=== PATIENT | female | born 1960 | race Caucasian/White ===

== ENCOUNTER 2020-07-07 11:25 | Emergency (ER) | payer OTHER, SELFPAY ==
[2020-07-07 11:36] VITALS: BP 142/80; PULSE 81; RESP 16; TEMP 37.1; O2SAT 100; BMI 54.1
--- NOTE | 2020-07-07 12:50 | ED_ITS ---
HPI - General Adult General Chief complaint: Nausea/Vomiting/Diarrhea Stated complaint: fever covid testing Time Seen by Provider: 07/07/20 11:53 Source: patient Mode of arrival: ambulatory Limitations: no limitations History of Present Illness HPI narrative: 60-year-old female with below noted past medical history presents today with complaint of URI symptoms of rhinorrhea /congestion with some loss in taste and associated mild nausea vomiting /diarrhea for past 2 days. No associated pain or discomfort. No fever. GI symptoms described as relatively mild. States she went to the [place] [id number] area to go over testing however that area was closed to come to emergency room. Onset (ago): day(s) Severity: mild Associated symptoms: denies other symptoms Related Data Home Medications Medication Instructions Recorded Confirmed allopurinol 100 mg tablet 100 mg PO DAILY 06/27/20 06/27/20 calcium carbonate 600 mg (1,500 cap PO 06/27/20 06/27/20 mg)-vitamin D3 500 unit capsule nifedipine 20 mg capsule 20 mg PO TID 06/27/20 06/27/20 omeprazole 20 mg capsule,delayed 20 mg PO DAILY PRN 06/27/20 06/27/20 release omeprazole magnesium 20 mg 20 mg PO DAILY 06/27/20 06/27/20 tablet,delayed release progesterone micronized 200 mg 200 mg PO BEDTIME 06/27/20 06/27/20 capsule tramadol 50 mg tablet 50 mg PO TID PRN tab 06/27/20 06/27/20 Previous Rx's Medication Instructions Recorded estradiol 1 mg tablet 1 mg PO DAILY 90 Days #90 tab 06/27/20 lisinopril 5 mg tablet 5 mg PO DAILY 90 Days #90 tab 06/27/20 lorazepam 1 mg tablet 1 mg PO BID PRN 30 Days #60 tab 06/27/20 progesterone micronized 200 mg 200 mg PO BEDTIME 90 Days #90 cap 06/27/20 capsule Allergies Allergy/AdvReac Type Severity Reaction Status Date / Time cefaclor [From CECLOR] Allergy Intermediate RASH Unverified 06/07/20 16:37 cefuroxime [From CEFTIN] Allergy Intermediate RASH Unverified 06/07/20 16:37 cephalexin [From KEFLEX] Allergy Intermediate RASH Unverified 06/07/20 16:37 Penicillins [PENICILLINS] Allergy Intermediate SHORTNESS Unverified 06/07/20 16:37 OF BREATH sulfamethoxazole Allergy Intermediate RASH Unverified 06/07/20 16:37 [From BACTRIM] Sulfa (Sulfonamide Allergy Unknown hives,heart Unverified 03/07/20 00:00 Antibiotics) racing Review of Systems Review of Systems: Constitutional: No Weight loss, No Fever, No Chills, No Night Sweats, No Fatigue, No Malaise ENT/Mouth: No Hearing loss, No Ear Pain, No Nasal Congestion, No Sinus Pain, No Hoarseness, No sore throat, No Rhinorrhea, No Swallowing Difficulty Eyes: No Eye Pain, No Swelling, No Redness, No Foreign Body, No Discharge, No Vision Changes Cardiovascular: No Chest Pain, No SOB, No Dyspnea on Exertion, No Orthopnea, No Edema, No Palpitations Respiratory: No Cough, No Sputum, No Wheezing, No Smoke Exposure, No Dyspnea Gastrointestinal: No Nausea, No Vomiting, No Diarrhea, No Constipation, No abdominal Pain, No Hematochezia, No Melena Genitourinary: no irregular bleeding, No Dysuria, No Urinary Frequency, No Hematuria, No Urinary Incontinence, No Urgency, No Flank Pain, No Urinary Flow Changes, No Hesitancy Musculoskeletal: No joint pain, No Myalgias, No Joint Swelling Skin: No Skin Lesions, No rash Neuro: No Weakness, No Numbness, No Paresthesias, No Loss of Consciousness, No Dizziness, No Headache Psych: No Social Issues Heme/Lymph: No Bruising, No Bleeding,No Lymphadenopathy Endocrine: No Polyuria, No Polydipsia, No Temperature Intolerance Yes all other systems are reviewed and are negative PMFSH Past Medical History Attestation statement: The following information was validated with the patient. Medical History Anxiety GERD (gastroesophageal reflux disease) Gout Hypertension Insomnia Menopausal symptoms Migraine Osteoarthritis of knees, bilateral Overweight (BMI 25.0-29.9) Raynaud's disease Rheumatoid factor positive Vitamin D deficiency Surgical History deliv NOS-unsp History of appendectomy History of bunionectomy of right great toe Normal colonoscopy (~03/01/14) S/P bunionectomy (~12/25/16) S/P bunionectomy (~02/18/19) S/P foot surgery, left (~06/2016) Family History Family History Father Diabetes Myocardial infarct Hx of CABG Mother No problems noted. Social History Social History Smoking Status: Former smoker Advance Directives: No Advance Directives Information Provided: No Physical Exam Vital Signs: Vital Signs: Vital Signs Temp Pulse Resp BP Pulse Ox 07/07/20 11:36 98.7 F 81 16 142/80 H 100 Body Mass Index 54.1 Reviewed Const: General: cooperative and healthy appearing; No acute distress or intoxicated appearing Nutritional Appearance: average body habitus Orientation/consciousness: patient oriented x3 HENMT: Head: Yes normal to inspection Ears: hearing grossly normal bilaterally Eyes: General: appearance normal, both eyes and all related structures Visual Joyce: normal visual joyce by confrontation Neck: Neck: Yes normal visual inspection Thyroid: Thyroid normal Chest: Chest palpation & inspection: normal inspection of the chest Resp: Effort & Inspection: normal respiratory effort Cardio: Jugular venous distension: no JVD GI: Inspection: Yes normal to inspection Percussion: Yes normal to percussion Auscultation: normal bowel sounds : General: Yes no CVA tenderness Back/Spine/Pelvis: Back: no CVA tenderness Skin: General skin exam: no rashes or lesions noted Neuro: General: patient oriented x3 Extrem: General: Yes normal to inspection Course Course Course Narrative: COVID-19 pending. CDC guidelines provided. Precautions/ follow-up/return instructions provided. Verbalized understanding. Stable for discharge. Discharge Plan Discharge Clinical Impression: Viral syndrome, Gastroenteritis Patient Disposition: Home, Self-Care Instructions: Gastroenteritis (ED), Viral Syndrome (ED) Additional Instructions: Based on your symptoms and history we have sent a COVID-19. Although your RESULT IS PENDING at this time. RESULTS should return within 72 hours. At this time you will be contacted with either NEGATIVE OR POSITIVE results. -Please wait until we contact you for your results. At this time you will be okay for discharge. Please plan for self quarantine for up to 14 days. Do not expose yourself to others. You may not go to work. If testing does come back negative you may return to activities as long as you are no longer having any symptoms for at least 3 days. Please continue to follow cold instructions and wash your hands frequently. You may take Tylenol as directed on the bottle for pain or fever. Patient seen in the emergency department on 03/16/2020 and should be excused from work until negative test results AND until 72 hours without any symptoms AND at least 10 days have passed since symptoms first appeared or since last exposure to COVID-19 positive patient CDC Guidelines for home isolation: - Stay away from others - WEAR A MASK if you are sick AND STAY HOME - Cover your mouth and nose with a tissue when you cough or sneeze. Dispose of tissues in a lined trash can and wash your hands immediately with soap and water for at least 20 seconds. If soap and water are not available, clean hands with alcohol-based hand enrollment services dean that contains at least 60% alcohol. - Clean your hands often with soap and water for at least 20 seconds - Avoid touching your eyes, nose and mouth with unwashed hands - Do not share dishes, drinking glasses, cups, eating utensils, towels, or bedding with other people in your home. After using these items, wash them thoroughly with soap and water or put in the enterprise engineer. - Clean high-touch surfaces in your isolation area ( sick room and bathroom) every day; let a caregiver clean and disinfect high-touch surfaces in other areas of the home. Clean the area or item with soap and water or another detergent if it is dirty. Then, use a household disinfectant. - Limit contact with pets and animals: If you must care for a pet, wash your hands before and after interacting with them Prescriptions: No Action tramadol 50 mg tablet 50 mg PO TID PRNRF: 0 omeprazole magnesium [Prilosec OTC] 20 mg tablet,delayed release (DR/EC) 20 mg PO DAILY RF: 0 nifedipine 20 mg capsule 20 mg PO TID RF: 0 allopurinol 100 mg tablet 100 mg PO DAILY RF: 0 calcium carbonate-vitamin D3 [Calcium 600 with Vitamin D3] 600 mg(1,500mg) - 500 unit capsule PO RF: 0 progesterone micronized 200 mg capsule 200 mg PO BEDTIME RF: 0 omeprazole 20 mg capsule,delayed release(DR/EC) 20 mg PO DAILY PRNRF: 0 lorazepam 1 mg tablet 1 mg PO BID PRN (Reason: anxiety) 30 Days Qty: 60 RF: 1 lisinopril 5 mg tablet 5 mg PO DAILY 90 Days Qty: 90 RF: 3 estradiol 1 mg tablet 1 mg PO DAILY 90 Days Qty: 90 RF: 0 progesterone micronized 200 mg capsule 200 mg PO BEDTIME 90 Days Qty: 90 RF: 0 Referrals: Wang Urbina MD [Primary Care Provider] - 1 week (Phone visit ) Stand Alone Forms: Work/School Release Interventions: ED Discharge Assessment Last Done: 07/07/20 12:04 Discharge Date/Time: 07/07/20 12:08
== END 2020-07-07 12:08 | disposition home or self-care (01) ==
PROVIDERS: Nurse Practitioner Primary Care; Emergency Provider Emergency Medicine; PCP Internal Medicine
DX: B34.9 Viral infection, unspecified (principal); Z20.828 Contact with and (suspected) exposure to other viral communicable diseases; K52.9 Noninfective gastroenteritis and colitis, unspecified; I10 Essential (primary) hypertension
CPT/HCPCS: 87635; 99283

== ENCOUNTER → 2020-07-18 08:16 | Outpatient (BNVA) | payer OTHER, SELFPAY | PROVIDERS: PCP Internal Medicine; Referring Provider Internal Medicine; Visit Provider Student in an Organized Health Care Education/Training Program | DX: Z76.89 Persons encountering health services in other specified circumstances (principal) ==

== ENCOUNTER 2020-10-10 14:33 | Outpatient (REF) | payer SELFPAY ==
--- NOTE | 2020-10-10 | US_ITS ---
EXAMINATION: US EXTREMITY NON-VASCULAR CLINICAL INFORMATION: Lump along the right dorsal distal foot. COMPARISON: None TECHNIQUE: Limited imaging through the right foot was performed. FINDINGS: There is a hypoechoic/heterogeneous mass in the area of palpable lump approximately 2 cm above the right great toe. By clinical palpation, the lump is painful and moves with the big toe movement. The lump measures approximately 0.9 x 0.5 x 0.3 cm by ultrasound. US/US extremity nonvascular IMPRESSION: Heterogeneous elliptical solid mass-oriented longitudinally along the right foot. It is likely a nerve sheath neuroma or a fibroma. Giant cell tumor of the tendon sheath and ganglion cyst is considered less likely. For definite diagnosis evaluation with MRI can be performed.
== END 2020-10-10 14:34 | disposition home or self-care (01) ==
LOC: HO.US 14:33
PROVIDERS: Visit Provider Podiatrist
DX: M67.471 Ganglion, right ankle and foot (principal)
CPT/HCPCS: 76882

== ENCOUNTER 2020-11-13 10:22 | Outpatient (REF) | payer BC, SELFPAY ==
--- NOTE | 2020-11-13 10:34 | ECG_ITS ---
Test Reason : Z01.818 - Encounter for other preprocedural examination Blood Pressure : / mmHG Vent. Rate : 073 BPM Atrial Rate : 073 BPM P-R Int : 136 ms QRS Dur : 086 ms QT Int : 380 ms P-R-T Axes : 071 049 045 degrees QTc Int : 418 ms Normal sinus rhythm Normal ECG When compared with ECG of 18-DEC-2016 08:31, Nonspecific T wave abnormality no longer evident in Anterior leads Referred By: Wang Urbina Electronically Signed By:LAZARA JONES MD
[2020-11-13 11:17] LABS: MANUAL DIFF FLAG NO
[2020-11-13 11:38] LABS: Basophils Absolute Auto 0.1 X10*3/uL (0.0-0.2); Basophils Percent Auto 1.1 % (0-2); Eosinophils Absolute Auto 0.2 X10*3/uL (0.0-0.4); Eosinophils Percent Auto 3.1 % (0-4); Hematocrit 40.1 % (37-47); Hemoglobin 13.7 g/dl (12.0-16.0); Imm Gran Abs Auto 0.02 X10*3/uL (0.00-0.03); Imm Gran Pct Auto 0.3 % (0.0-0.4); Lymphocytes Percent Auto 26.6 % (20-40); Mean Corpuscular HGB Conc 34.2 g/dl (31.0-35.0); Mean Corpuscular Hemoglobin 32.7 pg (27.0-33.0); Mean Corpuscular Volume 95.7 fL (80-98); Monocytes Absolute Auto 0.8 X10*3/uL (0.1-1.2); Monocytes Percent Auto 10.8 % (2-11); Neutrophils Absolute Auto 4.3 X10*3/uL (2.0-8.3); Neutrophils Percent Auto 58.1 % (45-73); Platelet Count 284 X10*3/uL (160-400); Red Blood Count 4.19 X10*6/uL (4.20-5.50); Red Cell Distribution Width 11.6 % (11.0-16.0); White Blood Count 7.4 X10*3/uL (4.8-10.8)
[2020-11-13 11:45] LABS: Alanine Aminotransferase 27 U/L (0-31); Albumin Level 4.2 g/dL (3.5-5.0); Alkaline Phosphatase 63 U/L (39-117); Anion Gap 13 (12-20); Aspartate Amino Transferase 22 U/L (5-31); Bilirubin Total 0.4 mg/dL (0.0-1.0); Blood Urea Nitrogen 10 mg/dL (9-16); Calcium 9.7 mg/dL (8.4-10.2); Carbon Dioxide 29 mmol/L (22-29); Chloride 104 mmol/L (96-108); Cholesterol 101 mg/dL; Estimated Glomerular Filt Rate > 60; Glucose Fasting 85 mg/dL (60-99); HDL Cholesterol 48 mg/dL; LDL Cholesterol Calculated 39 mg/dl; Potassium 4.6 mmol/L (3.3-5.1); Sodium 141 mmol/L (135-145); Total Protein 7.1 g/dL (6.5-8.0); Triglycerides 71 mg/dL
[2020-11-13 12:09] LABS: TSH reflex Free T4 0.81 uIU/mL (0.32-4.0)
[2020-11-13 13:26] LABS: Erythrocyte Sedimentation Rate 5 MM/HR (0-20)
== END 2020-11-13 10:23 | disposition home or self-care (01) ==
LOC: HO.LAB 10:22
PROVIDERS: PCP Internal Medicine; Visit Provider Internal Medicine
DX: Z01.818 Encounter for other preprocedural examination (principal); I73.00 Raynaud's syndrome without gangrene; I10 Essential (primary) hypertension; E11.9 Type 2 diabetes mellitus without complications; R76.8 Other specified abnormal immunological findings in serum; E78.5 Hyperlipidemia, unspecified; E55.9 Vitamin D deficiency, unspecified
CPT/HCPCS: 36415; 80053; 80061; 82306; 84443; 85025; 85652; 93005

== ENCOUNTER 2020-11-22 06:43 | Day surgery (SDC) | payer BC, SELFPAY ==
[2020-11-16 14:52] VITALS: BMI 25.9
--- NOTE | 2020-11-21 14:31 | HP_ITS ---
DATE OF SERVICE: 11/22/2020 PREOPERATIVE DIAGNOSES: 1. Ganglion cyst, right foot. 2. 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 PLANNED PROCEDURE: 1. Excision of ganglion cyst, right foot. 2. Extensor tenotomy, right 5th metatarsophalangeal joint. PAST MEDICAL HISTORY: Significant for high blood pressure, arthritis, Raynaud's, hip, back and knee pain, gout, chickenpox, poor circulation, bunions. CURRENT MEDICATIONS: Vitamin and calcium plus D, lorazepam, progesterone, estradiol, lisinopril, allopurinol, omeprazole. PAST SURGICAL HISTORY: Appendectomy, , colonoscopy, left foot bunionectomy with 5th metatarsal head excision, right foot bunionectomy with 5th metatarsal head excision, right foot revisional bunionectomy. FAMILY HISTORY: Poor circulation, heart attack, high blood pressure. SOCIAL HISTORY: The patient is a nonsmoker. Denies any illicit drug use or alcohol use. 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 ALLERGIES: PENICILLIN, BACTRIM, CEFACLOR, KEFLEX, CEFTIN, AMOXICILLIN, AND VICODIN. HOSPITALIZATIONS: Denies any hospitalizations. REVIEW OF SYSTEMS: Within normal limits. HISTORY OF PRESENT ILLNESS: This is a 60-year-old female, presents with a painful lump on the top of her right mid foot, that has been present for several months, that has been gradually getting worse. She has tried rest, orthotics, cortisone injections, and an ultrasound. She also complains of contracture of the right 5th toe. The patient had a 5th metatarsal head excision, has had contracture of the 5th extensor tendon. PHYSICAL EXAMINATION: GENERAL: Reveals a pleasant, alert, well-nourished, well-developed, well-hydrated individual, with proper body habitus and attention to hygiene, in no acute distress. She is oriented x3. NEUROLOGICAL EXAM: Reveals intact sensorium. Pain sensation is normal. Vibratory sensation is intact. Pinprick sensation is normal. The patient denies any anesthesia, burning, paresthesias, or tingling bilaterally. VASCULAR EXAM: DP and PT pulses are 3/4 bilaterally. Capillary refill time is immediate to all digits. Skin temperature is warm to cool proximal to distal. Hair growth, texture, elasticity are normal bilaterally. Pigmentation is normal bilaterally and there is no edema. DERMATOLOGICAL EXAM: Shows signs of a painful, non-translucent, nonpulsatile, nonmobile, subcutaneous tumor approximately 10 mm on the dorsal mid foot, on the right foot along the EHL tendon. ORTHOPEDIC EXAM: Muscle strength is 5/5 in all symmetrical groups. Digital deformity shows metatarsophalangeal joint contracture and dorsal subluxation of the 5th digit that is flexible on the right foot. PLAN: The patient is scheduled for surgery at [facility]. Surgical procedures were discussed in detail with the patient including risks of surgery and not having surgery, the potential surgical complications. The potential surgical outcomes and complications including, but not limited to delayed or nonhealing, excessive swelling, excessive scarring, failure of the procedure, floppy toe infection, nonunion, numbness, chronic pain, recurrence, shortened toe, joint stiffness, and loss of toe, foot, life, or limb. The anesthesia and the usual postoperative course were also discussed. No guarantees were given. We decided on performing an excision of ganglion cyst, and tenotomy of the right 5th toe. Per patient requests based on patient's complaints, medical history, social history, physical exam, x-ray analysis, living and driving conditions to ambulate with a cast boot, cane, crutches, walker in the required postoperative period. Hermila checked prior to giving narcotic pain medications prescription, pain medications using the lowest dosage of narcotics to a short duration of time. She was given a written prescription of oxycodone 5 mg as well as ibuprofen 800 mg and she can stagger taking 800 mg Motrin with extra-strength Tylenol as needed for discomfort. The patient will be weightbearing as tolerated in a surgical shoe or cast boot per her preference. Allison Dorantes DPM LP/ANNELISE / [id number] DEWEY
[2020-11-22 07:20] VITALS: BP 132/88; PULSE 75; RESP 16; TEMP 37.2; O2SAT 98
--- NOTE | 2020-11-22 07:20 | HO.ANESPROP2 ---
[facility] Active Problems Active Problems: All Active Problems (Updated 11/13/20 @ 10:05 by Wang Urbina MD) Ganglion cyst of right foot (Acute) Preoperative examination (Acute) Primary osteoarthritis of hands, bilateral (Acute) Hypertension (Acute) Raynaud's disease (Acute) Rheumatoid factor positive (Acute) Osteoarthritis of knees, bilateral (Acute) Migraine (Acute) Gout (Acute) GERD (gastroesophageal reflux disease) (Acute) Vitamin D deficiency (Acute) Menopausal symptoms (Acute) Insomnia (Acute) Anxiety (Acute) Overweight (BMI 25.0-29.9) (Acute) Past Medical History Medical History Anxiety Ganglion cyst of right foot GERD (gastroesophageal reflux disease) Gout Hypertension Insomnia Menopausal symptoms Migraine Osteoarthritis of knees, bilateral Overweight (BMI 25.0-29.9) Primary osteoarthritis of hands, bilateral Raynaud's disease Rheumatoid factor positive Vitamin D deficiency Family History Family History Father Diabetes Myocardial infarct Hx of CABG Mother No problems noted. Surgical History Surgical History deliv NOS-unsp History of appendectomy History of bunionectomy of right great toe Normal colonoscopy (~03/01/14) S/P bunionectomy (~12/25/16) S/P bunionectomy (~02/18/19) S/P foot surgery, left (~06/2016) Social History Social History Alcohol intake: current Alcohol intake frequency: a few times a month Smoking Status: Former smoker Smoking Quit Date: 2016 Use of substances other than those prescribed or required for medical reasons: No Advance Directives: No Advance Directives Information Provided: No Advance Directives on File: No Meds Allergies Allergy/AdvReac Type Severity Reaction Status Date / Time cefaclor [From CECLOR] Allergy Intermediate RASH Verified 11/13/20 09:34 cefuroxime [From CEFTIN] Allergy Intermediate RASH Verified 11/13/20 09:34 cephalexin [From KEFLEX] Allergy Intermediate RASH Verified 11/13/20 09:34 Penicillins [PENICILLINS] Allergy Intermediate SHORTNESS Verified 11/13/20 09:34 OF BREATH sulfamethoxazole Allergy Intermediate RASH Verified 11/13/20 09:34 [From BACTRIM] Sulfa (Sulfonamide Allergy Unknown hives,heart Verified 11/13/20 09:34 Antibiotics) racing acetaminophen [From Vicodin] Allergy Stomach Verified 11/22/20 07:42 Upset hydrocodone [From Vicodin] Allergy Stomach Verified 11/22/20 07:42 Upset Home Medications Medication Instructions Recorded Confirmed Last Taken Type calcium carbonate 600 mg (1,500 1 cap PO DAILY 06/27/20 11/16/20 Unknown History mg)-vitamin D3 500 unit capsule omeprazole 20 mg capsule,delayed 20 mg PO DAILY 06/27/20 11/16/20 Unknown History release estradiol 1 mg tablet 1 mg PO DAILY tab 11/13/20 11/16/20 Unknown History nifedipine 20 mg PO BID 11/16/20 11/16/20 Unknown History Exam Exam Date and Time: November 22, 2020 0720 Height,Weight and Vital Signs: Height 5 ft 1 in Weight 62.142 kg Airway Mallampati Class: II TM Dist: >3cm Neck ROM: Full Loose/Missing/Broken Teeth: No Heart: RRR Lungs: CTA Assessment and Plan Assessment Anesthesia Assessment: Anesthesia Plan Discussed and Chart Reviewed Final Anesthetic Review NPO: Yes ASA Class: I, II, III, IV, V, and Emergency Final Preanesthetic Review: Meds/Allgs Chart Reviewed, Consent Obtained/Reviewed and Anes Risks/Benef Reviewed Patient Risk: Low Procedure Risk: Low Anesthetic Plan Anesthetic Plan: MAC: Disposition: Standard PACU
--- NOTE | 2020-11-22 08:31 | MHC.SHP ---
Pre-Procedural Eval Section A The patient is an INPATIENT: No Changes since office visit: No Cold of Flu in the past 2 weeks, No New Medical Problems, No Changes in Medication and No Patient answered all questions The History & Physical has been completed within 30 days and I have reviewed it.: Yes Section B Chief Complaint: ganglion foot Allergies: Allergies Allergy/AdvReac Type Severity Reaction Status Date / Time cefaclor [From CECLOR] Allergy Intermediate RASH Verified 11/13/20 09:34 cefuroxime [From CEFTIN] Allergy Intermediate RASH Verified 11/13/20 09:34 cephalexin [From KEFLEX] Allergy Intermediate RASH Verified 11/13/20 09:34 Penicillins [PENICILLINS] Allergy Intermediate SHORTNESS Verified 11/13/20 09:34 OF BREATH sulfamethoxazole Allergy Intermediate RASH Verified 11/13/20 09:34 [From BACTRIM] Sulfa (Sulfonamide Allergy Unknown hives,heart Verified 11/13/20 09:34 Antibiotics) racing acetaminophen [From Vicodin] Allergy Stomach Verified 11/22/20 07:42 Upset hydrocodone [From Vicodin] Allergy Stomach Verified 11/22/20 07:42 Upset Plan I have reviewed the history and physical and performed a pertinent physical examination on my patient. No changes have occurred unless specified.
--- NOTE | 2020-11-22 09:15 | PM.OP ---
Brief Operative Note Date of Service: 11/22/20 Pre-op diagnosis: Ganglion cyst right foot, contracture 5th MPJ right Post-op diagnosis: same Procedure: Right foot ganglion excision, tenotomy 5th MPJ right Implants: none Surgeon: Allison Dorantes Anesthesia: GLMA Blanking Press Operator: Jb Gaitan Estimated blood loss (mL): 1 Tourniquet time (min): 15 Pathology: other Condition: stable Disposition: PACU
[2020-11-22 09:17] VITALS: BP 123/78; PULSE 73; RESP 16; TEMP 36.6; O2SAT 99
[2020-11-22 09:22] VITALS: BP 114/80; PULSE 77; RESP 17; O2SAT 98
[2020-11-22 09:27] VITALS: BP 128/82; PULSE 65; RESP 17; O2SAT 98
[2020-11-22 09:42] VITALS: BP 136/85; PULSE 68; RESP 17; TEMP 36.6; O2SAT 96
--- NOTE | 2020-11-26 12:52 | OP_ITS ---
SURGEON: Allison Dorantes DPM PREOPERATIVE DIAGNOSES: 1. Ganglion cyst, right foot. 2. Dislocated metatarsophalangeal joint, contracture of right 5th toe. POSTOPERATIVE DIAGNOSES: 1. Ganglion cyst, right foot. 2. Dislocated metatarsophalangeal joint, contracture of right 5th toe. PROCEDURES PERFORMED: 1. Excision of ganglion cyst, right foot. 2. Relocation open tenotomy of dislocated 5th metatarsophalangeal joint, right foot. HEMOSTASIS: Pneumatic ankle tourniquet set at 250 mmHg for 15 minutes. ESTIMATED BLOOD LOSS: Less than 5 mL. COMPLICATIONS: None. ANESTHESIA: LMA with local consisting of 0.5% Marcaine plain and 2% lidocaine plain and postoperatively of 0.5% Marcaine plain and 1 mL of dexamethasone. ASSISTANTS: Jb Gaitan DPM SPECIMENS: Ganglion right foot INDICATIONS FOR SURGERY: The patient had a painful soft tissue mass noted to the right foot overlying the EHL tendon that had been getting bigger and smaller over time, that has been very uncomfortable in shoe gear. The patient also complained of contracture of the 5th MPJ. The above-mentioned surgeries were discussed in detail with the patient including risks, benefits, and possible complications. No guarantees were given, and written and oral informed consent was obtained. DESCRIPTION OF PROCEDURE: The patient was brought into the operating room, placed on operating table in the supine position. Following IV sedation, the above-mentioned local anesthetic was injected about the right foot in a regional field block fashion. 1 g of vancomycin was administered preoperatively prior to the start of anesthesia. The right foot was scrubbed, prepped, and draped in a sterile manner. The pneumatic ankle tourniquet was deflated and attention was first directed to the 5th digit at the level of the 5th metatarsophalangeal joint. A small incision was made and the extensor tendon was transected allowing the 5th digit to drift into a more corrected position and the adhesions were also transected at the 5th MPJ. The wound was irrigated with sterile saline and was reapproximated with 4-0 nylon in an interrupted suture technique. Attention was then directed to the dorsal aspect of the mid foot overlying the EHL tendon, where preoperatively the ganglion cyst was noted. The ganglion cyst on the morning of surgery was smaller than usual and was marked in the preoperative area and a small incision was made overlying the palpable cyst. Upon incision, there was noted to be some cyst-like tissue and a soft tissue mass was removed in total and passed my operative site and sent for pathology. Directly plantar to the soft tissue mass was the EHL tendon, there was noted to be Prolene stitches in the EHL tendon from a previous EHL tendon lengthening the patient had at a previous surgery. The tendon was completely healed at this time and functional. Therefore, it was noted that the Prolene was to be possibly forming the ganglion cyst. The Prolene was removed incompletion and passed from my operative site. The tendon was remained intact and functioned normally. The wound was then irrigated with copious amounts of normal sterile saline and the skin was reapproximated with 4-0 Monocryl in a continuous running fashion. The dorsal incision was dressed with Steri-Strips. The lateral incision was dressed with Xeroform and the foot was dressed with Betadine-soaked gauze, 4 x 4s, fluffs, Kerlix, cast padding, and an Edmundo bandage. The pneumatic ankle tourniquet was deflated. Prompt capillary refill was noted to all 5 digits. Prior to the application of the bandage, a postoperative injection of 5 mL of 0.5% Marcaine plain and 1 mL of dexamethasone was administered to the right foot. The patient was transferred to recovery room with vital signs stable and vascular status at preoperative levels. Following a period of postoperative recovery, the patient will be discharged home with written and oral postoperative instructions, and the patient will follow up in my office for all postoperative followup care. She will be weightbearing as tolerated to the right foot in a surgical shoe and crutches as needed. She has been given oxycodone for breakthrough pain and recommended taking Tylenol or Motrin for any additional pain medication. Allison Dorantes DPM LP/ANNELISE / [id number] DEWEY
== END 2020-11-22 10:15 | disposition home or self-care (01) ==
PROVIDERS: PCP Internal Medicine; Visit Provider Podiatrist
PROC: (CPT 28090; principal; 2020-11-22 08:30)
DX: M67.471 Ganglion, right ankle and foot (principal); M24.574 Contracture, right foot; M20.5X1 Other deformities of toe(s) (acquired), right foot; M10.9 Gout, unspecified; M05.9 Rheumatoid arthritis with rheumatoid factor, unspecified; I10 Essential (primary) hypertension; K21.9 Gastro-esophageal reflux disease without esophagitis; I73.00 Raynaud's syndrome without gangrene; Z79.899 Other long term (current) drug therapy; Z88.0 Allergy status to penicillin; Z88.2 Allergy status to sulfonamides; Z88.8 Allergy status to other drugs, medicaments and biological substances
CPT/HCPCS: 28090; 28234; 88304; J1100; J1885; J2250; J2405; J3010; J3370

== ENCOUNTER 2021-03-21 09:44 | Day surgery (SDC) | payer BC, SELFPAY ==
[2021-03-15 11:37] VITALS: BMI 25.9
[2021-03-19 14:38] LABS: MANUAL DIFF FLAG NO
[2021-03-19 14:41] LABS: Basophils Percent Auto 0.5 % (0-2); Eosinophils Absolute Auto 0.3 X10*3/uL (0.0-0.4); Eosinophils Percent Auto 3.9 % (0-4); Hematocrit 40.8 % (37-47); Hemoglobin 13.6 g/dl (12.0-16.0); Imm Gran Abs Auto 0.02 X10*3/uL (0.00-0.03); Imm Gran Pct Auto 0.3 % (0.0-0.4); Lymphocytes Absolute Auto 2.1 X10*3/uL (1.2-4.9); Lymphocytes Percent Auto 28.5 % (20-40); Mean Corpuscular HGB Conc 33.3 g/dl (31.0-35.0); Monocytes Absolute Auto 0.7 X10*3/uL (0.1-1.2); Monocytes Percent Auto 9.9 % (2-11); Neutrophils Absolute Auto 4.3 X10*3/uL (2.0-8.3); Neutrophils Percent Auto 56.9 % (45-73); Platelet Count 259 X10*3/uL (160-400); Red Blood Count 4.25 X10*6/uL (4.20-5.50); Red Cell Distribution Width 11.6 % (11.0-16.0); White Blood Count 7.5 X10*3/uL (4.8-10.8)
[2021-03-19 15:17] LABS: Alanine Aminotransferase 31 U/L (0-31); Albumin Level 4.3 g/dL (3.5-5.0); Alkaline Phosphatase 68 U/L (39-117); Anion Gap 13 (12-20); Aspartate Amino Transferase 24 U/L (5-31); Bilirubin Total 0.2 mg/dL (0.0-1.0); Blood Urea Nitrogen 9 mg/dL (9-16); Calcium 9.8 mg/dL (8.4-10.2); Carbon Dioxide 26 mmol/L (22-29); Chloride 105 mmol/L (96-108); Creatinine Clr Calc Pharmacy 71.1; Estimated Glomerular Filt Rate > 60; Glucose Random 125 mg/dL (60-115); Potassium 4.2 mmol/L (3.3-5.1); Sodium 140 mmol/L (135-145); Total Protein 7.1 g/dL (6.5-8.0)
--- NOTE | 2021-03-20 14:09 | HP_ITS ---
DATE OF SERVICE: 03/21/2021 PREOPERATIVE DIAGNOSIS: Painful hardware, right foot. PLANNED PROCEDURE: Removal of painful hardware, right foot. PAST MEDICAL HISTORY: Significant for high blood pressure; arthritis; Raynaud; hip, back, and knee pain; gout; chickenpox; poor circulation; and tailor's bunions as well as hallux abductovalgus deformity. CURRENT MEDICATIONS: Calcium, lorazepam, progesterone, estradiol, lisinopril, allopurinol, omeprazole. SURGICAL HISTORY: Appendectomy; ; colonoscopy; left Brady excision of fifth metatarsal head, 2014; right Brady excision of fifth metatarsal head, 2016; Lapidus bunionectomy, 2018; and excision of ganglion cyst, right foot, 2020. FAMILY HISTORY: Heart attack, poor circulation, diabetes, hypertension. SOCIAL HISTORY: Patient is a nonsmoker. Denies any illicit drug use. 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 ALLERGIES: TO PENICILLIN, BACTRIM, CEFACLOR, KEFLEX, CEFTIN, AMOXICILLIN, AND VICODIN. HOSPITALIZATIONS: Denied. REVIEW OF SYSTEMS: Within normal limits. HISTORY OF PRESENT ILLNESS: The patient presents with aching, tenderness, and swelling to the top of her right mid foot over the incision site from her previous bunionectomy that has been present for several weeks and is gradually getting worse, especially with standing for her job. The patient relates she is not able to stand for a whole shift of 8 hours at her job currently. She has tried rest, change in shoes, orthotics, and padding without any significant relief. PHYSICAL EXAMINATION: GENERAL: Reveals a pleasant, alert, well-nourished, well hydrated, well developed individual, who demonstrates proper attention to body habitus. She is in no acute distress. She is oriented x3. NEUROLOGICAL: Reveals intact sensorium. Pain sensation is normal. Vibratory sensation is intact. The patient denies any anesthesias, burning paresthesias, or tingling bilaterally. VASCULAR: DP and PT pulses are 3/4 bilaterally. Capillary refill is immediate to all digits. Skin temperature, elasticity, and turgor are normal. There is no edema. DERMATOLOGICAL: Reveals normal texture, elasticity, and turgor. There is a previous incision noted to the 1st metatarsal cuneiform and 1st metatarsophalangeal joint as well as over the 5th metatarsal head of the right foot. ORTHOPEDIC: Reveals pain on palpation to the 1st metatarsal cuneiform joint at the level of the hardware, prominent hardware noted to the distal implantation, and thin skin overlying hardware. PLAN: The patient is scheduled for surgery. Surgical procedures to treat the patient's foot problems were discussed. We reviewed the risks of procedure, removal of painful hardware versus not having the procedure, including persistent pain, deformity, risk of skin ulceration, infection, and loss of toe. We discussed the potential procedure complications including, but not limited to, pain; swelling; bleeding; scarring; numbness; infection; delayed or nonhealing; floppy, unstable, or shortened toe; recurrence; failure of procedure; over-correction; and the need for further surgery; as well as possibility of loss of toe, foot, life, or limb. We discussed the use of local and IV anesthesia and the usual postoperative healing. No guarantees were given. The patient understands a verbal understanding of the above conversation and all other questions were answered to their satisfaction. The patient would like to proceed with surgery. She will obtain preoperative labs as well as medical clearance for surgery and anesthesia. She is made aware to stop any and all blood thinners including fish oil at least 1 week prior to surgery. She is made aware that driving may not be allowed during a portion of the postoperative period. The patient made aware not to utilize any smoking tobacco products. The [employer] was checked prior to prescription for narcotic pain medications. The patient will be partial weightbearing to the right foot in a surgical boot and crutches as needed. The patient will be out of work for approximately 4 weeks postoperatively to facilitate healing. The patient will follow up in my office for all postoperative followup care. Allison Dorantes DPM LP/ANNELISE / [id number]
[2021-03-21 10:49] VITALS: BP 109/74; PULSE 76; RESP 16; TEMP 36.6; O2SAT 97
[2021-03-21] MEDS: vancomycin HCL 1,000 MG in 0.9 % Sodium Chloride 250 ML 270 MG IV (11:03)
--- NOTE | 2021-03-21 11:11 | HO.ANESPROP2 ---
PENDING SALE TO [facility] Active Problems Active Problems: All Active Problems (Updated 03/19/21 @ 14:32 by Wang Urbina MD) Contracture of toe of right foot (Acute) Preoperative examination (Acute) Ganglion cyst of right foot (Acute) Primary osteoarthritis of hands, bilateral (Acute) Hypertension (Acute) Raynaud's disease (Acute) Rheumatoid factor positive (Acute) Osteoarthritis of knees, bilateral (Acute) Migraine (Acute) Gout (Acute) GERD (gastroesophageal reflux disease) (Acute) Vitamin D deficiency (Acute) Menopausal symptoms (Acute) Insomnia (Acute) Anxiety (Acute) Overweight (BMI 25.0-29.9) (Acute) Past Medical History Medical History Anxiety Contracture of toe of right foot Ganglion cyst of right foot GERD (gastroesophageal reflux disease) Gout Hypertension Insomnia Menopausal symptoms Migraine Osteoarthritis of knees, bilateral Overweight (BMI 25.0-29.9) Primary osteoarthritis of hands, bilateral Raynaud's disease Rheumatoid factor positive Vitamin D deficiency Family History Family History Father Diabetes Myocardial infarct Hx of CABG Mother No problems noted. Surgical History Surgical History deliv NOS-unsp History of appendectomy History of bunionectomy of right great toe Normal colonoscopy (~03/01/14) S/P bunionectomy (~12/25/16) S/P bunionectomy (~02/18/19) S/P foot surgery, left (~06/2016) S/P foot surgery, right Social History Social History Housing: House Are you a primary care aid to a significant other at home: No Do you presently have visiting nurse or other home services: No Alcohol intake: current Alcohol intake frequency: holidays/special occasions only Patient Tobacco Use Status: Former Tobacco user Quit Date: 2016 Tobacco use type: Cigarette Use of substances other than those prescribed or required for medical reasons: No Have you been hit, kicked, punched, or otherwise hurt by someone within the past year? 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 [employer] Meds Allergies Allergy/AdvReac Type Severity Reaction Status Date / Time cefaclor [From CECLOR] Allergy Intermediate RASH Verified 03/19/21 13:55 cefuroxime [From CEFTIN] Allergy Intermediate RASH Verified 03/19/21 13:55 cephalexin [From KEFLEX] Allergy Intermediate RASH Verified 03/19/21 13:55 Penicillins [PENICILLINS] Allergy Intermediate SHORTNESS Verified 03/19/21 13:55 OF BREATH sulfamethoxazole Allergy Intermediate RASH Verified 03/19/21 13:55 [From BACTRIM] Sulfa (Sulfonamide Allergy Unknown hives,heart Verified 03/19/21 13:55 Antibiotics) racing hydrocodone [From Vicodin] Allergy Stomach Verified 03/19/21 13:55 Upset Active Medications: Current Medications Generic Name Dose Route Start Last Admin Trade Name Freq PRN Reason Stop Dose Admin Acetaminophen 650 mg 03/21/21 11:08 Acetaminophen 325 Mg Tablet PO ONCE PRN Pain, Mild (Pain Scale 1-3) Vancomycin HCl 1,000 mg/ 270 mls @ 270 mls/hr 03/21/21 10:30 03/21/21 11:03 Sodium Chloride IV 03/21/21 11:29 270 mls/hr PREOP ONE Administration Lactated Ringer's 1,000 mls @ 50 mls/hr 03/21/21 11:15 Lr IVCONT .Q20H [facility] Ketorolac Tromethamine 15 mg 03/21/21 11:08 Ketorolac Tromethamine 15 Mg/Ml Vial IVPUSH ONCE PRN Pain, Moderate (Pain Scale 4-6 Ondansetron HCl 4 mg 03/21/21 11:08 Ondansetron Hcl 4 Mg/2 Ml Vial IVPUSH ONCE PRN Nausea and Vomiting Oxycodone HCl 5 mg 03/21/21 11:08 Oxycodone Hcl Immed Release 5 Mg Tablet PO ONCE PRN Pain, Severe (Pain Scale 7-10) Home Medications Medication Instructions Recorded Confirmed Last Taken Type calcium carbonate 600 mg (1,500 1 cap PO DAILY 06/27/20 03/19/21 Unknown History mg)-vitamin D3 500 unit capsule omeprazole 20 mg capsule,delayed 20 mg PO DAILY 06/27/20 03/19/21 03/21/21 07:00 History release nifedipine 20 mg PO BID 11/16/20 03/19/21 03/21/21 07:00 History Exam Exam Date and Time: March 21, 2021 1111 Height,Weight and Vital Signs: Height 5 ft 1 in Weight 137 lb Last Vital Signs Temp 97.8 F 03/21/21 10:49 Pulse 76 03/21/21 10:49 Resp 16 03/21/21 10:49 BP 109/74 03/21/21 10:49 Pulse Ox 97 03/21/21 10:49 Pertinent Lab Results Pertinent Lab Results: Laboratory Tests 03/19/21 03/19/21 14:03 14:03 WBC 7.5 RBC 4.25 Hgb 13.6 Hct 40.8 MCV 96.0 MCH 32.0 MCHC 33.3 RDW 11.6 Plt Count 259 MPV 10.0 Immature Gran % (Auto) 0.3 Neut % (Auto) 56.9 Lymph % (Auto) 28.5 [place] % (Auto) 9.9 Eos % (Auto) 3.9 Baso % (Auto) 0.5 Lymph # (Auto) 2.1 [place] # (Auto) 0.7 Eos # (Auto) 0.3 Baso # (Auto) 0.0 Abs Immat Gran (auto) 0.02 Absolute Neuts (auto) 4.3 Absolute Nucleated RBC 0.000 Nucleated RBC % (auto) 0.0 Sodium 140 Potassium 4.2 Chloride 105 Carbon Dioxide 26 Anion Gap 13 BUN 9 Creatinine 0.72 Estim Creat Clear Calc 71.1 Estimated GFR > 60 Random Glucose 125 H Calcium 9.8 Total Bilirubin 0.2 AST 24 ALT 31 Alkaline Phosphatase 68 Total Protein 7.1 Albumin 4.3 Airway Mallampati Class: II TM Dist: >3cm Neck ROM: Full Loose/Missing/Broken Teeth: No Heart: RRR Lungs: NL Assessment and Plan Assessment Anesthesia Assessment: Anesthesia Plan Discussed and Chart Reviewed Final Anesthetic Review NPO: Yes ASA Class: II Final Preanesthetic Review: No Changes in Pt Med Stat, Meds/Allgs Chart Reviewed, Consent Obtained/Reviewed and Anes Risks/Benef Reviewed Patient Risk: Low Procedure Risk: Low Anesthetic Plan Anesthetic Plan: MAC: Disposition: Standard PACU
--- NOTE | 2021-03-21 14:14 | PM.OP ---
Brief Operative Note Date of Service: 03/21/21 Pre-op diagnosis: Painful hardware right foot Post-op diagnosis: same Procedure: Removal of painful hardware right foot Implants: None Surgeon: Allison Dorantes Anesthesia: MAC and local Was an Barrel Brander used for this Procedure?: Yes Barrel Brander: Jb Gaitan Estimated blood loss (mL): 5 Tourniquet time (min): 24 Pathology: none sent Condition: stable Disposition: PACU
[2021-03-21 14:16] VITALS: BP 97/62; PULSE 80; RESP 14; TEMP 36.6; O2SAT 96
[2021-03-21] MEDS: oxyCODONE HCl Immed Release 5 MG TABLET PO (14:24)
[2021-03-21] MEDS: Acetaminophen 325 MG TABLET 650 MG PO (14:25)
[2021-03-21 14:34] VITALS: BP 107/71; PULSE 80; RESP 18; TEMP 36.6; O2SAT 94
--- NOTE | 2021-05-30 15:27 | OP_ITS ---
SURGEON: Allison Dorantes DPM PREOPERATIVE DIAGNOSIS: Painful hardware, right foot. POSTOPERATIVE DIAGNOSIS: Painful hardware, right foot. PROCEDURE PERFORMED: Right foot hardware removal. ESTIMATED BLOOD LOSS: 5 mL. COMPLICATIONS: None. ANESTHESIA: Monitored anesthetic care with local consisting preoperatively of 12 mL of 0.5% Marcaine plain and 2% lidocaine plain and postoperatively of 5 mL of 0.5% Marcaine plain and 1 mL of dexamethasone. ASSISTANTS: Jb Gaitan DPM. SPECIMENS: None. HEMOSTASIS: Pneumatic ankle tourniquet set at 225 mmHg for 24 minutes. INDICATIONS FOR SURGERY: The patient had a painful hardware noted to the right foot from a previous bunionectomy. On x-ray, the fusion site of the bunion was healed. The patient stated the plate was bothering her in her shoes with working. The above-mentioned surgery was discussed in detail with the patient including risks, benefits, and possible complications. No guarantees were given, and written and oral informed consent was obtained. PROCEDURE IN DETAIL: Patient was brought to the operating room, placed in operating table. Prior to the start of anesthesia, vancomycin was administered as a prophylactic preoperative antibiotic. The right foot was anesthetized with the above-mentioned local anesthetic and was scrubbed, prepped, and draped in a sterile manner. Attention was directed to the right foot at the level of the first metatarsal cuneiform joint. Incision was made overlying the painful hardware. The incision was deepened down to subcutaneous tissue. Great care was taken to retract any vital, neuro, and vascular structures; and all bleeders were cauterized as necessary. A capsulotomy was made medial and parallel to the extensor tendon to the level of the hardware. The soft tissues were freed from the plate and screws from the [employer] system. Using the screwdriver all 4 screws from the plate and the plate itself was removed in total and passed from the operative site. The holes from the screws were then backfilled with PRO-STIM from [place]. The interfrag screw was noted to be flush with the bone and when attempted to remove was spinning continuously. After numerous efforts to remove the screw, it was determined to leave the interfrag screw in for stability and also due to the inability to remove the screw as well as the patient did not relate any pain over the interfrag screw only the dorsal of the plate. The screw continued to be flush with the bone and without any protrusion. The wound was irrigated with normal sterile saline. The capsular structures were reapproximated with 3-0 Vicryl. The skin was reapproximated with 4-0 Monocryl in a continuous running fashion, and a postop injection of 5 mL of 0.5% Marcaine plain and 1 mL of dexamethasone was administered. The foot was then dressed with the zip line, Betadine-soaked gauze, 4x4s, fluffs, Kerlix, cast padding, and an Edmundo bandage. Pneumatic ankle tourniquet was deflated. Prompt capillary refill was noted to all 5 digits. The patient tolerated the procedure and anesthesia well, was transferred to the recovery room with vital signs stable and vascular status at preoperative levels. Following a period of postoperative recovery, the patient will be discharged to home with written and oral postoperative instructions. Allison Dorantes DPM LP/ANNELISE / [id number] [place]
== END 2021-03-21 15:42 | disposition home or self-care (01) ==
PROVIDERS: PCP Internal Medicine; Visit Provider Podiatrist
PROC: (CPT 20680; principal; 2021-03-21 11:40)
DX: T84.84XA Pain due to internal orthopedic prosthetic devices, implants and grafts, initial encounter (principal); M79.671 Pain in right foot; M79.89 Other specified soft tissue disorders; G89.18 Other acute postprocedural pain; Y79.3 Surgical instruments, materials and orthopedic devices (including sutures) associated with adverse incidents; M10.9 Gout, unspecified; Y92.9 Unspecified place or not applicable; Y83.8 Other surgical procedures as the cause of abnormal reaction of the patient, or of later complication, without mention of misadventure at the time of the procedure; I73.00 Raynaud's syndrome without gangrene; I10 Essential (primary) hypertension; Z79.899 Other long term (current) drug therapy; Z88.0 Allergy status to penicillin; Z88.1 Allergy status to other antibiotic agents; Z88.8 Allergy status to other drugs, medicaments and biological substances; Z87.891 Personal history of nicotine dependence
CPT/HCPCS: 20680; 36415; 80053; 85025; C1713; J1100; J2250; J3010; J3370

== ENCOUNTER 2021-05-15 10:09 | Outpatient (REF) | payer BC, SELFPAY ==
--- NOTE | ~2021-05-15 | MM_ITS ---
EXAMINATION: MM SCREENING DIGITAL BREAST TOMOSYNTHESIS, BILATERAL CLINICAL INFORMATION: Screening. Asymptomatic. The lifetime risk of breast cancer based on the Tyrer-Cuzick Model is 5%. COMPARISON: Mammography: 05/09/2020, 05/06/2019, 05/05/2018, 03/27/2017 TECHNIQUE: Digital breast tomosynthesis is performed in both the craniocaudal and mediolateral oblique views along with computer-aided detection (CAD). Synthesized 2D images are generated from the tomosynthesis. FINDINGS: There are scattered areas of fibroglandular density (ACR BI-RADS breast composition Category b). There are no significant masses, abnormal calcifications, or other abnormalities. Parenchymal pattern is similar to prior exams. No developing density. There is a stable smooth nodule posterior upper outer left breast. MM/MM tomosynthesis screening BI IMPRESSION: No mammographic evidence of malignancy. ASSESSMENT: BI-RADS 2: Benign RECOMMENDATION: Routine annual mammography screening. This patient's information was entered into a reminder system with a target due date for their next mammogram.
== END 2021-05-15 10:10 | disposition home or self-care (01) ==
LOC: HO.MAMMO 10:09
PROVIDERS: Visit Provider Obstetrics & Gynecology
DX: Z12.31 Encounter for screening mammogram for malignant neoplasm of breast (principal)
CPT/HCPCS: 77063; 77067

== ENCOUNTER 2021-10-29 10:07 | Outpatient (REF) | payer BC, SELFPAY ==
[2021-10-29 10:23] LABS: MANUAL DIFF FLAG NO
[2021-10-29 11:26] LABS: Basophils Percent Auto 0.5 % (0-2); Eosinophils Absolute Auto 0.1 X10*3/uL (0.0-0.4); Eosinophils Percent Auto 1.6 % (0-4); Hemoglobin 14.3 g/dl (12.0-16.0); Imm Gran Abs Auto 0.02 X10*3/uL (0.00-0.03); Imm Gran Pct Auto 0.3 % (0.0-0.4); Lymphocytes Absolute Auto 1.7 X10*3/uL (1.2-4.9); Lymphocytes Percent Auto 23.5 % (20-40); Mean Platelet Volume 10.1 fL (9.4-12.3); Monocytes Absolute Auto 0.8 X10*3/uL (0.1-1.2); Monocytes Percent Auto 10.5 % (2-11); Neutrophils Absolute Auto 4.7 x10*3/uL (2.0-8.3); Neutrophils Percent Auto 63.6 % (45-73); Platelet Count 266 X10*3/uL (160-400); Red Blood Count 4.33 X10*6/uL (4.20-5.50); Red Cell Distribution Width 11.9 % (11.0-16.0); White Blood Count 7.4 X10*3/uL (4.8-10.8)
[2021-10-29 11:57] LABS: Appearance Urine HAZY; Color Urine YELLOW; Glucose Urine UA NEG (NEG); Leukocyte Esterase Urine NEG (NEG); Nitrite Urine NEG (NEG); Specific Gravity - Urine 1.025 (1.005-1.025); Urine Blood NEG (NEG); Urine Ketones NEG (NEG); Urine Protein NEG (NEG-TRACE)
[2021-10-29 12:04] LABS: Erythrocyte Sedimentation Rate 5 MM/HR (0-20)
[2021-10-29 12:24] LABS: TSH reflex Free T4 1.27 uIU/mL (0.32-4.0); Vitamin D 25-OH Total 28.9 ng/mL (>30)
[2021-10-29 13:13] LABS: Alanine Aminotransferase 53 U/L (0-31); Albumin Level 4.2 g/dL (3.5-5.0); Alkaline Phosphatase 83 U/L (39-117); Anion Gap 15 (12-20); Aspartate Amino Transferase 45 U/L (5-31); Bilirubin Total 0.9 mg/dL (0.0-1.0); Blood Urea Nitrogen 7 mg/dL (9-16); C Reactive Protein 0.25 mg/dL (< or = 0.50); Calcium 10.2 mg/dL (8.4-10.2); Carbon Dioxide 28 mmol/L (22-29); Chloride 101 mmol/L (96-108); Cholesterol 112 mg/dL; Estimated Glomerular Filt Rate > 60; Glucose Fasting 100 mg/dL (60-99); HDL Cholesterol 42 mg/dL; LDL Cholesterol Calculated 53 mg/dl; Potassium 4.6 mmol/L (3.3-5.1); Rheumatoid Factor 16.6 IU/mL (<15.0); Sodium 139 mmol/L (135-145); Total Protein 7.3 g/dL (6.5-8.0); Triglycerides 87 mg/dL; Uric Acid 5.4 mg/dL (2.4-5.7)
[2021-10-31 23:11] LABS: Anti Nuclear Antibody Screen POSITIVE (NEGATIVE)
== END 2021-10-29 10:08 | disposition home or self-care (01) ==
LOC: HO.LAB 10:07
PROVIDERS: PCP Internal Medicine; Visit Provider Internal Medicine
DX: Z00.00 Encounter for general adult medical examination without abnormal findings (principal); M25.50 Pain in unspecified joint; M10.9 Gout, unspecified; E55.9 Vitamin D deficiency, unspecified; E78.00 Pure hypercholesterolemia, unspecified; I10 Essential (primary) hypertension
CPT/HCPCS: 36415; 80053; 80061; 81003; 82306; 84443; 84550; 85025; 85652; 86038; 86039; 86140; 86431

== ENCOUNTER 2021-12-05 09:52 | Outpatient (REF) | payer BC, SELFPAY ==
--- NOTE | 2021-12-05 11:41 | PFT_ITS ---
INDICATION: Dyspnea. SPIROMETRY: FEV1 to FVC of 75% with an FEV1 of 2.17 L which is 96% predicted, and FVC of 2.88 L, which is 98% predicted. No significant response to bronchodilators noted. To note, the FEF 25/75 decreased down to 76% predicted suggesting evidence of small airways disease. LUNG VOLUMES: Total lung capacity 109% predicted. DIFFUSION CAPACITY: DLCO 90% predicted. COMPARISONS: None. INTERPRETATION: No obstructive nor restrictive ventilatory defects identified. No significant response to bronchodilators noted. Normal maximum voluntary ventilation. Although, the patient may have some component of small airways disease, which may be related to respiratory bronchiolitis from smoking. Lung volumes are within normal limits. Diffusion capacity is within normal limits. If asthma is in the differential, methacholine challenge may be helpful in assessing for hyper-reactive airways, otherwise clinical correlation warranted. Jhony Farias MD MR/MODL / [id number]
== END 2021-12-05 09:53 | disposition home or self-care (01) ==
LOC: HO.RESP 09:52
PROVIDERS: PCP Internal Medicine; Visit Provider Internal Medicine
DX: R06.00 Dyspnea, unspecified (principal)
CPT/HCPCS: 94060; 94727; 94729

== ENCOUNTER 2022-03-10 15:23 | Outpatient (REF) | payer BC, SELFPAY ==
--- NOTE | ~2022-03-10 | XR_ITS ---
EXAMINATION: XR HAND, RIGHT CLINICAL INFORMATION: Pain. COMPARISON: Radiographs dated 11/17/2018. TECHNIQUE: PA, lateral, and oblique views of the right hand. FINDINGS: Bony alignment and mineralization are normal. No fracture or dislocation is seen. There is mild osteoarthritic change of the fifth proximal and distal interphalangeal joints. There is mild osteoarthritic change of the first carpometacarpal joint. The proximal and distal carpal rows are intact. No abnormal bone erosion is seen. The soft tissue planes are unremarkable, without gas or foreign body. XR/XR hand RT min 3V IMPRESSION: There is mild osteoarthritic change of the interphalangeal joints of the fifth finger and of the first carpometacarpal joint. No fracture or dislocation is seen. There is no abnormal bone erosion. EXAMINATION: XR HAND, LEFT CLINICAL INFORMATION: Pain. COMPARISON: Radiographs dated 11/17/2018. TECHNIQUE: PA, lateral, and oblique views of the left hand. FINDINGS: Bony alignment and mineralization are normal. No fracture or dislocation is seen. There is mild osteoarthritic change of the fourth distal interphalangeal joint and of the fifth proximal and distal interphalangeal joints. The proximal and distal carpal rows are intact. No abnormal bone erosion is seen. There is no soft tissue gas or foreign body. IMPRESSION: Mild osteoarthritic change is seen of the fourth and fifth fingers, as detailed. No fracture or dislocation is seen. There is no abnormal bone erosion.
--- NOTE | ~2022-03-10 | XR_ITS ---
EXAMINATION: XR FOOT, RIGHT CLINICAL INFORMATION: Pain. COMPARISON: Right ankle radiographs dated 10/10/2015. TECHNIQUE: AP, lateral, and oblique views of the right foot. FINDINGS: There is bony demineralization. There has been a prior bunionectomy. An orthopedic screw is seen applied to the proximal right first metatarsal bone. There has been a prior resection of the right fifth metatarsal head. No fracture, dislocation or right ankle joint effusion is seen. Boehler's angle is normal. There is a minimal plantar calcaneal spur. There are no abnormal bony erosive changes. No soft tissue gas or foreign body is seen. XR/XR foot LT min 3V IMPRESSION: There are postoperative changes of the right foot, as detailed. No fracture, dislocation or right ankle joint effusion is seen. There is no abnormal bone erosion. EXAMINATION: XR FOOT, LEFT CLINICAL INFORMATION: Pain. COMPARISON: Regressed dated 12/26/2014. TECHNIQUE: AP, lateral, and oblique views of the left foot. FINDINGS: There is mild bony demineralization. There is a mild hallux valgus configuration. No fracture, dislocation or left ankle joint effusion is seen. Boehler's angle is normal. There are moderate posterior and tiny plantar calcaneal spurs. There has been a prior resection of the left fifth metatarsal head. There is mild osteoarthritic change of the left first metatarsophalangeal joint. There is no abnormal bone erosion. No soft tissue gas or foreign body is seen. IMPRESSION: 1. No fracture, dislocation or left ankle joint effusion is seen. 2. There has been a prior resection of the left fifth metatarsal head. 3. There is mild osteoarthritic change of the left first metatarsophalangeal joint. 4. There are calcaneal spurs, as detailed.
--- NOTE | ~2022-03-10 | XR_ITS ---
EXAMINATION: XR HAND, RIGHT CLINICAL INFORMATION: Pain. COMPARISON: Radiographs dated 11/17/2018. TECHNIQUE: PA, lateral, and oblique views of the right hand. FINDINGS: Bony alignment and mineralization are normal. No fracture or dislocation is seen. There is mild osteoarthritic change of the fifth proximal and distal interphalangeal joints. There is mild osteoarthritic change of the first carpometacarpal joint. The proximal and distal carpal rows are intact. No abnormal bone erosion is seen. The soft tissue planes are unremarkable, without gas or foreign body. XR/XR hand LT min 3V IMPRESSION: There is mild osteoarthritic change of the interphalangeal joints of the fifth finger and of the first carpometacarpal joint. No fracture or dislocation is seen. There is no abnormal bone erosion. EXAMINATION: XR HAND, LEFT CLINICAL INFORMATION: Pain. COMPARISON: Radiographs dated 11/17/2018. TECHNIQUE: PA, lateral, and oblique views of the left hand. FINDINGS: Bony alignment and mineralization are normal. No fracture or dislocation is seen. There is mild osteoarthritic change of the fourth distal interphalangeal joint and of the fifth proximal and distal interphalangeal joints. The proximal and distal carpal rows are intact. No abnormal bone erosion is seen. There is no soft tissue gas or foreign body. IMPRESSION: Mild osteoarthritic change is seen of the fourth and fifth fingers, as detailed. No fracture or dislocation is seen. There is no abnormal bone erosion.
--- NOTE | ~2022-03-10 | XR_ITS ---
EXAMINATION: XR FOOT, RIGHT CLINICAL INFORMATION: Pain. COMPARISON: Right ankle radiographs dated 10/10/2015. TECHNIQUE: AP, lateral, and oblique views of the right foot. FINDINGS: There is bony demineralization. There has been a prior bunionectomy. An orthopedic screw is seen applied to the proximal right first metatarsal bone. There has been a prior resection of the right fifth metatarsal head. No fracture, dislocation or right ankle joint effusion is seen. Boehler's angle is normal. There is a minimal plantar calcaneal spur. There are no abnormal bony erosive changes. No soft tissue gas or foreign body is seen. XR/XR foot RT min 3V IMPRESSION: There are postoperative changes of the right foot, as detailed. No fracture, dislocation or right ankle joint effusion is seen. There is no abnormal bone erosion. EXAMINATION: XR FOOT, LEFT CLINICAL INFORMATION: Pain. COMPARISON: Regressed dated 12/26/2014. TECHNIQUE: AP, lateral, and oblique views of the left foot. FINDINGS: There is mild bony demineralization. There is a mild hallux valgus configuration. No fracture, dislocation or left ankle joint effusion is seen. Boehler's angle is normal. There are moderate posterior and tiny plantar calcaneal spurs. There has been a prior resection of the left fifth metatarsal head. There is mild osteoarthritic change of the left first metatarsophalangeal joint. There is no abnormal bone erosion. No soft tissue gas or foreign body is seen. IMPRESSION: 1. No fracture, dislocation or left ankle joint effusion is seen. 2. There has been a prior resection of the left fifth metatarsal head. 3. There is mild osteoarthritic change of the left first metatarsophalangeal joint. 4. There are calcaneal spurs, as detailed.
[2022-03-10 15:17] LABS: MANUAL DIFF FLAG NO
[2022-03-10 16:34] LABS: Basophils Absolute Auto 0.1 X10*3/uL (0.0-0.2); Basophils Percent Auto 0.9 % (0-2); Eosinophils Absolute Auto 0.2 X10*3/uL (0.0-0.4); Eosinophils Percent Auto 2.6 % (0-4); Hematocrit 47.3 % (37.0-47.0); Hemoglobin 15.8 g/dl (12.0-16.0); Imm Gran Abs Auto 0.02 X10*3/uL (0.00-0.03); Imm Gran Pct Auto 0.3 % (0.0-0.4); Lymphocytes Absolute Auto 2.3 X10*3/uL (1.2-4.9); Lymphocytes Percent Auto 30.7 % (20-40); Mean Corpuscular HGB Conc 33.4 g/dl (31.0-35.0); Mean Corpuscular Hemoglobin 32.5 pg (27.0-33.0); Mean Corpuscular Volume 97.3 fL (80.0-98.0); Monocytes Absolute Auto 0.8 X10*3/uL (0.1-1.2); Monocytes Percent Auto 9.8 % (2-11); Neutrophils Absolute Auto 4.3 x10*3/uL (2.0-8.3); Neutrophils Percent Auto 55.7 % (45-73); Platelet Count 264 X10*3/uL (160-400); Red Blood Count 4.86 X10*6/uL (4.20-5.50); White Blood Count 7.6 X10*3/uL (4.8-10.8)
[2022-03-10 17:00] LABS: Alanine Aminotransferase 90 U/L (0-31); Albumin Level 4.4 g/dL (3.5-5.0); Alkaline Phosphatase 103 U/L (39-117); Anion Gap 13 (12-20); Aspartate Amino Transferase 50 U/L (5-31); Bilirubin Total 0.5 mg/dL (0.0-1.0); Blood Urea Nitrogen 5 mg/dL (9-16); C Reactive Protein 0.72 mg/dL (< or = 0.50); Calcium 9.7 mg/dL (8.4-10.2); Carbon Dioxide 28 mmol/L (22-29); Chloride 101 mmol/L (96-108); Creatinine Clr Calc Pharmacy 72.4; Estimated Glomerular Filt Rate > 60; Glucose Random 92 mg/dL (60-115); Iron 89 mcg/dL (30-160); Percent Iron Saturation 28 % (15-50); Potassium 4.4 mmol/L (3.3-5.1); Rheumatoid Factor < 15.0 IU/mL (<15.0); Sodium 138 mmol/L (135-145); Total Iron Binding Capacity 314 mcg/dL (228-428); Total Protein 7.8 g/dL (6.5-8.0); Unsaturated Iron Binding 225 ug/dL
[2022-03-10 17:26] LABS: Erythrocyte Sedimentation Rate 6 MM/HR (0-20)
[2022-03-11 04:31] LABS: HBS Num1 1.78 mIU/mL (0-7.99); HBc Num1 0.43 S/CO (0.00-0.79); HBsAGNum1 0.24 S/CO (0.00-0.99); Hepatitis B Core Antibody Nonreactive (Nonreactive); Hepatitis B Surface Antigen Negative (Negative); ~HepC Num1 0.09 S/CO (0.00-0.79); ~Hepatitis B Surface Antibody NONREACTIVE (Nonreactive); ~Hepatitis C Antibody Nonreactive (Nonreactive)
[2022-03-12 03:57] LABS: Hepatitis A Antibody IgM 0.13 Index (0-0.79); ~Hepatitis A Antibody IgM Nonreactive (Nonreactive)
[2022-03-12 19:53] LABS: Cyclic Citrullinated Peptide <16 UNITS
== END 2022-03-10 15:24 | disposition home or self-care (01) ==
LOC: HO.XRAY 15:23
PROVIDERS: PCP Internal Medicine; Visit Provider Internal Medicine Rheumatology
DX: M79.641 Pain in right hand (principal); M79.642 Pain in left hand; R76.8 Other specified abnormal immunological findings in serum; M79.673 Pain in unspecified foot; G89.29 Other chronic pain; R79.89 Other specified abnormal findings of blood chemistry; I73.00 Raynaud's syndrome without gangrene
CPT/HCPCS: 36415; 73130; 73630; 80053; 83540; 85025; 85652; 86140; 86200; 86431; 86704; 86706; 86709; 86803; 87340

== ENCOUNTER 2022-05-16 10:19 | Outpatient (REF) | payer BC, SELFPAY ==
--- NOTE | ~2022-05-16 | MM_ITS ---
EXAMINATION: MM SCREENING DIGITAL BREAST TOMOSYNTHESIS, BILATERAL CLINICAL INFORMATION: Screening. Asymptomatic. The lifetime risk of breast cancer based on the Tyrer-Cuzick Model is 3%. COMPARISON: Mammography: 05/15/2021, 05/09/2020, 05/06/2019 TECHNIQUE: Digital breast tomosynthesis is performed in both the craniocaudal and mediolateral oblique views along with computer-aided detection (CAD). Synthesized 2D images are generated from the tomosynthesis. FINDINGS: There are scattered areas of fibroglandular density (ACR BI-RADS breast composition Category b). There are no significant masses, abnormal calcifications, or other abnormalities. Circumscribed nodule, possibly intramammary node is again noted posterior upper outer left breast similar to prior studies. No developing density. No significant changes. MM/MM tomosynthesis screening BI IMPRESSION: No mammographic evidence of malignancy. ASSESSMENT: BI-RADS 2: Benign RECOMMENDATION: Routine annual mammography screening. This patient's information was entered into a reminder system with a target due date for their next mammogram.
== END 2022-05-16 10:20 | disposition home or self-care (01) ==
LOC: HO.MAMMO 10:19
PROVIDERS: PCP Internal Medicine; Visit Provider Internal Medicine
DX: Z12.31 Encounter for screening mammogram for malignant neoplasm of breast (principal)
CPT/HCPCS: 77063; 77067

== ENCOUNTER 2022-08-28 10:46 | Outpatient (REF) | payer BC, SELFPAY ==
[2022-09-02 03:43] LABS: TS Negative Control Passed; TS Panel A 0; TS Panel B 0; TS Positive Control Passed; TSpotTB Negative (Negative)
== END 2022-08-28 10:47 | disposition home or self-care (01) ==
LOC: HO.LAB 10:46
PROVIDERS: PCP Internal Medicine; Visit Provider Internal Medicine Rheumatology
DX: Z11.1 Encounter for screening for respiratory tuberculosis (principal); Z79.60 Long term (current) use of unspecified immunomodulators and immunosuppressants
CPT/HCPCS: 36415; 86481

== ENCOUNTER → 2022-09-16 09:50 | Outpatient (BNVA) | payer BC, SELFPAY | PROVIDERS: PCP Internal Medicine; Visit Provider Internal Medicine Rheumatology | DX: Z79.4 Long term (current) use of insulin (principal) ==

== ENCOUNTER 2022-10-15 07:50 | Outpatient (REF) | payer BC, SELFPAY ==
[2022-10-15 08:41] LABS: MANUAL DIFF FLAG NO
[2022-10-15 08:52] LABS: Basophils Absolute Auto 0.1 X10*3/uL (0.0-0.2); Basophils Percent Auto 0.9 % (0-2); Eosinophils Absolute Auto 0.2 X10*3/uL (0.0-0.4); Eosinophils Percent Auto 3.9 % (0-4); Hematocrit 43.3 % (37.0-47.0); Hemoglobin 15.1 g/dl (12.0-16.0); Imm Gran Abs Auto 0.05 X10*3/uL (0.00-0.03); Imm Gran Pct Auto 0.9 % (0.0-0.4); Lymphocytes Absolute Auto 1.6 X10*3/uL (1.2-4.9); Lymphocytes Percent Auto 28.7 % (20-40); Mean Corpuscular HGB Conc 34.9 g/dl (31.0-35.0); Mean Corpuscular Hemoglobin 33.9 pg (27.0-33.0); Mean Corpuscular Volume 97.1 fL (80.0-98.0); Mean Platelet Volume 9.3 fL (9.4-12.3); Monocytes Absolute Auto 0.7 X10*3/uL (0.1-1.2); Monocytes Percent Auto 12.3 % (2-11); Neutrophils Percent Auto 53.3 % (45-73); Platelet Count 228 X10*3/uL (160-400); Red Blood Count 4.46 X10*6/uL (4.20-5.50); Red Cell Distribution Width 11.9 % (11.0-16.0); White Blood Count 5.7 X10*3/uL (4.8-10.8)
[2022-10-15 09:23] LABS: C Reactive Protein 0.16 mg/dL (< or = 0.50)
[2022-10-15 09:29] LABS: Erythrocyte Sedimentation Rate 5 MM/HR (0-20)
== END 2022-10-15 07:51 | disposition home or self-care (01) ==
LOC: HO.LAB 07:50
PROVIDERS: PCP Internal Medicine; Visit Provider Internal Medicine Rheumatology
DX: M06.00 Rheumatoid arthritis without rheumatoid factor, unspecified site (principal); I73.00 Raynaud's syndrome without gangrene; Z79.60 Long term (current) use of unspecified immunomodulators and immunosuppressants; Z79.899 Other long term (current) drug therapy
CPT/HCPCS: 36415; 85025; 85652; 86140

== ENCOUNTER 2022-11-12 11:03 | Outpatient (REF) | payer BC, SELFPAY ==
--- NOTE | ~2022-11-12 | XR_ITS ---
EXAMINATION: XR RIBS, LEFT CLINICAL INFORMATION: Pleurodynia. Left posterior rib pain after fall COMPARISON: None TECHNIQUE: 3 views of the left ribs were obtained. PA view of the chest. FINDINGS: Lungs are clear. No consolidation, pneumothorax, or pleural effusion. The cardiomediastinal silhouette and pulmonary vasculature are normal. A marker overlies the lower left ribs. Osseous structures are unremarkable. Ribs are intact. No fractures are identified. XR/XR ribs LT min 3V w CXR1V IMPRESSION: Clear lungs. No focal rib abnormality identified.
== END 2022-11-12 11:04 | disposition home or self-care (01) ==
LOC: HO.XRAY 11:03
PROVIDERS: PCP Internal Medicine; Visit Provider Internal Medicine
DX: R07.81 Pleurodynia (principal)
CPT/HCPCS: 71101

== ENCOUNTER → 2023-03-04 10:10 | Outpatient (BNVA) | payer BC, SELFPAY | PROVIDERS: PCP Internal Medicine; Visit Provider Internal Medicine Rheumatology ==

== ENCOUNTER 2023-03-04 11:03 | Outpatient (REF) | payer BC, SELFPAY ==
[2023-03-04 13:16] LABS: MANUAL DIFF FLAG NO
[2023-03-04 13:27] LABS: Basophils Absolute Auto 0.1 X10*3/uL (0.0-0.2); Basophils Percent Auto 0.7 % (0-2); Eosinophils Absolute Auto 0.3 X10*3/uL (0.0-0.4); Eosinophils Percent Auto 3.5 % (0-4); Hematocrit 42.9 % (37.0-47.0); Hemoglobin 14.6 g/dl (12.0-16.0); Imm Gran Abs Auto 0.03 X10*3/uL (0.00-0.03); Imm Gran Pct Auto 0.4 % (0.0-0.4); Lymphocytes Percent Auto 25.6 % (20-40); Mean Corpuscular Hemoglobin 33.9 pg (27.0-33.0); Mean Corpuscular Volume 99.5 fL (80.0-98.0); Mean Platelet Volume 10.4 fL (9.4-12.3); Monocytes Absolute Auto 0.8 X10*3/uL (0.1-1.2); Monocytes Percent Auto 10.5 % (2-11); Neutrophils Absolute Auto 4.5 x10*3/uL (2.0-8.3); Neutrophils Percent Auto 59.3 % (45-73); Platelet Count 230 X10*3/uL (160-400); Red Blood Count 4.31 X10*6/uL (4.20-5.50); Red Cell Distribution Width 11.9 % (11.0-16.0); White Blood Count 7.6 X10*3/uL (4.8-10.8)
[2023-03-04 13:37] LABS: C Reactive Protein 0.76 mg/dL (< or = 0.50)
[2023-03-04 14:15] LABS: Erythrocyte Sedimentation Rate 6 MM/HR (0-20)
== END 2023-03-04 11:04 | disposition home or self-care (01) ==
LOC: HO.10HDL 11:03
PROVIDERS: Visit Provider Internal Medicine Rheumatology
DX: M06.00 Rheumatoid arthritis without rheumatoid factor, unspecified site (principal); Z79.60 Long term (current) use of unspecified immunomodulators and immunosuppressants; Z79.899 Other long term (current) drug therapy
CPT/HCPCS: 36415; 85025; 85652; 86140

== ENCOUNTER 2023-03-10 08:36 | Outpatient (REF) | payer BC, SELFPAY ==
[2023-03-10 10:37] LABS: MANUAL DIFF FLAG NO
[2023-03-10 10:42] LABS: Appearance Urine Clear; Color Urine Yellow; Glucose Urine UA Negative (Negative); Leukocyte Esterase Urine Negative (Negative); Nitrite Urine Negative (Negative); PH 5.5 (5.0-9.0); Specific Gravity - Urine 1.015 (1.005-1.025); Urine Blood Negative (Negative); Urine Ketones Negative (Negative); Urine Protein Negative (Neg-Trace)
[2023-03-10 10:45] LABS: Basophils Percent Auto 0.5 % (0-2); Eosinophils Absolute Auto 0.3 X10*3/uL (0.0-0.4); Eosinophils Percent Auto 3.5 % (0-4); Hematocrit 44.8 % (37.0-47.0); Hemoglobin 15.1 g/dl (12.0-16.0); Imm Gran Abs Auto 0.04 X10*3/uL (0.00-0.03); Imm Gran Pct Auto 0.5 % (0.0-0.4); Lymphocytes Absolute Auto 1.5 X10*3/uL (1.2-4.9); Lymphocytes Percent Auto 17.8 % (20-40); Mean Corpuscular HGB Conc 33.7 g/dl (31.0-35.0); Mean Corpuscular Hemoglobin 33.5 pg (27.0-33.0); Mean Corpuscular Volume 99.3 fL (80.0-98.0); Mean Platelet Volume 10.4 fL (9.4-12.3); Monocytes Absolute Auto 0.8 X10*3/uL (0.1-1.2); Monocytes Percent Auto 9.6 % (2-11); Neutrophils Absolute Auto 5.6 x10*3/uL (2.0-8.3); Neutrophils Percent Auto 68.1 % (45-73); Platelet Count 265 X10*3/uL (160-400); Red Blood Count 4.51 X10*6/uL (4.20-5.50); Red Cell Distribution Width 11.9 % (11.0-16.0); White Blood Count 8.2 X10*3/uL (4.8-10.8)
[2023-03-10 11:16] LABS: Alanine Aminotransferase 79 U/L (0-31); Alkaline Phosphatase 73 U/L (39-117); Anion Gap 17 (12-20); Aspartate Amino Transferase 93 U/L (5-31); Bilirubin Total 0.6 mg/dL (0.0-1.0); Blood Urea Nitrogen 11 mg/dL (9-16); Carbon Dioxide 25 mmol/L (22-29); Chloride 102 mmol/L (96-108); Cholesterol 129 mg/dL; Estimated Glomerular Filt Rate > 60; Glucose Fasting 106 mg/dL (60-99); HDL Cholesterol 37 mg/dL; LDL Cholesterol Calculated 74 mg/dl; Potassium 4.2 mmol/L (3.3-5.1); Sodium 140 mmol/L (135-145); Total Protein 7.7 g/dL (6.5-8.0); Triglycerides 91 mg/dL
[2023-03-10 11:20] LABS: Vitamin D 25-OH Total 54.5 ng/mL (>30)
== END 2023-03-10 08:37 | disposition home or self-care (01) ==
LOC: HO.10HDL 08:36
PROVIDERS: Visit Provider Internal Medicine
DX: I10 Essential (primary) hypertension (principal); E78.00 Pure hypercholesterolemia, unspecified; R30.0 Dysuria; M10.9 Gout, unspecified; E55.9 Vitamin D deficiency, unspecified
CPT/HCPCS: 36415; 80053; 80061; 81003; 82306; 84443; 84550; 85025

== ENCOUNTER 2023-04-15 08:13 | Outpatient (REF) | payer BC, SELFPAY ==
--- NOTE | ~2023-04-15 | US_ITS ---
EXAMINATION: US ABDOMEN COMPLETE CLINICAL INFORMATION: Abnormal findings of blood chemistry. COMPARISON: None available. TECHNIQUE: Real-time imaging of the abdominal viscera. FINDINGS: PANCREAS: Visualized portions unremarkable. ABDOMINAL AORTA: Visualized portions unremarkable. INFERIOR VENA CAVA: Visualized portions unremarkable. LIVER: Diffuse increased echotexture without focal abnormality. GALLBLADDER: Unremarkable. COMMON BILE DUCT: Measures up to 0.7 cm without intraluminal abnormality in the visualized portions. RIGHT KIDNEY: 10.3 cm. Unremarkable. LEFT KIDNEY: 11.0 cm. Unremarkable. SPLEEN: 10.0 cm. Unremarkable. FREE FLUID: None. US/US abdomen complete IMPRESSION: Hepatic steatosis without other significant abnormality.
[2023-04-15 10:48] LABS: Estimated Average Glucose 97 mg/dL
[2023-04-15 11:28] LABS: Alanine Aminotransferase 75 U/L (0-31); Albumin Level 3.8 g/dL (3.5-5.0); Alkaline Phosphatase 80 U/L (39-117); Anion Gap 11 (12-20); Aspartate Amino Transferase 85 U/L (5-31); Bilirubin Total 0.5 mg/dL (0.0-1.0); Blood Urea Nitrogen 8 mg/dL (9-16); Calcium 9.3 mg/dL (8.4-10.2); Carbon Dioxide 30 mmol/L (22-29); Chloride 103 mmol/L (96-108); Estimated Glomerular Filt Rate > 60; Glucose Random 93 mg/dL (60-115); Potassium 4.2 mmol/L (3.3-5.1); Sodium 140 mmol/L (135-145); Total Protein 7.1 g/dL (6.5-8.0)
== END 2023-04-15 08:14 | disposition home or self-care (01) ==
LOC: HO.US 08:13
PROVIDERS: PCP Internal Medicine; Visit Provider Internal Medicine
DX: R79.89 Other specified abnormal findings of blood chemistry (principal); Z79.899 Other long term (current) drug therapy
CPT/HCPCS: 36415; 76700; 80053; 83036

== ENCOUNTER 2023-05-30 10:12 | Outpatient (REF) | payer BC, SELFPAY | END 2023-05-30 10:13 | disposition home or self-care (01) | LOC: HO.MAMMO 10:12 | PROVIDERS: Absent Provider Obstetrics & Gynecology; PCP Internal Medicine; Visit Provider Internal Medicine | DX: Z12.31 Encounter for screening mammogram for malignant neoplasm of breast (principal) | CPT/HCPCS: 77063; 77067 ==

== ENCOUNTER → 2023-05-30 10:30 | Outpatient (BNV) | payer BC, SELFPAY | PROVIDERS: Absent Provider Obstetrics & Gynecology; PCP Internal Medicine; Visit Provider Radiology Diagnostic Radiology | DX: Z12.31 Encounter for screening mammogram for malignant neoplasm of breast (principal) | CPT/HCPCS: 77063; 77067 ==

== ENCOUNTER 2023-07-14 09:16 | Outpatient (REF) | payer BC, SELFPAY ==
[2023-07-14 10:45] LABS: Appearance Urine Cloudy; Color Urine Dark Yellow; Glucose Urine UA Negative (Negative); Leukocyte Esterase Urine Trace (Negative); Nitrite Urine Negative (Negative); PH 5.5 (5.0-9.0); Specific Gravity - Urine 1.025 (1.005-1.025); UMIC TRIGGER UACC YES; Urine Blood Negative (Negative); Urine Ketones Negative (Negative); Urine Protein 30 (1+) mg/dL (Neg-Trace)
[2023-07-14 10:48] LABS: Bacteria Urine 4+ (None Seen); Squamous Epithelial Cell Urine >20 /HPF (0-2); UACC Culture Trigger YES
[2023-07-14 10:51] LABS: MANUAL DIFF FLAG NO
[2023-07-14 10:52] LABS: Basophils Absolute Auto 0.1 X10*3/uL (0.0-0.2); Basophils Percent Auto 0.7 % (0-2); Eosinophils Absolute Auto 0.3 X10*3/uL (0.0-0.4); Eosinophils Percent Auto 4.3 % (0-4); Hematocrit 44.5 % (37.0-47.0); Imm Gran Abs Auto 0.03 X10*3/uL (0.00-0.03); Imm Gran Pct Auto 0.4 % (0.0-0.4); Lymphocytes Absolute Auto 1.5 X10*3/uL (1.2-4.9); Lymphocytes Percent Auto 22.4 % (20-40); Mean Corpuscular HGB Conc 33.7 g/dl (31.0-35.0); Mean Corpuscular Hemoglobin 33.7 pg (27.0-33.0); Mean Platelet Volume 10.1 fL (9.4-12.3); Monocytes Absolute Auto 0.7 X10*3/uL (0.1-1.2); Neutrophils Absolute Auto 4.2 x10*3/uL (2.0-8.3); Neutrophils Percent Auto 62.2 % (45-73); Platelet Count 239 X10*3/uL (160-400); Red Blood Count 4.45 X10*6/uL (4.20-5.50); White Blood Count 6.7 X10*3/uL (4.8-10.8)
[2023-07-14 11:31] LABS: Erythrocyte Sedimentation Rate 5 MM/HR (0-20)
[2023-07-14 11:47] LABS: Rheumatoid Factor < 13.0 IU/mL (<15.0)
[2023-07-14 11:59] LABS: Alanine Aminotransferase 58 U/L (0-31); Albumin Level 4.1 g/dL (3.5-5.0); Alkaline Phosphatase 76 U/L (39-117); Anion Gap 12 (12-20); Aspartate Amino Transferase 56 U/L (5-31); Bilirubin Total 0.4 mg/dL (0.0-1.0); Blood Urea Nitrogen 7 mg/dL (9-16); C Reactive Protein 0.43 mg/dL (< or = 0.50); Calcium 9.9 mg/dL (8.4-10.2); Carbon Dioxide 28 mmol/L (22-29); Chloride 104 mmol/L (96-108); Cholesterol 119 mg/dL (<200); Estimated Glomerular Filt Rate > 60; Glucose Fasting 98 mg/dL (60-99); HDL Cholesterol 37 mg/dL (>40); LDL Cholesterol Calculated 68 mg/dL (<100); Potassium 4.2 mmol/L (3.3-5.1); Sodium 140 mmol/L (135-145); Total Protein 7.1 g/dL (6.5-8.0); Triglycerides 74 mg/dL (<150)
[2023-07-14 12:06] LABS: TSH reflex Free T4 1.27 uIU/mL (0.32-4.0)
== END 2023-07-14 09:17 | disposition home or self-care (01) ==
LOC: HO.10HDL 09:16
PROVIDERS: Visit Provider Internal Medicine
DX: M06.00 Rheumatoid arthritis without rheumatoid factor, unspecified site (principal); R79.89 Other specified abnormal findings of blood chemistry; M79.7 Fibromyalgia; I10 Essential (primary) hypertension; E78.00 Pure hypercholesterolemia, unspecified; R30.0 Dysuria
CPT/HCPCS: 36415; 80053; 80061; 81001; 84443; 85025; 85652; 86140; 86431; 87086

== ENCOUNTER 2023-07-15 09:45 | Outpatient (AMB) | payer BC, SELFPAY ==
[2023-07-15 09:48] VITALS: BP 120/86; PULSE 79; O2SAT 98; BMI 29.1
--- NOTE | 2023-07-15 09:48 | MHC.PC.OV ---
Vital Signs 07/15/23 09:48 Height 5 ft 1 in Weight 154 lb 2 oz BMI 29.1 BP 120/86 Blood Pressure Location Lt brachial Position Sitting Pulse 79 Pulse Source Pulse Oximeter Pulse Oximetry (%) 98 Oxygen Delivery Method Room Air Intake Visit Reasons: 4 Month F/Up Entry Level Lab Technician Required: No Accompanied by: Self / Same As Patient Allergies cefaclor [From CECLOR] Allergy (Intermediate, Verified 07/15/23 10:32) RASH cefuroxime [From CEFTIN] Allergy (Intermediate, Verified 07/15/23 10:32) RASH cephalexin [From KEFLEX] Allergy (Intermediate, Verified 07/15/23 10:32) RASH Penicillins [PENICILLINS] Allergy (Intermediate, Verified 07/15/23 10:32) SHORTNESS OF BREATH sulfamethoxazole [From BACTRIM] Allergy (Intermediate, Verified 07/15/23 10:32) RASH hydroxychloroquine Allergy (Mild, Verified 07/15/23 10:32) Rash Sulfa (Sulfonamide Antibiotics) Allergy (Unknown, Verified 07/15/23 10:32) hives,heart racing hydrocodone [From Vicodin] Allergy (Verified 07/15/23 10:32) Stomach Upset Medication List - Last Reconciled 07/15/23 by Wang Urbina MD adalimumab (Humira(CF) Pen) 40 mg (0.4 mL) subcut Q2W albuterol sulfate 90 mcg/actuation 2 puffs inhalation Q6H PRN 30 days NS allopurinol 100 mg PO DAILY calcium carbonate-vitamin D3 600 mg-12.5 mcg (500 unit) (Calcium 600 with Vitamin D3) 1 cap PO DAILY clotrimazole 1% (Lotrimin AF (clotrimazole)) 1 appl topical BID estradiol 1 mg PO DAILY 90 days lisinopril 5 mg PO DAILY 90 days lorazepam 1 mg PO BID PRN 30 days naproxen 250 - 500 mg (1 - 2 x 250 mg) PO BID PRN nifedipine 20 mg PO BID 90 days omeprazole 20 mg PO DAILY 90 days progesterone micronized 200 mg PO BEDTIME tramadol 50 mg PO TID PRN 30 days Tobacco use date assessed: 07/15/23 Dental Screening Dental Screen Date: 07/15/23 Did you have a dental visit in the last 12 months?: Yes Did you have a dental problem in the last 6 months where you did not have access to dental care?: No Was dental information given to patient?: Patient has dentist HPI 4 Month F/Up HPI Details Patient comes in today for her follow up visit States that she feels okay She denies any headaches or dizziness Denies any chest pains, no SOB No nausea/vomiting, no abdominal pain No change in bowel habits noted Would like to know if there were any concerning findings from her abdominal US done a few months ago Had her follow up labs done yesterday - to discuss her results Would also like to get her flu shot today [facility] Medical History Benign essential hypertension Contracture of toe of right foot Ganglion cyst of right foot Primary osteoarthritis of hands, bilateral Overweight (BMI 25.0-29.9) Anxiety Insomnia Rheumatoid factor positive Vitamin D deficiency Migraine Menopausal symptoms Gout Raynaud's disease Osteoarthritis of knees, bilateral GERD (gastroesophageal reflux disease) Hypertension Surgical History S/P foot surgery, right S/P bunionectomy (~02/18/19) S/P bunionectomy (~12/25/16) History of bunionectomy of right great toe S/P foot surgery, left (~06/2016) Normal colonoscopy (~03/01/14) deliv NOS-unsp History of appendectomy Family History Father Diabetes Myocardial infarct Hx of CABG Mother No problems noted. 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 1. Little interest or pleasure in doing things: not at all 2. Feeling down, depressed, or hopeless: not at all 3. Trouble falling or staying asleep, or sleeping too much: not at all 4. Feeling tired or having little energy: not at all 5. Poor appetite or overeating: not at all 6. Feeling bad about yourself - or that you are a failure or have let yourself or your family down: not at all 7. Trouble concentrating on things, such as reading the newspaper or watching television: not at all 8. Moving or speaking so slowly that other people could have noticed. Or the opposite - being so fidgety or restless that you have been moving around a lot more than usual: not at all 9. Thoughts that you would be better off or of hurting yourself in some way: not at all Total score: 0 Depression Screening Interpretation: Negative Depression Screening Done: Yes 34929 - PHQ-9 Billing: Yes Source: Developed by Drs. Milad Yin, Kate Iyer, Aubrey Dempsey and colleagues, with an educational hernandez from [employer]. Thrive Questionnaire Date Thrive assessed: 07/15/23 I am a: Patient What is your living situation today?: I have a steady place to live Within the past 12 months, did the food you bought not last and you didn't have the money to get more?: Never true Within the past 12 months, did you worry whether your food would run out before you got money to buy more?: Never true Do you have trouble paying for medicines?: No Do you have trouble getting transportation to medical appointments?: No Do you have trouble paying your heating and electricity bill?: No Do you have trouble taking care of your child, family member or friend?: No Do you have trouble with day-to-day activities such as bathing, preparing meals, shopping, managing finances, etc.?: No Are you currently unemployed and looking for a job?: No Are you interested in more education?: No Please select the resources that you would like help with: None Currently or been in a relationship where the following occur: no concerns reported AUDIT C Alcohol Use Questionnaire (AUDIT-C) 1. How often do you have a drink containing alcohol?: Monthly or less 2. How many drinks containing alcohol do you have on a typical day when you are drinking?: 1 or 2 3. How often do you have six or more drinks on one occasion?: Never Total Score: 1 Score Reviewed/Action Taken: Yes BRANDIE-7 AMB Questionnaire BRANDIE-7 Date BRANDIE - 7 assessed: 07/15/23 Feeling nervous, anxious, or on edge: 0 = Not at all Not being able to stop or control worryin = Not at all Worrying too much about different things: 0 = Not at all Trouble relaxin = Not at all Being so restless that it is hard to sit still: 0 = Not at all Becoming easily annoyed or irritable: 0 = Not at all Feeling afraid as if something awful might happen: 0 = Not at all Total BRANDIE-7 score (0-4 normal; 5-9 mild; 10-14 moderate; 15-21 severe): 0 Source: Developed by Drs. Milad Yin, Kate Iyer, Aubrey Dempsey and colleagues, with an educational hernandez from [employer]. Review of Systems Const Denies chills, Denies fatigue, Denies fever(s) and Denies headache(s) ENT Denies dysphagia, Denies dizziness, Denies otalgia, Denies headache(s), Denies odynophagia and Denies sore throat Card Denies chest pain, Denies palpitations and Reports dyspnea on exertion (mild, at times) Resp Denies chest congestion, Denies cough, Reports dyspnea on exertion (mild, at times) and Denies wheezing GI Denies abdominal pain, Denies constipation, Denies dysphagia, Denies heartburn, Denies diarrhea, Denies nausea, Denies odynophagia and Denies vomiting Denies difficulty voiding, Denies nocturia and Denies dysuria Musc Denies back pain, Reports arthralgias (both hands and both knees pain have improved significantly with Rx), Reports numbness (in both hands at times) and Reports stiffness Skin/Breast Denies rash Neuro Denies dizziness, Denies headache(s) and Reports numbness (in both hands at times) Psych Denies anxiety Endo Denies fatigue and Denies palpitations Aller/Immun Denies wheezing Physical exam (Primary Care) Vital Signs: Last Vital Signs Pulse 79 07/15/23 09:48 BP 120/86 07/15/23 09:48 Pulse Ox 98 07/15/23 09:48 Oxygen Delivery Method Room Air 07/15/23 09:48 BMI result Body Mass Index 29.1 Tobacco/Smoking Status: Tobacco use Status Tobacco use date assessed 07/15/23 07/15/23 09:53 Patient Tobacco Use Status Former Tobacco user 07/15/23 09:53 Tobacco use type Cigarette 07/15/23 09:53 e-Cigarette/Vaping Use Never Used 07/15/23 09:53 PHQ-9: PHQ-9 Score PHQ-9: Total score 0 07/15/23 10:00 Depression Screening Interpretation: Negative Thrive Assessment: Date of Thrive Assessment Date Thrive assessed 07/15/23 07/15/23 09:53 Currently or been in a relationship where the following occur: no concerns reported Const General: no acute distress and alert HENMT Ears: TM's normal bilaterally and EAC's normal Throat: Yes posterior oropharynx normal and Yes tonsils normal (no TP congestion noted) Neck Neck: Yes no lymphadenopathy and Yes supple Resp Auscultation: clear to auscultation bilaterally, no rales, no rhonchi and no wheezes Cardio Rate: regular rate Rhythm: regular rhythm Heart sounds: no murmurs GI Palpation (GI): Soft to palpation and nontender Auscultation: normal bowel sounds Back/Spine/Pelvis Thoracic/Lumbar Spine: thoracic and lumbar spine normal to inspection Skin Rashes: no rashes Extrem General: Yes no clubbing, cyanosis or edema Right upper extremity: Extremity exam: right hand Details: tenderness (mild); no swelling Left upper extremity: hand Details: tenderness (mild) and swelling (mild) Location: of the dorsal hand Office Procedures Flu Questionnaire Does the patient have a severe egg allergy?: No Does the patient have severe life threatening allergies?: No Does the patient have a fever or illness today?: No Has the patient ever had Guillain-Hansen Syndrome?: No Has the patient ever had any past reaction to a flu shot?: No Immunizations flu vacc [id number] 6mos up(PF) 60 mcg(15 mcgx4)/0.5 mL IM syringe Performing Provider: Wang Urbina MD Performing Location: [facility] Administered by: Didier Mike on 07/15/23 10:01 Dose Route Admin Location Dispensed Lot Number Expiration Date NDC Shipping And Receiving Assistant 0.5 mL IM Left Deltoid 0.5 mL [id number] 03/20/24 63355-534-36 [employer] VIS Given Date VIS Provided VIS Publication Date 07/15/23 Single Vaccine 21 Eligibility Eligibility Date Funding Source Not [facility] Eligible 07/15/23 Private Results Reviewed Results Reviewed: Laboratory Tests 04/15/23 07/14/23 07/14/23 09:06 09:25 09:25 WBC 6.7 Hgb 15.0 Hct 44.5 Plt Count 239 ESR 5 Sodium 140 Potassium 4.2 Creatinine 0.71 Estimated GFR > 60 Fasting Glucose 98 Hemoglobin A1c % 5.0 Calcium 9.9 D AST 56 H ALT 58 H Triglycerides 74 Cholesterol 119 LDL Cholesterol, Calc 68 HDL Cholesterol 37 L TSH 1.27 Ur Specific [place] 1.025 Urine Protein 30 (1+) H Urine Glucose (UA) Negative Urine Blood Negative Rheumatoid Factor < 13.0 Assessment and Plan Assessment & Plan (1) Benign essential hypertension: Code(s): I10 - Essential (primary) hypertension Plan: Reinforced low sodium diet - goal is systolic BP of at least 120 to 130 mm or less Continue Lisinopril 5 mg QD Is also on Nifedipine (20 mg BID) for her Raynaud's symptoms but this helps with her BP as well (2) Raynaud's disease: Code(s): I73.00 - Raynaud's syndrome without gangrene Qualifiers: Raynaud?s-associated gangrene presence: without gangrene Qualified Code(s): I73.00 - Raynaud's syndrome without gangrene Plan: Symptoms stable/controlled on CCB (Nifedipine 20 mg BID) Was experiencing frequent pain in both hands, mostly due to her OA?but her symptoms have improved ever since she was started on Humira by rheumatology (3) Seronegative rheumatoid arthritis: Comment: borderline pos RF, then negative; some OA in the hands as well onset synovitis 2020; Rash with hydroxychloroquine so it was only used 07/12/ - 09/11. History of sulfa allergy. Methotrexate not used due to baseline LFT elevations. Humira approved 08/2022 Code(s): M06.00 - Rheumatoid arthritis without rheumatoid factor, unspecified site Plan: Continue Humira 40 mg SQ Q [address] up [facility] [address] Billy [place] [facility] [place] as scheduled (4) Primary osteoarthritis of hands, bilateral: Code(s): M19.041 - Primary osteoarthritis, right hand; M19.042 - Primary osteoarthritis, left hand Plan: Continue Naproxen 250 mg 1 to 2 tablets BID PRN with food (5) Osteoarthritis of knees, bilateral: Code(s): M17.0 - Bilateral primary osteoarthritis of knee Qualifiers: Osteoarthritis type: primary Qualified Code(s): M17.0 - Bilateral primary osteoarthritis of knee Plan: Continue Naproxen or Tramadol PRN May need to consider referral to orthopedics if her knee pains progress (6) Elevated LFTs: Code(s): R79.89 - Other specified abnormal findings of blood chemistry Plan: LFTs are still elevated on her recent labs but have improved from previous Hepatitis profile was negative when most recently checked last year Abdominal US done a few months ago revealed only (+) hepatosteatosis with no other abnormalities noted Patient again cautioned on taking too many Tylenol-containing Rx; reinforced abstinence from alcohol as well Will recheck her LFTs in 4 months for follow up (7) Migraine: Code(s): G43.909 - Migraine, unspecified, not intractable, without status migrainosus Qualifiers: Migraine type: unspecified Status migrainosus presence: without status migrainosus Intractability: not intractable Qualified Code(s): G43.909 - Migraine, unspecified, not intractable, without status migrainosus Plan: Stable - Nifedipine seems to be helping with her headaches (8) GERD (gastroesophageal reflux disease): Code(s): K21.9 - Gastro-esophageal reflux disease without esophagitis Qualifiers: Esophagitis presence: without esophagitis Qualified Code(s): K21.9 - Gastro-esophageal reflux disease without esophagitis Plan: Dietary restrictions reinforced Continue Omeprazole 20 mg QD PRN (9) Gout: Code(s): M10.9 - Gout, unspecified Qualifiers: Gout site: unspecified site Gout etiology: idiopathic Chronicity: unspecified Qualified Code(s): M10.00 - Idiopathic gout, unspecified site Plan: Stable with no acute gout flare ups Reinforced low purine diet (10) Vitamin D deficiency: Code(s): E55.9 - Vitamin D deficiency, unspecified Plan: Continue OTC Vitamin D and Calcium supplements daily (11) Insomnia: Code(s): G47.00 - Insomnia, unspecified Qualifiers: Insomnia type: primary Qualified Code(s): F51.01 - Primary insomnia Plan: Sleep hygiene reinforced States that taking Lorazepam at bedtime helps when needed (12) Anxiety: Code(s): F41.9 - Anxiety disorder, unspecified Plan: Continue Lorazepam 1 mg BID PRN (13) Overweight (BMI 25.0-29.9): Code(s): E66.3 - Overweight Plan: Reinforced diet/exercise as tolerated/lose weight Advised that losing weight should also help get her LFTs lower Plan Per request, flu vaccine given today Follow up in 4 months Orders: Orders Complete Blood Count Auto Diff 4 Months I10 - Essential (primary) hypertension Lipid Panel 4 Months E78.00 - Pure hypercholesterolemia, unspecified Vitamin D 25-OH Total 4 Months E55.9 - Vitamin D deficiency, unspecified TSH reflex Free T4 4 Months E78.00 - Pure hypercholesterolemia, unspecified UA CC w/rflx Micro + Cult 4 Months R30.0 - Dysuria Influenza [id number] Immunization Today Z23 - Encounter for immunization Comprehensive [place]. Panel Fast 4 Months E78.00 - Pure hypercholesterolemia, unspecified Uric Acid 4 Months M10.9 - Gout, unspecified Coding Level of Care Code Est Pt Level 4 (04001) Diagnoses Benign essential hypertension I10 Raynaud's disease without gangrene I73.00 Raynaud?s-associated gangrene presence: without gangrene Seronegative rheumatoid arthritis M06.00 Primary osteoarthritis of hands, bilateral M19.041; M19.042 Primary osteoarthritis of both knees M17.0 Osteoarthritis type: primary Elevated LFTs R79.89 Migraine without status migrainosus, not intractable, unspecified migraine type G43.909 Migraine type: unspecified Status migrainosus presence: without status migrainosus Intractability: not intractable Gastroesophageal reflux disease without esophagitis K21.9 Esophagitis presence: without esophagitis Idiopathic gout, unspecified chronicity, unspecified site M10.00 Gout site: unspecified site Gout etiology: idiopathic Chronicity: unspecified Vitamin D deficiency E55.9 Primary insomnia F51.01 Insomnia type: primary Anxiety F41.9 Overweight (BMI 25.0-29.9) E66.3
== END 2023-07-15 10:37 | disposition home or self-care (01) ==
PROVIDERS: PCP Internal Medicine; Visit Provider Internal Medicine
DX: Z23 Encounter for immunization (principal)
CPT/HCPCS: 90471; 90686; 99214

== ENCOUNTER 2023-09-03 09:06 | Outpatient (AMB) | payer BC, SELFPAY ==
[2023-09-03 09:18] VITALS: BP 116/78; PULSE 74; O2SAT 94; BMI 29.0
--- NOTE | 2023-09-03 09:18 | A.OFFVIS_ITS ---
Intake Vital Signs 09/03/23 09:18 Height 5 ft 1 in Weight 153 lb 7.068 oz BMI 29.0 BP 116/78 Blood Pressure Location Lt brachial Position Sitting Pulse 74 Pulse Source Pulse Oximeter Pulse Oximetry (%) 94 Oxygen Delivery Method Room Air Intake Visit Reasons: RA Intake Note: Patient present today for RA follow up visit. [employer] Required: No Accompanied by: Self / Same As Patient Allergies cefaclor [From CECLOR] Allergy (Intermediate, Verified 09/03/23 09:24) RASH cefuroxime [From CEFTIN] Allergy (Intermediate, Verified 09/03/23 09:24) RASH cephalexin [From KEFLEX] Allergy (Intermediate, Verified 09/03/23 09:24) RASH Penicillins [PENICILLINS] Allergy (Intermediate, Verified 09/03/23 09:24) SHORTNESS OF BREATH sulfamethoxazole [From BACTRIM] Allergy (Intermediate, Verified 09/03/23 09:24) RASH hydroxychloroquine Allergy (Mild, Verified 09/03/23 09:24) Rash Sulfa (Sulfonamide Antibiotics) Allergy (Unknown, Verified 09/03/23 09:24) hives,heart racing hydrocodone [From Vicodin] Allergy (Verified 09/03/23 09:24) Stomach Upset Medication List - Last Reconciled 09/03/23 by Osmin Billy MD adalimumab (Humira(CF) Pen) 40 mg (0.4 mL) subcut Q2W albuterol sulfate 90 mcg/actuation 2 puffs inhalation Q6H PRN 30 days NS allopurinol 100 mg PO DAILY calcium carbonate-vitamin D3 600 mg-12.5 mcg (500 unit) (Calcium 600 with Vitamin D3) 1 cap PO DAILY clotrimazole 1% (Lotrimin AF (clotrimazole)) 1 appl topical BID estradiol 1 mg PO DAILY 90 days lisinopril 5 mg PO DAILY 90 days lorazepam 1 mg PO BID PRN 30 days naproxen 250 - 500 mg (1 - 2 x 250 mg) PO BID PRN nifedipine 20 mg PO BID 90 days omeprazole 20 mg PO DAILY 90 days progesterone micronized 200 mg PO BEDTIME tramadol 50 mg PO TID PRN 30 days HPI HPI Comments History of Present Illness Details The patient returns for evaluation of her rheumatoid arthritis and Raynaud's symptoms. She remains on Humira 40 mg every 2 weeks and naproxen 500 mg and tramadol 50 mg occasionally for pain. In general she feels symptoms are controlled with current treatment. She is having more Raynaud's symptoms now but it is colder. She restarted nifedipine 20 mg b.i.d. but after the 1st dose she got lightheaded so she did not continue it. She is also on lisinopril for hypertension. [facility] Medical History Benign essential hypertension Contracture of toe of right foot Ganglion cyst of right foot Primary osteoarthritis of hands, bilateral Overweight (BMI 25.0-29.9) Anxiety Insomnia Rheumatoid factor positive Vitamin D deficiency Migraine Menopausal symptoms Gout Raynaud's disease Osteoarthritis of knees, bilateral GERD (gastroesophageal reflux disease) Hypertension Surgical History S/P foot surgery, right S/P bunionectomy (~02/18/19) S/P bunionectomy (~12/25/16) History of bunionectomy of right great toe S/P foot surgery, left (~06/2016) Normal colonoscopy (~03/01/14) deliv NOS-unsp History of appendectomy Family History Father Diabetes Myocardial infarct Hx of CABG Mother No problems noted. 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 Card Details: Negative chest pain, edema and syncope Resp Details: Negative for SOB, cough and wheezing GI Details: Negative indigestion/heartburn, nausea, abdominal pain, bowel changes, diarrhea, constipation and bloody stool. Skin/Breast Details: Color changes of Raynaud's when she is cold. Negative for itching, rash, hives, sun sensitivity, and skin cancer Endo Details: Negative for polyuria and polydypsia Norberto/Lymph Details: Negative for excessive bruising or bleeding. Physical Exam Vital Signs: Last Vital Signs Pulse 74 09/03/23 09:18 BP 116/78 09/03/23 09:18 Pulse Ox 94 09/03/23 09:18 Oxygen Delivery Method Room Air 09/03/23 09:18 BMI result Body Mass Index 29.0 APPEARANCE: Patient in no acute distress EXTREMITIES: No edema, no calf tenderness, normal peripheral pulses. NEURO: Oriented and alert x3. No focal weakness. Reflexes symmetric. Gait normal. SKIN: Slight duskiness to the tips of the 2nd through 4th fingertips of the l eft hand. No digital ulcers or scarring. JOINT EXAM:?? Cervical Spine:.? Full range of motion with slight discomfort; no tenderness. Thoracic Spine:.? No scoliosis.? No tenderness on palpation. Lumbar Spine:.? Alignment normal.? Full range of motion with mild pain at the extremes of flexion extension.? No tenderness. Chest Wall:.? No tenderness, swelling, increased warmth or erythema. Hands:? Right:? There is mild swelling of the 1st 3 and 5th MCP joints.? The MCP have no tenderness..? There is some slight swelling of the thumb IP and in the 5th PIP.? The 5th PIP is slightly tender.? The DIP'is are not tender or swollen today. There is no triggering, thenar atrophy or sensory loss.? ? No breakdown of the fingertips skin.? There is some thickening in the flexor tendon region of the 5th finger.? It is not tender.? There is no triggering.? This looks like it could be an early signs of Dupuytren's.? Left:? There is swelling of all the MCPs with some mild ulnar deviation and slight flexion deformity at the MCP.? Left 4th and 5th MCP have some slight tenderness..? There is minimal thickening at the thumb IP and 5th PIP without tenderness.? The skin color is normal today. No fingertip ulcerations or breakdown.? No thenar atrophy or sensory loss. Wrists:.? No pain with flexion extension at 75 degrees with some no tenderness.? There is a soft tissue lump over the dorsum of both wrists suggestive of ganglion cysts.? No other swelling, increased warmth or erythema. Elbows:. Normal pain-free range of motion without tenderness, swelling, increased warmth or erythema. Shoulders:.?? Full range of motion without pain. No tenderness, weakness, swelling, increased warmth or erythema. Hips:.? Full range of motion without pain. Hip bursa:.? No tenderness. Knees:.?? Normal pain-free range of motion with no tenderness,effusion, soft tissue swelling, increased warmth or erythema.? Ankles:.? Normal pain-free range of motion with slight tenderness but no swelling, increased warmth or erythema. Feet:.? Right:? There is evidence of surgery at the 1st MTP.? There is no tenderness at the MTP joints.? The 2nd through 4th toes have some hammertoe deformities but are not tender.? Left:? Hallux valgus deformity, mild tenderness at the 1st MTP.? The other MTPs are not tender or swollen.? No soft tissue swelling, swelling, increased warmth or erythema. The? Results Reviewed Results Reviewed: Laboratory Tests 07/14/23 09:25 WBC 6.7 Hgb 15.0 ESR 5 Creatinine 0.71 AST 56 H ALT 58 H C-Reactive Protein 0.43 Assessment & Plan Assessment & Plan (1) Raynaud's disease: Code(s): I73.00 - Raynaud's syndrome without gangrene Qualifiers: Raynaud?s-associated gangrene presence: without gangrene Qualified Code(s): I73.00 - Raynaud's syndrome without gangrene (2) Long-term use of immunosuppressant medication: Code(s): Z79.60 - intermediate frame tender (current) use of unspecified immunomodulators and immunosuppressants (3) Primary osteoarthritis of hands, bilateral: Code(s): M19.041 - Primary osteoarthritis, right hand; M19.042 - Primary osteoarthritis, left hand (4) Seronegative rheumatoid arthritis: Comment: borderline pos RF, then negative; some OA in the hands as well onset synovitis 2020; Rash with hydroxychloroquine so it was only used 07/12/ - 09/11. History of sulfa allergy. Methotrexate not used due to baseline LFT elevations. Humira approved 08/2022 Code(s): M06.00 - Rheumatoid arthritis without rheumatoid factor, unspecified site Plan Rheumatoid arthritis with fairly good control of synovitis with current treatment. There is a bit of swelling still in the MCP joints and a slight amount of ulnar deviation on the left. She has an ulnar brace that she wears whenl working the hands. There is some mild changes of osteoarthritis in the fingers as well. There have been no side effects apparent with the Humira so we will continue as above. We will see if we can switch her to the nifedipine 10 mg b.i.d. as the lower dose may have less of a hypotensive affect when she goes to treat her Raynaud's symptoms. Medications: New nifedipine 10 mg PO BID 180 caps 1RF I73.00 - Raynaud's syndrome without gangrene Discontinued nifedipine Discontinued Reason: Doctor's Order 20 mg PO BID 90 days 180 caps 1RF Coding Level of Care Code Est Pt Level 3 (98325) Diagnoses Raynaud's disease without gangrene I73.00 Raynaud?s-associated gangrene presence: without gangrene Long-term use of immunosuppressant medication Z79.60 Primary osteoarthritis of hands, bilateral M19.041; M19.042 Seronegative rheumatoid arthritis M06.00
== END 2023-09-03 10:02 | disposition home or self-care (01) ==
PROVIDERS: PCP Internal Medicine; Visit Provider Internal Medicine Rheumatology
DX: I73.00 Raynaud's syndrome without gangrene (principal); Z79.60 Long term (current) use of unspecified immunomodulators and immunosuppressants; M19.041 Primary osteoarthritis, right hand; M19.042 Primary osteoarthritis, left hand; M06.00 Rheumatoid arthritis without rheumatoid factor, unspecified site
CPT/HCPCS: 99213

== ENCOUNTER → 2023-09-03 09:06 | Outpatient (BNVA) | payer BC, SELFPAY | PROVIDERS: PCP Internal Medicine; Visit Provider Internal Medicine Rheumatology ==

== ENCOUNTER 2023-11-17 07:53 | Outpatient (REF) | payer BC, SELFPAY ==
[2023-11-17 10:25] LABS: MANUAL DIFF FLAG NO
[2023-11-17 10:32] LABS: Basophils Absolute Auto 0.1 X10*3/uL (0.0-0.2); Basophils Percent Auto 0.8 % (0-2); Eosinophils Absolute Auto 0.4 X10*3/uL (0.0-0.4); Eosinophils Percent Auto 4.9 % (0-4); Hematocrit 44.9 % (37.0-47.0); Hemoglobin 15.2 g/dl (12.0-16.0); Imm Gran Abs Auto 0.03 X10*3/uL (0.00-0.03); Imm Gran Pct Auto 0.4 % (0.0-0.4); Lymphocytes Absolute Auto 1.9 X10*3/uL (1.2-4.9); Mean Corpuscular HGB Conc 33.9 g/dl (31.0-35.0); Mean Corpuscular Hemoglobin 33.5 pg (27.0-33.0); Mean Corpuscular Volume 98.9 fL (80.0-98.0); Mean Platelet Volume 10.1 fL (9.4-12.3); Monocytes Absolute Auto 0.8 X10*3/uL (0.1-1.2); Monocytes Percent Auto 11.4 % (2-11); Neutrophils Absolute Auto 4.3 x10*3/uL (2.0-8.3); Neutrophils Percent Auto 57.5 % (45-73); Platelet Count 248 X10*3/uL (160-400); Red Blood Count 4.54 X10*6/uL (4.20-5.50); Red Cell Distribution Width 11.9 % (11.0-16.0); White Blood Count 7.4 X10*3/uL (4.8-10.8)
[2023-11-17 11:03] LABS: Appearance Urine Turbid; Color Urine Dark Yellow; Glucose Urine UA Negative (Negative); Leukocyte Esterase Urine Negative (Negative); Nitrite Urine Negative (Negative); Urine Blood Negative (Negative); Urine Ketones Negative (Negative); Urine Protein Negative (Neg-Trace)
[2023-11-17 11:14] LABS: Alanine Aminotransferase 60 U/L (0-31); Alkaline Phosphatase 72 U/L (39-117); Anion Gap 10 (12-20); Aspartate Amino Transferase 63 U/L (5-31); Bilirubin Total 0.5 mg/dL (0.0-1.0); Blood Urea Nitrogen 8 mg/dL (9-16); Calcium 9.3 mg/dL (8.4-10.2); Carbon Dioxide 29 mmol/L (22-29); Chloride 101 mmol/L (96-108); Cholesterol 114 mg/dL (<200); Estimated Glomerular Filt Rate > 60; Glucose Fasting 90 mg/dL (60-99); HDL Cholesterol 38 mg/dL (>40); LDL Cholesterol Calculated 61 mg/dL (<100); Potassium 4.2 mmol/L (3.3-5.1); Sodium 136 mmol/L (135-145); Total Protein 7.6 g/dL (6.5-8.0); Triglycerides 79 mg/dL (<150)
[2023-11-17 11:20] LABS: TSH reflex Free T4 1.48 uIU/mL (0.32-4.0); Vitamin D 25-OH Total 58.6 ng/mL (>30)
[2023-11-17 17:08] LABS: Uric Acid 5.9 mg/dL (2.4-5.7)
== END 2023-11-17 07:54 | disposition home or self-care (01) ==
LOC: HO.10HDL 07:53
PROVIDERS: Visit Provider Internal Medicine
DX: M10.9 Gout, unspecified (principal); E78.00 Pure hypercholesterolemia, unspecified; R30.0 Dysuria; E55.9 Vitamin D deficiency, unspecified; I10 Essential (primary) hypertension
CPT/HCPCS: 36415; 80053; 80061; 81003; 82306; 84443; 84550; 85025

== ENCOUNTER 2023-11-18 10:03 | Outpatient (AMB) | payer BC, SELFPAY ==
[2023-11-18 10:04] VITALS: BP 128/90; PULSE 78; O2SAT 98; BMI 28.7
--- NOTE | 2023-11-18 10:04 | A.OFFPC_ITS ---
Vital Signs 11/18/23 10:04 Height 5 ft 1 in Weight 152 lb 0.6 oz BMI 28.7 BP 128/90 H Blood Pressure Location Lt brachial Position Sitting Pulse 78 Pulse Source Pulse Oximeter Pulse Oximetry (%) 98 Oxygen Delivery Method Room Air Intake Visit Reasons: 4 month f/u Dispatcher Maintenance Service Required: No Allergies cefaclor [From CECLOR] Allergy (Intermediate, Verified 11/18/23 10:27) RASH cefuroxime [From CEFTIN] Allergy (Intermediate, Verified 11/18/23 10:27) RASH cephalexin [From KEFLEX] Allergy (Intermediate, Verified 11/18/23 10:27) RASH Penicillins [PENICILLINS] Allergy (Intermediate, Verified 11/18/23 10:27) SHORTNESS OF BREATH sulfamethoxazole [From BACTRIM] Allergy (Intermediate, Verified 11/18/23 10:27) RASH hydroxychloroquine Allergy (Mild, Verified 11/18/23 10:27) Rash Sulfa (Sulfonamide Antibiotics) Allergy (Unknown, Verified 11/18/23 10:27) hives,heart racing hydrocodone [From Vicodin] Allergy (Verified 11/18/23 10:27) Stomach Upset Medication List - Last Reconciled 11/18/23 by Wang Urbina MD adalimumab (Humira(CF) Pen) 40 mg (0.4 mL) subcut Q2W albuterol sulfate 90 mcg/actuation 2 puffs inhalation Q6H PRN 30 days NS allopurinol 100 mg PO DAILY calcium carbonate-vitamin D3 600 mg-12.5 mcg (500 unit) (Calcium 600 with Vitamin D3) 1 cap PO DAILY clotrimazole 1% (Lotrimin AF (clotrimazole)) 1 appl topical BID estradiol 1 mg PO DAILY 90 days lisinopril 5 mg PO DAILY 90 days lorazepam 1 mg PO BID PRN 30 days naproxen 250 - 500 mg (1 - 2 x 250 mg) PO BID PRN nifedipine 10 mg PO BID omeprazole 20 mg PO DAILY 90 days progesterone micronized 200 mg PO BEDTIME tramadol 50 mg PO TID PRN 30 days Tobacco use date assessed: 11/18/23 HPI 4 month f/u HPI Details Patient comes in today for her follow up visit States that she feels okay except for some perianal irritation / burning sensation lately from a flare up of her hemorrhoids She has not seen any blood in her stool recently and she has not noticed or felt any external mass or hemorrhoids rectally so far States that she has been using some OTC Preparation H ointment for the past few days with some relief Has been tolerating her Humira for her RA without any problems so far She denies any headaches or dizziness Denies any chest pains, no increased SOB No nausea/vomiting, no abdominal pain No change in bowel habits noted States that her joint pains remain adequately controlled on her current Rx Needs a couple of her Rx refilled Had her follow up labs done yesterday - to discuss her results [facility] Medical History Benign essential hypertension Contracture of toe of right foot Ganglion cyst of right foot Primary osteoarthritis of hands, bilateral Overweight (BMI 25.0-29.9) Anxiety Insomnia Rheumatoid factor positive Vitamin D deficiency Migraine Menopausal symptoms Gout Raynaud's disease Osteoarthritis of knees, bilateral GERD (gastroesophageal reflux disease) Hypertension Surgical History S/P foot surgery, right S/P bunionectomy (~02/18/19) S/P bunionectomy (~12/25/16) History of bunionectomy of right great toe S/P foot surgery, left (~06/2016) Normal colonoscopy (~03/01/14) deliv NOS-unsp History of appendectomy Family History Father Diabetes Myocardial infarct Hx of CABG Mother No problems noted. 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 1. Little interest or pleasure in doing things: not at all 2. Feeling down, depressed, or hopeless: not at all 3. Trouble falling or staying asleep, or sleeping too much: not at all 4. Feeling tired or having little energy: not at all 5. Poor appetite or overeating: not at all 6. Feeling bad about yourself - or that you are a failure or have let yourself o r your family down: not at all 7. Trouble concentrating on things, such as reading the newspaper or watching television: not at all 8. Moving or speaking so slowly that other people could have noticed. Or the opposite - being so fidgety or restless that you have been moving around a lot more than usual: not at all 9. Thoughts that you would be better off or of hurting yourself in some way: not at all Total score: 0 Depression Screening Interpretation: Negative Depression Screening Done: Yes 73077 - PHQ-9 Billing: Yes Source: Developed by Drs. Milad Yin, Kate Iyer, Aubrey rowland nd colleagues, with an educational hernandez from [employer]. Thrive Questionnaire Date Thrive assessed: 11/18/23 I am a: Patient What is your living situation today?: I do not have a steady places to live Within the past 12 months, did the food you bought not last and you didn't have the money to get more?: Never true Within the past 12 months, did you worry whether your food would run out before you got money to buy more?: Never true Do you have trouble paying for medicines?: No Do you have trouble getting transportation to medical appointments?: No Do you have trouble paying your heating and electricity bill?: No Do you have trouble taking care of your child, family member or friend?: No Do you have trouble with day-to-day activities such as bathing, preparing meals, shopping, managing finances, etc.?: No Are you currently unemployed and looking for a job?: No Are you interested in more education?: No Please select the resources that you would like help with: None Currently or been in a relationship where the following occur: no concerns reported THRIVE Score: 1 AUDIT C Alcohol Use Questionnaire (AUDIT-C) 1. How often do you have a drink containing alcohol?: Monthly or less 2. How many drinks containing alcohol do you have on a typical day when you are drinking?: 1 or 2 3. How often do you have six or more drinks on one occasion?: Never Total Score: 1 Score Reviewed/Action Taken: Yes BRANDIE-7 AMB Questionnaire BRANDIE-7 Date BRANDIE - 7 assessed: 11/18/23 Source: Developed by Drs. Milad Yin, Kate Iyer, Aubrey Dempsey and colleagues, with an educational hernandez from [employer]. Review of Systems Const Denies chills, Denies fatigue, Denies fever(s) and Denies headache(s) ENT Denies dysphagia, Denies dizziness, Denies otalgia, Denies headache(s), Denies odynophagia and Denies sore throat Card Denies chest pain, Denies palpitations and Reports dyspnea on exertion (mild, at times) Resp Denies chest congestion, Denies cough, Reports dyspnea on exertion (mild, at times) and Denies wheezing GI Denies abdominal pain, Denies hematochezia (but reports (+) perianal irritation and some pain at times), Denies constipation, Denies dysphagia, Denies heart burn, Denies diarrhea, Denies nausea, Denies odynophagia and Denies vomiting Denies difficulty voiding, Denies nocturia, Denies dysuria and Denies urinary urgency Musc Denies back pain, Reports arthralgias (both hands and both knees pain have improved significantly with Rx), Reports numbness (in both hands at times) and Reports stiffness Skin/Breast Denies rash Neuro Denies dizziness, Denies headache(s) and Reports numbness (in both hands at times) Psych Denies anxiety Endo Denies fatigue and Denies palpitations Aller/Immun Denies wheezing Physical exam (Primary Care) Vital Signs: Last Vital Signs Pulse 78 11/18/23 10:04 BP 128/90 H 11/18/23 10:04 Pulse Ox 98 11/18/23 10:04 Oxygen Delivery Method Room Air 11/18/23 10:04 BMI result Body Mass Index 28.7 Tobacco/Smoking Status: Tobacco use Status Tobacco use date assessed 11/18/23 11/18/23 10:05 Patient Tobacco Use Status Former Tobacco user 11/18/23 10:05 Tobacco use type Cigarette 11/18/23 10:05 e-Cigarette/Vaping Use Never Used 11/18/23 10:05 Depression Screening Interpretation: Negative Thrive Assessment: Date of Thrive Assessment Date Thrive assessed 11/18/23 11/18/23 10:05 Currently or been in a relationship where the following occur: no concerns reported Const General: no acute distress and alert HENMT Ears: TM's normal bilaterally and EAC's normal Throat: Yes posterior oropharynx normal and Yes tonsils normal (no TP congestion noted) Neck Neck: Yes no lymphadenopathy and Yes supple Resp Auscultation: clear to auscultation bilaterally, no rales and no wheezes Cardio Rate: regular rate Rhythm: regular rhythm Heart sounds: no murmurs GI Palpation (GI): Soft to palpation and nontender Auscultation: normal bowel sounds General: Yes no CVA tenderness Back/Spine/Pelvis Back: no CVA tenderness Thoracic/Lumbar Spine: thoracic and lumbar spine normal to inspection Skin Rashes: no rashes Extrem General: Yes no clubbing, cyanosis or edema Right upper extremity: Extremity exam: right hand Details: tenderness (mild); no swelling Left upper extremity: hand Details: tenderness (mild) and swelling (mild) Location: of the dorsal hand Results Reviewed Results Reviewed: Laboratory Tests 11/17/23 08:00 WBC 7.4 Hgb 15.2 Hct 44.9 Plt Count 248 Sodium 136 Potassium 4.2 Creatinine 0.71 Estimated GFR > 60 Fasting Glucose 90 Uric Acid 5.9 H Calcium 9.3 D AST 63 H ALT 60 H Triglycerides 79 Cholesterol 114 LDL Cholesterol, Calc 61 HDL Cholesterol 38 L 25-OH Vitamin D Total 58.6 TSH 1.48 Ur Specific [place] 1.020 Urine Protein Negative Urine Glucose (UA) Negative Urine Blood Negative Urine Nitrite Negative Ur Leukocyte Esterase Negative Assessment and Plan Assessment & Plan (1) Benign essential hypertension: Code(s): I10 - Essential (primary) hypertension Plan: Reinforced low sodium diet - goal is systolic BP of at least 120 to 130 mm or less Continue Lisinopril 5 mg QD Is also on Nifedipine (10 mg BID) for her Raynaud's symptoms but this helps with her BP as well (2) Raynaud's disease: Code(s): I73.00 - Raynaud's syndrome without gangrene Qualifiers: Raynaud?s-associated gangrene presence: without gangrene Qualified Code(s): I73.00 - Raynaud's syndrome without gangrene Plan: Symptoms stable/controlled on CCB - Nifedipine 10 mg BID (dose was lowered by rheumatology recently to help address patient's symptoms of recurrent dizziness She was experiencing frequent pain in both hands, mostly due to her OA,?but her symptoms have improved since she was started on Humira by rheumatology (3) Seronegative rheumatoid arthritis: Comment: borderline pos RF, then negative; some OA in the hands as well onset synovitis 2020; Rash with hydroxychloroquine so it was only used 07/12/ - 09/11. History of sulfa allergy. Methotrexate not used due to baseline LFT elevations. Humira approved 08/2022 Code(s): M06.00 - Rheumatoid arthritis without rheumatoid factor, unspecified site Plan: Continue Humira 40 mg SQ Q 2 weeks Follow up with [facility] Rheumatology as scheduled (4) Primary osteoarthritis of hands, bilateral: Code(s): M19.041 - Primary osteoarthritis, right hand; M19.042 - Primary osteoarthritis, left hand Plan: Continue Naproxen 250 mg 1 to 2 tablets BID PRN with food (5) Osteoarthritis of knees, bilateral: Code(s): M17.0 - Bilateral primary osteoarthritis of knee Qualifiers: Osteoarthritis type: primary Qualified Code(s): M17.0 - Bilateral primary osteoarthritis of knee Plan: Continue Naproxen or Tramadol PRN May need to consider referral to orthopedics if her knee pains progress (6) Elevated LFTs: Code(s): R79.89 - Other specified abnormal findings of blood chemistry Plan: Patient is cautioned that her LFTs are still elevated on her recent labs and they have increased from previous Hepatitis profile was negative when checked last year Abdominal US last year revealed only (+) hepatosteatosis with no other abnormalities noted Patient is again cautioned to avoid taking any Tylenol-containing Rx (states that she does not); reinforced also abstinence from alcohol (states that she does drink every now and then ) Will recheck her LFTs in 4 months for follow up (7) Migraine: Code(s): G43.909 - Migraine, unspecified, not intractable, without status migrainosus Qualifiers: Migraine type: unspecified Status migrainosus presence: without status migrainosus Intractability: not intractable Qualified Code(s): G43.909 - Migraine, unspecified, not intractable, without status migrainosus Plan: Stable - Nifedipine seems to be helping with her headaches as well (8) GERD (gastroesophageal reflux disease): Code(s): K21.9 - Gastro-esophageal reflux disease without esophagitis Qualifiers: Esophagitis presence: without esophagitis Qualified Code(s): K21.9 - Gastro-esophageal reflux disease without esophagitis Plan: Dietary restrictions reinforced Continue Omeprazole 20 mg QD PRN (9) Gout: Code(s): M10.9 - Gout, unspecified Qualifiers: Gout site: unspecified site Gout etiology: idiopathic Chronicity: unspecified Qualified Code(s): M10.00 - Idiopathic gout, unspecified site Plan: Stable with no acute gout flare ups Reinforced low purine diet (10) Vitamin D deficiency: Code(s): E55.9 - Vitamin D deficiency, unspecified Plan: Continue OTC Vitamin D and Calcium supplements daily (11) Hemorrhoids: Code(s): K64.9 - Unspecified hemorrhoids Qualifiers: Hemorrhoid type: unspecified Qualified Code(s): K64.9 - Unspecified hemorrhoids Plan: Will start her on Anusol-HC rectal cream to apply 2 to 4 times a day for at least 2 weeks Have also reminded her to take stool softeners as needed to avoid straining during bowel movements, which tend to aggravate hemorrhoids (12) Insomnia: Code(s): G47.00 - Insomnia, unspecified Qualifiers: Insomnia type: primary Qualified Code(s): F51.01 - Primary insomnia Plan: Sleep hygiene reinforced States that taking Lorazepam at bedtime helps when needed (13) Anxiety: Code(s): F41.9 - Anxiety disorder, unspecified Plan: Continue Lorazepam 1 mg BID PRN (14) Overweight (BMI 25.0-29.9): Code(s): E66.3 - Overweight Plan: Reinforced diet/exercise as tolerated/lose weight Advised that losing weight should also help get her LFTs back down Plan Follow up in 4 months Orders: Orders Complete Blood Count Auto Diff 4 Months D64.9 - Anemia, unspecified TSH reflex Free T4 4 Months E78.00 - Pure hypercholesterolemia, unspecified UA CC w/rflx Micro + Cult 4 Months R30.0 - Dysuria Vitamin D 25-OH Total 4 Months E55.9 - Vitamin D deficiency, unspecified Uric Acid 4 Months M10.9 - Gout, unspecified Lipid Panel 4 Months E78.00 - Pure hypercholesterolemia, unspecified Comprehensive [place]. Panel Fast 4 Months E78.00 - Pure hypercholesterolemia, unspecified Medications: New hydrocortisone 2.5% (Anusol-HC) 1 appl LA BID-QID PRN 30 grams 1RF hemorrhoids 14 days Refilled lorazepam 1 mg PO BID PRN 60 tabs 1RF anxiety 30 days F41.9 - Anxiety disorder, unspecified tramadol 50 mg PO TID PRN 90 tabs 0RF pain 30 days M17.0 - Bilateral primary osteoarthritis of knee Coding Level of Care Code Est Pt Level 4 (44951) Diagnoses Benign essential hypertension I10 Raynaud's disease without gangrene I73.00 Raynaud?s-associated gangrene presence: without gangrene Seronegative rheumatoid arthritis M06.00 Primary osteoarthritis of hands, bilateral M19.041; M19.042 Primary osteoarthritis of both knees M17.0 Osteoarthritis type: primary Elevated LFTs R79.89 Migraine without status migrainosus, not intractable, unspecified migraine type G43.909 Migraine type: unspecified Status migrainosus presence: without status migrainosus Intractability: not intractable Gastroesophageal reflux disease without esophagitis K21.9 Esophagitis presence: without esophagitis Idiopathic gout, unspecified chronicity, unspecified site M10.00 Gout site: unspecified site Gout etiology: idiopathic Chronicity: unspecified Vitamin D deficiency E55.9 Hemorrhoids, unspecified hemorrhoid type K64.9 Hemorrhoid type: unspecified Primary insomnia F51.01 Insomnia type: primary Anxiety F41.9 Overweight (BMI 25.0-29.9) E66.3
== END 2023-11-18 10:47 | disposition home or self-care (01) ==
PROVIDERS: PCP Internal Medicine; Visit Provider Internal Medicine
DX: I10 Essential (primary) hypertension (principal); I73.00 Raynaud's syndrome without gangrene; M06.00 Rheumatoid arthritis without rheumatoid factor, unspecified site; M19.041 Primary osteoarthritis, right hand; M19.042 Primary osteoarthritis, left hand; M17.0 Bilateral primary osteoarthritis of knee; R79.89 Other specified abnormal findings of blood chemistry; G43.909 Migraine, unspecified, not intractable, without status migrainosus; K21.9 Gastro-esophageal reflux disease without esophagitis; M10.00 Idiopathic gout, unspecified site; E55.9 Vitamin D deficiency, unspecified; K64.9 Unspecified hemorrhoids; F51.01 Primary insomnia; F41.9 Anxiety disorder, unspecified; E66.3 Overweight
CPT/HCPCS: 99214

== ENCOUNTER 2024-03-23 09:50 | Outpatient (AMB) | payer BC, SELFPAY ==
[2024-03-23 09:51] VITALS: BP 118/80; PULSE 75; O2SAT 96; BMI 28.2
--- NOTE | 2024-03-23 09:51 | A.OFFPC_ITS ---
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: No Allergies cefaclor [From CECLOR] Allergy (Intermediate, Verified 03/23/24 10:22) RASH cefuroxime [From CEFTIN] Allergy (Intermediate, Verified 03/23/24 10:22) RASH cephalexin [From KEFLEX] Allergy (Intermediate, Verified 03/23/24 10:22) RASH Penicillins [PENICILLINS] Allergy (Intermediate, Verified 03/23/24 10:22) SHORTNESS OF BREATH sulfamethoxazole [From BACTRIM] Allergy (Intermediate, Verified 03/23/24 10:22) RASH hydroxychloroquine Allergy (Mild, Verified 03/23/24 10:22) Rash Sulfa (Sulfonamide Antibiotics) Allergy (Unknown, Verified 03/23/24 10:22) hives,heart racing hydrocodone [From Vicodin] Allergy (Verified 03/23/24 10:22) Stomach Upset Medication List - Last Reconciled 03/23/24 by Wang Urbina MD albuterol sulfate 90 mcg/actuation 2 puffs inhalation Q6H PRN 30 days NS allopurinol 100 mg PO DAILY calcium carbonate-vitamin D3 600 mg-12.5 mcg (500 unit) (Calcium 600 with Vitamin D3) 1 cap PO DAILY clotrimazole 1% (Lotrimin AF (clotrimazole)) 1 appl topical BID estradiol 1 mg PO DAILY 90 days Humira(CF) Pen (adalimumab) 40 mg (0.4 mL) subcut Q2W NS hydrocortisone 2.5% (Anusol-HC) 1 appl [place] BID-QID PRN 14 days lisinopril 5 mg PO DAILY 90 days lorazepam 1 mg PO BID PRN 30 days naproxen 250 - 500 mg (1 - 2 x 250 mg) PO BID PRN nifedipine 10 mg PO BID omeprazole 20 mg PO DAILY 90 days progesterone micronized 200 mg PO BEDTIME tramadol 50 mg PO TID PRN 30 days Tobacco use date assessed: 02/28/24 Dental Screening Dental Screen Date: 03/23/24 HPI 4mth f/u HPI Details Patient comes in today for her follow up visit States that she feels okay She denies any headaches or dizziness Denies any chest pains, no increased SOB No nausea/vomiting, no abdominal pain No change in bowel habits noted - states that her previous bout with (flare up of) her hemorrhoids cleared up a couple of weeks after her last visit and has not recurred since States that her joint pains remain adequately controlled on her current Rx - she has been tolerating her Humira so far without any problems She was not able to get her follow up labs done before her appointment today - states that she will try to get these done [facility] Medical History Benign essential hypertension Contracture of toe of right foot Ganglion cyst of right foot Primary osteoarthritis of hands, bilateral Overweight (BMI 25.0-29.9) Anxiety Insomnia Rheumatoid factor positive Vitamin D deficiency Migraine Menopausal symptoms Gout Raynaud's disease Osteoarthritis of knees, bilateral GERD (gastroesophageal reflux disease) Hypertension Surgical History S/P foot surgery, right S/P bunionectomy (~02/18/19) S/P bunionectomy (~12/25/16) History of bunionectomy of right great toe S/P foot surgery, left (~06/2016) Normal colonoscopy (~03/01/14) deliv NOS-unsp History of appendectomy Family History Father Diabetes Myocardial infarct Hx of CABG Mother No problems noted. 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 1. Little interest or pleasure in doing things: not at all 2. Feeling down, depressed, or hopeless: not at all 3. Trouble falling or staying asleep, or sleeping too much: not at all 4. Feeling tired or having little energy: not at all 5. Poor appetite or overeating: not at all 6. Feeling bad about yourself - or that you are a failure or have let yourself or your family down: not at all 7. Trouble concentrating on things, such as reading the newspaper or watching television: not at all 8. Moving or speaking so slowly that other people could have noticed. Or the opposite - being so fidgety or restless that you have been moving around a lot more than usual: not at all 9. Thoughts that you would be better off or of hurting yourself in some way: not at all Total score: 0 Depression Screening Interpretation: Negative Depression Screening Done: Yes 86586 - PHQ-9 Billing: Yes Source: Developed by Drs. Milad Yin, Kate Iyer, Aubrey Dempsey and colleagues, with an educational hernandez from [employer]. Thrive Questionnaire Date Thrive assessed: 03/23/24 I am a: Patient What is your living situation today?: I have a steady place to live Within the past 12 months, did the food you bought not last and you didn't have the money to get more?: Never true Within the past 12 months, did you worry whether your food would run out before you got money to buy more?: Never true Do you have trouble paying for medicines?: No Do you have trouble getting transportation to medical appointments?: No Do you have trouble paying your heating and electricity bill?: No Do you have trouble taking care of your child, family member or friend?: No Do you have trouble with day-to-day activities such as bathing, preparing meals, shopping, managing finances, etc.?: No Are you currently unemployed and looking for a job?: No Are you interested in more education?: No Please select the resources that you would like help with: None Currently or been in a relationship where the following occur: No concerns reported THRIVE Score: 0 AUDIT C Alcohol Use Questionnaire (AUDIT-C) 1. How often do you have a drink containing alcohol?: Monthly or less 2. How many drinks containing alcohol do you have on a typical day when you are drinking?: 1 or 2 3. How often do you have six or more drinks on one occasion?: Never Total Score: 1 Score Reviewed/Action Taken: Yes BRANDIE-7 AMB Questionnaire BRANDIE-7 Date BRANDIE - 7 assessed: 11/18/23 Source: Developed by Drs. Milad Yin, Kate Iyer, Aubrey Dempsey and colleagues, with an educational hernandez from [employer]. Review of Systems Const Denies chills, Denies fatigue, Denies fever(s) and Denies headache(s) ENT Denies dysphagia, Denies dizziness, Denies otalgia, Denies headache(s), Denies neck pain, Denies odynophagia and Denies sore throat Card Denies chest pain, Denies palpitations and Reports dyspnea on exertion (mild, at times) Resp Denies chest congestion, Denies cough, Reports dyspnea on exertion (mild, at times) and Denies wheezing GI Denies abdominal pain, Denies hematochezia, Denies constipation, Denies dysphagia, Denies heartburn, Denies diarrhea, Denies nausea, Denies odynophagia and Denies vomiting Denies difficulty voiding, Denies nocturia, Denies dysuria and Denies urinary urgency Musc Denies back pain, Reports arthralgias (both hands and both knees pain have improved significantly with Rx), Denies neck pain, Reports numbness (in both hands at times) and Reports stiffness Skin/Breast Denies rash Neuro Denies dizziness, Denies headache(s) and Reports numbness (in both hands at times) Psych Denies anxiety Endo Denies fatigue and Denies palpitations Aller/Immun Denies wheezing Physical exam (Primary Care) Vital Signs: Last Vital Signs Pulse 75 03/23/24 09:51 BP 118/80 03/23/24 09:51 Pulse Ox 96 03/23/24 09:51 Oxygen Delivery Method Room Air 03/23/24 09:51 BMI result Body Mass Index 28.2 Tobacco/Smoking Status: Tobacco use Status Tobacco use date assessed 02/28/24 07/03/24 09:53 Patient Tobacco Use Status Former Tobacco user 03/23/24 09:53 Tobacco use type Cigarette 03/23/24 09:53 e-Cigarette/Vaping Use Never Used 03/23/24 09:53 PHQ-9: PHQ-9 Score PHQ-9: Total score 0 03/23/24 09:53 Depression Screening Interpretation: Negative Thrive Assessment: Date of Thrive Assessment Date Thrive assessed 11/18/23 03/23/24 09:53 Currently or been in a relationship where the following occur: No concerns repor larissa Const General: no acute distress and alert HENMT Ears: TM's normal bilaterally and EAC's normal Throat: Yes posterior oropharynx normal and Yes tonsils normal (no TP congestion noted) Neck Neck: Yes no lymphadenopathy and Yes supple Thyroid: Thyroid normal Resp Auscultation: clear to auscultation bilaterally, no rales and no wheezes Cardio Rate: regular rate Rhythm: regular rhythm Heart sounds: no murmurs GI Palpation (GI): Soft to palpation and nontender Auscultation: normal bowel sounds General: Yes no CVA tenderness Back/Spine/Pelvis Back: no CVA tenderness Thoracic/Lumbar Spine: thoracic and lumbar spine normal to inspection Skin Rashes: no rashes Extrem Other: (+) palpable, firm, non-tender nodule (cord) over the medial half of the right palm proximal to the 4th and 5th fingers; the 5th finger is unable to be extended completely General: Yes no clubbing, cyanosis or edema Right upper extremity: Extremity exam: right hand Details: tenderness (mild); no swelling Left upper extremity: hand Details: tenderness (mild) and swelling (mild) Location: of the dorsal hand Assessment and Plan Assessment & Plan (1) Benign essential hypertension: Code(s): I10 - Essential (primary) hypertension Plan: Reinforced low sodium diet - goal is systolic BP of at least 120 to 130 mm or less Continue Lisinopril 5 mg QD She is also on Nifedipine (10 mg BID) for her Raynaud's symptoms but this helps with her BP as well (2) Raynaud's disease: Code(s): I73.00 - Raynaud's syndrome without gangrene Qualifiers: Raynaud?s-associated gangrene presence: without gangrene Qualified Code(s): I73.00 - Raynaud's syndrome without gangrene Plan: Symptoms stable/controlled on CCB - Nifedipine 10 mg BID (dose was lowered by rheumatology recently to help address patient's symptoms of recurrent dizziness She was experiencing frequent pain in both hands, mostly due to her OA,?but her symptoms have improved since she was started on Humira by rheumatology (3) Seronegative rheumatoid arthritis: Comment: borderline pos RF, then negative; some OA in the hands as well onset synovitis 2020; Rash with hydroxychloroquine so it was only used 07/12/ - 09/11. History of sulfa allergy. Methotrexate not used due to baseline LFT elevations. Humira approved 08/2022 Code(s): M06.00 - Rheumatoid arthritis without rheumatoid factor, unspecified site Plan: Continue Humira 40 mg SQ Q 2 weeks Follow up with [facility] Rheumatology as scheduled (4) Primary osteoarthritis of hands, bilateral: Code(s): M19.041 - Primary osteoarthritis, right hand; M19.042 - Primary osteoarthritis, left hand Plan: Continue Naproxen 250 mg 1 to 2 tablets BID PRN with food (5) Osteoarthritis of knees, bilateral: Code(s): M17.0 - Bilateral primary osteoarthritis of knee Qualifiers: Osteoarthritis type: primary Qualified Code(s): M17.0 - Bilateral primary osteoarthritis of knee Plan: Continue Naproxen or Tramadol PRN May need to consider referral to orthopedics if her knee pains progress (6) Elevated LFTs: Code(s): R79.89 - Other specified abnormal findings of blood chemistry Plan: Patient is cautioned that her LFTs were still elevated on her previous labs and they have increased from previous - she is advised to get her follow up labs done BASIM Hepatitis profile was negative when checked last year Abdominal US last year revealed only (+) hepatosteatosis with no other abnormalities noted Patient is again cautioned to avoid taking any Tylenol-containing Rx (states that she does not); reinforced also abstinence from alcohol (states that she does drink every now and then ) Will continue monitoring her LFTs regularly (7) Dupuytren's contracture of right hand: Code(s): M72.0 - Palmar fascial fibromatosis [Dupuytren] Plan: She is advised that she will likely require surgical correction (fasciectomy) at some point to correct her hand contracture Patient feels that she is still doing okay for now and will call for orthopedics referral if she feels her hand symptoms are getting worse (8) Migraine: Code(s): G43.909 - Migraine, unspecified, not intractable, without status migrainosus Qualifiers: Migraine type: unspecified Status migrainosus presence: without status migrainosus Intractability: not intractable Qualified Code(s): G43.909 - Migraine, unspecified, not intractable, without status migrainosus Plan: Stable - Nifedipine appears to be helping with her headaches as well (9) GERD (gastroesophageal reflux disease): Code(s): K21.9 - Gastro-esophageal reflux disease without esophagitis Qualifiers: Esophagitis presence: without esophagitis Qualified Code(s): K21.9 - Gastro-esophageal reflux disease without esophagitis Plan: Dietary restrictions reinforced Continue Omeprazole 20 mg QD PRN (10) Gout: Code(s): M10.9 - Gout, unspecified Qualifiers: Gout site: unspecified site Gout etiology: idiopathic Chronicity: unspecified Qualified Code(s): M10.00 - Idiopathic gout, unspecified site Plan: Stable with no acute gout flare ups lately Reinforced low purine diet (11) Vitamin D deficiency: Code(s): E55.9 - Vitamin D deficiency, unspecified Plan: Continue OTC Vitamin D and Calcium supplements daily (12) Insomnia: Code(s): G47.00 - Insomnia, unspecified Qualifiers: Insomnia type: primary Qualified Code(s): F51.01 - Primary insomnia Plan: Sleep hygiene reinforced States that taking Lorazepam at bedtime helps when needed (13) Anxiety: Code(s): F41.9 - Anxiety disorder, unspecified Plan: Continue Lorazepam 1 mg BID PRN (14) Overweight (BMI 25.0-29.9): Code(s): E66.3 - Overweight Plan: Reinforced diet/exercise as tolerated/lose weight Advised that losing weight should also help get her LFTs back down Plan Follow up in 4 months Orders: Orders Comprehensive [place]. Panel Fast 4 Months E78.00 - Pure hypercholesterolemia, unspecified Complete Blood Count Auto Diff 4 Months D64.9 - Anemia, unspecified Lipid Panel 4 Months E78.00 - Pure hypercholesterolemia, unspecified Coding Level of Care Code Est Pt Level 4 (76651) Diagnoses Benign essential hypertension I10 Raynaud's disease without gangrene I73.00 Raynaud?s-associated gangrene presence: without gangrene Seronegative rheumatoid arthritis M06.00 Primary osteoarthritis of hands, bilateral M19.041; M19.042 Primary osteoarthritis of both knees M17.0 Osteoarthritis type: primary Elevated LFTs R79.89 Dupuytren's contracture of right hand M72.0 Migraine without status migrainosus, not intractable, unspecified migraine type G43.909 Migraine type: unspecified Status migrainosus presence: without status migrainosus Intractability: not intractable Gastroesophageal reflux disease without esophagitis K21.9 Esophagitis presence: without esophagitis Idiopathic gout, unspecified chronicity, unspecified site M10.00 Gout site: unspecified site Gout etiology: idiopathic Chronicity: unspecified Vitamin D deficiency E55.9 Primary insomnia F51.01 Insomnia type: primary Anxiety F41.9 Overweight (BMI 25.0-29.9) E66.3
== END 2024-03-23 10:36 | disposition home or self-care (01) ==
PROVIDERS: PCP Internal Medicine; Visit Provider Internal Medicine
DX: I10 Essential (primary) hypertension (principal); I73.00 Raynaud's syndrome without gangrene; M06.00 Rheumatoid arthritis without rheumatoid factor, unspecified site; M19.041 Primary osteoarthritis, right hand; M19.042 Primary osteoarthritis, left hand; M17.0 Bilateral primary osteoarthritis of knee; R79.89 Other specified abnormal findings of blood chemistry; M72.0 Palmar fascial fibromatosis [Dupuytren]; G43.909 Migraine, unspecified, not intractable, without status migrainosus; K21.9 Gastro-esophageal reflux disease without esophagitis; M10.00 Idiopathic gout, unspecified site; E55.9 Vitamin D deficiency, unspecified; F51.01 Primary insomnia; F41.9 Anxiety disorder, unspecified; E66.3 Overweight
CPT/HCPCS: 99214

== ENCOUNTER 2024-06-10 08:49 | Outpatient (REF) | payer BC, SELFPAY ==
--- NOTE | ~2024-06-10 | MM_ITS ---
EXAMINATION: MM SCREENING DIGITAL BREAST TOMOSYNTHESIS, BILATERAL CLINICAL INFORMATION: Screening. Asymptomatic. COMPARISON: Mammography: Comparison is made with available priors TECHNIQUE: Digital breast mammography with tomosynthesis is performed in both the craniocaudal and mediolateral oblique views along with computer-aided detection (CAD). FINDINGS: There are scattered areas of fibroglandular density (ACR BI-RADS breast composition Category b). There are no significant masses, abnormal calcifications, or other abnormalities. MM/MM tomosynthesis screening BI IMPRESSION: No mammographic evidence of malignancy. ASSESSMENT: BI-RADS BI-RADS 1 - Negative RECOMMENDATION: Routine annual mammography screening. 1 year F/U This examination should not preclude the clinical evaluation of a suspicious palpable abnormality. This patient's information was entered into a reminder system with a target due date for their next mammogram. Electronically signed by: Lady Ron DO 06/22/2024 12:03 PM EDT
== END 2024-06-10 08:50 | disposition home or self-care (01) ==
LOC: HO.MAMMO 08:49
PROVIDERS: PCP Internal Medicine; Visit Provider Radiology Radiation Oncology
DX: Z12.31 Encounter for screening mammogram for malignant neoplasm of breast (principal)
CPT/HCPCS: 77063; 77067

== ENCOUNTER → 2024-06-10 09:00 | Outpatient (BNV) | payer BC, SELFPAY | PROVIDERS: PCP Internal Medicine; Visit Provider Internal Medicine | DX: Z12.31 Encounter for screening mammogram for malignant neoplasm of breast (principal) | CPT/HCPCS: 77063; 77067 ==

== ENCOUNTER 2024-06-29 08:32 | Outpatient (AMB) | payer BC, SELFPAY ==
--- NOTE | 2024-06-29 08:35 | MHC.OFFVIS ---
Vital Signs 06/29/24 08:39 Height 5 ft 1 in Weight 151 lb 3.794 oz BMI 28.6 BP 112/68 Blood Pressure Location Rt brachial Position Sitting Pulse 73 Pulse Source Pulse Oximeter Pulse Oximetry (%) 100 Oxygen Delivery Method Room Air Intake Visit Reasons: RA/CM Intake Note: Patient presents for RA. Allergies cefaclor [From CECLOR] Allergy (Intermediate, Verified 06/29/24 08:38) RASH cefuroxime [From CEFTIN] Allergy (Intermediate, Verified 06/29/24 08:38) RASH cephalexin [From KEFLEX] Allergy (Intermediate, Verified 06/29/24 08:38) RASH Penicillins [PENICILLINS] Allergy (Intermediate, Verified 06/29/24 08:38) SHORTNESS OF BREATH sulfamethoxazole [From BACTRIM] Allergy (Intermediate, Verified 06/29/24 08:38) RASH hydroxychloroquine Allergy (Mild, Verified 06/29/24 08:38) Rash Sulfa (Sulfonamide Antibiotics) Allergy (Unknown, Verified 06/29/24 08:38) hives,heart racing hydrocodone [From Vicodin] Allergy (Verified 06/29/24 08:38) Stomach Upset Medication List - Last Reconciled 06/29/24 by Rafa Narvaez MD albuterol sulfate 90 mcg/actuation 2 puffs inhalation Q6H PRN 30 days NS allopurinol 100 mg PO DAILY calcium carbonate-vitamin D3 600 mg-12.5 mcg (500 unit) (Calcium 600 with Vitamin D3) 1 cap PO DAILY clotrimazole 1% (Lotrimin AF (clotrimazole)) 1 appl topical BID estradiol 1 mg PO DAILY 90 days Humira(CF) Pen (adalimumab) 40 mg (0.4 mL) subcut Q2W NS hydrocortisone 2.5% (Anusol-HC) 1 appl LA BID-QID PRN 14 days lisinopril 5 mg PO DAILY 90 days lorazepam 1 mg PO BID PRN 30 days naproxen 500 mg (2 x 250 mg) PO BID PRN nifedipine 10 mg PO BID omeprazole 20 mg PO DAILY 90 days progesterone micronized 200 mg PO BEDTIME tramadol 50 mg PO TID PRN 30 days HPI Comments Details: This is a 64-year-old female with seronegative RA who presents for follow-up. Remains on Humira 40 mg every other week. She states that she is doing reasonably well. Not had any flare-ups. Raynaud's is reasonably well controlled. She has heated gloves, she starting to have more episodes now that it is getting colder, she puts her hands under warm water and the color reverses in a few minutes. [facility] Medical History Benign essential hypertension Contracture of toe of right foot Ganglion cyst of right foot Primary osteoarthritis of hands, bilateral Overweight (BMI 25.0-29.9) Anxiety Insomnia Rheumatoid factor positive Vitamin D deficiency Migraine Menopausal symptoms Gout Raynaud's disease Osteoarthritis of knees, bilateral GERD (gastroesophageal reflux disease) Hypertension Surgical History S/P foot surgery, right S/P bunionectomy (~02/18/19) S/P bunionectomy (~12/25/16) History of bunionectomy of right great toe S/P foot surgery, left (~06/2016) Normal colonoscopy (~03/01/14) deliv NOS-unsp History of appendectomy Family History Father Diabetes Myocardial infarct Hx of CABG Mother No problems noted. 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 Cognitive needs: No Hearing needs: No Vision needs: Yes Review of Systems Const Denies weight loss Musc Denies joint swelling and Reports limited range of motion Skin/Breast Details: Raynaud's Physical Exam Vital Signs: Last Vital Signs Pulse 73 06/29/24 08:39 BP 112/68 06/29/24 08:39 Pulse Ox 100 06/29/24 08:39 Oxygen Delivery Method Room Air 06/29/24 08:39 BMI result Body Mass Index 28.6 Const General: cooperative, healthy appearing and comfortable Nutritional Appearance: overweight Orientation/consciousness: patient oriented x3 Limitations: no limitations HEENT Head: Yes normocephalic and Yes atraumatic Mouth: moist mucous membranes Resp Effort & Inspection: normal respiratory effort and able to speak in complete sentences Auscultation: clear to auscultation bilaterally Skin Other: Very subtle telangiectasias Neuro General: patient oriented x3 Extrem Other: No active synovitis Mild ulnar deviation of the MCPs of the left hand Fingertips are cool with bluish discoloration consistent with Raynaud's normal nailfold capillaroscopy Assessment & Plan Assessment & Plan (1) Seronegative rheumatoid arthritis: Comment: borderline pos RF, then negative; some OA in the hands as well onset synovitis 2020; Rash with hydroxychloroquine so it was only used - 09/11. History of sulfa allergy. Methotrexate not used due to baseline LFT elevations. Humira approved 08/2022 effective Code(s): M06.00 - Rheumatoid arthritis without rheumatoid factor, unspecified site Category: Medical Plan: This is a 64-year-old female with rheumatoid arthritis who presents for follow-up. Doing very well on Humira 40 mg every other week. There is no active synovitis on exam Continue with Humira 40 mg every other week Patient has Raynaud's and some subtle telangiectasias on exam. No shortness of breath, no significant GERD. PFTs in 2021 were remarkable However I would like to rule out overlap with other systemic illnesses such as scleroderma. Labs will be checked in 2 months Follow-up in about 5 months (2) Long-term use of immunosuppressant medication: Code(s): Z79.60 - special forces specialist (current) use of unspecified immunomodulators and immunosuppressants Category: Medical Plan: Side effects of Humira were discussed with the patient in detail including increased risk of infection, demyelinating disease, reactivation of latent TB, possible increased risk of solid and skin tumors. Patient fully aware. Advised patient to seek medical care Brenda if patient has an infection and advised patient to stop the medication until the infection is resolved. (3) Dupuytren's contracture of right hand: Code(s): M72.0 - Palmar fascial fibromatosis [Dupuytren] Category: Medical Plan: Not particularly symptomatic at this time. Can refer patient to hand surgeon if symptoms are progressive (4) Raynaud's disease: Code(s): I73.00 - Raynaud's syndrome without gangrene Category: Medical Qualifiers: Raynaud?s-associated gangrene presence: without gangrene Qualified Code(s): I73.00 - Raynaud's syndrome without gangrene Plan: Discussed conservative measures for Raynaud's including keeping core and extremity temperature warmth, using gloves and glove warmers. Patient takes nifedipine as needed. Plan I spent 46 minutes reviewing patient's chart, evaluating patient, ordering diagnostic workup, counseling patient and documenting in the chart Orders: Orders Comprehensive Met. Panel 2 Months M06.00 - Rheumatoid arthritis without rheumatoid factor, unspecified site C Reactive Protein 2 Months M06.00 - Rheumatoid arthritis without rheumatoid factor, unspecified site T Spot TB 2 Months Z11.7 - Encounter for testing for latent tuberculosis infection Scleroderma 12 Panel 2 Months M34.9 - Systemic sclerosis, unspecified Complete Blood Count Auto Diff 2 Months M06.00 - Rheumatoid arthritis without rheumatoid factor, unspecified site Erythrocyte Sedimentation Rate 2 Months M06.00 - Rheumatoid arthritis without rheumatoid factor, unspecified site Hepatitis A,B,C Profile 2 Months Z11.59 - Encounter for screening for other viral diseases Coding Level of Care Code Est Pt Level 5 (77859) Complex EM visit Add On G2211 Diagnoses Seronegative rheumatoid arthritis M06.00 Long-term use of immunosuppressant medication Z79.60 Dupuytren's contracture of right hand M72.0 Raynaud's disease without gangrene I73.00 Raynaud?s-associated gangrene presence: without gangrene
[2024-06-29 08:39] VITALS: BP 112/68; PULSE 73; O2SAT 100; BMI 28.6
== END 2024-06-29 09:09 | disposition home or self-care (01) ==
PROVIDERS: PCP Internal Medicine; Visit Provider Student in an Organized Health Care Education/Training Program
DX: M06.09 Rheumatoid arthritis without rheumatoid factor, multiple sites (principal); Z79.60 Long term (current) use of unspecified immunomodulators and immunosuppressants; M72.0 Palmar fascial fibromatosis [Dupuytren]; I73.00 Raynaud's syndrome without gangrene
CPT/HCPCS: 99215

== ENCOUNTER → 2024-06-29 08:32 | Outpatient (BNVA) | payer BC, SELFPAY | PROVIDERS: PCP Internal Medicine; Visit Provider Student in an Organized Health Care Education/Training Program ==

== ENCOUNTER 2024-09-05 09:14 | Outpatient (REF) | payer BC, SELFPAY ==
--- OUTSIDE RECORDS SUMMARY | 2024-09-05 09:18 | XMS_ITS | Patient Health Record ---
Author Organization [facility] danielle [place] Address [address] [place] [address] Care Team Providers Care Recovery Operator Helper Name Role Phone Carlitos TARIQ, [place] Primary Care Provider Allison Dos Santos Unavailable [phone] Reason For Referral No Information Medications Medication SIG (Take, Route, Frequency, Duration) Notes Start Date End Date Status Shoes . . . Medically necessary to wear comfortable shoes at work-unable to wear non slip shoes or overshoes due to previous foot surgery for as needed 06/02/2018 Not-Taking Custom Orthotics as directed 06/30/2018 Not-Taking Work Note . . . Patient having surgery March 21 and will be out of work for 4 weeks 03/15/2021 Active Doxycycline Hyclate 100 MG 1 capsule Ora lly Twice a day for 5 days 03/16/2019 Not-Taking Feldene 20 MG 1 capsule with food Orally Once a day for 30 day(s) 05/21/2021 Active Work Note . . . Patient off of work until May 28 2021 while recovering from foot surgery right Active Percocet 5-325 MG 1 tablet as needed Orally every 4-6 hrs for as needed 01/26/2019 Not-Taking Ibuprofen 800 MG 1 tablet Orally Thre e times a day for 30 day(s) 03/08/2021 Not-Taking Physical Therapy . . . 2-3x/week for 3- 4 weeks 03/03/2017 Not-Taking Work Note . . . Patient off of work for 2 weeks starting 02/03/20 02/03/2020 Not-Taking NIFEdipine 10 MG 1 capsule Orally Thr ee times a day Not-Taking Work Note . . . Patient can retu rn to work on 02/20/20 02/16/2020 Not-Taking Indomethacin Not-Howard ing Physical Therapy . . Joint stiffness an d pain after bunionectomy right foot 2-3x/week 11/14/2020 Not-Taking Cyclobenzaprine HCl 10 MG 1 tablet Orall y Three times a day Not-Taking Work Note . . . Patient to be ou t of work 4 weeks after November 22 surgery 11/14/2020 Not-Taking Ibuprofen 800 MG 1 tablet Orally Thre e times a day for 30 day(s) 12/03/2016 Not-Taking Ibuprofen 800 MG 1 tablet with food o r milk as needed Orally Three times a day for 7 days 11/14/2020 Not-Taking Work Note . . . Scheduled for surgery on 12/25/16 with anticipated recover about 10 weeks 12/03/2016 Not-Taking oxyCODONE HCl 5 MG 1 tablet as needed Orally every 4-6 hrs for 2 days 11/14/2020 Not-Taking Vitamin D Not-Taking Colchicine 0.6 MG as directed Orally f or as needed 07/26/2015 Not-Taking Vicodin 5-300 MG 1 tablet as needed Orally every 6 hrs for as needed 07/26/2015 Not-Taking Walking Boot/Pneumatic As directed Wear Daily for Until further notice 03/09/2019 Not-Taking Percocet 5-325 MG 1-2 tablet as needed Orally every 4-6 hrs 06/19/2015 Not-Taking Ibuprofen 800 MG 1 tablet Orally Thre e times a day for 30 days 01/26/2019 Not-Taking Vicodin 5-300 MG 1-2 tablets as neede d Orally every 4-6 hrs for as needed 07/11/2015 Not-Taking Physical Therapy . . . 2-3x/week for 3- 4 weeks 04/13/2019 Not-Taking Doxycycline Hyclate 100 MG 1 capsule Ora lly Twice a day for 5 days 01/07/2017 Not-Taking Bone Stimulator as directed Delayed healing of fusion site S/P Lap[place]us Right foot on 02/24/19 06/14/2019 Not-Taking Vicodin 5-300 MG 1 tablet as needed Orally every 6 hrs 12/03/2016 Not-Taking Allopurinol 100 MG Orally A ctive Work Note . . . Out of work unti l 09/21/2019 Not-Taking Tramadol & Dietary Manage Prod Not-Taking Calcium + D Active Work Note . . . Out of work unti l released back to work by physician Not-Taking Estradiol Active Work Note . . . Return to work o n 09/18/19 rn gyn without restrictions Not-Taking LORazepam 1 MG Orally Activ e Neurontin 300 MG 1 capsule Orally Onc e a day at night for 30 day(s) 01/26/2019 Not-Taking Lisinopril 5 MG Orally Acti ve Work Note . . . Completely disabled from work until 04/21/17 03/03/2017 Not-Taking Omeprazole 20 MG Orally Act britt Work Note . . . Patient able to return to work on 04/21/17 without restrictions 04/07/2017 Not-Taking Progesterone Active Tylenol Arthritis Pain PRN Active Immunizations Vaccine Route Administration Date Status Comme nts COVID-19 Moderna Vaccine Unknown 12/14/2020 Administere d 1st 11/16/2020 Social History Tobacco Use: Social History Observation Description Date Details (start date - stop date) Never Smoker NA - NA Tobacco Use/Smoking Question Answer Notes Are you a: nonsmoker Additional Findings: Tobacco Non-User Current no n-smoker Alcohol Screen Question Answer Notes Did you have a drink containing alcohol in the p ast year? Yes Points 0 Interpretation Negative Tobacco use other than smoking: Question Answer Notes Are you an other tobacco user? No Problems Problem Type SNOMED Code ICD Code Onset Dates Problem Status W/U Status Risk Notes Problem Gout (64906114) Gout, unspecified (M10.9) Active confirmed Problem Acquired hallux valgus (41043057) Hallux valgus (acquired), right foot (M20.11) Active confirmed Problem 634847628284391 Contracture, right foot (M24.574) Active confirmed Problem 614097283 Hammer toe of right foot (M20.41) Active confirmed Problem 97894970 Vitamin D deficiency (E55.9) Active confirmed Plan Of Treatment Pending Test Test Name Order Date Ultrasound : Extremity Ultrasound Non-Va vt 10/03/2020 X ray : Foot, left 3V 07/10/2015 X ray : Foot, right 3V 11/19/2016 X ray : Foot, right 3V 12/30/2016 X ray : Foot, right 3V 03/03/2017 X ray : Foot, right 3V 01/26/2019 X ray : Foot, right 3V 03/02/2019 X ray : Foot, right 3V 03/09/2019 X ray : Foot, right 3V 03/16/2019 X ray : Foot, right 3V 03/23/2019 X ray : Foot, right 3V 03/30/2019 X ray : Foot, right 3V 04/13/2019 X ray : Foot, right 3V 05/11/2019 X ray : Foot, right 3V 06/14/2019 X ray : Foot, right 3V 03/08/2021 X ray : Foot, right 3V 03/26/2021 X ray : Foot, right 3V 05/21/2021 X ray : Foot, right 3V 07/19/2019 X ray : Foot, right 3V 06/02/2018 X ray : Foot, right 3V 06/28/2019 X ray : Foot, right 3V 08/16/2019 X ray : Foot, right 3V 09/07/2019 X ray : Foot, right 3V 10/05/2019 X ray : Foot, right 3V 02/03/2020 65656, J0702- INJECT or DRAIN, JOINT/BUR SA 07/27/2019 94840, [id number]/INJECT, JOINT/BURSA 0 05/09/2015 65055, C7592-BLORJ/INJECT, JOINT/BURSA 1 10/26/2017 45613, [id number]/INJECT, JOINT/BURSA 0 06/02/2018 63848, [id number]/INJECT, JOINT/BURSA 0 11/19/2016 76930- Unna Boot 03/09/2019 PARATHYROID HORMONE INTACT (PTHI) 2018 VITAMIN D 25-OH (D2 D3) 06/28/2019 CT FOOT RT W&WO CONTRAST 06/28/2019 Insurance Providers Payer Name Payer Address Payer Phone Subscriber Number Group Number Insured Name Patient Relationship to Insured Coverage Start Date Coverage End Date [facility] [address] [place] [phone] [id number] Laz Beckford Self - patient is the insured Medical (General) History Medical History History ICD Code High blood pressure Arthritis Raynauds syndrome Back,Hip,and Knee pain Gout Chicken pox Poor circulation Tailors Bunion Tailors Bunion Surgical History Surgery Date(Month/Year) appendectomy section x2 colonoscopy Brady/Exc 5th MT Left 07/05/2015 Brady/ Exc 5th MT Right 12/25/2016 Lapidus Bunionectomy R 02/24/2019 Excision ganglion cyst Right 11/22/2020 Right Foot Surgery 03/21/21
--- OUTSIDE RECORDS SUMMARY | 2024-09-05 09:19 | XMS_ITS | Data Portability ---
Author Organization [place] - [facility],, MISA FUNK MD Address [address] [address] Care Team Providers Care Child Support Investigator Name Role Phone ANDREY CLARK OTHER Assessment No assessment recorded. Plan of Treatment Reminders Order Date Submit Date Provider Last Modified By Organization Details Last Modified Time Details Appointments ANNUAL EXAM 2024 10:00A M Misa Funk MD Not available Not available Not available Lab pap test, thinprep , cervical 2018 019 [email or web address] [facility], Cytopathology Service, [address] [place], [address], 04/13/2019 07:20:18 fecal occult blood, stool 2018 019 [email or web address] In-Office Order, Internal Use Only DO Not Attach Compendium DO Not Attach Compendium, Do Not Delete/merge, [id number] 04/13/2019 07:20:18 pap test, thinprep , cervical 2020 021 [email or web address] [facility], Cytopathology Service, [address] [place], [address], 03/27/2021 07:27:54 fecal occult blood, stool 2020 021 [email or web address] In-Office Order, Internal Use Only DO Not Attach Compendium DO Not Attach Compendium, Do Not Delete/merge, [id number] 03/20/2021 10:56:46 pap test, thinprep , cervical 2021 022 [facility], [address] [place], [address], 08/06/2022 07:34:27 fecal occult blood, stool 2021 022 [email or web address] 1 In-Office Order, Internal Use Only DO Not Attach Compendium DO Not Attach Compendium, Do Not Delete/merge, [id number] 07/23/2022 11:36:46 pap test, thinprep , cervical 2022 023 [facility], [address] [place], [address], 08/03/2023 07:26:04 fecal occult blood, stool 2022 023 [email or web address] 1 In-Office Order, Internal Use Only DO Not Attach Compendium DO Not Attach Compendium, Do Not Delete/merge, [id number] 07/24/2023 09:26:50 cytology report, thin prep, smear or scraping , cervical or vaginal 2023 024 [facility], [address] [place], [address], 08/09/2024 18:06:03 hemoglob in, gastroin testinal , stool 2023 024 [email or web address] 1 In-Office Order, Internal Use Only DO Not Attach Compendium DO Not Attach Compendium, Do Not Delete/merge, [id number] 08/03/2024 11:19:36 Referral None recorded . Procedures None recorded . Surgeries None recorded . Imaging MAMMO, screenin g, digital, bilatera l 2018 019 [facility] (Mammo), [address] [facility] [place], [address], 05/11/2019 11:14:50 MAMMO, screenin g, digital, bilatera l 2020 021 [facility] (Mammo), [address] [place], [address], 05/16/2021 08:41:23 MAMMO, screenin g, digital, bilatera l 2021 022 [facility] (Mammography), [address] [place] [address], [address], 07/20/2023 07:36:55 MAMMO, screenin g, digital, bilatera l - Breast Aspirati on and/or Biopsy if needed 2022 023 [facility] (Mammo), [address] [place] [address] [place], [address], 07/18/2024 07:30:31 MAMMO, screenin g, digital, bilatera l - Breast Aspirati on and/or Biopsy if needed 2023 024 [facility] (Mammo), [address] [place] [address] [place], [address], 08/03/2024 11:39:20 Medication Orders estradio l 1 mg tablet 2018 019 INTERFACE [facility], [address], [place], [id number], 04/06/2019 11:25:29 progeste jadon microniz ed 200 mg capsule 2018 019 INTERFACE [facility], [address], [place], [id number], 04/06/2019 11:25:27 progeste jadon microniz ed 200 mg capsule 2020 021 [facility], [address] [place], [address], 03/20/2021 10:25:05 estradio l 1 mg tablet 2020 021 [facility], [address] [place], [address], 03/20/2021 10:25:06 estradio l 1 mg tablet 2021 022 [facility], [address] [place] [address], [address], 07/23/2022 11:36:50 progeste jadon microniz ed 200 mg capsule 2021 022 [facility], [address] [place] [address], [address], 07/23/2022 11:36:50 estradio l 1 mg tablet 2022 023 [facility], [address] [place] [address], [address], 07/24/2023 09:26:54 progeste jadon microniz ed 200 mg capsule 2022 023 [facility], [address] [place] [address], [address], 07/24/2023 09:26:54 estradio l 1 mg tablet 2023 024 [facility], [address] [place] [address], [address], 08/03/2024 11:19:40 progeste jadon microniz ed 200 mg capsule 2023 024 [facility], [address] [place] [address], [address], 08/03/2024 11:19:40 Patient TargetsNo targets recorded. Patient Instructions Encounter Date Encounter Id Patient Instructions Last Modified By Organization Details Last Modified Time 04/06/2019 [id number] She is here for annual exam, is doing well on the HRT and elects to continue. She is going to become a grandmother in April! Note from 2018: She is here for annual exam, is doing well. menopause at age 43. No vasomotor symptoms now that she is taking HRT. She had a normal bone density a few years ago. The significant health benefits of becoming and remaining fit, with an optimal BMI, were discussed. We discussed the potential reduction in chronic discomfort, the diminished risks of hypertension, diabetes, and heart disease with the proper weight management, and improved mobility as she ages. Strategies to reach and maintain her target weight were discussed in detail. We discussed the avoidance of empty calories, the benefit of increasing her protein intake in the morning and diminishing her carbohydrate intake in the evening. A formalized dietary program was discussed, such as Weight Watchers. We discussed the use of the BMI calculator in following her progress. We discussed the possibility of having her begin a standardized exercise regimen, such as that at [employer], and she is given literature for this. We discussed a referral to a physician general internal medicine and/or weight product management intern. All questions were answered. She deanna think about all this and get back to me. She appears to be doing well. She is advised to get 1500 mg of calcium daily into her diet and supplements combined. We discussed the benefits of adequate vitamin D supplementation to at least 400 units daily, daily aerobic exercise of 30 minutes, and stress reduction. Monthly self breast exam was taught, and stressed, and is advised to call if she discovers any new mass in the breast. Seat belt use for herself and passengers advised. We discussed having her continue to take hormone replacement therapy. We discussed the need to take a progestin if a uterus is present, and the rationale behind that. We discussed the stated risks of one in 10,000 of development of a blood clot/DVT/PE that could be life threatening. We discussed the Women's Health Initiative study and the findings. We discused the PEPPI study as well. She is aware that there are conflicting reports in the medical literature concerning the risks and benefits of HRT. We disussed that women are advised by ACOG to take HRT in the lowest dose necessary, and for the shortest time necessary, to control their symptoms. After a long discussion of the potential risks and benefits of HRT she elects to continue HRT. All questions were answered. Rx for HRT is called in to the pharmacy. Call if any vaginal bleeding occurs upon initiation of HRT, or at any time postmenopausally. Not available 04/06/2019 11:41:44 03/20/2021 [id number] learning about healthy weight Not available 03/20/2021 10:25:02 She is here for annual exam, doing well on HRT, now has three grandchildren! She had premature ovarian failure age 42. note from 2019: She is here for annual exam, is doing well on the HRT and elects to continue. She is going to become a grandmother in April! She appears to be doing well. We discussed having her continue to take hormone replacement therapy. We discussed the need to take a progestin if a uterus is present, and the rationale behind that. We discussed the stated risks of one in 10,000 of development of a blood clot/DVT/PE that could be life threatening. We discussed the Women's Health Initiative study and the findings. We discused the PEPPI study as well. She is aware that there are conflicting reports in the medical literature concerning the risks and benefits of HRT. We disussed that women are advised by ACOG to take HRT in the lowest dose necessary, and for the shortest time necessary, to control their symptoms. After a long discussion of the potential risks and benefits of HRT she elects to continue HRT. All questions were answered. Rx for HRT is called in to the pharmacy. Call if any vaginal bleeding occurs upon initiation of HRT, or at any time postmenopausally. Not available 03/20/2021 10:25:43 07/23/2022 [id number] learning about healthy weight Not available 07/23/2022 11:36:47 She is here for annual exam, doing well on HRT, now has three grandchildren! She had premature ovarian failure age 42. She appears to be doing well. We discussed having her continue to take hormone replacement therapy. We discussed the need to take a progestin if a uterus is present, and the rationale behind that. We discussed the stated risks of one in 10,000 of development of a blood clot/DVT/PE that could be life threatening. We discussed the Women's Health Initiative study and the findings. We discused the PEPPI study as well. She is aware that there are conflicting reports in the medical literature concerning the risks and benefits of HRT. We disussed that women are advised by ACOG to take HRT in the lowest dose necessary, and for the shortest time necessary, to control their symptoms. After a long discussion of the potential risks and benefits of HRT she elects to continue HRT. All questions were answered. Rx for HRT is called in to the pharmacy. Call if any vaginal bleeding occurs upon initiation of HRT, or at any time postmenopausally. Not available 07/23/2022 11:37:06 07/24/2023 [id number] learning about healthy weight Not available 07/24/2023 09:26:50 She is here for annual exam, doing well on HRT, now has three grandchildren! She had premature ovarian failure age 42. Using Humira for her rheumtoid arthritis. She is disabled due to her RA. She appears to be doing well. She will try to wean off HRT this year, advised on how to do that. We discussed having her continue to take hormone replacement therapy. We discussed the need to take a progestin if a uterus is present, and the rationale behind that. We discussed the stated risks of one in 10,000 of development of a blood clot/DVT/PE that could be life threatening. We discussed the Women's Health Initiative study and the findings. We discused the PEPPI study as well. She is aware that there are conflicting reports in the medical literature concerning the risks and benefits of HRT. We disussed that women are advised by ACOG to take HRT in the lowest dose necessary, and for the shortest time necessary, to control their symptoms. After a long discussion of the potential risks and benefits of HRT she elects to continue HRT. All questions were answered. Rx for HRT is called in to the pharmacy. Call if any vaginal bleeding occurs upon initiation of HRT, or at any time postmenopausally. Not available 07/24/2023 09:27:22 08/03/2024 [id number] Flucelvax Quadrivalent Influenza Vaccine Prefilled Syringe 0.5 mL (INFLUENZA VIRUS VACCINE PRESERVATIVE FREE - INTRAMUSCULAR) Not available 08/03/2024 11:19:36 influenza (flu) vaccine: care instructions Not available 08/03/2024 11:19:36 learning about healthy weight Not available 08/03/2024 11:19:36 She is here for annual, tried to wean off RT last year but had profound vasomotor symptoms and so she restarted. She requests a flu shot. She is disabled due to her RA. Note from 2022: She is here for annual exam, doing well on HRT, now has three grandchildren! She had premature ovarian failure age 42. Using Humira for her rheumtoid arthritis. She is disabled due to her RA. She appears to be doing well. She will try to wean off HRT this year, advised on how to do that. _ She appears to be doing well. We discussed having her continue to take hormone replacement therapy. We discussed the need to take a progestin if a uterus is present, and the rationale behind that. We discussed the stated risks of one in 10,000 of development of a blood clot/DVT/PE that could be life threatening. We discussed the Women's Health Initiative study and the findings. We discused the PEPPI study as well. She is aware that there are conflicting reports in the medical literature concerning the risks and benefits of HRT. We disussed that women are advised by ACOG to take HRT in the lowest dose necessary, and for the shortest time necessary, to control their symptoms. After a long discussion of the potential risks and benefits of HRT she elects to continue HRT. All questions were answered. Rx for HRT is called in to the pharmacy. Call if any vaginal bleeding occurs upon initiation of HRT, or at any time postmenopausally. Not available 08/03/2024 11:20:21 Reason for Referral None Reported. Results Created Date Observation Date Name Description Value Unit Range Abnormal Flag Note LastModifiedBy Organization Detail LastModifiedTime 04/06/2019 fecal occul t blood , stool Occult Blood negati ve Not Available In-Office Order Internal Use Only DO Not Attach Compendium DO Not Attach Compendium, Do Not Delete/merge, [id number] 04/06/2019 11:14:45 04/06/2004/06/2019 pap, LB [id number] ThinP rep Pap, Image d: NEGAT AWAIS FOR SQUAM OUS INTRA EPITH ELIAL LESIO N AND MALIG VIVI . Lana rowland , CT( CP) (Case elect jonathan galdamez benito d 04 08 2019) ADEQU ACY: Satis facto ry Endoc ervic al/tr ansfo rmati on zone compo nent prese nt. SOURC E: ThinP rep Pap HPV IF ASCUS , Cervi jackie, Image d CLINI JACKIE INFOR MATIO N: HPV If Diagn osis of ASCUS . LPS NEG [Z12. 4, Z01.4 19] Not Available [facility], Cytopathology Service [address] [place], [address], 04/08/2019 18:04:59 03/20/20 21 03/20/2021 PAP1C ASE [id number] ThinP rep Pap, Image d: NEGAT AWAIS FOR SQUAM OUS INTRA EPITH ELIAL LESIO N AND MALIG VIVI . Lana rowland , CT( CP) (Case elect jonathan agldamez benito d 03 21 2021) ADEQU ACY: Satis facto ry Endoc ervic al/tr ansfo rmati on zone compo nent absen t. SOURC E: ThinP rep Pap HPV IF Ascus : Refle x 16 and 18, Cervi jackie, Image d CLINI JACKIE INFOR MATIO N: HPV If Diagn osis of ASCUS . LPS neg, z12.4 , z01.4 19 Not Available [facility], Cytopathology Service [address] [place], [address], 03/22/2021 08:02:14 03/20/20 21 03/20/2021 fecal occul t blood , stool Occult Blood negati ve Not Available In-Office Order Internal Use Only DO Not Attach Compendium DO Not Attach Compendium, Do Not Delete/merge, [id number] 03/20/2021 09:42:27 07/23/20 22 07/23/2022 [facility] results Patianmol nt Name: MOOK COLEMAN nt : 1959 (Age: 62) Lab Acces francesco #: [id number] Colle ction Date: 2021 Acces francesco Date: 2021 Sign Out Date: 08/01 Tissu e Sourc e: 1: THINP REP CADMIUM BURNER PAP TEST, CERVI JACKIE: Final Diagn osis: NEGAT AWAIS FOR INTRA EPITH ELIAL LESIO N OR MALIG VIVI . Satis facto ry for evalu ation . Endoc ervic al/tr ansfo rmati on zone prese nt. Clini jackie Histo ry: Date of Last Menst rual Perio d: not avail able Menst rual Histo ry: Post- menop ausal Contr acept awais Histo ry: not avail able Ancil hawk Testi ng: HPV (ASCU S) Case image d by the ThinP rep Imagi ng Syste m with abilio elmore rescr whit g or lisa w. Perfo [facility]med at [facility] ate Refer ence Labor atory depar tment of Cytol ogy, [address], [place] Clini jackie Histo ry (othe r): Z01.4 19, LPS 03/20 negat awais, routi ne scree n Phone #: [phone], On-Ca ll Patho logis t: [id number] Not Available [facility] [address], [place], [address], 08/01/2022 08:34:40 07/23/20 22 07/23/2022 fecal occul t blood , stool Occult Blood negati ve Not Available In-Office Order Internal Use Only DO Not Attach Compendium DO Not Attach Compendium, Do Not Delete/merge, [id number] 07/23/2022 10:27:46 07/24/20 23 07/24/2023 [facility] CYT[facility] results Patie nt Name: MOOK COLEMAN nt : 1959 (Age: 63) Lab Acces francesco #: [id number] Colle ction Date: 2022 Acces francesco Date: 2022 Sign Out Date: 07/31 Tissu e Sourc e: 1: THINP REP CADMIUM BURNER PAP TEST, CERVI JACKIE: Final Diagn osis: NEGAT AWAIS FOR INTRA EPITH ELIAL LESIO N OR MALIG VIVI . Satis facto ry for evalu ation . Endoc ervic al/tr ansfo rmati on zone ABSEN T. Clini jackie Histo ry: Date of Last Menst rual Perio d: not avail able Menst rual Histo ry: Post- menop ausal Contr acept awais Histo ry: not avail able Ancil hawk Testi ng: HPV (ASCU S) Case image d by the ThinP rep Imagi ng Syste m with abilio fatima or lisa gallagher. Perfo rmed at [facility] ate Refer ence Labor atory depar tment of Cytol ogy, [address] [place] Clini jackie Histo ry (othe r): Z01.4 19, ROUTI NE SCREE N, LPS 07/23 NEG Phone #: [phone], On-Ca ll Patho logis t: [id number] Not Available [facility] [address], [place], [address], 07/31/2023 16:48:50 07/24/20 23 07/24/2023 fecal occul t blood , stool Occult Blood negati ve Not Available In-Office Order Internal Use Only DO Not Attach Compendium DO Not Attach Compendium, Do Not Delete/merge, [id number] 07/24/2023 09:08:53 08/03/20 24 08/09/2024 IGP, RFX APTIM A HPV ASCU diagnosis: Commen t NEGAT AWAIS FOR INTRA EPITH ELIAL LESIO N OR MALIG VIVI . Not Available [facility] ([facility]) [address] [facility], [place], [address], 08/09/2024 18:06:03 08/03/20 24 08/09/2024 IGP, RFX APTIM A HPV ASCU specimen adequacy: Bryan watson Satis facto ry for evalu ation . Not Available [facility] ([facility]) [address] [place], [address], 08/09/2024 18:06:03 08/03/20 24 08/09/2024 IGP, RFX APTIM A HPV ASCU clinician provided ICD10: Bryan watson Z01.4 19 Not Available [facility] ([facility]) [address] [place], [address], 08/09/2024 18:06:03 08/03/20 24 08/09/2024 IGP, RFX APTIM A HPV ASCU performed by: Soo Quintana (ASCP ) Not Available [facility] ([facility]) [address] [place], [address], 08/09/2024 18:06:03 08/03/20 24 08/09/2024 IGP, RFX APTIM A HPV ASCU . . Not Available [facility] ([facility]) [address] [place], [address], 08/09/2024 18:06:03 08/03/20 24 08/09/2024 IGP, RFX APTIM A HPV ASCU note: Bryan watson The Pap smear is a scree gurpreet test desig marycruz to aid in the detec tion of carmella ligna nt and malig nant condi tions of the uteri ne cervi x. It is not a diagn ostic proce dure and shoul d not be used as the sole means of detec ting cervi jackie cance r. Both false -posi tive and false -nega tive repor ts do occur . Not Available [facility] ([facility]) [address] [place], [address], 08/09/2024 18:06:03 08/03/20 24 08/09/2024 IGP, RFX APTIM A HPV ASCU test methodology: Commen t This liqui d based ThinP rep(R ) pap test was tonie joel with the use of an image guide oneal mayorga Not Available [facility] ([facility]) [address] [place], [address], 08/09/2024 18:06:03 08/03/20 24 08/09/2024 IGP, RFX APTIM A HPV ASCU . Commen t The HPV DNA refle x crite jodi were not met with this speci men resul t there fore, no HPV testi ng was perfo rmed. Not Available [facility] ([facility]) [address] [facility], [place], [address], 08/09/2024 18:06:03 08/03/20 24 08/03/2024 hemog lobin , gastr ointe gio l, stool Occult Blood negati ve Not Available In-Office Order Internal Use Only DO Not Attach Compendium DO Not Attach Compendium, Do Not Delete/merge, [id number] 08/03/2024 10:46:21 05/11/20 19 05/06/2019 MAMMO tonie vázquez, digit al, bilat eral No observ ation record ed. BARCODE [facility] ([facility]) [address] [place] [address] [place], [address], 05/11/2019 11:14:50 05/18/20 20 05/09/2020 MAMMO tonie, digit al, bilat eral No observ ation record ed. BARCODE Not Available 2019 08:31:17 05/16/2005/15/2021 MAMMO tonie vázquez, digit al, bilat eral No observ ation record ed. [facility] ([facility]) [address] [place] [address] [place], [address], 05/16/2021 08:43:29 Result Notes None recorded. Problems Name Problem SNOMED Code Status Onset Date Resolution Date Notes Provider Name and Address Organization Details Recorded Time Premature menopause 360950457 Active age 42 Misa Funk MD [address] [facility],[address], [place], [address] , [place] - [facility], 5 10:18:40 Raynaud's disease 846359372 Active Not Available [facility] 3 03:01:05 Tobacco dependence syndrome 24893661 Active Not Available [facility] 3 03:01:05 Gout 97478406 Active 2016 Lin amnjarrez [place] - [facility], 7 10:32:56 Rheumatoid arthritis 16013852 Active 2021 Lin manjarrez [place] - [facility], 2 10:31:17 Problem Notes None recorded. Procedures Surgical History Date Name Laterality Status Provider Name and Address Organization Details Recorded Time 05/15/20 24 Most Recent Mammogram completed Lin De La Torre [place] - [facility], 08/03/2024 09:57:51 03/27/20 21 procedure on foot completed Lin De La Torre [place] - [facility], 07/23/2022 10:33:58 12/26/19 17 Other completed Lin De La Torre [place] - [facility], 04/06/2019 11:13:59 09/21/18 83 Caesarean Section completed Lin De La Torre [place] - [facility], 10/13/2012 10:48:33 09/21/18 74 Appendectomy completed Lin De La Torre [place] - [facility], 10/13/2012 10:48:33 Imaging Results Imaging Date Name Status LastModified by Organiz ation Details LastModified Time 05/06/2019 MAMMO, screening, digital, bilateral completed [facility] (Mammo) [address] [facility] [place], [address], 05/11/2019 11:14:50 05/09/2020 MAMMO, screening, digital, bilateral completed BAR[facility] Information not available 05/18/2020 08:31:17 05/15/2021 MAMMO, screening, digital, bilateral completed [facility] (Mammo) [address] [place] [address] [place], [address], 05/16/2021 08:43:29 Procedure Notes None recorded. Medical Equipment None Reported. Allergies Allergen ID Allergen Name Allergen Category Reaction Reaction Severity Criticality Documentation Date Start Date Code Code System Note Provider Name and Address Organization Details Recorded Time 56440 hydroxych loroquine medicatio n hives Not available Not available 07/24/2023 5521 RxNorm Lin MeczywANA M clifton in [facility], 3 09:14:17 6281 Bactrim medicatio n rash Not available Not available 10/13/2012 05503 9 RxNorm Lin MeczyANA M valenzuela in [facility], 3 10:48:33 6282 Ceclor medicatio n rash Not available Not available 10/13/2012 42936 5 RxNorm Lin Meczywor [place] manjarrez in [facility], 3 10:48:33 6283 Substance with sulfonami de structure and antibacte rial mechanism of action (substanc e) medicatio n rash Not available Not available 10/13/2012 09001 8003 SNOMED Lin Meczywor [place]NA M manjarrez in [facility], 3 10:48:33 6284 Medicinal product containin g penicilli n and acting as antibacte rial agent (product) medicatio n chest pain Not available Not available 10/13/2012 62750 05 SNOMED Lin Meczywor ANA M manjarrez in [facility], 3 10:48:33 Medications Name Sig Start Date Stop Date Status Note LastModified by Organization Details LastModified Time cyclobenzap rine 10 mg tablet 03/12 completed Not Available Not Available Not Available prednisone 10 mg tablet TAKE 4 TABLETS BY MOUTH DAILY FOR 2 DAYS, THEN TAKE 3 TABS. DAILY FOR 2 DAYS, THEN TAKE 2 TABLETS DAILY FOR 2 DAYS, THEN TAKE 1 TAB. DAILY 08/03 completed Not Available Not Available Not Available doxycycline hyclate 100 mg capsule 04/06 completed Not Available Not Available Not Available azithromyci n 250 mg tablet TAKE 2 TABLETS ON FIRST DAY , THEN 1 TABLET DAILY FOR 4 DAYS 08/03 completed Not Available Not Available Not Available ibuprofen 800 mg tablet TAKE ONE TABLET BY MOUTH THREE TIMES A DAY 07/23 completed Not Available Not Available Not Available nifedipine 20 mg capsule TAKE ONE CAPSULE BY MOUTH TWICE A DAY 07/24 completed Not Available Not Available Not Available Patanol 0.1 % eye drops active Not Available Not Available Not Available prednisone 20 mg tablet TAKE 2 TABLETS BY MOUTH DAILY FOR 4 DAYS,THEN 1 TABLET DAILY DAYS 5 THRU 8 07/24 completed Not Available Not Available Not Available naproxen 250 mg tablet TAKE 2 TABLETS BY MOUTH 2 TIMES A DAY NEEDED FOR PAIN active Not Available Not Available No t Available allopurinol 100 mg tablet TAKE ONE TABLET BY MOUTH ONCE DAILY active Not Available Not Available No t Available tramadol 50 mg tablet TAKE ONE TABLET BY MOUTH THREE TIMES A DAY NEEDED FOR PAIN. active Not Available Not Available No t Available oxycodone-a cetaminophe n 5 mg-325 mg tablet 04/06 completed Not Available Not Available Not Available estradiol 1 mg tablet TAKE ONE TABLET BY MOUTH EVERY DAY 2023 active Not Available Not Available Not Avai lable nifedipine 10 mg capsule TAKE ONE CAPSULE BY MOUTH TWICE A DAY 08/03 completed Not Available Not Available Not Available oseltamivir 75 mg capsule 03/31 completed Not Available Not Available Not Available metronidazo le 0.75 % topical cream 03/12 completed Not Available Not Available Not Available indomethaci n 25 mg capsule TAKE ONE CAPSULE(S ) THREE T IMES A DAY NEEDED W ITH FOOD BY MOUTH 04/06 completed Not Available Not Available Not Available progesteron e micronized 200 mg capsule TAKE ONE CAPSULE BY MOUTH AT BEDTIME 2023 active Not Available Not Available Not Avai lable gabapentin 300 mg capsule 04/06 completed Not Available Not Available Not Available omeprazole 20 mg capsule,del ayed release TAKE ONE CAPSULE BY MOUTH EVERY DAY active Not Available Not Available No t Available lisinopril 5 mg tablet TAKE ONE TABLET BY MOUTH ONCE DAILY active Not Available Not Available No t Available lorazepam 1 mg tablet TAKE ONE TABLET BY MOUTH TWICE A DAY NEEDED FOR ANXIETY active Not Available Not Available No t Available hydroxychlo roquine 200 mg tablet TAKE ONE TWICE A DAY ALTERNATI NG WITH ONE TABLET IN THE MORNING AND 1/2 TABLET IN THE EVENING. 07/24 completed Not Available Not Available Not Available albuterol sulfate HFA 90 mcg/actuati on aerosol inhaler INHALE TWO PUFFS BY MOUTH EVERY 6 HOURS NEEDED FOR SHORTNESS OF BREATH OR WHEEZING active Not Available Not Available No t Available Vitamin D2 1,250 mcg (50,000 unit) capsule TAKE ONE CAPSULE BY MOUTH ONCE A WEEK active Not Available Not Available No t Available colchicine 0.6 mg tablet 03/18 completed Not Available Not Available Not Available norethindro ne (contracept awais) 0.35 mg tablet TAKE ONE TABLET BY MOUTH EVERY DAY 03/20 completed Not Available Not Available Not Available clotrimazol e 1 % topical cream APPLY ONE APPLICATI ON TWICE A DAY active Not Available Not Available No t Available Prempro 0.625 mg-5 mg tablet one tablet daily active Not Available Not Available No t Available oxycodone 5 mg tablet TAKE 1 TO 2 TABLETS Y MOUTH EVERY 4 TO 6 HOURS NEEDED 07/23 completed Not Available Not Available Not Available Mapap Arthritis Pain 650 mg tablet,exte nded release TAKE 1 TABLET BY MOUTH EVERY 8 HOURS 03/20 completed Not Available Not Available Not Available eszopiclone 2 mg tablet active Not Available Not Available Not Available hydrocodone 5 mg-acetamin ophen 300 mg tablet 03/18 completed Not Available Not Available Not Available Calcium 500 With D active Not Available Not Available Not Available oxycodone 10 mg tablet 04/06 completed Not Available Not Available Not Available Suprep Bowel Prep Kit 17.5 gram-3.13 gram-1.6 gram oral solution 03/20 completed Not Available Not Available Not Available Fluvirin 4755-9815 45 mcg (15 mcg x 3)/0.5 mL intramuscul ar suspension active Not Available Not Available N ot Available Mirvaso 0.33 % topical gel 03/12 completed Not Available Not Available Not Available Procto-Med HC 2.5 % topical cream perineal applicator APPLY A SMALL AMOUNT RECTALLY 2-4 TIMES DAILY NEEDED FOR HEMORRHOI DS FOR 14 DAYS 08/03 completed Not Available Not Available Not Available Humira(CF) Pen 40 mg/0.4 mL subcutaneou s kit active Not Available Not Available Not Available Vitals Date Recorded Body weight Body mass index (BMI) Body height Heart rate Systolic blood pressure Diastolic blood pressure Provider Name and Address Organization Details Last Updated DateTime 9 17931.8 4 g 27.3 kg/m2 153.67 cm 82 /min 139 mm[Hg] 84 mm[Hg] Lin Hayden in [facility], 9 11:09:33 Date Recorded Body height Body mass index (BMI) Body weight Heart rate Systolic blood pressure Diastolic blood pressure Provider Name and Address Organization Details Last Updated DateTime 1 153.67 cm 27.3 kg/m2 48461.1 2 g 73 /min 138 mm[Hg] 89 mm[Hg] Monika Hayden in [facility], 1 09:45:42 Date Recorded Body weight Body mass index (BMI) Body height Body temperature Heart rate Systolic blood pressure Diastolic blood pressure Provider Name and Address Organization Details Last Updated DateTime 2 71123.3 8 g 30.2 kg/m2 152.4 cm 98.1 [degF] 76 /min 111 mm[Hg] 72 mm[Hg] Lin Hayden in [facility], 2 10:29:40 Date Recorded Body weight Body mass index (BMI) Body height Body temperature Heart rate Systolic blood pressure Diastolic blood pressure Provider Name and Address Organization Details Last Updated DateTime 3 87801.1 7 g 28.1 kg/m2 156.21 cm 97.1 [degF] 77 /min 126 mm[Hg] 75 mm[Hg] Lin Hayden in [facility], 3 09:12:23 Date Recorded Body height Body mass index (BMI) Body weight Heart rate Body temperature Systolic blood pressure Diastolic blood pressure Provider Name and Address Organization Details Last Updated DateTime 4 152.4 cm 29.3 kg/m2 42050.5 7 g 78 /min 97.2 [degF] 132 mm[Hg] 80 mm[Hg] Lin Britt [place] - [facility], 4 09:53:51 Social History Question Answer Notes LastModified by Organizat ion Details LastModified Time Tobacco Smoking Status Former Smoker quit over 2 yrs ago Not Available [employer] 07/24/2020 03:19:37 What Is Your Level Of Alcohol Consumption? Occasional Information not available 07/23/2022 How Many Years Have You Consumed Alcohol? 40 Information not available 07/23/2022 What Is Your Level Of Caffeine Consumption? Occasional [id number] Information not available 07/24/2020 In The 14 Days Before Symptom Onset, Have You Had Close Contact With A Laboratory-confir med COVID-19 While That Case Was Ill? No Information not available 07/23/2022 In The 14 Days Before Symptom Onset, Have You Had Close Contact With A Person Who Is Under Investigation For COVID-19 While That Person Was Ill? No Information not available 07/23/2022 Have You Been To An Area Known To Be High Risk For COVID-19? No Information not available 07/23/2022 Are You Currently Employed? No Information not available 07/23/2022 What Type Of Diet Are You Following? REGULAR [id number] Information not available 07/24/2020 Which Illicit Or Recreational Drugs Have You Used? No [id number] Information not available 07/24/2020 Do You Reside In Or Have You Traveled To An Area Where Ebola Virus Transmission Is Active? No [id number] Information not available 07/24/2020 Do You Or Have You Ever Used E-cigarettes Or Vape? Never Used Electronic Cigarettes Information not available 03/20/2021 Education 10 Information no t available 10/13/2012 What Is The Highest Grade Or Level Of School You Have Completed Or The Highest Degree You Have Received? [id number] Information not available 07/23/2022 What Is Your Occupation? Disable Information not available 07/23/2022 How Many Days In The Past Year Have You Had A Heavy Drinking Consumption (4+ Female, 5+ Male)? 0 Information no t available 03/18/2017 Are There Any Guns Present In Your Home? No Information not available 07/23/2022 High Number Of Sexual Partners No Information not available 03/12/2016 To Which Gender Do You Self-identify? Female Information not available 03/12/2016 Marital Status Informatio n not available 10/13/2012 What Was The Date Of Your Most Recent Tobacco Screening? 08/03/2024 Information not available 08/03/2024 What Is Your Relationship Status? Information not available 07/23/2022 Seat Belts Used Routinely Yes Information not available 03/20/2021 Are You Sexually Active? Yes [id number] Information not available 07/24/2020 At What Age Did You Start Smoking Tobacco? 15 Information not available 07/23/2022 Do You Or Have You Ever Used Smokeless Tobacco? Never Used Smokeless Tobacco Information not available 03/20/2021 How Much Tobacco Do You Smoke? No [id number] Information not available 07/24/2020 General Stress Level Low Information not available 03/12/2016 Do You Feel Stressed (tense, Restless, Nervous, Or Anxious, Or Unable To Sleep At Night)? [id number] Information not available 07/23/2022 Do You Use Any Illicit Or Recreational Drugs? No Information not available 07/23/2022 How Many Years Have You Smoked Tobacco? 30 Information not available 07/23/2022 Have You Recently (within The Last 12 Weeks, Or During A Current ) Traveled To Or Lived In A Zika-affected Area? No Information not available 03/12/2016 Do You Or Have You Ever Used Any Other Forms Of Tobacco Or Nicotine? No Information not available 07/23/2022 How Many Days In The Past Year Have You Consumed 4 Or More Drinks? 1 Information no t available 07/23/2022 Sex: Female Functional Status Question Answer Note LastModified by Organization D etails LastModified Time What is your exercise level? Moderate [id number] Information not available 07/24/2020 Mental Status None recorded. Family History Relationship Description Onset Age of this Age Resolved Age Notes LastModified by Organization Details LastModified Time Father Alzheimer's disease nelsy ia Not available 03/07/2015 10:18:59 Father Diabetes mellitus previo usly record ed as Diabet es Not available 03/07/2015 10:18:59 Father Heart disease previo usly record ed as Heart Proble m Not available 03/07/2015 10:18:59 Notes:mother in a fire..no problems Medical History Condition Response High Blood Pressure Y Autoimmune Condition Y Depression N History of Ovarian Cancer N Anxiety Disorder Y Arthritis Y Infertility N Kidney or Bladder Problems N Osteopenia N Asthma N Hepatitis N Anesthesia complications N Candidate for MyRisk panel N Lung Disease N Defects or Inherited Disease N BRCA testing in past N History of Cancer N Endometriosis N Thyroid Problems N GI Problems N Anemia N History of Breast Cancer N BENSON exposure N Psychiatric Illness N Diabetes N Headaches or Migraines N Heart Disease N Hypertension Y Osteoporosis N Gynecological History Statement/Question Response If Post Menopausal, Age at Menopause 43 Age at Menarche 14 Most Recent Mammogram 05/15/2024 Age at First Child 22 Obstetrics History GPAL:G 3 P 2 0 1 2 Type Value Full Term 2 Spontaneous 1 Living 2 Total 3 Immunizations Vaccine Type Date Status Note Provider Nam e and Address Organization Details Recorded Time Influenza, MDCK, trivalent, PF 4 completed ANA M Denise in [facility], 08/04/2024 07:45:25 COVID-19, mRNA, LNP-S, PF, 100 mcg/0.5mL dose or 50 mcg/0.25mL dose 1 completed ANA M Denise in [facility], 07/24/2023 09:11:02 COVID-19, mRNA, LNP-S, PF, 100 mcg/0.5mL dose or 50 mcg/0.25mL dose 1 completed ANA M Denise in [facility], 07/24/2023 09:11:02 Influenza, split virus, quadrivalent, preservative 9 completed Lin Meczywor null, [place] - [facility], 07/24/2023 09:11:02 Influenza, split virus, quadrivalent, preservative 6 completed Lin Meczywor null, [place] - [facility], 07/24/2023 09:11:02 COVID-19, mRNA, LNP-S, PF, 100 mcg/0.5mL dose or 50 mcg/0.25mL dose 1 completed Lin Meczywor null, [place] - [facility], 07/24/2023 09:11:02 influenza, unspecified formulation 3 completed Lin Meczywor null, [place] - [facility], 07/24/2023 09:11:02 Tdap 6 completed Lin Meczywor null, [place] - [facility], 07/24/2023 09:11:02 Influenza, split virus, trivalent, preservative 3 completed Lin Meczywor null, [place] - [facility], 07/24/2023 09:11:02 Influenza, split virus, quadrivalent, PF 1 completed Lin Meczywor null, [place] - [facility], 07/24/2023 09:11:02 Influenza, split virus, quadrivalent, PF 2 completed Lin Meczywor null, [place] - [facility], 07/24/2023 09:11:02 zoster recombinant 3 completed Lin Meczywor null, [place] - [facility], 08/03/2024 09:54:25 Influenza, split virus, quadrivalent, PF 3 completed Lin Meczywor null, [place] - [facility], 08/03/2024 09:54:25 Past Encounters Encounter ID Performer Location Encounter Start Date Encounter Closed Date Diagnosis/Indication Diagnosis SNOMED-CT Code Diagnosis ICD10 Code [id number] Juliana Raza MISA FUNK MD [address] [facility] [address] 10/13/2012 10:26:40 10/14/2012 08:47:29 [id number] MISA FUNK MD [address] [facility] [address] 10/19/2013 10:01:08 10/19/2013 12:32:51 Specialized medical examination 53609183 Screening for malignant neoplasm of rectum 868398578 Screening mammography 24 350818 [id number] MISA FUNK MD [address] [facility] [address] 03/07/2015 09:50:50 03/07/2015 11:16:06 Specialized medical examination 89998255 Screening for malignant neoplasm of rectum 483983674 Screening mammography 24 838494 Premature menopause 3737 20237 [id number] MD MISA Moeller MD [address] [facility] [address] 03/12/2016 09:50:27 03/12/2016 11:26:00 Specialized medical examination 64605789 Z01.419 Screening for malignant neoplasm of rectum 619271058 Z12.12 Screening mammography 24 177863 Z12.31 Menopausal syndrome 1237 10110 N95.9 [id number] MD MISA Moeller MD [address] [place] [address],[place] [address] 03/18/2017 10:22:10 03/18/2017 11:59:19 Specialized medical examination 73756430 Z01.419 Screening for malignant neoplasm of rectum 984967839 Z12.12 Screening mammography 24 715432 Z12.31 Premature menopause 3737 92847 E28.319 [id number] MD MISA Moeller MD [address] [place] [address],[place] [address] 03/31/2018 10:53:30 03/31/2018 11:37:14 Specialized medical examination 34687609 Z01.419 Screening for malignant neoplasm of rectum 626647390 Z12.12 Screening mammography 24 996805 Z12.31 Premature menopause 3737 13766 E28.310 [id number] MD MISA Moeller MD [address] [place] [address],[facility] [place] [facility] [address] 04/06/2019 10:44:21 04/06/2019 11:56:33 Premature menopause 861315198 E28.310 Specialize d medical examination 09037244 Z01.419 Screening for malignant neoplasm of rectum 500161067 Z12.12 Screening mammography 24 215741 Z12.31 [id number] MD MISA Moeller MD [address] [place] [address],[facility] [place] [address] 03/20/2021 09:39:06 03/20/2021 10:56:30 Specialized medical examination 62689097 Z01.419 Screening for malignant neoplasm of rectum 497839115 Z12.12 Screening mammography 24 886972 Z12.31 Premature menopause 3737 77442 E28.310 [id number] MD MISA Moeller MD [address] [place] [address] [place] [facility] [address] 07/23/2022 10:25:16 07/23/2022 11:40:26 Specialized medical examination 21485522 Z01.419 Screening for malignant neoplasm of rectum 105772168 Z12.12 Screening mammography 24 832266 Z12.31 Premature menopause 3737 69182 E28.310 [id number] MD MISA Moeller MD [address] [place] [address] [place] [facility] [place] [address] 07/24/2023 09:05:23 07/24/2023 09:33:48 Specialized medical examination 83911485 Z01.419 Screening for malignant neoplasm of rectum 498503130 Z12.12 Screening mammography 24 226756 Z12.31 Premature menopause 3737 05915 E28.310 [id number] MD MISA Moeller MD [address] [place], [place] [address] [address] 08/03/2024 09:49:22 08/03/2024 11:39:20 Premature menopause 270137746 E28.310 Influenza vaccine needed 0105688697 106 Z23 Specialize d medical examination 76691932 Z01.419 Screening for malignant neoplasm of rectum 990320367 Z12.12 Screening mammography 24 686491 Z12.31 Health Concerns Section Related Observation LastModified by Organization Detai ls LastModified Time None Recorded Concern Status LastModified by Organization Details LastModified Time None Recorded Advance Directives Directive None Recorded Payers Encounter Date Sequence Insurance Name Policy Number Policy Hoffmann Covered Member ID Hoffmann Member ID Guarantor Name 04/06/2019 1 [facility] LOC[facility] (PPO) Laz [place] [id number] Laz Muellerch 03/20/2021 2 [place] [id number] 5 Julio César [place] [id number] Laz Muellerch 03/20/2021 1 [place] [id number] 5 Laz [place] [id number] Laz Muellerch 07/23/2022 2 [place] [id number] 5 Julio César [place] [id number] Laz Muellerch 07/23/2022 1 [place] [id number] 5 Laz [place] [id number] Laz Muellerch 07/24/2023 1 [place] [id number] 5 Laz [place] [id number] Laz Muellerch 08/03/2024 1 [place] [id number] 5 Laz [place] [id number] Laz [place] Notes Date Note Type Note Provider Name and Address Organization Details Recorded Time 04/06/2019 text/html She is here for annual exam, is doing well on the HRT and elects to continue. Note from 2018: She is here for annual exam, is doing well. menopause at age 43. No vasomotor symptoms now that she is taking HRT. She had a normal bone density a few years ago. Misa Funk MD [address] [place] [address],[address], [place], [address], [place] - [facility], 04/06/2019 11:42:02 03/20/2021 text/html She is here for annual exam, doing well on HRT, now has three grandchildren! note from 2019: She is here for annual exam, is doing well on the HRT and elects to continue. She is going to become a grandmother in April! Misa Funk MD [address], [place], [address], [place] [facility], 03/20/2021 10:26:02 07/23/2022 text/html She is here for annual exam, doing well on HRT, now has three grandchildren!She had premature ovarian failure age 42. Misa Funk MD [address], [place], [address], [facility], 07/23/2022 11:37:27 07/24/2023 text/html She is here for annual exam, doing well on HRT, now has three grandchildren!She had premature ovarian failure age 42. Misa Funk MD [address], [place], [address], [facility], 07/24/2023 09:27:56 08/03/2024 text/html She is here for annual, tried to wean off RT last year but had profound vasomotor symptoms and so she restarted. 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 She is disabled due to her RA.She appears to be doing well.She will try to wean off HRT this year, advised on how to do that. Misa Funk MD [address], [place], [address], [place] - [facility], 08/03/2024 11:20:55 OBGyn Episode No OBEpisode recorded.
[2024-09-05 11:25] LABS: MANUAL DIFF FLAG NO
[2024-09-05 11:33] LABS: MANUAL DIFF FLAG NO
[2024-09-05 11:51] LABS: Basophils Absolute Auto 0.1 X10*3/uL (0.0-0.2); Eosinophils Absolute Auto 0.2 X10*3/uL (0.0-0.4); Eosinophils Percent Auto 3.5 % (0-4); Hematocrit 43.9 % (37.0-47.0); Hemoglobin 14.9 g/dl (12.0-16.0); Imm Gran Abs Auto 0.03 X10*3/uL (0.00-0.03); Imm Gran Pct Auto 0.5 % (0.0-0.4); Lymphocytes Absolute Auto 1.5 X10*3/uL (1.2-4.9); Lymphocytes Percent Auto 24.3 % (20-40); Mean Corpuscular HGB Conc 33.9 g/dl (31.0-35.0); Mean Corpuscular Hemoglobin 33.7 pg (27.0-33.0); Mean Corpuscular Volume 99.3 fL (80.0-98.0); Mean Platelet Volume 10.1 fL (9.4-12.3); Monocytes Absolute Auto 0.7 X10*3/uL (0.1-1.2); Monocytes Percent Auto 10.8 % (2-11); Neutrophils Absolute Auto 3.7 x10*3/uL (2.0-8.3); Neutrophils Percent Auto 59.9 % (45-73); Platelet Count 263 X10*3/uL (160-400); Red Blood Count 4.42 X10*6/uL (4.20-5.50); Red Cell Distribution Width 11.7 % (11.0-16.0); White Blood Count 6.2 X10*3/uL (4.8-10.8)
[2024-09-05 11:53] LABS: Basophils Absolute Auto 0.1 X10*3/uL (0.0-0.2); Basophils Percent Auto 0.8 % (0-2); Eosinophils Absolute Auto 0.2 X10*3/uL (0.0-0.4); Eosinophils Percent Auto 3.4 % (0-4); Hematocrit 43.9 % (37.0-47.0); Hemoglobin 15.1 g/dl (12.0-16.0); Imm Gran Abs Auto 0.02 X10*3/uL (0.00-0.03); Imm Gran Pct Auto 0.3 % (0.0-0.4); Lymphocytes Absolute Auto 1.6 X10*3/uL (1.2-4.9); Lymphocytes Percent Auto 25.2 % (20-40); Mean Corpuscular HGB Conc 34.4 g/dl (31.0-35.0); Mean Corpuscular Hemoglobin 34.2 pg (27.0-33.0); Mean Corpuscular Volume 99.3 fL (80.0-98.0); Mean Platelet Volume 10.3 fL (9.4-12.3); Monocytes Absolute Auto 0.7 X10*3/uL (0.1-1.2); Monocytes Percent Auto 10.2 % (2-11); Neutrophils Absolute Auto 3.8 x10*3/uL (2.0-8.3); Neutrophils Percent Auto 60.1 % (45-73); Platelet Count 266 X10*3/uL (160-400); Red Blood Count 4.42 X10*6/uL (4.20-5.50); Red Cell Distribution Width 11.6 % (11.0-16.0); White Blood Count 6.4 X10*3/uL (4.8-10.8)
[2024-09-05 12:05] LABS: Alanine Aminotransferase 49 U/L (0-31); Alkaline Phosphatase 75 U/L (39-117); Anion Gap 9 (12-20); Aspartate Amino Transferase 44 U/L (5-31); Bilirubin Total 0.4 mg/dL (0.0-1.0); Blood Urea Nitrogen 8 mg/dL (9-16); C Reactive Protein 0.39 mg/dL (< or = 0.50); Calcium 9.2 mg/dL (8.4-10.2); Carbon Dioxide 29 mmol/L (22-29); Chloride 104 mmol/L (96-108); Cholesterol 116 mg/dL (<200); Estimated Glomerular Filt Rate > 60; Glucose Fasting 92 mg/dL (60-99); Glucose Random 92 mg/dL (60-115); HDL Cholesterol 35 mg/dL (>40); LDL Cholesterol Calculated 66 mg/dL (<100); Potassium 4.4 mmol/L (3.3-5.1); Sodium 138 mmol/L (135-145); Total Protein 7.8 g/dL (6.5-8.0); Triglycerides 75 mg/dL (<150)
[2024-09-05 12:19] LABS: Hepatitis A Antibody IgM 0.26 Index (0-0.79)
[2024-09-05 12:20] LABS: HBS Num1 0.03 mIU/mL (0-7.99); HBc Num1 0.71 S/CO (0.00-0.79); HBsAGNum1 0.56 S/CO (0.00-0.99); Hepatitis B Core Antibody Nonreactive (Nonreactive); Hepatitis B Surface Antigen Negative (Negative); ~HepC Num1 0.14 S/CO (0.00-0.79); ~Hepatitis A Antibody IgM Nonreactive (Nonreactive); ~Hepatitis B Surface Antibody NONREACTIVE (Nonreactive); ~Hepatitis C Antibody Nonreactive (Nonreactive)
[2024-09-05 12:41] LABS: Erythrocyte Sedimentation Rate 7 MM/HR (0-20)
[2024-09-08 04:43] LABS: TS Negative Control Passed; TS Panel A 0; TS Panel B 0; TS Positive Control Passed; TSpotTB Negative (Negative)
[2024-09-17 22:09] LABS: Centromere Protein A Ab <11 SI (<11); Centromere Protein B Ab <11 SI (<11); Fibrillarin Ab <11 SI (<11); PM SCL 100 Ab <11 SI (<11); PM SCL 75 Ab <11 SI (<11); RNA Polymerase III RP11 Ab <11 SI (<11); RNA Polymerase III RP155 Ab <11 SI (<11); SCL-70 Extractable Nuclear Ab 35 SI (<11); Th-To Ab <11 SI (<11); U1 SNRNP RNP 70KD <11 SI (<11); U1 SNRNP RNP A <11 SI (<11); U1 SNRNP RNP C <11 SI (<11)
== END 2024-09-05 09:15 | disposition home or self-care (01) ==
LOC: HO.10HDL 09:14
PROVIDERS: Internal Medicine; Visit Provider Student in an Organized Health Care Education/Training Program
DX: M06.00 Rheumatoid arthritis without rheumatoid factor, unspecified site (principal); Z11.7 Encounter for testing for latent tuberculosis infection; M34.9 Systemic sclerosis, unspecified; Z11.59 Encounter for screening for other viral diseases; D64.9 Anemia, unspecified; E78.00 Pure hypercholesterolemia, unspecified
CPT/HCPCS: 36415; 80053; 80061; 84182; 85025; 85652; 86140; 86235; 86481; 86704; 86706; 86709; 86803; 87340

== ENCOUNTER 2024-09-08 11:22 | Outpatient (REF) | payer BC, SELFPAY | END 2024-09-08 11:23 | disposition home or self-care (01) | LOC: HO.XRAY 11:22 | PROVIDERS: PCP Internal Medicine; Visit Provider Internal Medicine | DX: I10 Essential (primary) hypertension (principal); I73.00 Raynaud's syndrome without gangrene; M06.00 Rheumatoid arthritis without rheumatoid factor, unspecified site; M19.041 Primary osteoarthritis, right hand; M19.042 Primary osteoarthritis, left hand; M17.0 Bilateral primary osteoarthritis of knee; R79.89 Other specified abnormal findings of blood chemistry; M72.0 Palmar fascial fibromatosis [Dupuytren]; G43.909 Migraine, unspecified, not intractable, without status migrainosus; K21.9 Gastro-esophageal reflux disease without esophagitis; M10.00 Idiopathic gout, unspecified site; E55.9 Vitamin D deficiency, unspecified; M54.50 Low back pain, unspecified; F51.01 Primary insomnia; F41.9 Anxiety disorder, unspecified; E66.3 Overweight; M25.551 Pain in right hip; Z79.899 Other long term (current) drug therapy | CPT/HCPCS: 72100; 73502; 96127 ==

== ENCOUNTER 2024-09-08 11:22 | Outpatient (AMB) | payer BC, SELFPAY ==
--- OUTSIDE RECORDS SUMMARY | 2024-09-08 11:25 | XMS_ITS | Patient Health Record ---
Author Organization [facility] danielle [place] Address [address] [place] [address] Care Team Providers Care Transfer Man Name Role Phone Carlitos TARIQ, [place] Primary Care Provider Allison Dos Santos Unavailable [phone] Reason For Referral No Information Medications Medication [...] . 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 Not-Taking LORazepam 1 MG Orally [...] Status W/U Status Risk Notes Problem Gout (42953350) Gout, unspecified (M10.9) Active confirmed Problem Acquired hallux valgus (71114617) Hallux valgus (acquired), right foot (M20.11) Active confirmed Problem 546133494827783 Contracture, right foot (M24.574) Active confirmed Problem 668071698 Hammer toe of right foot (M20.41) Active confirmed Problem 43285560 Vitamin D deficiency (E55.9) Active confirmed Plan Of Treatment Pending Test Test Name Order Date Ultrasound : Extremity Ultrasound Non-Va md 10/03/2020 X ray : Foot, left 3V [...] X ray : Foot, right 3V 02/03/2020 40370, [id number]- INJECT or DRAIN, JOINT/BUR SA 07/27/2019 69387, [id number]/INJECT, JOINT/BURSA 0 05/09/2015 61445, [id number]/INJECT, JOINT/BURSA 1 10/26/2017 59282, [id number]/INJECT, JOINT/BURSA 0 06/02/2018 84036, [id number]/INJECT, JOINT/BURSA 0 11/19/2016 17374- Unna Boot 03/09/2019 PARATHYROID HORMONE INTACT (PTHI) 2018 VITAMIN D 25-OH (D2 D3) 06/28/2019 CT FOOT RT W&WO CONTRAST 06/28/2019 Insurance Providers Payer Name Payer Address Payer Phone Subscriber Number Group Number Insured Name Patient Relationship to Insured Coverage Start Date Coverage End Date [facility] [address] [place] [phone] [id number] Laz Beckford Self - patient is the [...]
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
--- OUTSIDE RECORDS SUMMARY | 2024-09-08 11:26 | XMS_ITS | Data Portability ---
Author Organization [place] - [facility],, MISA FUNK MD Address [address] [address] Care Team Providers Care Biological Sciences Instructor Name Role Phone ANDREY CLARK OTHER Assessment No assessment recorded. Plan of Treatment Reminders Order Date Submit Date Provider Last Modified By Organization Details Last Modified Time Details Appointments ANNUAL EXAM 2024 10:00A M Misa Funk MD Not available Not available Not available Lab pap test, thinprep , cervical 2018 019 [email or web address] [facility], Cytopathology Service, [address] [place], [address], 04/13/2019 07:20:18 fecal occult blood, stool 2018 019 [email or web address] In-Office Order, Internal Use Only DO Not Attach Compendium DO Not Attach Compendium, Do Not Delete/merge, [id number] 04/13/2019 07:20:18 pap test, thinprep , cervical 2020 021 [email or web address] [facility], Cytopathology Service, [address] [place], [address], 03/27/2021 07:27:54 fecal occult blood, stool 2020 021 [email or web address] In-Office Order, Internal Use Only DO Not Attach Compendium DO Not Attach Compendium, Do Not Delete/merge, [id number] 03/20/2021 10:56:46 pap test, thinprep , cervical 2021 022 [facility], [address] [place], [address], 08/06/2022 07:34:27 fecal occult blood, stool 2021 022 [email or web address] 1 In-Office Order, Internal Use Only DO Not Attach Compendium DO Not Attach Compendium, Do Not Delete/merge, [id number] 07/23/2022 11:36:46 pap test, thinprep , cervical 2022 023 [facility], [address] [place], [address], 08/03/2023 07:26:04 fecal occult blood, stool 2022 023 [email or web address] 1 In-Office Order, Internal Use Only DO Not Attach Compendium DO Not Attach Compendium, Do Not Delete/merge, [id number] 07/24/2023 09:26:50 cytology report, thin prep, smear or scraping , cervical or vaginal 2023 024 [facility], [address] [place], [address], 08/09/2024 18:06:03 hemoglob in, gastroin testinal , stool 2023 024 [email or web address] 1 In-Office Order, Internal Use Only DO Not Attach Compendium DO Not Attach Compendium, Do Not Delete/merge, [id number] 08/03/2024 11:19:36 Referral None recorded . Procedures None recorded . Surgeries None recorded . Imaging MAMMO, screenin g, digital, bilatera l 2018 019 [facility] (Mammo), [address] [facility] [place], [address], 05/11/2019 11:14:50 MAMMO, screenin g, digital, bilatera l 2020 021 [facility] (Mammo), [address] [place], [address], 05/16/2021 08:41:23 MAMMO, screenin g, digital, bilatera l 2021 022 [facility] (Mammography), [address] [place] [address], [address], 07/20/2023 07:36:55 MAMMO, screenin g, digital, bilatera l - Breast Aspirati on and/or Biopsy if needed 2022 023 [facility] (Mammo), [address] [place] [address] [place], [address], 07/18/2024 07:30:31 MAMMO, screenin g, digital, bilatera l - Breast Aspirati on and/or Biopsy if needed 2023 024 [facility] (Mammo), [address] [place] [address] [place], [address], 08/03/2024 11:39:20 Medication Orders estradio l 1 mg tablet 2018 019 [facility]FACE [facility], [address], [place], [id number], 04/06/2019 11:25:29 progeste jadon microniz ed 200 mg capsule 2018 019 INTERFACE [facility], [address], [place], [id number], 04/06/2019 11:25:27 progeste jadon microniz ed 200 mg capsule 2020 021 [facility], [address] [place], [address], 03/20/2021 10:25:05 estradio l 1 mg tablet 2020 021 [facility], [address] [place], [address], 03/20/2021 10:25:06 estradio l 1 mg tablet 2021 022 [facility], [address] [place] [address], [address], 07/23/2022 11:36:50 progeste jadon microniz ed 200 mg capsule 2021 022 [facility], [address] [place] [address], [address], 07/23/2022 11:36:50 estradio l 1 mg tablet 2022 023 [facility], [address] [place] [address], [address], 07/24/2023 09:26:54 progeste jadon microniz ed 200 mg capsule 2022 023 [facility], [address] [place] [address], [address], 07/24/2023 09:26:54 estradio l 1 mg tablet 2023 024 [facility], [address] [place] [address], [address], 08/03/2024 11:19:40 progeste jadon microniz ed 200 mg capsule 2023 024 [facility], [address] [place] [address], [address], 08/03/2024 11:19:40 Patient TargetsNo targets recorded. Patient Instructions Encounter Date Encounter Id Patient Instructions Last Modified By Organization Details Last Modified Time 04/06/2019 [id number] She is here for annual exam, is [...] standardized exercise regimen, such as that at [employer], and she is given literature for this. We discussed a referral to a citrus peeler and/or weight knowledge management advisor. All questions were answered. She deanna think [...] time postmenopausally. Not available 04/06/2019 11:41:44 03/20/2021 [id number] learning about healthy weight Not available 03/20/2021 [...] time postmenopausally. Not available 03/20/2021 10:25:43 07/23/2022 [id number] learning about healthy weight Not available 07/23/2022 [...] time postmenopausally. Not available 07/23/2022 11:37:06 07/24/2023 [id number] learning about healthy weight Not available 07/24/2023 [...] time postmenopausally. Not available 07/24/2023 09:27:22 08/03/2024 [id number] Flucelvax Quadrivalent Influenza Vaccine Prefilled Syringe 0.5 [...] DO Not Attach Compendium, Do Not Delete/merge, [id number] 04/06/2019 11:14:45 04/06/2004/06/2019 pap, LB [id number] ThinP rep Pap, Image d: NEGAT AWAIS [...] NEG [Z12. 4, Z01.4 19] Not Available [facility], Cytopathology Service [address] [place], [address], 04/08/2019 18:04:59 03/20/20 21 03/20/2021 PAP1C ASE [id number] ThinP rep Pap, Image d: NEGAT AWAIS FOR SQUAM OUS INTRA EPITH ELIAL LESIO N AND MALIG VIVI . Lana rowland , CT( CP) (Case elect jonathan galdamez benito d 03 21 2021) ADEQU ACY: Satis facto ry Endoc ervic al/tr ansfo rmati on zone compo nent absen t. SOURC E: ThinP rep Pap HPV IF Ascus : Refle x 16 and 18, Cervi jackie, Image d CLINI JACKIE INFOR MATIO N: HPV If Diagn osis of ASCUS . LPS neg, z12.4 , z01.4 19 Not Available [facility], Cytopathology Service [address] [place], [address], 03/22/2021 08:02:14 03/20/20 21 03/20/2021 fecal occul t blood , stool Occult Blood negati ve Not Available In-Office Order Internal Use Only DO Not Attach Compendium DO Not Attach Compendium, Do Not Delete/merge, [id number] 03/20/2021 09:42:27 07/23/20 22 07/23/2022 [facility] results Patianmol nt Name: MOOK COLEMAN nt : 1959 (Age: 62) Lab Acces francecso #: [id number] Colle ction Date: 2021 Acces francesco Date: 2021 Sign Out Date: 08/01 Tissu e Sourc e: 1: THINP REP REMOTE SENSING TECHNICIAN PAP TEST, CERVI JACKIE: Final Diagn osis: [...] g or lisa w. Perfo rmed at [facility] ate Refer ence Labor atory depar tment of Cytol ogy, [address], [place] Clini jackie Histo ry (othe r): Z01.4 19, LPS 03/20 negat awais, routi ne scree n Phone #: [phone], On-Ca ll Patho logis t: [id number] Not Available [facility] [address], [place], [address], 08/01/2022 08:34:40 07/23/20 22 07/23/2022 fecal occul t blood , stool Occult Blood negati ve Not Available In-Office Order Internal Use Only DO Not Attach Compendium DO Not Attach Compendium, Do Not Delete/merge, [id number] 07/23/2022 10:27:46 07/24/20 23 07/24/2023 [facility] CYTOL OGY results Patie nt Name: MOOK COLEMAN nt : 1959 (Age: 63) Lab Acces francesco #: [id number] Colle ction Date: 2022 Acces francesco Date: 2022 Sign Out Date: 07/31 Tissu e Sourc e: 1: THINP REP REMOTE SENSING TECHNICIAN PAP TEST, CERVI JACKIE: Final Diagn osis: [...] fatima or lisa gallagher. Perfo rmed at [facility] ate Refer ence Labor atory depar tment of Cytol ogy, [address] [place] Clini jackie Histo ry (othe r): Z01.4 19, ROUTI NE SCREE N, LPS 07/23 NEG Phone #: [phone], On-Ca ll Patho logis t: [id number] Not Available [facility] [address], [place], [address], 07/31/2023 16:48:50 07/24/20 23 07/24/2023 fecal occul t blood , stool Occult Blood negati ve Not Available In-Office Order Internal Use Only DO Not Attach Compendium DO Not Attach Compendium, Do Not Delete/merge, [id number] 07/24/2023 09:08:53 08/03/20 24 08/09/2024 IGP, RFX APTIM A HPV ASCU diagnosis: Commen t NEGAT AWAIS FOR INTRA EPITH ELIAL LESIO N OR MALIG VIVI . Not Available [facility] ([facility]) [address] [facility], [place], [address], 08/09/2024 18:06:03 08/03/20 24 08/09/2024 IGP, RFX APTIM A HPV ASCU specimen adequacy: Bryan watson Satis facto ry for evalu ation . Not Available [facility] ([facility]) [address] [place], [address], 08/09/2024 18:06:03 08/03/20 24 08/09/2024 IGP, RFX APTIM A HPV ASCU clinician provided ICD10: Bryan watson Z01.4 19 Not Available [facility] ([facility]) [address] [place], [address], 08/09/2024 18:06:03 08/03/20 24 08/09/2024 IGP, RFX APTIM A HPV ASCU performed by: Soo Quintana (ASCP ) Not Available [facility] ([facility]) [address] [place], [address], 08/09/2024 18:06:03 08/03/20 24 08/09/2024 IGP, RFX APTIM A HPV ASCU . . Not Available [facility] ([facility]) [address] [place], [address], 08/09/2024 18:06:03 08/03/20 24 08/09/2024 IGP, RFX [...] ts do occur . Not Available [facility] ([facility]) [address] [place], [address], 08/09/2024 18:06:03 08/03/20 24 08/09/2024 IGP, RFX APTIM A HPV ASCU test methodology: Commen t This liqui d based ThinP rep(R ) pap test was tonie joel with the use of an image guide oneal mayorga Not Available [facility] ([facility]) [address] [place], [address], 08/09/2024 18:06:03 08/03/20 24 08/09/2024 IGP, RFX APTIM A HPV ASCU . Commen t The HPV DNA refle x crite jodi were not met with this speci men resul t there fore, no HPV testi ng was perfo rmed. Not Available [facility] ([facility]) [address] [facility], [place], [address], 08/09/2024 18:06:03 08/03/20 24 08/03/2024 hemog lobin , gastr ointe gio l, stool Occult Blood negati ve Not Available In-Office Order Internal Use Only DO Not Attach Compendium DO Not Attach Compendium, Do Not Delete/merge, [id number] 08/03/2024 10:46:21 05/11/20 19 05/06/2019 MAMMO tonie vázquez, digit al, bilat eral No observ ation record ed. BARCODE [facility] ([facility]) [address] [place] [address] [place], [address], 05/11/2019 11:14:50 05/18/20 20 05/09/2020 MAMMO tonie, digit al, bilat eral No observ ation record ed. BARCODE Not Available 2019 08:31:17 05/16/2005/15/2021 MAMMO tonie vázquez, digit al, bilat eral No observ ation record ed. [facility] ([facility]) [address] [place] [address] [place], [address], 05/16/2021 08:43:29 Result Notes None recorded. Problems Name Problem SNOMED Code Status Onset Date Resolution Date Notes Provider Name and Address Organization Details Recorded Time Premature menopause 289006682 Active age 42 Misa Funk MD [address] [facility],[address], [place], [address] , [place] - [facility], 5 10:18:40 Raynaud's disease 654492041 Active Not Available [facility] 3 03:01:05 Tobacco dependence syndrome 72237822 Active Not Available [facility] 3 03:01:05 Gout 29715870 Active 2016 Lin manjarrez [place] - [facility], 7 10:32:56 Rheumatoid arthritis 07754659 Active 2021 Lin manjarrez [place] - [facility], 2 10:31:17 Problem Notes None recorded. Procedures Surgical History Date Name Laterality Status Provider Name and Address Organization Details Recorded Time 05/15/20 24 Most Recent Mammogram completed Lni De La Torre [place] - [facility], 08/03/2024 09:57:51 03/27/20 21 procedure on foot completed Lin De La Torre [place] - [facility], 07/23/2022 10:33:58 12/26/19 17 Other completed Lin De La Torre [place] - [facility], 04/06/2019 11:13:59 09/21/18 83 Caesarean Section completed Lin De La Torre [place] - [facility], 10/13/2012 10:48:33 09/21/18 74 Appendectomy completed Lin De La Torre [place] - [facility], 10/13/2012 10:48:33 Imaging Results Imaging Date Name Status LastModified by Organiz ation Details LastModified Time 05/06/2019 MAMMO, screening, digital, bilateral completed [facility] (Mammo) [address] [facility] [place], [address], 05/11/2019 11:14:50 05/09/2020 MAMMO, screening, digital, bilateral completed BARCODE Information not available 05/18/2020 08:31:17 05/15/2021 MAMMO, screening, digital, bilateral completed [facility] (Mammo) [address] [place] [address] [place], [address], 05/16/2021 08:43:29 Procedure Notes None recorded. Medical Equipment None Reported. Allergies Allergen ID Allergen Name Allergen Category Reaction Reaction Severity Criticality Documentation Date Start Date Code Code System Note Provider Name and Address Organization Details Recorded Time 95479 hydroxych loroquine medicatio n hives Not available Not available 07/24/2023 5521 RxNorm Lin MeczywANA M clifton in [facility], 3 09:14:17 6281 Bactrim medicatio n rash Not available Not available 10/13/2012 03687 9 RxNorm Lin MeczyANA M valenzuela in [facility], 3 10:48:33 6282 Ceclor medicatio n rash Not available Not available 10/13/2012 92665 5 RxNorm Lin Meczywor [place] manjarrez in [facility], 3 10:48:33 6283 Substance with sulfonami de structure and antibacte rial mechanism of action (substanc e) medicatio n rash Not available Not available 10/13/2012 44250 8003 SNOMED Lin Meczywor [place] M manjarrez in [facility], 3 10:48:33 6284 Medicinal product containin g penicilli n and acting as antibacte rial agent (product) medicatio n chest pain Not available Not available 10/13/2012 20430 05 SNOMED Lin Meczywor ANA M manjarrez in [facility], 3 10:48:33 Medications Name Sig Start [...] Not Available Not Available Not Available Fluvirin 8849-4364 45 mcg (15 mcg x 3)/0.5 mL [...] Address Organization Details Last Updated DateTime 9 79188.8 4 g 27.3 kg/m2 153.67 cm 82 /min 139 mm[Hg] 84 mm[Hg] Lin Hayden in [facility], 9 11:09:33 Date Recorded Body height Body mass index (BMI) Body weight Heart rate Systolic blood pressure Diastolic blood pressure Provider Name and Address Organization Details Last Updated DateTime 1 153.67 cm 27.3 kg/m2 74260.1 2 g 73 /min 138 mm[Hg] 89 mm[Hg] Monika Hayden in [facility], 1 09:45:42 Date Recorded Body weight Body mass index (BMI) Body height Body temperature Heart rate Systolic blood pressure Diastolic blood pressure Provider Name and Address Organization Details Last Updated DateTime 2 55728.3 8 g 30.2 kg/m2 152.4 cm 98.1 [degF] 76 /min 111 mm[Hg] 72 mm[Hg] Lin Hayden in [facility], 2 10:29:40 Date Recorded Body weight Body mass index (BMI) Body height Body temperature Heart rate Systolic blood pressure Diastolic blood pressure Provider Name and Address Organization Details Last Updated DateTime 3 92502.1 7 g 28.1 kg/m2 156.21 cm 97.1 [degF] 77 /min 126 mm[Hg] 75 mm[Hg] Lin Hayden in [facility], 3 09:12:23 Date Recorded Body height Body mass index (BMI) Body weight Heart rate Body temperature Systolic blood pressure Diastolic blood pressure Provider Name and Address Organization Details Last Updated DateTime 4 152.4 cm 29.3 kg/m2 59534.5 7 g 78 /min 97.2 [degF] 132 [...] Is Your Level Of Caffeine Consumption? Occasional [id number] Information not available 07/24/2020 In The 14 [...] Type Of Diet Are You Following? REGULAR [id number] Information not available 07/24/2020 Which Illicit Or Recreational Drugs Have You Used? No [id number] Information not available 07/24/2020 Do You Reside In Or Have You Traveled To An Area Where Ebola Virus Transmission Is Active? No [id number] Information not available 07/24/2020 Do You Or Have You Ever Used E-cigarettes Or Vape? Never Used Electronic Cigarettes Information not available 03/20/2021 Education 10 Information no t available 10/13/2012 What Is The Highest Grade Or Level Of School You Have Completed Or The Highest Degree You Have Received? [id number] Information not available 07/23/2022 What Is Your [...] available 03/20/2021 Are You Sexually Active? Yes [id number] Information not available 07/24/2020 At What Age Did You Start Smoking Tobacco? 15 Information not available 07/23/2022 Do You Or Have You Ever Used Smokeless Tobacco? Never Used Smokeless Tobacco Information not available 03/20/2021 How Much Tobacco Do You Smoke? No [id number] Information not available 07/24/2020 General Stress Level Low Information not available 03/12/2016 Do You Feel Stressed (tense, Restless, Nervous, Or Anxious, Or Unable To Sleep At Night)? [id number] Information not available 07/23/2022 Do You Use [...] Time What is your exercise level? Moderate [id number] Information not available 07/24/2020 Mental Status None [...] Problems N Kidney or Bladder Problems N GI Problems N Lung Disease N Depression N Defects or Inherited Disease N History of Ovarian Cancer N Anemia N History of Breast Cancer N BENSON exposure N BRCA testing in past N Osteopenia N Psychiatric Illness N Anxiety Disorder Y Diabetes N Arthritis Y Headaches or Migraines N Infertility [...] PF 4 completed ANA M Denise in [facility], 08/04/2024 07:45:25 COVID-19, mRNA, LNP-S, PF, 100 mcg/0.5mL dose or 50 mcg/0.25mL dose 1 completed ANA M Denise in [facility], 07/24/2023 09:11:02 COVID-19, mRNA, LNP-S, PF, 100 mcg/0.5mL dose or 50 mcg/0.25mL dose 1 completed ANA M Denise in [facility], 07/24/2023 09:11:02 Influenza, split virus, quadrivalent, preservative 9 completed Lin Meczywor null, [place] - [facility], 07/24/2023 09:11:02 Influenza, split virus, quadrivalent, preservative 6 completed Lin Meczywor null, [place] - [facility], 07/24/2023 09:11:02 COVID-19, mRNA, LNP-S, PF, 100 mcg/0.5mL dose or 50 mcg/0.25mL dose 1 completed Lin Meczywor null, [place] - [facility], 07/24/2023 09:11:02 influenza, unspecified formulation 3 completed Lin Meczywor null, [place] [facility], 07/24/2023 09:11:02 Tdap 6 completed Lin Meczywor null, [place] [facility], 07/24/2023 09:11:02 Influenza, split virus, trivalent, preservative 3 completed Lin Meczywor null, [place] [facility], 07/24/2023 09:11:02 Influenza, split virus, quadrivalent, PF 1 completed Lin Meczywor null, [place] [facility], 07/24/2023 09:11:02 Influenza, split virus, quadrivalent, PF 2 completed Lin Meczywor null, [place] [facility], 07/24/2023 09:11:02 zoster recombinant 3 completed Lin Meczywor null, [place] - [facility], 08/03/2024 09:54:25 Influenza, split virus, quadrivalent, PF 3 completed Lin Meczywor null, [place] - [facility], 08/03/2024 09:54:25 Past Encounters Encounter ID Performer Location Encounter Start Date Encounter Closed Date Diagnosis/Indication Diagnosis SNOMED-CT Code Diagnosis ICD10 Code [id number] Juliana Raza MISA FUNK MD [address] [facility] [address] 10/13/2012 10:26:40 10/14/2012 08:47:29 [id number] MISA FUNK MD [address] [facility] [address] 10/19/2013 10:01:08 10/19/2013 12:32:51 Specialized medical examination 86110047 Screening for malignant neoplasm of rectum 453562332 Screening mammography 24 339532 [id number] MISA FUNK MD [address] [facility] [address] 03/07/2015 09:50:50 03/07/2015 11:16:06 Specialized medical examination 48803955 Screening for malignant neoplasm of rectum 728403891 Screening mammography 24 945192 Premature menopause 3737 26551 [id number] MD MISA Moeller MD [address] [facility] [address] 03/12/2016 09:50:27 03/12/2016 11:26:00 Specialized medical examination 86250331 Z01.419 Screening for malignant neoplasm of rectum 512413966 Z12.12 Screening mammography 24 869323 Z12.31 Menopausal syndrome 1237 34130 N95.9 [id number] MD MISA Moeller MD [address] [place] [address],[place] [address] 03/18/2017 10:22:10 03/18/2017 11:59:19 Specialized medical examination 77374544 Z01.419 Screening for malignant neoplasm of rectum 169626820 Z12.12 Screening mammography 24 393642 Z12.31 Premature menopause 3737 64179 E28.319 [id number] MD MISA Moeller MD [address] [place] [address],[place] [address] 03/31/2018 10:53:30 03/31/2018 11:37:14 Specialized medical examination 85741241 Z01.419 Screening for malignant neoplasm of rectum 920083401 Z12.12 Screening mammography 24 989093 Z12.31 Premature menopause 3737 87182 E28.310 [id number] MD MISA Moeller MD [address] [place] [address],[facility] [place] [address] 04/06/2019 10:44:21 04/06/2019 11:56:33 Premature menopause 741111544 E28.310 Specialize d medical examination 02424635 Z01.419 Screening for malignant neoplasm of rectum 055671835 Z12.12 Screening mammography 24 292905 Z12.31 [id number] MD MISA Moeller MD [address] [place] [address],[facility] [place] [address] 03/20/2021 09:39:06 03/20/2021 10:56:30 Specialized medical examination 79493269 Z01.419 Screening for malignant neoplasm of rectum 486110402 Z12.12 Screening mammography 24 884259 Z12.31 Premature menopause 3737 98840 E28.310 [id number] MD MISA Moeller MD [address] [place] [address] [place] [address] 07/23/2022 10:25:16 07/23/2022 11:40:26 Specialized medical examination 07262116 Z01.419 Screening for malignant neoplasm of rectum 167435046 Z12.12 Screening mammography 24 951119 Z12.31 Premature menopause 3737 99708 E28.310 [id number] MD MISA Moeller MD [address] [place] [address] [place] [address] 07/24/2023 09:05:23 07/24/2023 09:33:48 Specialized medical examination 07986293 Z01.419 Screening for malignant neoplasm of rectum 238322355 Z12.12 Screening mammography 24 259376 Z12.31 Premature menopause 3737 52550 E28.310 [id number] MD MISA Moeller MD [address] [place], [place] [address] [address] 08/03/2024 09:49:22 08/03/2024 11:39:20 Premature menopause 184830899 E28.310 Influenza vaccine needed 2390129210 106 Z23 Specialize d medical examination 07539952 Z01.419 Screening for malignant neoplasm of rectum 987324643 Z12.12 Screening mammography 24 555209 Z12.31 Health Concerns Section Related Observation LastModified by Organization Detai ls LastModified Time None Recorded Concern Status LastModified by Organization Details LastModified Time None Recorded Advance Directives Directive None Recorded Payers Encounter Date Sequence Insurance Name Policy Number Policy Hoffmann Covered Member ID Hoffmann Member ID Guarantor Name 04/06/2019 1 [facility] (PPO) Laz Coleman [id number] Laz Muellerch 03/20/2021 2 [place] [id number] Julio César Coleman [id number] Laz Muellerch 03/20/2021 1 [place] [id number] Laz Coleman [id number] Laz Muellerch 07/23/2022 2 [place] [id number] 5 Julio César Coleman [id number] Laz Muellerch 07/23/2022 1 [place] [id number] 5 Laz Coleman [id number] Laz Muellerch 07/24/2023 1 [place] [id number] 5 Laz Coleman [id number] Laz Muellerch 08/03/2024 1 [place] [id number] 5 Laz Coleman [id number] Laz Coleman Notes Date Note Type Note [...] a few years ago. Misa Funk MD [address] [place] [address],[address], [place], [id number], [place] - [facility], 04/06/2019 11:42:02 03/20/2021 text/html She is here for annual exam, doing well on HRT, now has three grandchildren! note from 2019: She is here for annual exam, is doing well on the HRT and elects to continue. She is going to become a grandmother in April! Misa Funk MD [address], [place], [address], [facility], 03/20/2021 10:26:02 07/23/2022 text/html She is here for annual exam, doing well on HRT, now has three grandchildren!She had premature ovarian failure age 42. Misa Funk MD [address], [place], [id number], [facility], 07/23/2022 11:37:27 07/24/2023 text/html She is here for annual exam, doing well on HRT, now has three grandchildren!She had premature ovarian failure age 42. Misa Funk MD [address], [place], [id number], [facility], 07/24/2023 09:27:56 08/03/2024 text/html She is here [...] [address], [place], [phone], [place] - [facility], 08/03/2024 11:20:55 OBGyn Episode No OBEpisode recorded.
[2024-09-08 11:29] VITALS: BP 118/70; PULSE 81; O2SAT 99; BMI 28.6
--- NOTE | 2024-09-08 11:29 | MHC.PC.OV ---
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 Required: No Accompanied by: Self / Same As Patient Allergies cefaclor [From CECLOR] Allergy (Intermediate, Verified 09/08/24 11:53) RASH cefuroxime [From CEFTIN] Allergy (Intermediate, Verified 09/08/24 11:53) RASH cephalexin [From KEFLEX] Allergy (Intermediate, Verified 09/08/24 11:53) RASH Penicillins [PENICILLINS] Allergy (Intermediate, Verified 09/08/24 11:53) SHORTNESS OF BREATH sulfamethoxazole [From BACTRIM] Allergy (Intermediate, Verified 09/08/24 11:53) RASH hydroxychloroquine Allergy (Mild, Verified 09/08/24 11:53) Rash Sulfa (Sulfonamide Antibiotics) Allergy (Unknown, Verified 09/08/24 11:53) hives,heart racing hydrocodone [From Vicodin] Allergy (Verified 09/08/24 11:53) Stomach Upset Medication List - Last Reconciled 09/08/24 by Wang Urbina MD albuterol sulfate 90 mcg/actuation 2 puffs inhalation Q6H PRN 30 days NS allopurinol 100 mg PO DAILY calcium carbonate-vitamin D3 600 mg-12.5 mcg (500 unit) (Calcium with Vit D3) 1 cap PO DAILY clotrimazole 1% (Lotrimin AF (clotrimazole)) 1 appl topical BID estradiol 1 mg PO DAILY 90 days Humira(CF) Pen (adalimumab) 40 mg (0.4 mL) subcut Q2W NS hydrocortisone 2.5% (Anusol-HC) 1 appl NM BID-QID PRN 14 days lisinopril 5 mg PO DAILY 90 days lorazepam 1 mg PO BID PRN 30 days naproxen 500 mg (2 x 250 mg) PO BID PRN nifedipine 10 mg PO BID omeprazole 20 mg PO DAILY 90 days progesterone micronized 200 mg PO BEDTIME tramadol 50 mg PO TID PRN 30 days Tobacco use date assessed: 09/08/24 Dental Screening Dental Screen Date: 12/19/24 Did you have a dental visit in the last 12 months?: Yes Did you have a dental problem in the last 6 months where you did not have access to dental care?: No Was dental information given to patient?: Patient has dentist HPI 4mt f/u HPI Details Patient comes in today for her follow-up visit States that she feels okay She denies any headaches or dizziness Denies any chest pains, no increased shortness of breath No nausea/vomiting, no abdominal pain No change in bowel habits noted States that she has been experiencing on and off pain over her right lower back area lately - notes that the pain would come on when she is walking for a while and would subside when she stops and sits down to rest Notes that the pain is also located behind her right hip area and she is wondering if her hip is the source of her pain and whether she has to be worried about arthritis or not She had her follow-up labs done a few days ago - to discuss her results [facility] Medical History Benign essential hypertension Contracture of toe of right foot Ganglion cyst of right foot Primary osteoarthritis of hands, bilateral Overweight (BMI 25.0-29.9) Anxiety Insomnia Rheumatoid factor positive Vitamin D deficiency Migraine Menopausal symptoms Gout Raynaud's disease Osteoarthritis of knees, bilateral GERD (gastroesophageal reflux disease) Hypertension Surgical History S/P foot surgery, right S/P bunionectomy (~02/18/19) S/P bunionectomy (~12/25/16) History of bunionectomy of right great toe S/P foot surgery, left (~06/2016) Normal colonoscopy (~03/01/14) deliv NOS-unsp History of appendectomy Family History Father Diabetes Myocardial infarct Hx of CABG Mother No problems noted. 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 1. Little interest or pleasure in doing things: not at all 2. Feeling down, depressed, or hopeless: not at all 3. Trouble falling or staying asleep, or sleeping too much: not at all 4. Feeling tired or having little energy: not at all 5. Poor appetite or overeating: not at all 6. Feeling bad about yourself - or that you are a failure or have let yourself or your family down: not at all 7. Trouble concentrating on things, such as reading the newspaper or watching television: not at all 8. Moving or speaking so slowly that other people could have noticed. Or the opposite - being so fidgety or restless that you have been moving around a lot more than usual: not at all 9. Thoughts that you would be better off or of hurting yourself in some way: not at all Total score: 0 Depression Screening Interpretation: Negative Depression Screening Done: Yes 55702 - PHQ-9 Billing: Yes Source: Developed by Drs. Milad Yin, Kate Iyer, Aubrey Dempsey and colleagues, with an educational hernandez from [employer]. Thrive Questionnaire Date Thrive assessed: 09/08/24 I am a: Patient What is your living situation today?: I have a steady place to live Within the past 12 months, did the food you bought not last and you didn't have the money to get more?: Never true Within the past 12 months, did you worry whether your food would run out before you got money to buy more?: Never true Do you have trouble paying for medicines?: No Do you have trouble getting transportation to medical appointments?: No Do you have trouble paying your heating and electricity bill?: No Do you have trouble taking care of your child, family member or friend?: No Do you have trouble with day-to-day activities such as bathing, preparing meals, shopping, managing finances, etc.?: No Are you currently unemployed and looking for a job?: No Are you interested in more education?: No Please select the resources that you would like help with: None Currently or been in a relationship where the following occur: No concerns reported THRIVE Score: 0 AUDIT C Alcohol Use Questionnaire (AUDIT-C) 1. How often do you have a drink containing alcohol?: Monthly or less 2. How many drinks containing alcohol do you have on a typical day when you are drinking?: 1 or 2 3. How often do you have six or more drinks on one occasion?: Never Total Score: 1 Score Reviewed/Action Taken: Yes BRANDIE-7 AMB Questionnaire BRANDIE-7 Date BRANDIE - 7 assessed: 09/08/24 Feeling nervous, anxious, or on edge: 0 = Not at all Not being able to stop or control worryin = Not at all Worrying too much about different things: 0 = Not at all Trouble relaxin = Not at all Being so restless that it is hard to sit still: 0 = Not at all Becoming easily annoyed or irritable: 0 = Not at all Feeling afraid as if something awful might happen: 0 = Not at all Total BRANDIE-7 score (0-4 normal; 5-9 mild; 10-14 moderate; 15-21 severe): 0 Source: Developed by Drs. Milad Yin, Kate Iyer, Aubrey Dempsey and colleagues, with an educational hernandez from [employer]. Review of Systems Const Denies chills, Denies fatigue, Denies fever(s) and Denies headache(s) ENT Denies dysphagia, Denies dizziness, Denies otalgia, Denies headache(s), Denies neck pain, Denies odynophagia and Denies sore throat Card Denies chest pain, Denies palpitations and Reports dyspnea on exertion (mild, at times) Resp Denies chest congestion, Denies cough, Reports dyspnea on exertion (mild, at times) and Denies wheezing GI Denies abdominal pain, Denies constipation, Denies dysphagia, Denies heartburn, Denies diarrhea, Denies nausea, Denies odynophagia and Denies vomiting Denies difficulty voiding, Denies nocturia, Denies dysuria and Denies urinary urgency Musc Reports back pain (over the lower back), Reports arthralgias (but hand and knee pains have improved significantly with Rx), Denies neck pain, Reports numbness (in both hands at times) and Reports stiffness Skin/Breast Denies rash Neuro Denies dizziness, Denies headache(s) and Reports numbness (in both hands at times) Psych Denies anxiety Endo Denies fatigue and Denies palpitations Aller/Immun Denies wheezing Physical exam (Primary Care) Vital Signs: Last Vital Signs Pulse 81 09/08/24 11:29 BP 118/70 09/08/24 11:29 Pulse Ox 99 09/08/24 11:29 Oxygen Delivery Method Room Air 09/08/24 11:29 BMI result Body Mass Index 28.6 Tobacco/Smoking Status: Tobacco use Status Tobacco use date assessed 09/08/24 09/08/24 11:34 Patient Tobacco Use Status Former Tobacco user 09/08/24 11:34 Tobacco use type Cigarette 09/08/24 11:34 e-Cigarette/Vaping Use Never Used 09/08/24 11:34 PHQ-9: PHQ-9 Score PHQ-9: Total score 0 09/08/24 11:58 Depression Screening Interpretation: Negative Thrive Assessment: Date of Thrive Assessment Date Thrive assessed 09/08/24 09/08/24 11:34 Currently or been in a relationship where the following occur: No concerns reported Const General: no acute distress and alert HENMT Ears: TM's normal bilaterally and EAC's normal Throat: Yes posterior oropharynx normal and Yes tonsils normal (no TP congestion noted) Neck Neck: Yes no lymphadenopathy and Yes supple Thyroid: Thyroid normal Resp Auscultation: clear to auscultation bilaterally, no rales and no wheezes Cardio Rate: regular rate Rhythm: regular rhythm Heart sounds: no murmurs GI Palpation (GI): Soft to palpation and nontender Auscultation: normal bowel sounds General: Yes no CVA tenderness Back/Spine/Pelvis Back: no CVA tenderness Thoracic/Lumbar Spine: paraspinal muscle tenderness on the right in the mid lumbar and in the lower lumbar and lumbar spinal tenderness Skin Rashes: no rashes Extrem General: Yes no clubbing, cyanosis or edema Right upper extremity: Extremity exam: right hand Details: tenderness (mild); no swelling Left upper extremity: hand Details: tenderness (mild) and swelling (mild) Location: of the dorsal hand Results Reviewed Results Reviewed: Laboratory Tests 09/05/24 09:20 WBC 6.4 Hgb 15.1 Hct 43.9 Plt Count 266 Sodium 138 Potassium 4.4 Creatinine 0.74 Estimated GFR > 60 Fasting Glucose 92 AST 44 H ALT 49 H Triglycerides 75 Cholesterol 116 LDL Cholesterol, Calc 66 HDL Cholesterol 35 L Coding Level of Care Code Est Pt Level 4 (54966) Diagnoses Benign essential hypertension I10 Raynaud's disease without gangrene I73.00 Raynaud?s-associated gangrene presence: without gangrene Seronegative rheumatoid arthritis M06.00 Primary osteoarthritis of hands, bilateral M19.041; M19.042 Primary osteoarthritis of both knees M17.0 Osteoarthritis type: primary Elevated LFTs R79.89 Dupuytren's contracture of right hand M72.0 Migraine without status migrainosus, not intractable, unspecified migraine type G43.909 Migraine type: unspecified Status migrainosus presence: without status migrainosus Intractability: not intractable Gastroesophageal reflux disease without esophagitis K21.9 Esophagitis presence: without esophagitis Idiopathic gout, unspecified chronicity, unspecified site M10.00 Gout site: unspecified site Gout etiology: idiopathic Chronicity: unspecified Vitamin D deficiency E55.9 Acute right-sided low back pain without sciatica M54.50 Chronicity: acute Sciatica presence: without sciatica Primary insomnia F51.01 Insomnia type: primary Anxiety F41.9 Overweight (BMI 25.0-29.9) E66.3 Additional Codes PHQ-9 - 92784 - PHQ-9 Billing: Yes ([id number]) Assessment & Plan Assessment & Plan (1) Benign essential hypertension: Code(s): I10 - Essential (primary) hypertension Category: Medical Plan: Reinforced low sodium diet - goal is systolic BP of at least 120 to 130 mm or less Continue Lisinopril 5 mg QD She is also on Nifedipine (10 mg BID) for her Raynaud's symptoms but this helps with her BP as well (2) Raynaud's disease: Code(s): I73.00 - Raynaud's syndrome without gangrene Category: Medical Qualifiers: Raynaud?s-associated gangrene presence: without gangrene Qualified Code(s): I73.00 - Raynaud's syndrome without gangrene Plan: Patient's symptoms remain stable/controlled on CCB - Nifedipine 10 mg BID (dose was lowered by rheumatology recently to help address patient's symptoms of recurrent dizziness) She was experiencing frequent pain in both hands, mostly due to her OA,?but her symptoms have improved since she was started on Humira by rheumatology (3) Seronegative rheumatoid arthritis: Comment: borderline pos RF, then negative; some OA in the hands as well onset synovitis 2020; Rash with hydroxychloroquine so it was only used 07/12/ - 09/11. History of sulfa allergy. Methotrexate not used due to baseline LFT elevations. Humira approved 08/2022 effective Code(s): M06.00 - Rheumatoid arthritis without rheumatoid factor, unspecified site Category: Medical Plan: Continue Humira 40 mg SQ Q 2 weeks [place] [facility] [place] as scheduled (4) Primary osteoarthritis of hands, bilateral: Code(s): M19.041 - Primary osteoarthritis, right hand; M19.042 - Primary osteoarthritis, left hand Category: Medical Plan: Continue Naproxen 250 mg 1 to 2 tablets BID PRN with food (5) Osteoarthritis of knees, bilateral: Code(s): M17.0 - Bilateral primary osteoarthritis of knee Category: Medical Qualifiers: Osteoarthritis type: primary Qualified Code(s): M17.0 - Bilateral primary osteoarthritis of knee Plan: Continue Naproxen or Tramadol PRN May need to consider referral to orthopedics if her knee pains progress (6) Elevated LFTs: Code(s): R79.89 - Other specified abnormal findings of blood chemistry Category: Medical Plan: Patient's LFTs are still elevated on her recent labs although they have decreased from previous Hepatitis profile was negative when checked last year Abdominal US last year (2022) revealed only (+) hepatosteatosis with no other abnormalities noted Patient is again cautioned to avoid taking any Tylenol-containing Rx (states that she does not); reinforced also abstinence from alcohol (states that she does drink every now and then ) Will continue monitoring her LFTs regularly (7) Dupuytren's contracture of right hand: Code(s): M72.0 - Palmar fascial fibromatosis [Dupuytren] Category: Medical Plan: She has been advised that she will likely require surgical correction (fasciectomy) at some point to correct her hand contracture Patient feels that she is still doing okay for now and will call for orthopedics referral if she feels her hand symptoms are getting worse (8) Migraine: Code(s): G43.909 - Migraine, unspecified, not intractable, without status migrainosus Category: Medical Qualifiers: Migraine type: unspecified Status migrainosus presence: without status migrainosus Intractability: not intractable Qualified Code(s): G43.909 - Migraine, unspecified, not intractable, without status migrainosus Plan: Stable - Nifedipine appears to be helping with her headaches as well (9) GERD (gastroesophageal reflux disease): Code(s): K21.9 - Gastro-esophageal reflux disease without esophagitis Category: Medical Qualifiers: Esophagitis presence: without esophagitis Qualified Code(s): K21.9 - Gastro-esophageal reflux disease without esophagitis Plan: Dietary restrictions reinforced Continue Omeprazole 20 mg QD PRN (10) Gout: Code(s): M10.9 - Gout, unspecified Category: Medical Qualifiers: Gout site: unspecified site Gout etiology: idiopathic Chronicity: unspecified Qualified Code(s): M10.00 - Idiopathic gout, unspecified site Plan: Stable with no acute gout flare ups lately Reinforced low purine diet Will recheck her serum uric acid level in a few months for follow up (11) Vitamin D deficiency: Code(s): E55.9 - Vitamin D deficiency, unspecified Category: Medical Plan: Continue OTC Vitamin D and Calcium supplements daily (12) Right low back pain: Code(s): M54.50 - Low back pain, unspecified Category: Medical Qualifiers: Chronicity: acute Sciatica presence: without sciatica Qualified Code(s): M54.50 - Low back pain, unspecified Plan: Will send patient for x-rays of the lumbar spine and right hip for further evaluation Discussed with patient that I suspect that her lower back is the main source of her recent recurrent right lower back pain based on her description of her symptoms (13) Insomnia: Code(s): G47.00 - Insomnia, unspecified Category: Medical Qualifiers: Insomnia type: primary Qualified Code(s): F51.01 - Primary insomnia Plan: Sleep hygiene reinforced States that taking Lorazepam at bedtime helps when needed (14) Anxiety: Code(s): F41.9 - Anxiety disorder, unspecified Category: Medical Plan: Continue Lorazepam 1 mg BID PRN (15) Overweight (BMI 25.0-29.9): Code(s): E66.3 - Overweight Category: Medical Plan: Reinforced diet/exercise as tolerated/lose weight Plan Follow-up in 4 months Orders: Orders XR hip RT min 2V Today M25.551 - Pain in right hip Complete Blood Count Auto Diff 4 Months D64.9 - Anemia, unspecified Comprehensive [place]. Panel Fast 4 Months E78.00 - Pure hypercholesterolemia, unspecified Lipid Panel 4 Months E78.00 - Pure hypercholesterolemia, unspecified Vitamin D 25-OH Total 4 Months E55.9 - Vitamin D deficiency, unspecified XR lumbar spine 2-3V Today M54.50 - Low back pain, unspecified Uric Acid 4 Months M10.9 - Gout, unspecified
== END 2024-09-08 12:06 | disposition home or self-care (01) ==
PROVIDERS: PCP Internal Medicine; Visit Provider Internal Medicine
DX: I10 Essential (primary) hypertension (principal); I73.00 Raynaud's syndrome without gangrene; M06.00 Rheumatoid arthritis without rheumatoid factor, unspecified site; M19.041 Primary osteoarthritis, right hand; M19.042 Primary osteoarthritis, left hand; M17.0 Bilateral primary osteoarthritis of knee; R79.89 Other specified abnormal findings of blood chemistry; M72.0 Palmar fascial fibromatosis [Dupuytren]; G43.909 Migraine, unspecified, not intractable, without status migrainosus; K21.9 Gastro-esophageal reflux disease without esophagitis; M10.00 Idiopathic gout, unspecified site; E55.9 Vitamin D deficiency, unspecified; M54.50 Low back pain, unspecified; F51.01 Primary insomnia; F41.9 Anxiety disorder, unspecified; E66.3 Overweight

== ENCOUNTER 2024-11-09 09:09 | Outpatient (AMB) | payer BC, SELFPAY ==
--- NOTE | 2024-11-09 09:19 | MHC.OFFVIS ---
Vital Signs 11/09/24 09:23 Height 5 ft 1 in Weight 156 lb 1.396 oz BMI 29.5 BP 130/80 Blood Pressure Location Lt brachial Position Sitting Pulse 74 Pulse Source Pulse Oximeter Pulse Oximetry (%) 98 Oxygen Delivery Method Room Air Intake Visit Reasons: RA Intake Note: Patient presents for RA. Allergies cefaclor [From CECLOR] Allergy (Intermediate, Verified 11/09/24 09:22) RASH cefuroxime [From CEFTIN] Allergy (Intermediate, Verified 11/09/24 09:22) RASH cephalexin [From KEFLEX] Allergy (Intermediate, Verified 11/09/24 09:22) RASH Penicillins [PENICILLINS] Allergy (Intermediate, Verified 11/09/24 09:22) SHORTNESS OF BREATH sulfamethoxazole [From BACTRIM] Allergy (Intermediate, Verified 11/09/24 09:22) RASH hydroxychloroquine Allergy (Mild, Verified 11/09/24 09:22) Rash Sulfa (Sulfonamide Antibiotics) Allergy (Unknown, Verified 11/09/24 09:22) hives,heart racing hydrocodone [From Vicodin] Allergy (Verified 11/09/24 09:22) Stomach Upset Medication List - Last Reconciled 11/09/24 by Sherrie Mancuso MD albuterol sulfate 90 mcg/actuation 2 puffs inhalation Q6H PRN 30 days NS allopurinol 100 mg PO DAILY azithromycin take 500 mg today (day 1), then 250 mg for 4 days (days 2-5) PO calcium carbonate-vitamin D3 600 mg-12.5 mcg (500 unit) (Calcium with Vit D3) 1 cap PO DAILY clotrimazole 1% (Lotrimin AF (clotrimazole)) 1 appl topical BID estradiol 1 mg PO DAILY 90 days Humira(CF) Pen (adalimumab) 40 mg (0.4 mL) subcut Q2W NS hydrocortisone 2.5% (Anusol-HC) 1 appl AR BID-QID PRN 14 days lisinopril 5 mg PO DAILY 90 days lorazepam 1 mg PO BID PRN 30 days naproxen 500 mg (2 x 250 mg) PO BID PRN nifedipine 10 mg PO BID omeprazole 20 mg PO DAILY 90 days progesterone micronized 200 mg PO BEDTIME tramadol 50 mg PO TID PRN 30 days HPI Comments Details: Patient is a 64-year-old female current everyday smoker with hypertension, Raynaud's, polyarticular osteoarthritis and seropositive rheumatoid arthritis here today for follow up Interval History: Patient last seen 06/29/[address] Narvaez. At that time she was doing reasonably well. No flare-ups. Raynaud's controlled with conservative measures and CCBs Today, Patient reports Raynaud's symptoms Overall rheumatoid arthritis symptoms stable no flare-ups since the last visit Rheumatologic History: Seropositive rheumatoid arthritis borderline pos RF, then negative; some OA in the hands as well onset synovitis 2020; Rash with hydroxychloroquine so it was only used 07/12/ - 09/11. History of sulfa allergy. Methotrexate not used due to baseline LFT elevations. Humira approved 08/2022 effective Scl 70 positive without evidence of scleroderma. ?overlap Current Rheumatology Medication(s): Humira 40 mg subcu every other week Nifedipine 10 mg b.i.d. [facility] Medical History (Updated 11/09/24 @ 10:08 by Sherrie Mancuso MD) Encounter for monitoring of adalimumab therapy Benign essential hypertension Contracture of toe of right foot Ganglion cyst of right foot Primary osteoarthritis of hands, bilateral Overweight (BMI 25.0-29.9) Anxiety Insomnia Rheumatoid factor positive Vitamin D deficiency Migraine Menopausal symptoms Gout Raynaud's disease Osteoarthritis of knees, bilateral GERD (gastroesophageal reflux disease) Hypertension Surgical History S/P foot surgery, right S/P bunionectomy (~02/18/19) S/P bunionectomy (~12/25/16) History of bunionectomy of right great toe S/P foot surgery, left (~06/2016) Normal colonoscopy (~03/01/14) deliv NOS-unsp History of appendectomy Family History Father Diabetes Myocardial infarct Hx of CABG Mother No problems noted. 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 [employer] Cognitive needs: No Hearing needs: No Vision needs: Yes Review of Systems Const Details: Review of Systems Constitutional: Denies fever, chills, weight loss ENT: Denies vision changes, eye pain or eye redness, dental caries, dry mouth GI: Denies nausea, vomiting, diarrhea, abdominal pain, change in BM Pulm: Denies SOB, MONTEZ, hemoptysis, wheezing Cards: Denies chest pain, palpitations Skin: Denies rash, nail changes, photosensitivity, ELECT[employer]ER[employer] SPECIALIST: Denies headaches, weakness, paresthesias, recurrent falls MSK: as per HPI All other systems reviewed and are unremarkable except noted above Physical Exam Vital Signs: Last Vital Signs Pulse 74 11/09/24 09:23 BP 130/80 11/09/24 09:23 Pulse Ox 98 11/09/24 09:23 Oxygen Delivery Method Room Air 11/09/24 09:23 BMI result Body Mass Index 29.5 Vital signs reviewed Physical Examination CONSTITUITIONAL Patient alert and cooperative. Well appearing and in no apparent painful distress HEENT Conjunctiva and sclera clear. ?Pupils equal round and reactive to light. ?No lymphadenopathy. ? CHEST/RESPIRATORY SYSTEM Normal respiratory effort and able to speak in complete sentences. ?Clear to auscultation bilaterally. ?No crackles, rales, rhonchi, wheezes heard. CARDIAC SYSTEM Regular rate and rhythm. ?S1 and S2 heard no murmurs. ?Radial pulses intact bilaterally MSK Hands: ?Able to make a fist. Bilateral ulnar deviations. Synovial hypertrophy noted to the MCPs 2-5 bilaterally. No synovitis on exam. Hands are cold and purple. Normal nailfold capillaries Wrists: ?Full range of motion at the wrists without pain. ?No tenderness to palpation or synovitis noted to the wrists. Elbows: Full range of motion without pain. No tenderness, weakness, swelling, increased warmth or erythema. Shoulders: Full range of motion without pain. No tenderness, weakness, swelling, increased warmth or erythema. Hips: Full range of motion without pain. Hip bursa: No tenderness to palpation Knees: ?Full range of motion. ?No tenderness, swelling, increased warmth or erythema.?No effusion or crepitations Ankles: Full range of motion. ?No tenderness, swelling, increased warmth or erythema.? Feet: ?Negative squeeze test. ?No tenderness to palpation or swelling of the MTPs. Tender points:?No tenderness to palpation of the bilateral trapezius, supraspinatus, greater trochanters, anterior costochondral junctions, bilateral gluteal areas, bilateral suboccipital muscle insertions SKIN Skin intact without rashes. Modified Rodnan skin score 0 Results Reviewed Results Reviewed: Laboratory Tests 11/17/23 09/05/24 08:00 09:20 WBC 6.4 RBC 4.42 Hgb 15.1 Hct 43.9 Plt Count 266 ESR 7 Sodium 138 Potassium 4.4 Chloride 104 Carbon Dioxide 29 BUN 8 L Creatinine 0.74 Calcium 9.2 Total Bilirubin 0.4 AST 63 H 44 H ALT 60 H 49 H Alkaline Phosphatase 75 C-Reactive Protein 0.39 Albumin 4.0 Scl-70 Scleroderma Ab 35 H Hepatitis A IgM Ab Nonreactive Hep Bs Antigen Negative Hep Bs Antibody NONREACTIVE Hep B Core Total Ab Nonreactive Hepatitis C Ab (EIA) Nonreactive TB Test (T-Spot) Com Negative Assessment & Plan Assessment & Plan (1) Seronegative rheumatoid arthritis: Comment: borderline pos RF, then negative; some OA in the hands as well onset synovitis 2020; Rash with hydroxychloroquine so it was only used 07/12/ - 09/11. History of sulfa allergy. Methotrexate not used due to baseline LFT elevations. Humira approved 08/2022 effective Code(s): M06.00 - Rheumatoid arthritis without rheumatoid factor, unspecified site Category: Medical Plan: #Seronegative RA Patient is a 64-year-old female with seronegative rheumatoid arthritis. Patient with ulnar deviation of bilateral hands. No evidence of active synovitis today on examination but there is synovial hypertrophy and RA deformities noted. My concern is that while the Humira may be controlling her symptoms there may be on going subclinical RA. We will continue the Humira for now but with the plans to check x-rays in the future Plan - Humira 40mg SC every 2 weeks - RTC 4 months - Labs: CBC, CMP, ESR, CRP, hepatitis panel, T spot (2) Raynaud's disease: Comment: Positive SCL 70 Normal nailfold capillaries (checked 10/2024) Code(s): I73.00 - Raynaud's syndrome without gangrene Category: Medical Qualifiers: Raynaud?s-associated gangrene presence: without gangrene Qualified Code(s): I73.00 - Raynaud's syndrome without gangrene Plan: #Raynaud's disease with positive SCL 70 Patient with Raynaud's disease and a positive Scl 70 based on the most recent blood work. Nail fold capillaries normal today. Given her positive Scl 70 my concern is that there might be underlying scleroderma or overlap disease. Modified Rodnan skin score today is normal. 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 Category: Medical Plan: #Long-term Use of TNF Inhibitors: Filipe Discussed with the patient the benefits and risks of TNF inhibitors for the management of the rheumatic condition Benefits include reduce pain, maintenance of remission and reduction of flares as well as ?progression of the disease Risks include injection sites/infusion reactions, serious infections (such as bacterial infections, opportunistic infections), malignancy, delaminating syndromes, autoimmune phenomena, CHF exacerbations, palmar plantar psoriasis and cytopenias Recommended rotating injection sites, and holding medication during and for up to 1 week after resolution of a febrile illness or open skin wound Plan I spent 30 minutes reviewing the record and labs, taking a history, examining the patient, discussing the treatment plan and documenting in the medical record Orders: Orders C Reactive Protein Today M06.00 - Rheumatoid arthritis without rheumatoid factor, unspecified site Comprehensive Met. Panel Today M06.00 - Rheumatoid arthritis without rheumatoid factor, unspecified site Hepatitis A,B,C Profile Today M06.00 - Rheumatoid arthritis without rheumatoid factor, unspecified site Erythrocyte Sedimentation Rate Today M06.00 - Rheumatoid arthritis without rheumatoid factor, unspecified site PHILL Reflex Titer and Pattern Today I73.00 - Raynaud's syndrome without gangrene Complete Blood Count Auto Diff Today M06.00 - Rheumatoid arthritis without rheumatoid factor, unspecified site CT chest wo con - High Res Today J84.9 - Interstitial pulmonary disease, unspecified, M34.9 - Systemic sclerosis, unspecified Medications: Refilled nifedipine 10 mg PO BID 180 caps 1RF I73.00 - Raynaud's syndrome without gangrene Humira(CF) Pen (adalimumab) 40 mg (0.4 mL) subcut Q2W 2 ea 4RF NS M06.00 - Rheumatoid arthritis without rheumatoid factor, unspecified site Coding Level of Care Code Est Pt Level 4 (43537) Complex EM visit Add On G2211 Diagnoses Seronegative rheumatoid arthritis M06.00 Raynaud's disease without gangrene I73.00 Raynaud?s-associated gangrene presence: without gangrene Encounter for monitoring of adalimumab therapy Z51.81; Z79.620
--- OUTSIDE RECORDS SUMMARY | 2024-11-09 09:21 | XMS_ITS | Data Portability ---
Author Organization [place] - [facility],, MISA FUNK MD Address [address] [address] Care Team Providers Care Yarder Name Role Phone ANDREY CLARK OTHER Assessment No assessment recorded. Plan of Treatment Reminders Order Date Submit Date Provider Last Modified By Organization Details Last Modified Time Details Appointments ANNUAL EXAM 2024 10:00A M Misa Funk MD Not available Not available Not available Lab cytology report, thin prep, smear or scraping , cervical or vaginal 2023 024 [facility], [address] [place], [address], 08/09/2024 18:06:03 hemoglob in, gastroin testinal , stool 2023 024 [email or web address] 1 In-Office Order, Internal Use Only DO Not Attach Compendium DO Not Attach Compendium, Do Not Delete/merge, [id number] 08/03/2024 11:19:36 pap test, thinprep , cervical 2022 023 [facility], [address] [place], [address], 08/03/2023 07:26:04 fecal occult blood, stool 2022 023 [email or web address] 1 In-Office Order, Internal Use Only DO Not Attach Compendium DO Not Attach Compendium, Do Not Delete/merge, [id number] 07/24/2023 09:26:50 pap test, thinprep , cervical 2021 022 [facility], [address] [place], [address], 08/06/2022 07:34:27 fecal occult blood, stool 2021 022 [email or web address] 1 In-Office Order, Internal Use Only DO Not Attach Compendium DO Not Attach Compendium, Do Not Delete/merge, [id number] 07/23/2022 11:36:46 pap test, thinprep , cervical 2020 021 [facility], Cytopathology Service, [address] [place] [address], [address], 03/27/2021 07:27:54 fecal occult blood, stool 2020 021 [email or web address] In-Office Order, Internal Use Only DO Not Attach Compendium DO Not Attach Compendium, Do Not Delete/merge, [id number] 03/20/2021 10:56:46 pap test, thinprep , cervical 2018 019 [facility], Cytopathology Service, [address] [place] [address], [address], 04/13/2019 07:20:18 fecal occult blood, stool 2018 019 [facility] In-Office Order, Internal Use Only DO Not Attach Compendium DO Not Attach Compendium, Do Not Delete/merge, [id number] 04/13/2019 07:20:18 Referral None recorded . Procedures None recorded . Surgeries None recorded . Imaging MAMMO, screenin g, digital, bilatera l - Breast Aspirati on and/or Biopsy if needed 2023 024 [facility] (Mammo), [address] [place] [address] [place], [address], 08/03/2024 11:39:20 MAMMO, screenin g, digital, bilatera l - Breast Aspirati on and/or Biopsy if needed 2022 023 [facility] (Mammo), [address] [facility] [place], [address], 07/18/2024 07:30:31 MAMMO, screenin g, digital, bilatera l 2021 022 [facility] (Mammography), [address] [place] [address], [address], 07/20/2023 07:36:55 MAMMO, screenin g, digital, bilatera l 2020 021 [facility] (Mammo), [address] [facility] [place], [address], 05/16/2021 08:41:23 MAMMO, screenin g, digital, bilatera l 2018 019 [facility] (Mammo), [address] [facility] [place], [address], 05/11/2019 11:14:50 Medication Orders estradio l 1 mg tablet 2023 024 [facility], [address] [place] [address], [address], 08/03/2024 11:19:40 progeste jadon microniz ed 200 mg capsule 2023 024 [facility], [address] [place] [address], [address], 08/03/2024 11:19:40 estradio l 1 mg tablet 2022 023 [facility], [address] [place], [address], 07/24/2023 09:26:54 progeste jadon microniz ed 200 mg capsule 2022 023 [facility], [address] [place] [address], [address], 07/24/2023 09:26:54 estradio l 1 mg tablet 2021 022 [facility], [address] [place] [address], [address], 07/23/2022 11:36:50 progeste jadon microniz ed 200 mg capsule 2021 022 [facility], [address] [place] [address], [address], 07/23/2022 11:36:50 progeste jadon microniz ed 200 mg capsule 2020 021 [facility], [address] [place] [address], [address], 03/20/2021 10:25:05 estradio l 1 mg tablet 2020 021 [facility], [address] [place] [address], [address], 03/20/2021 10:25:06 estradio l 1 mg tablet 2018 019 [facility], [address] [place], [place], [id number], 04/06/2019 11:25:29 progeste jadon microniz ed 200 mg capsule 2018 019 [facility], [address] [place], [place], [id number], 04/06/2019 11:25:27 Patient TargetsNo targets recorded. Patient Instructions Encounter Date Encounter Id Patient Instructions Last Modified By Organization Details Last Modified Time 04/06/2019 [id number] She is here for annual exam, is [...] standardized exercise regimen, such as that at [employer], and she is given literature for this. We discussed a referral to a asphalt tamper and/or weight nurse case management. All questions were answered. She deanna think [...] time postmenopausally. Not available 04/06/2019 11:41:44 03/20/2021 [id number] learning about healthy weight Not available 03/20/2021 [...] time postmenopausally. Not available 03/20/2021 10:25:43 07/23/2022 [id number] learning about healthy weight Not available 07/23/2022 [...] time postmenopausally. Not available 07/23/2022 11:37:06 07/24/2023 [id number] learning about healthy weight Not available 07/24/2023 [...] time postmenopausally. Not available 07/24/2023 09:27:22 08/03/2024 [id number] Flucelvax Quadrivalent Influenza Vaccine Prefilled Syringe 0.5 [...] Abnormal Flag Note LastModifiedBy Organization Detail LastModifiedTime 04/06/2004/06/2019 fecal occul t blood , stool Occult Blood negati ve Not Available In-Office Order Internal Use Only DO Not Attach Compendium DO Not Attach Compendium, Do Not Delete/merge, [id number] 04/06/2019 11:14:45 04/06/20 19 04/06/2019 pap, LB [id number] ThinP rep Pap, Image d: NEGAT AWAIS [...] NEG [Z12. 4, Z01.4 19] Not Available [facility], Cytopathology Service [address] [place] [address], [address], 04/08/2019 18:04:59 03/20/20 21 03/20/2021 PAP1C ASE [id number] ThinP rep Pap, Image d: NEGAT AWAIS [...] neg, z12.4 , z01.4 19 Not Available [facility], Cytopathology Service [address] [place], [address], 03/22/2021 08:02:14 03/20/20 21 03/20/2021 fecal occul t blood , stool Occult Blood negati ve Not Available In-Office Order Internal Use Only DO Not Attach Compendium DO Not Attach Compendium, Do Not Delete/merge, [id number] 03/20/2021 09:42:27 07/23/20 22 07/23/2022 [facility] results Patianmol nt Name: MOOK COLEMAN : 1959 (Age: 62) Lab Acces francesco #: [id number] Colle ction Date: 2021 Acces francesco Date: 2021 Sign Out Date: 08/01 Tissu e Sourc e: 1: THINP REP CASCARA BARK CUTTER PAP TEST, CERVI JACKIE: Final Diagn osis: [...] abilio elmore rescr whit g or lisa gallagher. Perfo rmed at [facility] ate Refer ence Labor atory depar tment of Cytol ogy, [address], [place] Clini jackie Histo ry (othe r): Z01.4 19, LPS 03/20 negat awais, routi ne scree n Phone #: [phone], On-Ca ll Patho logis t: [id number] Not Available [facility] [address], [place], [address], 08/01/2022 08:34:40 07/23/20 22 07/23/2022 fecal occul t blood , stool Occult Blood negati ve Not Available In-Office Order Internal Use Only DO Not Attach Compendium DO Not Attach Compendium, Do Not Delete/merge, [id number] 07/23/2022 10:27:46 07/24/20 23 07/24/2023 [facility] CYTOL [facility]GY results Mattie nt Name: MOOK COLEMAN nt : 1959 (Age: 63) Lab Acces francesco #: [id number] Colle ction Date: 2022 Acces francesco Date: 2022 Sign Out Date: 07/31 Tissu e Sourc e: 1: THINP REP CASCARA BARK CUTTER PAP TEST, CERVI JACKIE: Final Diagn osis: [...] d by the ThinP rep Imagi ng Systanmol m with abilio fatima or lisa gallagher. Perfo rmed at [facility] ate Refer ence Labor atory depar tment of Cytol ogy, [address] [place] Clini jackie Histo ry (othe r): Z01.4 19, ROUTI NE SCREE N, LPS 07/23 NEG Phone #: [phone], On-Ca ll Patho logis t: [id number] Not Available [facility] [address], [place], [address], 07/31/2023 16:48:50 07/24/20 23 07/24/2023 fecal occul t blood , stool Occult Blood negati ve Not Available In-Office Order Internal Use Only DO Not Attach Compendium DO Not Attach Compendium, Do Not Delete/merge, [id number] 07/24/2023 09:08:53 08/03/20 24 08/09/2024 IGP, RFX APTIM A HPV ASCU diagnosis: Commen t NEGAT AWAIS FOR INTRA EPITH ELIAL LESIO N OR MALIG VIVI . Not Available [facility] ([facility]) [address] [facility], [place], [address], 08/09/2024 18:06:03 08/03/20 24 08/09/2024 IGP, RFX APTIM A HPV ASCU specimen adequacy: Bryan watson Satis facto ry for evalu ation . Not Available [facility] ([facility]) [address] [place], [address], 08/09/2024 18:06:03 08/03/20 24 08/09/2024 IGP, RFX APTIM A HPV ASCU clinician provided ICD10: Bryan watson Z01.4 19 Not Available [facility] ([facility]) [address] [place], [address], 08/09/2024 18:06:03 08/03/20 24 08/09/2024 IGP, RFX APTIM A HPV ASCU performed by: Soo Quintana (ASCP ) Not Available [facility] ([facility]) [address] [facility], [place], [address], 08/09/2024 18:06:03 08/03/20 24 08/09/2024 IGP, RFX APTIM A HPV ASCU . . Not Available [facility] ([facility]) [address] [place], [address], 08/09/2024 18:06:03 08/03/20 24 08/09/2024 IGP, RFX [...] ts do occur . Not Available [facility] ([facility]) [address] [facility], [place], [address], 08/09/2024 18:06:03 08/03/20 24 08/09/2024 IGP, RFX APTIM A HPV ASCU test methodology: Commen t This liqui d based ThinP rep(R ) pap test was tonie joel with the use of an image guide oneal mayorga Not Available [facility] ([facility]) [address] [facility], [place], [address], 08/09/2024 18:06:03 08/03/20 24 08/09/2024 IGP, RFX APTIM A HPV ASCU . Commen t The HPV DNA refle x crite jodi were not met with this speci men resul t there fore, no HPV testi ng was perfo rmed. Not Available [facility] ([facility]) [address] [facility], [place], [address], 08/09/2024 18:06:03 08/03/20 24 08/03/2024 hemog lobin , gastr ointe gio l, stool Occult Blood negati ve Not Available In-Office Order Internal Use Only DO Not Attach Compendium DO Not Attach Compendium, Do Not Delete/merge, [id number] 08/03/2024 10:46:21 05/11/20 19 05/06/2019 MAMMO nikianmol vázquez, digit al, bilat eral No observ ation record ed. BARCODE [facility] [address] [place] [address] [place], [address], 05/11/2019 11:14:50 05/18/20 20 05/09/2020 MAMMO tonie gurpreet, digit al, bilat eral No observ ation record ed. BARCODE Not Available 2019 08:31:17 05/16/2005/15/2021 MAMMO , nikie gurpreet, digit al, bilat eral No observ ation record ed. [facility] (Mammo) [address] [place] [address] [place], [address], 05/16/2021 08:43:29 Result Notes None recorded. Problems Name Problem SNOMED Code Status Onset Date Resolution Date Notes Provider Name and Address Organization Details Recorded Time Premature menopause 100455439 Active age 42 Misa Funk MD [address] [facility],[address], [place], [address] , [place] - [facility], 5 10:18:40 Raynaud's disease 902164835 Active Not Available [facility] 3 03:01:05 Tobacco dependence syndrome 34322917 Active Not Available [facility] 3 03:01:05 Gout 08166394 Active 2016 Lin manjarrez [place] - [facility], 7 10:32:56 Rheumatoid arthritis 07173743 Active 2021 Lin manjarrez [place] - [facility], 2 10:31:17 Problem Notes None recorded. Procedures Surgical History Date Name Laterality Status Provider Name and Address Organization Details Recorded Time 05/15/20 24 Most Recent Mammogram completed Lin De La Torre [place] - [facility], 08/03/2024 09:57:51 03/27/20 21 procedure on foot completed Lin De La Torre [place] - [facility], 07/23/2022 10:33:58 12/26/19 17 Other completed Lin De La Torre [place] - [facility], 04/06/2019 11:13:59 09/21/18 83 Caesarean Section completed Lin De La Torre [place] - [facility], 10/13/2012 10:48:33 09/21/18 74 Appendectomy completed Lin De La Torre [place] - [facility], 10/13/2012 10:48:33 Imaging Results Imaging Date Name Status LastModified by Organiz ation Details LastModified Time 05/06/2019 MAMMO, screening, digital, bilateral completed [facility] (Mammo) [address] [place] [address] [place], [address], 05/11/2019 11:14:50 05/09/2020 MAMMO, screening, digital, bilateral completed BARCODE Information not available 05/18/2020 08:31:17 05/15/2021 MAMMO, screening, digital, bilateral completed [facility] (Mammo) [address] [place] [address] [place], [address], 05/16/2021 08:43:29 Procedure Notes None recorded. Medical Equipment None Reported. Allergies Allergen ID Allergen Name Allergen Category Reaction Reaction Severity Criticality Documentation Date Start Date Code Code System Note Provider Name and Address Organization Details Recorded Time 45737 hydroxych loroquine medicatio n hives Not available Not available 07/24/2023 5521 RxNorm Lin ANA M Dennis in [facility], 3 09:14:17 6281 Bactrim medicatio n rash Not available Not available 10/13/2012 13955 9 RxNorm Lin ANA M Dennis in [facility], 3 10:48:33 6282 Ceclor medicatio n rash Not available Not available 10/13/2012 87257 5 RxNorm Lin Meczywor [place] manjarrez in [facility], 3 10:48:33 6283 Substance with sulfonami de structure and antibacte rial mechanism of action (substanc e) medicatio n rash Not available Not available 10/13/2012 47643 8003 SNOMED LinANA M Ayala in [facility], 3 10:48:33 6284 Product containin g penicilli n (product) medicatio n chest pain Not available Not available 10/13/2012 26598 8001 SNOMED Lin Griseldaywor ANA M manjarrez in [facility], 3 10:48:33 Medications Name Sig [...] Not Available Not Available Not Available Fluvirin 7843-6360 45 mcg (15 mcg x 3)/0.5 mL [...] Address Organization Details Last Updated DateTime 9 11239.8 4 g 27.3 kg/m2 153.67 cm 82 /min 139 mm[Hg] 84 mm[Hg] Lin Hayden in [facility], 9 11:09:33 Date Recorded Body height Body mass index (BMI) Body weight Heart rate Systolic blood pressure Diastolic blood pressure Provider Name and Address Organization Details Last Updated DateTime 1 153.67 cm 27.3 kg/m2 21504.1 2 g 73 /min 138 mm[Hg] 89 mm[Hg] Monika Hayden in [facility], 1 09:45:42 Date Recorded Body weight Body mass index (BMI) Body height Body temperature Heart rate Systolic blood pressure Diastolic blood pressure Provider Name and Address Organization Details Last Updated DateTime 2 41293.3 8 g 30.2 kg/m2 152.4 cm 98.1 [degF] 76 /min 111 mm[Hg] 72 mm[Hg] Lin Hayden in [facility], 2 10:29:40 Date Recorded Body weight Body mass index (BMI) Body height Body temperature Heart rate Systolic blood pressure Diastolic blood pressure Provider Name and Address Organization Details Last Updated DateTime 3 94289.1 7 g 28.1 kg/m2 156.21 cm 97.1 [degF] 77 /min 126 mm[Hg] 75 mm[Hg] Lin Hayden in [facility], 3 09:12:23 Date Recorded Body height Body mass index (BMI) Body weight Heart rate Body temperature Systolic blood pressure Diastolic blood pressure Provider Name and Address Organization Details Last Updated DateTime 4 152.4 cm 29.3 kg/m2 13085.5 7 g 78 /min 97.2 [degF] 132 mm[Hg] 80 mm[Hg] Lin Barrosovi [place] [facility], 4 09:53:51 Social History Question Answer Notes LastModified by Organizat ion Details LastModified Time Tobacco Smoking Status Former Smoker quit over 2 yrs ago Not Available [facility] 07/24/2020 03:19:37 What Is Your Level Of Alcohol Consumption? Occasional Information not available 07/23/2022 How Many Years Have You Consumed Alcohol? 40 Information not available 07/23/2022 What Is Your Level Of Caffeine Consumption? Occasional [id number] Information not available 07/24/2020 In The 14 [...] Type Of Diet Are You Following? REGULAR [id number] Information not available 07/24/2020 Which Illicit Or Recreational Drugs Have You Used? No [id number] Information not available 07/24/2020 Do You Reside In Or Have You Traveled To An Area Where Ebola Virus Transmission Is Active? No [id number] Information not available 07/24/2020 Do You Or Have You Ever Used E-cigarettes Or Vape? Never Used Electronic Cigarettes Information not available 03/20/2021 Education 10 Information no t available 10/13/2012 What Is The Highest Grade Or Level Of School You Have Completed Or The Highest Degree You Have Received? [id number] Information not available 07/23/2022 What Is Your [...] available 03/20/2021 Are You Sexually Active? Yes [id number] Information not available 07/24/2020 At What Age Did You Start Smoking Tobacco? 15 Information not available 07/23/2022 Do You Or Have You Ever Used Smokeless Tobacco? Never Used Smokeless Tobacco Information not available 03/20/2021 How Much Tobacco Do You Smoke? No [id number] Information not available 07/24/2020 General Stress Level Low Information not available 03/12/2016 Do You Feel Stressed (tense, Restless, Nervous, Or Anxious, Or Unable To Sleep At Night)? [id number] Information not available 07/23/2022 Do You Use [...] Time What is your exercise level? Moderate [id number] Information not available 07/24/2020 Mental Status None [...] for MyRisk panel N Autoimmune Condition Y Kidney or Bladder Problems N Thyroid Problems N Depression N Lung Disease N GI Problems N Defects or Inherited Disease N History [...] PF 4 completed ANA M Denise in [facility], 08/04/2024 07:45:25 COVID-19, mRNA, LNP-S, PF, 100 mcg/0.5mL dose or 50 mcg/0.25mL dose 1 completed ANA M Denise in [facility], 07/24/2023 09:11:02 COVID-19, mRNA, LNP-S, PF, 100 mcg/0.5mL dose or 50 mcg/0.25mL dose 1 completed ANA M Denise in [facility], 07/24/2023 09:11:02 Influenza, split virus, quadrivalent, preservative 9 completed Lin Meczywor null, [place] - [facility], 07/24/2023 09:11:02 Influenza, split virus, quadrivalent, preservative 6 completed Lin Meczywor null, [place] - [facility], 07/24/2023 09:11:02 COVID-19, mRNA, LNP-S, PF, 100 mcg/0.5mL dose or 50 mcg/0.25mL dose 1 completed Lin Meczywor null, [place] - [facility], 07/24/2023 09:11:02 influenza, unspecified formulation 3 completed Lin Meczywor null, [place] - [facility], 07/24/2023 09:11:02 Tdap 6 completed Lin Meczywor null, [place] - [facility], 07/24/2023 09:11:02 Influenza, split virus, trivalent, preservative 3 completed Lin Meczywor null, [place] - [facility], 07/24/2023 09:11:02 Influenza, split virus, quadrivalent, PF 1 completed Lin Meczywor null, [place] - [facility], 07/24/2023 09:11:02 Influenza, split virus, quadrivalent, PF 2 completed Lin Meczywor null, [place] [facility], 07/24/2023 09:11:02 zoster recombinant 3 completed Lin Meczywor null, [place] - [facility], 08/03/2024 09:54:25 Influenza, split virus, quadrivalent, PF 3 completed Lin Meczywor null, [place] - [facility], 08/03/2024 09:54:25 Past Encounters Encounter ID Performer Location Encounter Start Date Encounter Closed Date Diagnosis/Indication Diagnosis SNOMED-CT Code Diagnosis ICD10 Code Diagnosis Note [id number] Juliana Raza MISA FUNK MD [address] [facility] [address] 10/13/2012 10:26:40 10/14/2012 08:47:29 [id number] MISA FUNK MD [address] [facility] [address] 10/19/2013 10:01:08 10/19/2013 12:32:51 Specialized medical examination 97175004 Screening for malignant neoplasm of rectum 916518510 Screening mammography 80060117 [id number] MISA FUNK MD [address] [facility] [address] 03/07/2015 09:50:50 03/07/2015 11:16:06 Specialized medical examination 38318588 Screening for malignant neoplasm of rectum 964485804 Screening mammography 25286340 Premature menopause 778055028 [id number] MD MISA Moeller MD [address] [place] [address],[place] [address] 03/12/2016 09:50:27 03/12/2016 11:26:00 Specialized medical examination 04050166 Z01.419 Screening for malignant neoplasm of rectum 742577405 Z12.12 Screening mammography 24 232138 Z12.31 Menopausal syndrome 1237 68733 N95.9 [id number] MD MISA Moeller MD [address] [place] [address],[place] [address] 03/18/2017 10:22:10 03/18/2017 11:59:19 Specialized medical examination 78392614 Z01.419 Screening for malignant neoplasm of rectum 426493148 Z12.12 Screening mammography 24 218053 Z12.31 Premature menopause 3737 04287 E28.319 [id number] MD MISA Moeller MD [address] [place] [address],[place] [address] 03/31/2018 10:53:30 03/31/2018 11:37:14 Specialized medical examination 60661403 Z01.419 Screening for malignant neoplasm of rectum 527155128 Z12.12 Screening mammography 24 279936 Z12.31 Premature menopause 3737 91218 E28.310 [id number] MD MISA Moeller MD [address] [place] [address], [address] [place] [facility] [place] [address] 04/06/2019 10:44:21 04/06/2019 11:56:33 Premature menopause 059457076 E28.310 Specialize d medical examination 71806396 Z01.419 Screening for malignant neoplasm of rectum 130774288 Z12.12 Screening mammography 24 245361 Z12.31 [id number] MD MISA Moeller MD [address] [place] [address], [address] [facility] [place] [address] 03/20/2021 09:39:06 03/20/2021 10:56:30 Specialized medical examination 73661237 Z01.419 Screening for malignant neoplasm of rectum 732231321 Z12.12 Screening mammography 24 608359 Z12.31 Premature menopause 3737 13107 E28.310 [id number] MD MISA Moeller MD [address] [place] [address],[facility] [place] [facility] [place] [address] 07/23/2022 10:25:16 07/23/2022 11:40:26 Specialized medical examination 97145841 Z01.419 Screening for malignant neoplasm of rectum 884021288 Z12.12 Screening mammography 24 666518 Z12.31 Premature menopause 3737 92575 E28.310 [id number] MD MISA Moeller MD [address] [place] [address], [address] [place] [facility] [place] [address] 07/24/2023 09:05:23 07/24/2023 09:33:48 Specialized medical examination 65818705 Z01.419 Screening for malignant neoplasm of rectum 446667003 Z12.12 Screening mammography 24 279393 Z12.31 Premature menopause 3737 80286 E28.310 [id number] MD MISA Moeller MD [address] [place] [address],[facility] [place] [facility] [place] [address] 08/03/2024 09:49:22 08/03/2024 11:39:20 Premature menopause 613173372 E28.310 Influenza vaccine needed 9369390606 106 Z23 Specialize d medical examination 61281879 Z01.419 Screening for malignant neoplasm of rectum 966875448 Z12.12 Screening mammography 24 371801 Z12.31 Health Concerns Section Related Observation LastModified by Organization Detai ls LastModified Time None Recorded Concern Status LastModified by Organization Details LastModified Time None Recorded Advance Directives Directive None Recorded Payers Encounter Date Sequence Insurance Name Policy Number Policy Hoffmann Covered Member ID Hoffmann Member ID Guarantor Name 04/06/2019 1 [facility] (PPO) Laz Muellerch [id number] Laz Jared 03/20/2021 2 [place] [id number] 5 Julio César Coleman [id number] Laz Jared 03/20/2021 1 [place] [id number] 5 Laz Coleman [id number] Laz Jared 07/23/2022 2 [place] [id number] 5 Julio César Coleman [id number] Laz Jared 07/23/2022 1 [place] [id number] 5 Laz Coleman [id number] Laz Jared 07/24/2023 1 [place] [id number] 5 Laz Coleman [id number] Laz Jared 08/03/2024 1 [place] [id number] 5 Laz oCleman [id number] Laz Jared Notes Date Note Type Note Provider Name [...] a few years ago. Misa Funk MD [address] [place] [address],[address], [place], [address], [place] [facility], 04/06/2019 11:42:02 03/20/2021 text/html She is here for annual exam, doing well on HRT, now has three grandchildren! note from 2019: She is here for annual exam, is doing well on the HRT and elects to continue. She is going to become a grandmother in April! Misa Funk MD [address], [place], [address], [facility], 03/20/2021 10:26:02 07/23/2022 text/html She is here for annual exam, doing well on HRT, now has three grandchildren!She had premature ovarian failure age 42. Misa Funk MD [address], [place], [address], [facility], 07/23/2022 11:37:27 07/24/2023 text/html She is here for annual exam, doing well on HRT, now has three grandchildren!She had premature ovarian failure age 42. Misa Funk MD [address], [place], [address], [facility], 07/24/2023 09:27:56 08/03/2024 text/html She [...] [address], [place], [address], [place] [facility], 08/03/2024 11:20:55 OBGyn Episode No OBEpisode recorded.
[2024-11-09 09:23] VITALS: BP 130/80; PULSE 74; O2SAT 98; BMI 29.5
== END 2024-11-09 09:50 | disposition home or self-care (01) ==
PROVIDERS: PCP Internal Medicine; Visit Provider Student in an Organized Health Care Education/Training Program
DX: M06.00 Rheumatoid arthritis without rheumatoid factor, unspecified site (principal); I73.00 Raynaud's syndrome without gangrene; Z51.81 Encounter for therapeutic drug level monitoring; Z79.620 Long term (current) use of immunosuppressive biologic
CPT/HCPCS: 99214

== ENCOUNTER → 2024-11-09 09:09 | Outpatient (BNVA) | payer BC, SELFPAY | PROVIDERS: PCP Internal Medicine; Visit Provider Student in an Organized Health Care Education/Training Program ==

== ENCOUNTER 2024-12-21 16:09 | Outpatient (REF) | payer BC, SELFPAY ==
--- NOTE | ~2024-12-21 | CT_ITS ---
CLINICAL HISTORY: M34.9 - Systemic sclerosis, unspecified CT chest without contrast Comparison: None Findings: The heart is normal size. Calcification of the coronary vasculature is present. The visualized thyroid and mediastinum are unremarkable. The lungs are clear. The visualized upper abdomen is unremarkable. No acute fractures. IMPRESSION: 1. Coronary artery disease. 2. Otherwise negative evaluation. This document has been electronically signed by: Marta Luna MD on 12/22/2024 16:54:51
--- OUTSIDE RECORDS SUMMARY | 2024-12-21 18:00 | XMS_ITS | Patient Health Record ---
Author Organization [facility] danielle Bucklin Address [address] [place] [address] Care Team Providers Care Director Of Music Name Role Phone Carlitos TARIQ, [place] Primary Care Provider Allison Dos Santos Unavailable [phone] Reason For Referral No Information Medications Medication [...] . 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 Not-Taking LORazepam 1 MG Orally [...] Status W/U Status Risk Notes Problem Gout (51600950) Gout, unspecified (M10.9) Active confirmed Problem Acquired hallux valgus (76757237) Hallux valgus (acquired), right foot (M20.11) Active confirmed Problem 873505911175969 Contracture, right foot (M24.574) Active confirmed Problem 066421519 Hammer toe of right foot (M20.41) Active confirmed Problem 33896474 Vitamin D deficiency (E55.9) Active confirmed Plan Of Treatment Pending Test Test Name Order Date Ultrasound : Extremity Ultrasound Non-Va ri 10/03/2020 X ray : Foot, left 3V [...] X ray : Foot, right 3V 02/03/2020 88385, J0702- INJECT or DRAIN, JOINT/BUR SA 07/27/2019 92396, Z4077-OUIEB/INJECT, JOINT/BURSA 0 05/09/2015 48725, M9255-JNZJW/INJECT, JOINT/BURSA 1 10/26/2017 43479, B0215-VCQKK/INJECT, JOINT/BURSA 0 06/02/2018 69235, P1398-EKJBR/INJECT, JOINT/BURSA 0 11/19/2016 50575- Unna Boot 03/09/2019 PARATHYROID HORMONE INTACT (PTHI) 2018 VITAMIN D 25-OH (D2 D3) 06/28/2019 CT FOOT RT W&WO CONTRAST 06/28/2019 Insurance Providers Payer Name Payer Address Payer Phone Subscriber Number Group Number Insured Name Patient Relationship to Insured Coverage Start Date Coverage End Date [facility] [address] [place] [phone] [id number] Laz Beckford Self - patient is the [...]
--- OUTSIDE RECORDS SUMMARY | 2024-12-21 18:00 | XMS_ITS | Data Portability ---
Author Organization [place] - [facility],, MISA FUNK MD Address [address] [address] Care Team Providers Care Child Care Development Specialist Name Role Phone ANDREY CLARK OTHER [phone] Assessment No assessment recorded. Plan of Treatment Reminders Order Date Submit Date Provider Last Modified By Organization Details Last Modified Time Details Appointments ANNUAL EXAM 2024 10:00A M Misa Funk MD Not available Not available Not available Lab cytology report, thin prep, smear or scraping , cervical or vaginal 2023 024 SAPNA [facility] (Centralized Electronic Ordering - All Locations), Patient Can Go To The Location Of Their Choice, [id number] 08/09/2024 18:06:03 hemoglob in, gastroin testinal , stool 2023 024 [email or web address] 1 In-Office Order, Internal Use Only DO Not Attach Compendium DO Not Attach Compendium, Do Not Delete/merge, [id number] 08/03/2024 11:19:36 pap test, thinprep , cervical 2022 023 [facility] (Centralized Electronic Ordering - All Locations), Patient Can Go To The Location Of Their Choice, [id number] 08/03/2023 07:26:04 fecal occult blood, stool 2022 023 [email or web address] 1 In-Office Order, Internal Use Only DO Not Attach Compendium DO Not Attach Compendium, Do Not Delete/merge, [id number] 07/24/2023 09:26:50 pap test, thinprep , cervical 2021 022 [facility] (Centralized Electronic Ordering - All Locations), Patient Can Go To The Location Of Their Choice, [id number] 08/06/2022 07:34:27 fecal occult blood, stool 2021 022 [email or web address] 1 In-Office Order, Internal Use Only DO Not Attach Compendium DO Not Attach Compendium, Do Not Delete/merge, [id number] 07/23/2022 11:36:46 pap test, thinprep , cervical 2020 021 [facility], Cytopathology Service, [address] [place] [address], [address], 03/27/2021 07:27:54 fecal occult blood, stool 2020 021 [email or web address] In-Office Order, Internal Use Only DO Not Attach Compendium DO Not Attach Compendium, Do Not Delete/merge, [id number] 03/20/2021 10:56:46 pap test, thinprep , cervical 2018 019 [facility], Cytopathology Service, [address] [place] [address], [address], 04/13/2019 07:20:18 fecal occult blood, stool 2018 019 [facility] In-Office Order, Internal Use Only DO Not Attach Compendium DO Not Attach Compendium, Do Not Delete/merge, [id number] 04/13/2019 07:20:18 Referral None recorded . Procedures None recorded . Surgeries None recorded . Imaging MAMMO, screenin g, digital, bilatera l - Breast Aspirati on and/or Biopsy if needed 2023 024 tiffanie [facility] (Mammo), [address] [facility] [place], [address], 08/03/2024 11:39:20 MAMMO, screenin g, digital, bilatera l - Breast Aspirati on and/or Biopsy if needed 2022 023 [facility] [address] [place] [address] [place], [address], 07/18/2024 07:30:31 MAMMO, screenin g, digital, bilatera l 2021 022 [facility] (Mammography), [address] [place] [address], [address], 07/20/2023 07:36:55 MAMMO, screenin g, digital, bilatera l 2020 021 [facility] Imaging (Mammo), [address] [place], [address], 05/16/2021 08:41:23 MAMMO, screenin g, digital, bilatera l 2018 019 [facility] Imaging (Mammo), [address] [facility] [place], [address], 05/11/2019 11:14:50 Medication Orders estradio l 1 mg tablet 2023 024 [facility], [address] [place] [address], [address], 08/03/2024 11:19:40 progeste jadon microniz ed 200 mg capsule 2023 024 [facility], [address] [place] [address], [address], 08/03/2024 11:19:40 estradio l 1 mg tablet 2022 023 [facility], [address] [place], [address], 07/24/2023 09:26:54 progeste jadon microniz ed 200 mg capsule 2022 023 [facility], [address] [place], [address], 07/24/2023 09:26:54 estradio l 1 mg tablet 2021 022 [facility], [address] [place] [address], [address], 07/23/2022 11:36:50 progeste jadon microniz ed 200 mg capsule 2021 022 [facility], [address] [place] [address], [address], 07/23/2022 11:36:50 progeste jadon microniz ed 200 mg capsule 2020 021 [facility], [address] [place] [address], [address], 03/20/2021 10:25:05 estradio l 1 mg tablet 2020 021 [facility], [address] [place] [address], [address], 03/20/2021 10:25:06 estradio l 1 mg tablet 2018 019 INTERFACE [facility], [address] [place] [address], [id number], 04/06/2019 11:25:29 progeste jadon microniz ed 200 mg capsule 2018 019 INTERFACE [facility], [address] [place] [address], [id number], 04/06/2019 11:25:27 Patient TargetsNo targets recorded. Patient Instructions Encounter Date Encounter Id Patient Instructions Last Modified By Organization Details Last Modified Time 04/06/2019 [id number] She is here for annual exam, is [...] standardized exercise regimen, such as that at [employer], and she is given literature for this. We discussed a referral to a ceiling cleaner and/or weight management lead. All questions were answered. She deanna think [...] time postmenopausally. Not available 04/06/2019 11:41:44 03/20/2021 [id number] learning about healthy weight Not available 03/20/2021 [...] time postmenopausally. Not available 03/20/2021 10:25:43 07/23/2022 [id number] learning about healthy weight Not available 07/23/2022 [...] time postmenopausally. Not available 07/23/2022 11:37:06 07/24/2023 [id number] learning about healthy weight Not available 07/24/2023 [...] time postmenopausally. Not available 07/24/2023 09:27:22 08/03/2024 [id number] Flucelvax Quadrivalent Influenza Vaccine Prefilled Syringe 0.5 [...] Abnormal Flag Note LastModifiedBy Organization Detail LastModifiedTime 04/06/20 19 04/06/2019 fecal occul t blood , stool Occult Blood negati ve Not Available In-Office Order Internal Use Only DO Not Attach Compendium DO Not Attach Compendium, Do Not Delete/merge, [id number] 04/06/2019 11:14:45 04/06/20 19 04/06/2019 pap, LB [id number] ThinP rep Pap, Image d: NEGAT AWAIS [...] NEG [Z12. 4, Z01.4 19] Not Available [facility], Cytopathology Service [address] [place], [address], 04/08/2019 18:04:59 03/20/20 21 03/20/2021 PAP1C ASE [id number] ThinP rep Pap, Image d: NEGAT AWAIS [...] neg, z12.4 , z01.4 19 Not Available [facility], Cytopathology Service [address] [place], [address], 03/22/2021 08:02:14 03/20/20 21 03/20/2021 fecal occul t blood , stool Occult Blood negati ve Not Available In-Office Order Internal Use Only DO Not Attach Compendium DO Not Attach Compendium, Do Not Delete/merge, [id number] 03/20/2021 09:42:27 07/23/20 22 07/23/2022 [facility] CYTOL OGY results Mattie nt Name: MOOK COLEMAN nt : 1959 (Age: 62) Lab Acces francesco #: [id number] Colle ction Date: 2021 Acces francesco Date: 2021 Sign Out Date: 08/01 Tissu e Sourc e: 1: THINP REP LAW CLERK PAP TEST, CERVI JACKIE: Final Diagn osis: [...] Syste m with abilio elmore rescr whit fatima or lisa gallagher. Perfo rmed at [facility] ate Refer ence Labor atory depar tment of Cytol ogy, [address] [place] Clini jackie Histo ry (othe r): Z01.4 19, LPS 03/20 negat awais, routi ne scree n Phone #: [phone], On-Ca ll Patho logis t: [id number] Not Available [facility] (Centralized Electronic Ordering - All Locations) Patient Can Go To The Location Of Their Choice, [id number] 08/01/2022 08:34:40 07/23/20 22 07/23/2022 fecal occul t blood , stool Occult Blood negati ve Not Available In-Office Order Internal Use Only DO Not Attach Compendium DO Not Attach Compendium, Do Not Delete/merge, [id number] 07/23/2022 10:27:46 07/24/20 23 07/24/2023 [facility] CYTOL OGY results Mattie nt Name: MOOK COLEMAN nt : 1959 (Age: 63) Lab Acces francesco #: [id number] Colle ction Date: 2022 Acces francesco Date: 2022 Sign Out Date: 07/31 Tissu e Sourc e: 1: THINP REP LAW CLERK PAP TEST, CERVI JACKIE: Final Diagn osis: [...] Syste m with abilio elmore rescr whit fatima or lisa w. Perfo rmed at [facility] ate Refer ence Labor atory depar tment of Cytol ogy, [address] [place] Clini jackie Histo ry (othe r): Z01.4 19, ROUTI NE SCREE N, LPS 07/23 NEG Phone #: [phone], On-Ca ll Patho logis t: [id number] Not Available [facility] (Centralized Electronic Ordering - All Locations) Patient Can Go To The Location Of Their Choice, [id number] 07/31/2023 16:48:50 07/24/20 23 07/24/2023 fecal occul t blood , stool Occult Blood negati ve Not Available In-Office Order Internal Use Only DO Not Attach Compendium DO Not Attach Compendium, Do Not Delete/merge, [id number] 07/24/2023 09:08:53 08/03/20 24 08/09/2024 IGP, RFX APTIM A HPV ASCU diagnosis: Commen t NEGAT AWAIS FOR INTRA EPITH ELIAL LESIO N OR MALIG VIVI . Not Available [facility] [address] [facility], [place], [address], 08/09/2024 18:06:03 08/03/20 24 08/09/2024 IGP, RFX APTIM A HPV ASCU specimen adequacy: Bryan watson Satis facto ry for evalu ation . Not Available [facility] ([facility] [address] [place], [address], 08/09/2024 18:06:03 08/03/20 24 08/09/2024 IGP, RFX APTIM A HPV ASCU clinician provided ICD10: Bryan watson Z01.4 19 Not Available [facility] ([facility] [address] [place], [address], 08/09/2024 18:06:03 08/03/20 24 08/09/2024 IGP, RFX APTIM A HPV ASCU performed by: Soo Quintana (ASCP ) Not Available [facility]) [address] [place], [address], 08/09/2024 18:06:03 08/03/20 24 08/09/2024 IGP, RFX APTIM A HPV ASCU . . Not Available [facility] [address] [place], [address], 08/09/2024 18:06:03 08/03/20 24 08/09/2024 IGP, RFX [...] ts do occur . Not Available [facility] [address] [place], [address], 08/09/2024 18:06:03 08/03/20 24 08/09/2024 IGP, RFX APTIM A HPV ASCU test methodology: Commen t This liqui d based ThinP rep(R ) pap test was tonie joel with the use of an image guide oneal mayorga Not Available [facility] ([facility]) [address] [facility], [place], [address], 08/09/2024 18:06:03 08/03/20 24 08/09/2024 IGP, RFX APTIM A HPV ASCU . Commen t The HPV DNA refle x crite jodi were not met with this speci men resul t there fore, no HPV testi ng was perfo rmed. Not Available [facility] ([facility]) [address] [facility], [place], [address], 08/09/2024 18:06:03 08/03/20 24 08/03/2024 hemog lobin , gastr ointe gio l, stool Occult Blood negati ve Not Available In-Office Order Internal Use Only DO Not Attach Compendium DO Not Attach Compendium, Do Not Delete/merge, [id number] 08/03/2024 10:46:21 05/11/20 19 05/06/2019 MAMMO tonie vázquez, digit al, bilat eral No observ ation record ed. BARCODE [facility] ([facility]) [address] [place] [address] [place], [address], 05/11/2019 11:14:50 05/18/20 20 05/09/2020 MAMMO tonie, digit al, bilat eral No observ ation record ed. BARCODE Not Available 2019 08:31:17 05/16/20 21 05/15/2021 MAMMO tonie, digit al, bilat eral No observ ation record ed. [facility] Imaging (Mammo) [address] [place] [address] [place], [address], 05/16/2021 08:43:29 Result Notes None recorded. Problems Name Problem SNOMED Code Status Onset Date Resolution Date Notes Provider Name and Address Organization Details Recorded Time Premature menopause 813746123 Active age 42 Misa Funk MD [address] [facility],[address], [place], [address] , ANA M - [facility], 5 10:18:40 Raynaud's disease 619800456 Active Not Available [facility] 3 03:01:05 Tobacco dependence syndrome 07923855 Active Not Available [facility] 3 03:01:05 Gout 14133665 Active 2016 ANA M Denise in [facility], 7 10:32:56 Rheumatoid arthritis 70882525 Active 2021 ANA M Denise in [facility], 2 10:31:17 Problem Notes None recorded. Procedures Surgical History Date Name Laterality Status Provider Name and Address Organization Details Recorded Time 05/15/20 24 Most Recent Mammogram completed Lin Lyman [facility], 08/03/2024 09:57:51 03/27/20 21 procedure on foot completed Lin Hayden in [facility], 07/23/2022 10:33:58 12/26/19 17 Other completed Lin De La Torre [place] - [facility], 04/06/2019 11:13:59 09/21/18 83 Caesarean Section completed Lin Hayden in [facility], 10/13/2012 10:48:33 09/21/18 74 Appendectomy completed Lin De La Torre [place] - Jackelyn in [facility], 10/13/2012 10:48:33 Imaging Results Imaging Date Name Status LastModified by Organiz ation Details LastModified Time 05/06/2019 MAMMO, screening, digital, bilateral completed BARCODE [facility] Imaging (Mammo) [address] [facility] [place], [address], 05/11/2019 11:14:50 05/09/2020 MAMMO, screening, digital, bilateral completed BARCODE Information not available 05/18/2020 08:31:17 05/15/2021 MAMMO, screening, digital, bilateral completed [facility] Imaging (Mammo) [address] [place] [address] [place], [address], 05/16/2021 08:43:29 Procedure Notes None recorded. Medical Equipment None Reported. Allergies Allergen ID Allergen Name Allergen Category Reaction Reaction Severity Criticality Documentation Date Start Date Code Code System Note Provider Name and Address Organization Details Recorded Time 73349 hydroxych loroquine medicatio n hives Not available Not available 07/24/2023 5521 RxNorm Lin Meczywor ANA M manjarrez in [facility], 3 09:14:17 6281 Bactrim medicatio n rash Not available Not available 10/13/2012 86655 9 RxNorm Lin Meczywor loki [place] Nura Hayden in [facility], 3 10:48:33 6282 Ceclor medicatio n rash Not available Not available 10/13/2012 19435 5 RxNorm Lin Meczywor loki [place] - [facility], 3 10:48:33 6283 Substance with sulfonami de structure and antibacte rial mechanism of action (substanc e) medicatio n rash Not available Not available 10/13/2012 52381 8003 SNOMED Lin Meczywor loki [place] Nura Hayden in [facility], 3 10:48:33 6284 Product containin g penicilli n (product) medicatio n chest pain Not available Not available 10/13/2012 90638 8001 SNOMED Lin Meczywor loki [place] Nura [facility], 3 10:48:33 Medications Name Sig Start [...] Not Available Not Available Not Available Fluvirin 8460-3300 45 mcg (15 mcg x 3)/0.5 mL [...] Address Organization Details Last Updated DateTime 9 63436.8 4 g 27.3 kg/m2 153.67 cm 82 /min 139 mm[Hg] 84 mm[Hg] Lin Hayden in [facility], 9 11:09:33 Date Recorded Body height Body mass index (BMI) Body weight Heart rate Systolic blood pressure Diastolic blood pressure Provider Name and Address Organization Details Last Updated DateTime 1 153.67 cm 27.3 kg/m2 94827.1 2 g 73 /min 138 mm[Hg] 89 mm[Hg] Monika Hayden in [facility], 1 09:45:42 Date Recorded Body weight Body mass index (BMI) Body height Body temperature Heart rate Systolic blood pressure Diastolic blood pressure Provider Name and Address Organization Details Last Updated DateTime 2 52855.3 8 g 30.2 kg/m2 152.4 cm 98.1 [degF] 76 /min 111 mm[Hg] 72 mm[Hg] Lin Hayden in [facility], 2 10:29:40 Date Recorded Body weight Body mass index (BMI) Body height Body temperature Heart rate Systolic blood pressure Diastolic blood pressure Provider Name and Address Organization Details Last Updated DateTime 3 07577.1 7 g 28.1 kg/m2 156.21 cm 97.1 [degF] 77 /min 126 mm[Hg] 75 mm[Hg] Lin Hayden in [facility], 3 09:12:23 Date Recorded Body height Body mass index (BMI) Body weight Heart rate Body temperature Systolic blood pressure Diastolic blood pressure Provider Name and Address Organization Details Last Updated DateTime 4 152.4 cm 29.3 kg/m2 92871.5 7 g 78 /min 97.2 [degF] 132 mm[Hg] 80 mm[Hg] Lin De La Torre [place] - [facility], 4 09:53:51 Social History Question Answer Notes LastModified by Chandanat ion Details LastModified Time Tobacco Smoking Status Former Smoker quit over 2 yrs ago Not Available [facility] 07/24/2020 03:19:37 What Is Your Level Of Alcohol Consumption? Occasional Information not available 07/23/2022 How Many Years Have You Consumed Alcohol? 40 Information not available 07/23/2022 What Is Your Level Of Caffeine Consumption? Occasional [id number] Information not available 07/24/2020 In The 14 [...] Type Of Diet Are You Following? REGULAR [id number] Information not available 07/24/2020 Which Illicit Or Recreational Drugs Have You Used? No [id number] Information not available 07/24/2020 Do You Reside In Or Have You Traveled To An Area Where Ebola Virus Transmission Is Active? No [id number] Information not available 07/24/2020 Do You Or Have You Ever Used E-cigarettes Or Vape? Never Used Electronic Cigarettes Information not available 03/20/2021 Education 10 Information no t available 10/13/2012 What Is The Highest Grade Or Level Of School You Have Completed Or The Highest Degree You Have Received? [id number] Information not available 07/23/2022 What Is Your [...] available 03/20/2021 Are You Sexually Active? Yes [id number] Information not available 07/24/2020 At What Age Did You Start Smoking Tobacco? 15 Information not available 07/23/2022 Do You Or Have You Ever Used Smokeless Tobacco? Never Used Smokeless Tobacco Information not available 03/20/2021 How Much Tobacco Do You Smoke? No [id number] Information not available 07/24/2020 General Stress Level Low Information not available 03/12/2016 Do You Feel Stressed (tense, Restless, Nervous, Or Anxious, Or Unable To Sleep At Night)? [id number] Information not available 07/23/2022 Do You Use [...] Time What is your exercise level? Moderate [id number] Information not available 07/24/2020 Mental Status None [...] for MyRisk panel N Autoimmune Condition Y Lung Disease N Depression N Defects or Inherited Disease N History of Ovarian Cancer N BRCA testing in past N Anxiety Disorder Y Arthritis Y Infertility N History of Cancer N Endometriosis N Thyroid Problems N Kidney or Bladder Problems N GI Problems N Anemia N History of Breast Cancer N BENSON exposure N Osteopenia N Psychiatric Illness N Diabetes N Headaches or Migraines N Asthma N Hepatitis N Heart Disease N Hypertension [...] PF 4 completed ANA M Denise in [facility], 08/04/2024 07:45:25 COVID-19, mRNA, LNP-S, PF, 100 mcg/0.5mL dose or 50 mcg/0.25mL dose 1 completed ANA M Denise in [facility], 07/24/2023 09:11:02 COVID-19, mRNA, LNP-S, PF, 100 mcg/0.5mL dose or 50 mcg/0.25mL dose 1 completed ANA M Denise in [facility], 07/24/2023 09:11:02 Influenza, split virus, quadrivalent, preservative 9 completed Lin Meczywor null, [place] - [facility], 07/24/2023 09:11:02 Influenza, split virus, quadrivalent, preservative 6 completed Lin Meczywor null, [place] - [facility], 07/24/2023 09:11:02 COVID-19, mRNA, LNP-S, PF, 100 mcg/0.5mL dose or 50 mcg/0.25mL dose 1 completed Lin Meczywor null, [place] - [facility], 07/24/2023 09:11:02 influenza, unspecified formulation 3 completed Lin Meczywor null, [place] - [facility], 07/24/2023 09:11:02 Tdap 6 completed Lin Meczywor null, [place] - [facility], 07/24/2023 09:11:02 Influenza, split virus, trivalent, preservative 3 completed Lin Meczywor null, [place] - [facility], 07/24/2023 09:11:02 Influenza, split virus, quadrivalent, PF 1 completed Lin Meczywor null, [place] - [facility], 07/24/2023 09:11:02 Influenza, split virus, quadrivalent, PF 2 completed Lin Meczywor null, [place] - [facility], 07/24/2023 09:11:02 zoster recombinant 3 completed Lin Meczywor null, [place] - [facility], 08/03/2024 09:54:25 Influenza, split virus, quadrivalent, PF 3 completed Lin Meczywor null, [place] - [facility], 08/03/2024 09:54:25 Past Encounters Encounter ID Performer Location Encounter Start Date Encounter Closed Date Diagnosis/Indication Diagnosis SNOMED-CT Code Diagnosis ICD10 Code Diagnosis Note [id number] Juliana FUNK MD [address] [place] [address],[place] [id number] 10/13/2012 10:26:40 10/14/2012 08:47:29 [id number] MISA FUNK MD [address] [place] [address],[place] [id number] 10/19/2013 10:01:08 10/19/2013 12:32:51 Specialized medical examination 52397784 Screening for malignant neoplasm of rectum 495779548 Screening mammography 73498704 [id number] MISA FUNK MD [address] [place] [address],[place] [id number] 03/07/2015 09:50:50 03/07/2015 11:16:06 Specialized medical examination 79437506 Screening for malignant neoplasm of rectum 496251133 Screening mammography 25501269 Premature menopause 038261824 [id number] MD MISA Moeller MD [address] [place] [address], [facility] 5 03/12/2016 09:50:27 03/12/2016 11:26:00 Specialized medical examination 34040262 Z01.419 Screening for malignant neoplasm of rectum 095829543 Z12.12 Screening mammography 24 137212 Z12.31 Menopausal syndrome 1237 53588 N95.9 [id number] MD MISA Moeller MD [address] [place] [address], [place] [id number] 03/18/2017 10:22:10 03/18/2017 11:59:19 Specialized medical examination 33467467 Z01.419 Screening for malignant neoplasm of rectum 613936635 Z12.12 Screening mammography 24 133807 Z12.31 Premature menopause 3737 73600 E28.319 [id number] MD MISA Moeller MD [address] [place] [address],[place] [id number] 03/31/2018 10:53:30 03/31/2018 11:37:14 Specialized medical examination 80653632 Z01.419 Screening for malignant neoplasm of rectum 703886291 Z12.12 Screening mammography 24 957768 Z12.31 Premature menopause 3737 72288 E28.310 [id number] MD MISA Moeller MD [address] [place], [place] [address]E Danelle [facility] 5 04/06/2019 10:44:21 04/06/2019 11:56:33 Premature menopause 061095766 E28.310 Specialize d medical examination 00188300 Z01.419 Screening for malignant neoplasm of rectum 048067098 Z12.12 Screening mammography 24 017862 Z12.31 [id number] MD MISA Moeller MD [address] [place] [address] Danelle [facility] 5 03/20/2021 09:39:06 03/20/2021 10:56:30 Specialized medical examination 98780156 Z01.419 Screening for malignant neoplasm of rectum 814119204 Z12.12 Screening mammography 24 385095 Z12.31 Premature menopause 3737 69733 E28.310 [id number] MD MISA Moeller MD [address] [place] [address] Danelle [facility] 5 07/23/2022 10:25:16 07/23/2022 11:40:26 Specialized medical examination 22407271 Z01.419 Screening for malignant neoplasm of rectum 204922001 Z12.12 Screening mammography 24 094739 Z12.31 Premature menopause 3737 95404 E28.310 [id number] MD MISA Moeller MD [address] [place], [place] [address]Patricia [facility] 5 07/24/2023 09:05:23 07/24/2023 09:33:48 Specialized medical examination 53149680 Z01.419 Screening for malignant neoplasm of rectum 632672430 Z12.12 Screening mammography 24 320365 Z12.31 Premature menopause [id number] E28.310 [id number] MD MISA Moeller MD [address] [place] [address] [place] [id number] 08/03/2024 09:49:22 08/03/2024 11:39:20 Premature menopause [id number] E28.310 Influenza vaccine needed [id number] 106 Z23 Specialize d medical examination [id number] Z01.419 Screening for malignant neoplasm of rectum [id number] Z12.12 Screening mammography 24 109752 Z12.31 Health Concerns Section Related Observation LastModified by Organization Detai ls LastModified Time None Recorded Concern Status LastModified by Organization Details LastModified Time None Recorded Advance Directives Directive None Recorded Payers Encounter Date Sequence Insurance Name Policy Number Policy Hoffmann Covered Member ID Hoffmann Member ID Guarantor Name 04/06/2019 1 [employer] - [facility] (PPO) Laz Coleman [id number] Laz Muellerch 03/20/2021 2 [place] [id number] Julio César Coleman [id number] Laz Coleman 03/20/2021 1 [place] [id number] Laz Coleman [id number] Laz Muellerch 07/23/2022 2 [place] [id number] 5 Julio César Coleman [id number] Laz Coleman 07/23/2022 1 [place] [id number] Laz Coleman [id number] Laz Coleman 07/24/2023 1 [place] [id number] Laz Coleman [id number] Laz Muellerch 08/03/2024 1 [place] [id number] Laz Coleman [id number] Laz Coleman Notes Date Note Type Note [...] a few years ago. Misa Funk MD [address] [place] [address],[address], [place], [phone], [place] - [facility], 04/06/2019 11:42:02 03/20/2021 text/html She is here for annual exam, doing well on HRT, now has three grandchildren! note from 2019: She is here for annual exam, is doing well on the HRT and elects to continue. She is going to become a grandmother in April! Misa Funk MD [address], [place], [phone], [employer] [facility], 03/20/2021 10:26:02 07/23/2022 text/html She is here for annual exam, doing well on HRT, now has three grandchildren!She had premature ovarian failure age 42. Misa Funk MD [address] [facility],[address], [place], [phone], [employer] [facility], 07/23/2022 11:37:27 07/24/2023 text/html She is here for annual exam, doing well on HRT, now has three grandchildren!She had premature ovarian failure age 42. Misa Funk MD [address], [place], [phone], [employer] [facility], 07/24/2023 09:27:56 08/03/2024 text/html She is [...] [address], [place], [phone], [employer] [facility], 08/03/2024 11:20:55 OBGyn Episode No OBEpisode recorded.
== END 2024-12-21 16:10 | disposition home or self-care (01) ==
LOC: HO.CT 16:09
PROVIDERS: PCP Internal Medicine; Visit Provider Student in an Organized Health Care Education/Training Program
DX: M34.9 Systemic sclerosis, unspecified (principal); J84.9 Interstitial pulmonary disease, unspecified
CPT/HCPCS: 71250

== ENCOUNTER → 2024-12-21 16:19 | Outpatient (BNV) | payer BC, SELFPAY | PROVIDERS: PCP Internal Medicine; Visit Provider Radiology Diagnostic Radiology | DX: I25.10 Atherosclerotic heart disease of native coronary artery without angina pectoris (principal) | CPT/HCPCS: 71250 ==

== ENCOUNTER 2025-01-09 08:23 | Outpatient (REF) | payer BC, SELFPAY ==
[2025-01-09 08:43] LABS: MANUAL DIFF FLAG NO
[2025-01-09 08:59] LABS: Basophils Absolute Auto 0.1 X10*3/uL (0.0-0.2); Basophils Percent Auto 0.9 % (0-2); Eosinophils Absolute Auto 0.3 X10*3/uL (0.0-0.4); Eosinophils Percent Auto 4.3 % (0-4); Hematocrit 44.8 % (37.0-47.0); Hemoglobin 15.3 g/dl (12.0-16.0); Imm Gran Abs Auto 0.03 X10*3/uL (0.00-0.03); Imm Gran Pct Auto 0.4 % (0.0-0.4); Lymphocytes Absolute Auto 2.1 X10*3/uL (1.2-4.9); Lymphocytes Percent Auto 28.3 % (20-40); Mean Corpuscular HGB Conc 34.2 g/dl (31.0-35.0); Mean Corpuscular Hemoglobin 33.7 pg (27.0-33.0); Mean Corpuscular Volume 98.7 fL (80.0-98.0); Mean Platelet Volume 9.9 fL (9.4-12.3); Monocytes Absolute Auto 0.8 X10*3/uL (0.1-1.2); Monocytes Percent Auto 11.3 % (2-11); Neutrophils Absolute Auto 4.1 x10*3/uL (2.0-8.3); Neutrophils Percent Auto 54.8 % (45-73); Platelet Count 253 X10*3/uL (160-400); Red Blood Count 4.54 X10*6/uL (4.20-5.50); Red Cell Distribution Width 11.8 % (11.0-16.0); White Blood Count 7.5 X10*3/uL (4.8-10.8)
[2025-01-09 09:23] LABS: Appearance Urine Clear; Color Urine Yellow; Glucose Urine UA Negative (Negative); Leukocyte Esterase Urine Negative (Negative); Nitrite Urine Negative (Negative); Urine Blood Negative (Negative); Urine Ketones Negative (Negative); Urine Protein Negative (Neg-Trace)
[2025-01-09 09:39] LABS: Erythrocyte Sedimentation Rate 9 MM/HR (0-20)
[2025-01-09 09:44] LABS: Alanine Aminotransferase 39 U/L (0-31); Alkaline Phosphatase 76 U/L (39-117); Anion Gap 11 (12-20); Aspartate Amino Transferase 31 U/L (5-31); Bilirubin Total 0.3 mg/dL (0.0-1.0); Blood Urea Nitrogen 10 mg/dL (9-16); C Reactive Protein 0.65 mg/dL (< or = 0.50); Calcium 8.9 mg/dL (8.4-10.2); Carbon Dioxide 28 mmol/L (22-29); Chloride 106 mmol/L (96-108); Cholesterol 113 mg/dL (<200); Estimated Glomerular Filt Rate > 60; Glucose Fasting 116 mg/dL (60-99); Glucose Random 115 mg/dL (60-115); HDL Cholesterol 37 mg/dL (>40); LDL Cholesterol Calculated 61 mg/dL (<100); Potassium 4.5 mmol/L (3.3-5.1); Sodium 140 mmol/L (135-145); Total Protein 7.6 g/dL (6.5-8.0); Triglycerides 76 mg/dL (<150)
[2025-01-09 09:55] LABS: Uric Acid 5.6 mg/dL (2.4-5.7)
[2025-01-09 10:02] LABS: TSH reflex Free T4 1.72 uIU/mL (0.32-4.0); Vitamin D 25-OH Total 38.5 ng/mL (>30)
[2025-01-10 08:38] LABS: HBsAGNum1 0.33 S/CO (0.00-0.99); Hepatitis A Antibody IgM 0.19 Index (0-0.79); Hepatitis B Surface Antigen Negative (Negative); ~HepC Num1 0.16 S/CO (0.00-0.79); ~Hepatitis A Antibody IgM Nonreactive (Nonreactive); ~Hepatitis B Surface Antibody NONREACTIVE (Nonreactive); ~Hepatitis C Antibody Nonreactive (Nonreactive)
[2025-01-10 09:41] LABS: HBc Num2 0.96 S/CO; HBc Num3 0.99 S/CO; Hepatitis B Core Antibody Nonreactive (Nonreactive)
[2025-01-12 12:24] LABS: ANA Pattern 2 Nuclear, Homogeneous; Anti Nuclear Antibody Screen POSITIVE (NEGATIVE)
== END 2025-01-09 08:24 | disposition home or self-care (01) ==
LOC: HO.LAB 08:23
PROVIDERS: Absent Provider Student in an Organized Health Care Education/Training Program; PCP Internal Medicine; Visit Provider Internal Medicine
DX: M06.00 Rheumatoid arthritis without rheumatoid factor, unspecified site (principal); I73.00 Raynaud's syndrome without gangrene; D64.9 Anemia, unspecified; E78.00 Pure hypercholesterolemia, unspecified; E55.9 Vitamin D deficiency, unspecified; R30.0 Dysuria; M10.9 Gout, unspecified
CPT/HCPCS: 36415; 80053; 80061; 81003; 82306; 84443; 84550; 85025; 85652; 86038; 86039; 86140; 86704; 86706; 86709; 86803; 87340

== ENCOUNTER 2025-01-12 09:43 | Outpatient (AMB) | payer BC, SELFPAY ==
[2025-01-12 10:06] VITALS: BP 112/82; PULSE 76; O2SAT 96; BMI 29.2
--- NOTE | 2025-01-12 10:06 | MHC.PC.OV ---
Vital Signs 01/12/25 10:06 Height 5 ft 1 in Weight 154 lb 8 oz BMI 29.2 BP 112/82 Blood Pressure Location Lt brachial Position Sitting Pulse 76 Pulse Source Pulse Oximeter Pulse Oximetry (%) 96 Oxygen Delivery Method Room Air Intake Visit Reasons: 4 Months f/u [employer] Required: No Accompanied by: Self / Same As Patient Allergies cefaclor [From CECLOR] Allergy (Intermediate, Verified 01/12/25 10:29) RASH cefuroxime [From CEFTIN] Allergy (Intermediate, Verified 01/12/25 10:29) RASH cephalexin [From KEFLEX] Allergy (Intermediate, Verified 01/12/25 10:29) RASH Penicillins [PENICILLINS] Allergy (Intermediate, Verified 01/12/25 10:29) SHORTNESS OF BREATH sulfamethoxazole [From BACTRIM] Allergy (Intermediate, Verified 01/12/25 10:29) RASH hydroxychloroquine Allergy (Mild, Verified 01/12/25 10:29) Rash Sulfa (Sulfonamide Antibiotics) Allergy (Unknown, Verified 01/12/25 10:29) hives,heart racing hydrocodone [From Vicodin] Allergy (Verified 01/12/25 10:29) Stomach Upset Medication List - Last Reconciled 01/12/25 by Wang Urbina MD albuterol sulfate 90 mcg/actuation 2 puffs inhalation Q6H PRN 30 days NS allopurinol 100 mg PO DAILY calcium carbonate-vitamin D3 600 mg-12.5 mcg (500 unit) (Calcium with Vit D3) 1 cap PO DAILY clotrimazole 1% (Lotrimin AF (clotrimazole)) 1 appl topical BID estradiol 1 mg PO DAILY 90 days Humira(CF) Pen (adalimumab) 40 mg (0.4 mL) subcut Q2W NS hydrocortisone 2.5% (Anusol-HC) 1 appl CO BID-QID PRN 14 days lisinopril 5 mg PO DAILY 90 days lorazepam 1 mg PO BID PRN 30 days naproxen 500 mg (2 x 250 mg) PO BID PRN nifedipine 10 mg PO BID omeprazole 20 mg PO DAILY 90 days progesterone micronized 200 mg PO BEDTIME tramadol 50 mg PO TID PRN 30 days Tobacco use date assessed: 01/12/25 Dental Screening Dental Screen Date: 01/12/25 Did you have a dental visit in the last 12 months?: Yes Did you have a dental problem in the last 6 months where you did not have access to dental care?: No Was dental information given to patient?: Patient has dentist HPI 4 Months f/u HPI Details Patient comes in today for her follow-up visit States that she feels okay She denies any headaches or dizziness Denies any chest pains, no increased shortness of breath No nausea/vomiting, no abdominal pain No change in bowel habits noted She had her follow-up labs done a few days ago - to discuss her results [facility] Medical History Encounter for monitoring of adalimumab therapy Benign essential hypertension Contracture of toe of right foot Ganglion cyst of right foot Primary osteoarthritis of hands, bilateral Overweight (BMI 25.0-29.9) Anxiety Insomnia Rheumatoid factor positive Vitamin D deficiency Migraine Menopausal symptoms Gout Raynaud's disease Osteoarthritis of knees, bilateral GERD (gastroesophageal reflux disease) Hypertension Surgical History S/P foot surgery, right S/P bunionectomy (~02/18/19) S/P bunionectomy (~12/25/16) History of bunionectomy of right great toe S/P foot surgery, left (~06/2016) Normal colonoscopy (~03/01/14) deliv NOS-unsp History of appendectomy Family History Father Diabetes Myocardial infarct Hx of CABG Mother No problems noted. 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 1. Little interest or pleasure in doing things: not at all 2. Feeling down, depressed, or hopeless: not at all 3. Trouble falling or staying asleep, or sleeping too much: not at all 4. Feeling tired or having little energy: not at all 5. Poor appetite or overeating: not at all 6. Feeling bad about yourself - or that you are a failure or have let yourself or your family down: not at all 7. Trouble concentrating on things, such as reading the newspaper or watching television: not at all 8. Moving or speaking so slowly that other people could have noticed. Or the opposite - being so fidgety or restless that you have been moving around a lot more than usual: not at all 9. Thoughts that you would be better off or of hurting yourself in some way: not at all Total score: 0 Depression Screening Interpretation: Negative Depression Screening Done: Yes 02147 - PHQ-9 Billing: Yes Source: Developed by Drs. Milad Yin, Kate Iyer, Aubrey Dempsey and colleagues, with an educational hernandez from [employer]. Thrive Questionnaire Date Thrive assessed: 01/12/25 I am a: Patient What is your living situation today?: I have a steady place to live Within the past 12 months, did the food you bought not last and you didn't have the money to get more?: Never true Within the past 12 months, did you worry whether your food would run out before you got money to buy more?: Never true Do you have trouble paying for medicines?: No Do you have trouble getting transportation to medical appointments?: No Do you have trouble paying your heating and electricity bill?: No Do you have trouble taking care of your child, family member or friend?: No Do you have trouble with day-to-day activities such as bathing, preparing meals, shopping, managing finances, etc.?: No Are you currently unemployed and looking for a job?: No Are you interested in more education?: No Please select the resources that you would like help with: None Currently or been in a relationship where the following occur: No concerns reported THRIVE Score: 0 AUDIT C Alcohol Use Questionnaire (AUDIT-C) 1. How often do you have a drink containing alcohol?: Monthly or less 2. How many drinks containing alcohol do you have on a typical day when you are drinking?: 1 or 2 3. How often do you have six or more drinks on one occasion?: Never Total Score: 1 Score Reviewed/Action Taken: Yes BRANDIE-7 AMB Questionnaire BRANDIE-7 Date BRANDIE - 7 assessed: 01/12/25 Feeling nervous, anxious, or on edge: 0 = Not at all Not being able to stop or control worryin = Not at all Worrying too much about different things: 0 = Not at all Trouble relaxin = Not at all Being so restless that it is hard to sit still: 0 = Not at all Becoming easily annoyed or irritable: 0 = Not at all Feeling afraid as if something awful might happen: 0 = Not at all Total BRANDIE-7 score (0-4 normal; 5-9 mild; 10-14 moderate; 15-21 severe): 0 Source: Developed by Drs. Milad Yin, Kate Iyer, Aubrey Dempsey and colleagues, with an educational hernandez from [employer]. Review of Systems Const Denies chills, Denies fatigue, Denies fever(s) and Denies headache(s) ENT Denies dysphagia, Denies dizziness, Denies otalgia, Denies headache(s), Denies neck pain, Denies odynophagia and Denies sore throat Card Denies chest pain, Denies palpitations and Reports dyspnea on exertion (mild, at times) Resp Denies chest congestion, Denies cough, Reports dyspnea on exertion (mild, at times) and Denies wheezing GI Denies abdominal pain, Denies constipation, Denies dysphagia, Denies heartburn, Denies diarrhea, Denies nausea, Denies odynophagia and Denies vomiting Denies difficulty voiding, Denies nocturia, Denies dysuria and Denies urinary urgency Musc Reports back pain (over the lower back), Reports arthralgias (but hand and knee pains have improved significantly with Rx), Denies neck pain, Reports numbness (in both hands at times) and Reports stiffness Skin/Breast Denies rash Neuro Denies dizziness, Denies headache(s) and Reports numbness (in both hands at times) Psych Denies anxiety Endo Denies fatigue and Denies palpitations Aller/Immun Denies wheezing Physical exam (Primary Care) Vital Signs: Last Vital Signs Pulse 76 01/12/25 10:06 BP 112/82 01/12/25 10:06 Pulse Ox 96 01/12/25 10:06 Oxygen Delivery Method Room Air 01/12/25 10:06 BMI result Body Mass Index 29.2 Tobacco/Smoking Status: Tobacco use Status Tobacco use date assessed 01/12/25 01/12/25 10:14 Patient Tobacco Use Status Former Tobacco user 01/12/25 10:14 Tobacco use type Cigarette 01/12/25 10:14 e-Cigarette/Vaping Use Never Used 01/12/25 10:14 PHQ-9: PHQ-9 Score PHQ-9: Total score 0 01/12/25 10:33 Depression Screening Interpretation: Negative Thrive Assessment: Date of Thrive Assessment Date Thrive assessed 01/12/25 01/12/25 10:14 Currently or been in a relationship where the following occur: No concerns reported Const General: no acute distress and alert HENMT Ears: TM's normal bilaterally and EAC's normal Throat: Yes posterior oropharynx normal and Yes tonsils normal (no TP congestion noted) Neck Neck: Yes no lymphadenopathy and Yes supple Thyroid: Thyroid normal Resp Auscultation: clear to auscultation bilaterally, no rales and no wheezes Cardio Rate: regular rate Rhythm: regular rhythm Heart sounds: no murmurs GI Palpation (GI): Soft to palpation and nontender Auscultation: normal bowel sounds General: Yes no CVA tenderness Back/Spine/Pelvis Back: no CVA tenderness Thoracic/Lumbar Spine: paraspinal muscle tenderness on the right in the mid lumbar and in the lower lumbar and lumbar spinal tenderness Skin Rashes: no rashes Extrem General: Yes no clubbing, cyanosis or edema Right upper extremity: Extremity exam: right hand Details: tenderness (mild); no swelling Left upper extremity: hand Details: tenderness (mild) and swelling (mild) Location: of the dorsal hand Results Reviewed Results Reviewed: Laboratory Tests 01/09/25 08:41 WBC 7.5 Hgb 15.3 Hct 44.8 Plt Count 253 ESR 9 Sodium 140 Potassium 4.5 Creatinine 0.75 Estimated GFR > 60 Fasting Glucose 116 H Uric Acid 5.6 Calcium 8.9 AST 31 ALT 39 H C-Reactive Protein 0.65 H Triglycerides 76 Cholesterol 113 LDL Cholesterol, Calc 61 HDL Cholesterol 37 L 25-OH Vitamin D Total 38.5 TSH 1.72 Ur Specific [place] 1.020 Urine Protein Negative Urine Glucose (UA) Negative Urine Blood Negative Urine Nitrite Negative Ur Leukocyte Esterase Negative Coding Level of Care Code Est Pt Level 4 (08114) Diagnoses Benign essential hypertension I10 Raynaud's disease without gangrene I73.00 Raynaud?s-associated gangrene presence: without gangrene Seronegative rheumatoid arthritis M06.00 Primary osteoarthritis of hands, bilateral M19.041; M19.042 Primary osteoarthritis of both knees M17.0 Osteoarthritis type: primary Elevated LFTs R79.89 Dupuytren's contracture of right hand M72.0 Migraine without status migrainosus, not intractable, unspecified migraine type G43.909 Migraine type: unspecified Status migrainosus presence: without status migrainosus Intractability: not intractable Gastroesophageal reflux disease without esophagitis K21.9 Esophagitis presence: without esophagitis Idiopathic gout, unspecified chronicity, unspecified site M10.00 Gout site: unspecified site Gout etiology: idiopathic Chronicity: unspecified Vitamin D deficiency E55.9 Acute right-sided low back pain without sciatica M54.50 Chronicity: acute Sciatica presence: without sciatica Primary insomnia F51.01 Insomnia type: primary Anxiety F41.9 Overweight (BMI 25.0-29.9) E66.3 Additional Codes PHQ-9 - 30022 - PHQ-9 Billing: Yes ([id number]) Assessment & Plan Assessment & Plan (1) Benign essential hypertension: Code(s): I10 - Essential (primary) hypertension Category: Medical Plan: Reinforced low sodium diet - goal is systolic BP of at least 120 to 130 mm or less Continue Lisinopril 5 mg QD She is also on Nifedipine (10 mg BID) for her Raynaud's symptoms but this helps with her BP as well (2) Raynaud's disease: Comment: Positive SCL 70 Normal nailfold capillaries (checked 10/2024) Code(s): I73.00 - Raynaud's syndrome without gangrene Category: Medical Qualifiers: Raynaud?s-associated gangrene presence: without gangrene Qualified Code(s): I73.00 - Raynaud's syndrome without gangrene Plan: Patient's Raynaud's symptoms remain stable/controlled on CCB - Nifedipine 10 mg BID She was experiencing frequent pain in both hands, mostly due to her OA,?but her symptoms have improved since she was started on Humira by rheumatology (3) Seronegative rheumatoid arthritis: Comment: borderline pos RF, then negative; some OA in the hands as well onset synovitis 2020; Rash with hydroxychloroquine so it was only used 07/12/ - 09/11. History of sulfa allergy. Methotrexate not used due to baseline LFT elevations. Humira approved 08/2022 effective Code(s): M06.00 - Rheumatoid arthritis without rheumatoid factor, unspecified site Category: Medical Plan: Continue Humira 40 mg SQ every 2 weeks Follow up with [facility] Rheumatology as scheduled (4) Primary osteoarthritis of hands, bilateral: Code(s): M19.041 - Primary osteoarthritis, right hand; M19.042 - Primary osteoarthritis, left hand Category: Medical Plan: Continue Naproxen 250 mg 1 to 2 tablets BID PRN with food (5) Osteoarthritis of knees, bilateral: Code(s): M17.0 - Bilateral primary osteoarthritis of knee Category: Medical Qualifiers: Osteoarthritis type: primary Qualified Code(s): M17.0 - Bilateral primary osteoarthritis of knee Plan: Continue Naproxen or Tramadol PRN May need to consider referral to orthopedics if her knee pains progress (6) Elevated LFTs: Code(s): R79.89 - Other specified abnormal findings of blood chemistry Category: Medical Plan: Patient's serum ALT is still slightly elevated on her recent labs but her serum AST is now normal Hepatitis profile was negative when checked a couple of years ago Abdominal US done in 2022 revealed only (+) hepatosteatosis with no other abnormalities noted Patient is again cautioned to avoid taking any Tylenol-containing Rx (states that she does not); reinforced also abstinence from alcohol (states that she does drink every now and then ) Will continue monitoring her LFTs regularly (7) Dupuytren's contracture of right hand: Code(s): M72.0 - Palmar fascial fibromatosis [Dupuytren] Category: Medical Plan: She has been advised that she will likely require surgical correction (fasciectomy) at some point to correct her hand contracture Patient feels that she is still doing okay for now and will call for orthopedics referral if she feels her hand symptoms are getting worse (8) Migraine: Code(s): G43.909 - Migraine, unspecified, not intractable, without status migrainosus Category: Medical Qualifiers: Migraine type: unspecified Status migrainosus presence: without status migrainosus Intractability: not intractable Qualified Code(s): G43.909 - Migraine, unspecified, not intractable, without status migrainosus Plan: Controlled - Nifedipine appears to be helping with her headaches as well (9) GERD (gastroesophageal reflux disease): Code(s): K21.9 - Gastro-esophageal reflux disease without esophagitis Category: Medical Qualifiers: Esophagitis presence: without esophagitis Qualified Code(s): K21.9 - Gastro-esophageal reflux disease without esophagitis Plan: Dietary restrictions reinforced Continue Omeprazole 20 mg QD PRN (10) Gout: Code(s): M10.9 - Gout, unspecified Category: Medical Qualifiers: Gout site: unspecified site Gout etiology: idiopathic Chronicity: unspecified Qualified Code(s): M10.00 - Idiopathic gout, unspecified site Plan: Controlled with no acute gout flare ups lately Reinforced low purine diet Her serum uric acid level was normal on her recent labs (11) Vitamin D deficiency: Code(s): E55.9 - Vitamin D deficiency, unspecified Category: Medical Plan: Continue OTC Vitamin D and Calcium supplements daily (12) Right low back pain: Code(s): M54.50 - Low back pain, unspecified Category: Medical Qualifiers: Chronicity: acute Sciatica presence: without sciatica Qualified Code(s): M54.50 - Low back pain, unspecified Plan: X-rays of the lumbar spine and right hip done a few months ago revealed (+) rotatory dextroconvex scoliosis with moderate multilevel degenerative disc disease and slight L5-S1 anterolisthesis with prominent facet arthropathy There is (+) mild osteoarthritis noted in the right hip Reinforced activity and weight-lifting restrictions to minimize aggravating her low back pain and right hip pain (13) Insomnia: Code(s): G47.00 - Insomnia, unspecified Category: Medical Qualifiers: Insomnia type: primary Qualified Code(s): F51.01 - Primary insomnia Plan: Sleep hygiene reinforced Patient states that taking Lorazepam at bedtime helps when needed (14) Anxiety: Code(s): F41.9 - Anxiety disorder, unspecified Category: Medical Plan: Continue Lorazepam 1 mg BID PRN (15) Overweight (BMI 25.0-29.9): Code(s): E66.3 - Overweight Category: Medical Plan: Reinforced diet/exercise as tolerated/lose weight Plan Follow-up in 4 months
--- OUTSIDE RECORDS SUMMARY | 2025-01-12 10:50 | XMS_ITS | Data Portability ---
Author Organization [place] - [facility],, MISA FUNK MD Address [address] [address] Care Team Providers Care Skin Diver Name Role Phone ANDREY CLARK OTHER [phone] Assessment No assessment recorded. Plan of [...] Go To The Location Of Their Choice, [id number] 08/09/2024 18:06:03 hemoglob in, gastroin testinal , stool 2023 024 [email or web address] 1 In-Office Order, Internal Use Only DO Not Attach Compendium DO Not Attach Compendium, Do Not Delete/merge, [id number] 08/03/2024 11:19:36 pap test, thinprep , cervical 2022 023 [facility] (Centralized Electronic Ordering - All Locations), Patient Can Go To The Location Of Their Choice, [id number] 08/03/2023 07:26:04 fecal occult blood, stool 2022 023 [email or web address] 1 In-Office Order, Internal Use Only DO Not Attach Compendium DO Not Attach Compendium, Do Not Delete/merge, [id number] 07/24/2023 09:26:50 pap test, thinprep , cervical 2021 022 [facility] (Centralized Electronic Ordering - All Locations), Patient Can Go To The Location Of Their Choice, [id number] 08/06/2022 07:34:27 fecal occult blood, stool 2021 022 [email or web address] 1 In-Office Order, Internal Use Only DO Not Attach Compendium DO Not Attach Compendium, Do Not Delete/merge, [id number] 07/23/2022 11:36:46 pap test, thinprep , cervical 2020 021 [facility], Cytopathology Service, [address] [place] [address], [address], 03/27/2021 07:27:54 fecal occult blood, stool 2020 021 [email or web address] In-Office Order, Internal Use Only DO Not Attach Compendium DO Not Attach Compendium, Do Not Delete/merge, [id number] 03/20/2021 10:56:46 pap test, thinprep , cervical 2018 019 [facility], Cytopathology Service, [address] [place] [address], [address], 04/13/2019 07:20:18 fecal occult blood, stool 2018 019 [facility] In-Office Order, Internal Use Only DO Not Attach Compendium DO Not Attach Compendium, Do Not Delete/merge, [id number] 04/13/2019 07:20:18 Referral None recorded . Procedures None recorded . Surgeries None recorded . Imaging MAMMO, screenin g, digital, bilatera l - Breast Aspirati on and/or Biopsy if needed 2023 024 tiffanie [facility] (Mammo), [address] [place] [place], [address], 08/03/2024 11:39:20 MAMMO, screenin g, digital, bilatera l - Breast Aspirati on and/or Biopsy if needed 2022 023 [facility] [address] [place] [address] [place], [address], 07/18/2024 07:30:31 MAMMO, screenin g, digital, bilatera l 2021 022 [facility] (Mammography), [address] [place] [address], [address], 07/20/2023 07:36:55 MAMMO, screenin g, digital, bilatera l 2020 021 [facility] (Mammo), [address] [place], [address], 05/16/2021 08:41:23 MAMMO, screenin g, digital, bilatera l 2018 019 [facility] Imaging (Mammo), [address] [place], [address], 05/11/2019 11:14:50 Medication Orders estradio l 1 mg tablet 2023 024 [facility], [address] [place] [address], [address], 08/03/2024 11:19:40 progeste jadon microniz ed 200 mg capsule 2023 024 [facility], [address] [place] [address], [address], 08/03/2024 11:19:40 estradio l 1 mg tablet 2022 023 [facility], [address] [place], [address], 07/24/2023 09:26:54 progeste jadon microniz ed 200 mg capsule 2022 023 [facility], [address] [place], [address], 07/24/2023 09:26:54 estradio l 1 mg tablet 2021 022 [facility], [address] [place] [address], [address], 07/23/2022 11:36:50 progeste jadon microniz ed 200 mg capsule 2021 022 [facility], [address] [place] [address], [address], 07/23/2022 11:36:50 progeste jadon microniz ed 200 mg capsule 2020 021 [facility], [address] [place] [address], [address], 03/20/2021 10:25:05 estradio l 1 mg tablet 2020 021 [facility], [address] [place] [address], [address], 03/20/2021 10:25:06 estradio l 1 mg tablet 2018 019 [facility], [address] [place] [address], [id number], 04/06/2019 11:25:29 progeste jadon microniz ed 200 mg capsule 2018 019 [facility], [address] [place] [address], [id number], 04/06/2019 11:25:27 Patient TargetsNo targets recorded. Patient Instructions Encounter Date Encounter Id Patient Instructions Last Modified By Organization Details Last Modified Time 04/06/2019 [id number] She is here for annual exam, is [...] standardized exercise regimen, such as that at [facility], and she is given literature for this. We discussed a referral to a office rn and/or weight case management rn. All questions were answered. She deanna think [...] time postmenopausally. Not available 04/06/2019 11:41:44 03/20/2021 [id number] learning about healthy weight Not available 03/20/2021 [...] time postmenopausally. Not available 03/20/2021 10:25:43 07/23/2022 [id number] learning about healthy weight Not available 07/23/2022 [...] time postmenopausally. Not available 07/23/2022 11:37:06 07/24/2023 [id number] learning about healthy weight Not available 07/24/2023 [...] time postmenopausally. Not available 07/24/2023 09:27:22 08/03/2024 [id number] Flucelvax Quadrivalent Influenza Vaccine Prefilled Syringe 0.5 [...] DO Not Attach Compendium, Do Not Delete/merge, 56898 04/06/2019 11:14:45 04/06/20 19 04/06/2019 pap, LB [id number] ThinP rep Pap, Image d: NEGAT AWAIS [...] NEG [Z12. 4, Z01.4 19] Not Available [facility], Cytopathology Service [address] [place], [address], 04/08/2019 18:04:59 03/20/20 21 03/20/2021 PAP1C ASE [id number] ThinP rep Pap, Image d: NEGAT AWAIS [...] neg, z12.4 , z01.4 19 Not Available [facility], Cytopathology Service [address] [place], [address], 03/22/2021 08:02:14 03/20/20 21 03/20/2021 fecal occul t blood , stool Occult Blood negati ve Not Available In-Office Order Internal Use Only DO Not Attach Compendium DO Not Attach Compendium, Do Not Delete/merge, [id number] 03/20/2021 09:42:27 07/23/20 22 07/23/2022 [facility] CYTOL OGY results Mattie nt Name: MOOK COLEMAN nt : 1959 (Age: 62) Lab Acces francesco #: [id number] Colle ction Date: 2021 Acces francesco Date: 2021 Sign Out Date: 08/01 Tissu e Sourc e: 1: THINP REP DISPATCH MANAGER PAP TEST, CERVI JACKIE: Final Diagn osis: [...] fatima or lisa gallagher. Perfo rmed at [facility] ate Refer ence Labor atory depar tment of Cytol ogy, [address] [place] Clini jackie Histo ry (othe r): Z01.4 19, LPS 03/20 negat awais, routi ne scree n Phone #: [phone], On-Ca ll Patho logis t: [id number] Not Available [facility] (Centralized Electronic Ordering - All Locations) Patient Can Go To The Location Of Their Choice, [address] 08/01/2022 08:34:40 07/23/20 22 07/23/2022 fecal occul t blood , stool Occult Blood negati ve Not Available In-Office Order Internal Use Only DO Not Attach Compendium DO Not Attach Compendium, Do Not Delete/merge, [id number] 07/23/2022 10:27:46 07/24/20 23 07/24/2023 [facility] CYTOL OGY results Mattie nt Name: MOOK COLEMAN nt : 1959 (Age: 63) Lab Acces francesco #: [id number] Colle ction Date: 2022 Acces francesco Date: 2022 Sign Out Date: 07/31 Tissu e Sourc e: 1: THINP REP DISPATCH MANAGER PAP TEST, CERVI JACKIE: Final Diagn osis: [...] fatima or lisa w. Perfo rmed at [facility] ate Refer ence Labor atory depar tment of Cytol ogy, [address] [place] Clini jackie Histo ry (othe r): Z01.4 19, ROUTI NE SCREE N, LPS 07/23 NEG Phone #: [phone], On-Ca ll Patho logis t: [id number] Not Available [facility] (Centralized Electronic Ordering - All Locations) Patient Can Go To The Location Of Their Choice, [address] 07/31/2023 16:48:50 07/24/20 23 07/24/2023 fecal occul t blood , stool Occult Blood negati ve Not Available In-Office Order Internal Use Only DO Not Attach Compendium DO Not Attach Compendium, Do Not Delete/merge, [id number] 07/24/2023 09:08:53 08/03/20 24 08/09/2024 IGP, RFX APTIM A HPV ASCU diagnosis: Commen t NEGAT AWAIS FOR INTRA EPITH ELIAL LESIO N OR MALIG VIVI . Not Available [facility] ([facility]) [address] [facility], [place], [address], 08/09/2024 18:06:03 08/03/20 24 08/09/2024 IGP, RFX APTIM A HPV ASCU specimen adequacy: Bryan watson Satis facto ry for evalu ation . Not Available [facility] ([facility]) [address] [place], [address], 08/09/2024 18:06:03 08/03/20 24 08/09/2024 IGP, RFX APTIM A HPV ASCU clinician provided ICD10: Bryan watson Z01.4 19 Not Available [facility] ([facility]) [address] [place], [address], 08/09/2024 18:06:03 08/03/20 24 08/09/2024 IGP, RFX APTIM A HPV ASCU performed by: Soo Quintana (ASCP ) Not Available [facility] ([facility]) [address] [place], [address], 08/09/2024 18:06:03 08/03/20 24 08/09/2024 IGP, RFX APTIM A HPV ASCU . . Not Available [facility] ([facility]) [address] [place], [address], 08/09/2024 18:06:03 08/03/20 24 08/09/2024 IGP, RFX [...] ts do occur . Not Available [facility] ([facility]) [address] [place], [address], 08/09/2024 18:06:03 08/03/20 24 08/09/2024 IGP, RFX APTIM A HPV ASCU test methodology: Commen t This liqui d based ThinP rep(R ) pap test was tonie joel with the use of an image guide oneal mayorga Not Available [facility] ([facility]) [address] [facility], [place], [address], 08/09/2024 18:06:03 08/03/20 24 08/09/2024 IGP, RFX APTIM A HPV ASCU . Commen t The HPV DNA refle x crite jodi were not met with this speci men resul t there fore, no HPV testi ng was perfo rmed. Not Available [facility] ([facility]) [address] [facility], [place], [address], 08/09/2024 18:06:03 08/03/20 24 08/03/2024 hemog lobin , gastr ointe gio l, stool Occult Blood negati ve Not Available In-Office Order Internal Use Only DO Not Attach Compendium DO Not Attach Compendium, Do Not Delete/merge, [id number] 08/03/2024 10:46:21 05/11/20 19 05/06/2019 MAMMO tonie vázquez, digit al, bilat eral No observ ation record ed. BARCODE [facility] ([facility]) [address] [place] [address] [place], [address], 05/11/2019 11:14:50 05/18/20 20 05/09/2020 MAMMO tonie, digit al, bilat eral No observ ation record ed. BARCODE Not Available 2019 08:31:17 05/16/20 21 05/15/2021 MAMMO tonie, digit al, bilat eral No observ ation record ed. [facility] (Mammo) [address] [place] [address] [place], [address], 05/16/2021 08:43:29 Result Notes None recorded. Problems Name Problem SNOMED Code Status Onset Date Resolution Date Notes Provider Name and Address Organization Details Recorded Time Premature menopause 818499939 Active age 42 Misa Funk MD [address] [facility],[address], [place], [address] , ANA M - [facility], 5 10:18:40 Raynaud's disease 341742461 Active Not Available [facility] 3 03:01:05 Tobacco dependence syndrome 17651937 Active Not Available [facility] 3 03:01:05 Gout 51260163 Active 2016 ANA M Denise in [facility], 7 10:32:56 Rheumatoid arthritis 43049572 Active 2021 ANA M Denise in [facility], 2 10:31:17 Problem Notes None recorded. Procedures Surgical History Date Name Laterality Status Provider Name and Address Organization Details Recorded Time 05/15/20 24 Most Recent Mammogram completed Lin Lyman [facility], 08/03/2024 09:57:51 03/27/20 21 procedure on foot completed Lin Hayden in [facility], 07/23/2022 10:33:58 12/26/19 17 Other completed Lin De La Torre [place] - [facility], 04/06/2019 11:13:59 09/21/18 83 Caesarean Section completed Lin Hayden in [facility], 10/13/2012 10:48:33 09/21/18 74 Appendectomy completed Lin De La Torre [place] - Jackelyn in [facility], 10/13/2012 10:48:33 Imaging Results Imaging Date Name Status LastModified by Organiz ation Details LastModified Time 05/06/2019 MAMMO, screening, digital, bilateral completed BARCODE [facility] (Mammo) [address] [place], [address], 05/11/2019 11:14:50 05/09/2020 MAMMO, screening, digital, bilateral completed BARCODE Information not available 05/18/2020 08:31:17 05/15/2021 MAMMO, screening, digital, bilateral completed [facility] (Mammo) [address] [place] [address] [place], [address], 05/16/2021 08:43:29 Procedure Notes None recorded. Medical Equipment None Reported. Allergies Allergen ID Allergen Name Allergen Category Reaction Reaction Severity Criticality Documentation Date Start Date Code Code System Note Provider Name and Address Organization Details Recorded Time 45791 hydroxych loroquine medicatio n hives Not available Not available 07/24/2023 5521 RxNorm Lin Meczywor ANA M manjarrez in [facility], 3 09:14:17 6281 Bactrim medicatio n rash Not available Not available 10/13/2012 93223 9 RxNorm Lin Meczywor loki [place] Nura Hayden in [facility], 3 10:48:33 6282 Ceclor medicatio n rash Not available Not available 10/13/2012 26638 5 RxNorm Lin Meczywor loki [place] - [facility], 3 10:48:33 6283 Substance with sulfonami de structure and antibacte rial mechanism of action (substanc e) medicatio n rash Not available Not available 10/13/2012 34643 8003 SNOMED Lin Meczywor loki [place] Nura Hayden in [facility], 3 10:48:33 6284 Product containin g penicilli n (product) medicatio n chest pain Not available Not available 10/13/2012 59193 8001 SNOMED Lin Meczywor loki [place] Nura [facility], 3 10:48:33 Medications Name Sig Start [...] Not Available Not Available Not Available Fluvirin 2127-7185 45 mcg (15 mcg x 3)/0.5 mL [...] Address Organization Details Last Updated DateTime 9 48677.8 4 g 27.3 kg/m2 153.67 cm 82 /min 139 mm[Hg] 84 mm[Hg] Lin Hayden in [facility], 9 11:09:33 Date Recorded Body height Body mass index (BMI) Body weight Heart rate Systolic blood pressure Diastolic blood pressure Provider Name and Address Organization Details Last Updated DateTime 1 153.67 cm 27.3 kg/m2 07756.1 2 g 73 /min 138 mm[Hg] 89 mm[Hg] Monika Hayden in [facility], 1 09:45:42 Date Recorded Body weight Body mass index (BMI) Body height Body temperature Heart rate Systolic blood pressure Diastolic blood pressure Provider Name and Address Organization Details Last Updated DateTime 2 55635.3 8 g 30.2 kg/m2 152.4 cm 98.1 [degF] 76 /min 111 mm[Hg] 72 mm[Hg] Lin Hayden in [facility], 2 10:29:40 Date Recorded Body weight Body mass index (BMI) Body height Body temperature Heart rate Systolic blood pressure Diastolic blood pressure Provider Name and Address Organization Details Last Updated DateTime 3 52087.1 7 g 28.1 kg/m2 156.21 cm 97.1 [degF] 77 /min 126 mm[Hg] 75 mm[Hg] Lin Hayden in [facility], 3 09:12:23 Date Recorded Body height Body mass index (BMI) Body weight Heart rate Body temperature Systolic blood pressure Diastolic blood pressure Provider Name and Address Organization Details Last Updated DateTime 4 152.4 cm 29.3 kg/m2 27070.5 7 g 78 /min 97.2 [degF] 132 mm[Hg] 80 mm[Hg] Lin De La Torre [place] [facility], 4 09:53:51 Social History Question Answer Notes LastModified by Chandanat ion Details LastModified Time Tobacco Smoking Status Former Smoker quit over 2 yrs ago Not Available [facility] 07/24/2020 03:19:37 What Is Your Level Of Alcohol Consumption? Occasional Information not available 07/23/2022 How Many Years Have You Consumed Alcohol? 40 Information not available 07/23/2022 What Is Your Level Of Caffeine Consumption? Occasional [id number] Information not available 07/24/2020 In The 14 [...] Type Of Diet Are You Following? REGULAR [id number] Information not available 07/24/2020 Which Illicit Or Recreational Drugs Have You Used? No [id number] Information not available 07/24/2020 Do You Reside In Or Have You Traveled To An Area Where Ebola Virus Transmission Is Active? No [id number] Information not available 07/24/2020 Do You Or Have You Ever Used E-cigarettes Or Vape? Never Used Electronic Cigarettes Information not available 03/20/2021 Education 10 Information no t available 10/13/2012 What Is The Highest Grade Or Level Of School You Have Completed Or The Highest Degree You Have Received? [id number] Information not available 07/23/2022 What Is Your [...] available 03/20/2021 Are You Sexually Active? Yes [id number] Information not available 07/24/2020 At What Age Did You Start Smoking Tobacco? 15 Information not available 07/23/2022 Do You Or Have You Ever Used Smokeless Tobacco? Never Used Smokeless Tobacco Information not available 03/20/2021 How Much Tobacco Do You Smoke? No [id number] Information not available 07/24/2020 General Stress Level Low Information not available 03/12/2016 Do You Feel Stressed (tense, Restless, Nervous, Or Anxious, Or Unable To Sleep At Night)? [id number] Information not available 07/23/2022 Do You Use [...] Time What is your exercise level? Moderate [id number] Information not available 07/24/2020 Mental Status None [...] Problems N Defects or Inherited Disease N Anemia [...] 4 completed ANA M Denise in [facility], 08/04/2024 07:45:25 COVID-19, mRNA, LNP-S, PF, 100 mcg/0.5mL dose or 50 mcg/0.25mL dose 1 completed ANA M Den[facility], 07/24/2023 09:11:02 COVID-19, mRNA, LNP-S, PF, 100 mcg/0.5mL dose or 50 mcg/0.25mL dose 1 completed ANA M Denise in [facility], 07/24/2023 09:11:02 Influenza, split virus, quadrivalent, preservative 9 completed Lin Meczywor null, [place] - [facility], 07/24/2023 09:11:02 Influenza, split virus, quadrivalent, preservative 6 completed Iln Meczywor null, [place] - [facility], 07/24/2023 09:11:02 COVID-19, mRNA, LNP-S, PF, 100 mcg/0.5mL dose or 50 mcg/0.25mL dose 1 completed Lni Meczywor null, [place] - [facility], 07/24/2023 09:11:02 influenza, unspecified formulation 3 completed Lin Meczywor null, [place] - [facility], 07/24/2023 09:11:02 Tdap 6 completed Lin Meczywor null, [place] - [facility], 07/24/2023 09:11:02 Influenza, split virus, trivalent, preservative 3 completed Lin Meczywor null, [place] - [facility], 07/24/2023 09:11:02 Influenza, split virus, quadrivalent, PF 1 completed Lin Meczywor null, [place] - [facility], 07/24/2023 09:11:02 Influenza, split virus, quadrivalent, PF 2 completed Lin Meczywor null, [place] - [facility], 07/24/2023 09:11:02 zoster recombinant 3 completed Lin Meczywor null, [place] - [facility], 08/03/2024 09:54:25 Influenza, split virus, quadrivalent, PF 3 completed Lin Meczywor null, [place] - [facility], 08/03/2024 09:54:25 Past Encounters Encounter ID Performer Location Encounter Start Date Encounter Closed Date Diagnosis/Indication Diagnosis SNOMED-CT Code Diagnosis ICD10 Code Diagnosis Note [id number] Juliana FUNK MD [address] [place] [address],[place] [id number] 10/13/2012 10:26:40 10/14/2012 08:47:29 [id number] MISA FUNK MD [address] [place] [address],[place] [id number] 10/19/2013 10:01:08 10/19/2013 12:32:51 Specialized medical examination 42572181 Screening for malignant neoplasm of rectum 928386656 Screening mammography 59528943 [id number] MISA FUNK MD [address] [place] [address],[place] [id number] 03/07/2015 09:50:50 03/07/2015 11:16:06 Specialized medical examination 26433603 Screening for malignant neoplasm of rectum 444125530 Screening mammography 66918186 Premature menopause 913053498 [id number] MD MISA Moeller MD [address] [place] [address], [place] [id number] 03/12/2016 09:50:27 03/12/2016 11:26:00 Specialized medical examination 10565834 Z01.419 Screening for malignant neoplasm of rectum 961537531 Z12.12 Screening mammography 24 122979 Z12.31 Menopausal syndrome 1237 26195 N95.9 [id number] MD MISA Moeller MD [address] [place] [address], [place] [id number] 03/18/2017 10:22:10 03/18/2017 11:59:19 Specialized medical examination 28445855 Z01.419 Screening for malignant neoplasm of rectum 880996411 Z12.12 Screening mammography 24 876409 Z12.31 Premature menopause 3737 37407 E28.319 [id number] MD MISA Moeller MD [address] [place] [address],[place] [id number] 03/31/2018 10:53:30 03/31/2018 11:37:14 Specialized medical examination 95979759 Z01.419 Screening for malignant neoplasm of rectum 273923307 Z12.12 Screening mammography 24 276895 Z12.31 Premature menopause 3737 36322 E28.310 [id number] MD MISA Moeller MD [address] [place], [place] [address]E [place] [id number] 04/06/2019 10:44:21 04/06/2019 11:56:33 Premature menopause 471090365 E28.310 Specialize d medical examination 45056717 Z01.419 Screening for malignant neoplasm of rectum 856448433 Z12.12 Screening mammography 24 161409 Z12.31 [id number] MD MISA Moeller MD [address] [place] [address] Dan[place] [id number] 03/20/2021 09:39:06 03/20/2021 10:56:30 Specialized medical examination 38559251 Z01.419 Screening for malignant neoplasm of rectum 162224366 Z12.12 Screening mammography 24 878484 Z12.31 Premature menopause 3737 47193 E28.310 [id number] MD MISA Moeller MD [address] [place] [address] [place] [id number] 07/23/2022 10:25:16 07/23/2022 11:40:26 Specialized medical examination 19940848 Z01.419 Screening for malignant neoplasm of rectum 062272980 Z12.12 Screening mammography 24 877370 Z12.31 Premature menopause 3737 33371 E28.310 [id number] MD MISA Moeller MD [address] [place], [place] [address]Patricia [place] [id number] 07/24/2023 09:05:23 07/24/2023 09:33:48 Specialized medical examination 34552615 Z01.419 Screening for malignant neoplasm of rectum 482151831 Z12.12 Screening mammography 24 934235 Z12.31 Premature menopause 3737 65023 E28.310 [id number] MD MISA Moeller MD [address] [place] [address] [place] [id number] 08/03/2024 09:49:22 08/03/2024 11:39:20 Premature menopause 856332220 E28.310 Influenza vaccine needed 1433704090 106 Z23 Specialize d medical examination 78388266 Z01.419 Screening for malignant neoplasm of rectum 124023603 Z12.12 Screening mammography 24 666964 Z12.31 Health Concerns Section Related Observation LastModified by Organization Detai ls LastModified Time None Recorded Concern Status LastModified by Organization Details LastModified Time None Recorded Advance Directives Directive None Recorded Payers Encounter Date Sequence Insurance Name Policy Number Policy Hoffmann Covered Member ID Hoffmann Member ID Guarantor Name 04/06/2019 1 [employer] [place] [facility] [place] [facility] (PPO) Laz Coleman [id number] Laz Muellerch 03/20/2021 2 [place] [id number] Julio César Coleman [id number] Laz Coleman 03/20/2021 1 [place] [employer] [id number] 5 Laz Coleman [id number] 8 Laz Muellerch 07/23/2022 2 [place] [id number] 5 Julio César Coleman [id number] 8 Laz Coleman 07/23/2022 1 [place] [id number] 5 Laz Coleman [id number] 8 Laz Coleman 07/24/2023 1 [place] [id number] 5 Laz Coleman [id number] 8 Laz Muellerch 08/03/2024 1 [place] [id number] 5 Laz Coleman [id number] 8 Laz Coleman Notes Date Note Type [...] a few years ago. Misa Funk MD [address] [place] [address],[address], [place], [address], [place] [facility], 04/06/2019 11:42:02 03/20/2021 text/html She is here for annual exam, doing well on HRT, now has three grandchildren! note from 2019: She is here for annual exam, is doing well on the HRT and elects to continue. She is going to become a grandmother in April! Misa Funk MD [address], [place], [address], [place] [facility], 03/20/2021 10:26:02 07/23/2022 text/html She is here for annual exam, doing well on HRT, now has three grandchildren!She had premature ovarian failure age 42. Misa Funk MD [address] [facility],[address], [place], [address], [place] [facility], 07/23/2022 11:37:27 07/24/2023 text/html She is here for annual exam, doing well on HRT, now has three grandchildren!She had premature ovarian failure age 42. Misa Funk MD [address], [place], [address], [place] [facility], 07/24/2023 09:27:56 08/03/2024 text/html She is [...] [address], [place], [address], [place] [facility], 08/03/2024 11:20:55 OBGyn Episode No OBEpisode recorded.
--- OUTSIDE RECORDS SUMMARY | 2025-01-12 10:50 | XMS_ITS | Patient Health Record ---
Author Organization [facility] danielle Glady Address [address] [place] [address] Care Team Providers Care Field Marketing Team Leader Name Role Phone Carlitos TARIQ, [place] Primary Care Provider Allison Dos Santos Unavailable [phone] Reason For Referral No Information Medications Medication [...] . 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 Not-Taking LORazepam 1 MG Orally [...] Status W/U Status Risk Notes Problem Gout (66349525) Gout, unspecified (M10.9) Active confirmed Problem Acquired hallux valgus (32025663) Hallux valgus (acquired), right foot (M20.11) Active confirmed Problem [id number] Contracture, right foot (M24.574) Active confirmed Problem 766443475 Hammer toe of right foot (M20.41) Active confirmed Problem 18827711 Vitamin D deficiency (E55.9) Active confirmed Plan Of Treatment Pending Test Test Name Order Date Ultrasound : Extremity Ultrasound Non-Va fl 10/03/2020 X ray : Foot, left 3V [...] X ray : Foot, right 3V 02/03/2020 20637, J0702- INJECT or DRAIN, JOINT/BUR SA 07/27/2019 75869, [id number]/INJECT, JOINT/BURSA 0 05/09/2015 81324, [id number]-VXYIQ/INJECT, JOINT/BURSA 1 10/26/2017 87005, [id number]-HLGOM/INJECT, JOINT/BURSA 0 06/02/2018 51858, [id number]-XKBYO/INJECT, JOINT/BURSA 0 11/19/2016 00116- Unna Boot 03/09/2019 PARATHYROID HORMONE INTACT (PTHI) 2018 VITAMIN D 25-OH (D2 D3) 06/28/2019 CT FOOT RT W&WO CONTRAST 06/28/2019 Insurance Providers Payer Name Payer Address Payer Phone Subscriber Number Group Number Insured Name Patient Relationship to Insured Coverage Start Date Coverage End Date [facility] [address] [place] [phone] [id number] Laz Beckford Self - patient is the [...]
== END 2025-01-12 10:45 | disposition home or self-care (01) ==
LOC: HO.HMCH 09:44
PROVIDERS: PCP Internal Medicine; Visit Provider Internal Medicine
DX: I10 Essential (primary) hypertension (principal); I73.00 Raynaud's syndrome without gangrene; M06.00 Rheumatoid arthritis without rheumatoid factor, unspecified site; M19.041 Primary osteoarthritis, right hand; M19.042 Primary osteoarthritis, left hand; M17.0 Bilateral primary osteoarthritis of knee; R79.89 Other specified abnormal findings of blood chemistry; M72.0 Palmar fascial fibromatosis [Dupuytren]; G43.909 Migraine, unspecified, not intractable, without status migrainosus; K21.9 Gastro-esophageal reflux disease without esophagitis; M10.00 Idiopathic gout, unspecified site; E55.9 Vitamin D deficiency, unspecified; M54.50 Low back pain, unspecified; F51.01 Primary insomnia; F41.9 Anxiety disorder, unspecified; E66.3 Overweight

== ENCOUNTER → 2025-01-12 09:43 | Outpatient (BNVA) | payer BC, SELFPAY | PROVIDERS: PCP Internal Medicine; Visit Provider Internal Medicine | DX: I10 Essential (primary) hypertension (principal); I73.00 Raynaud's syndrome without gangrene; M06.00 Rheumatoid arthritis without rheumatoid factor, unspecified site; M19.041 Primary osteoarthritis, right hand; M19.042 Primary osteoarthritis, left hand; M17.0 Bilateral primary osteoarthritis of knee; R79.89 Other specified abnormal findings of blood chemistry; M72.0 Palmar fascial fibromatosis [Dupuytren]; G43.909 Migraine, unspecified, not intractable, without status migrainosus; K21.9 Gastro-esophageal reflux disease without esophagitis; M10.00 Idiopathic gout, unspecified site; E55.9 Vitamin D deficiency, unspecified; M54.50 Low back pain, unspecified; F51.01 Primary insomnia; F41.9 Anxiety disorder, unspecified; E66.3 Overweight; Z68.29 Body mass index [BMI] 29.0-29.9, adult; Z79.620 Long term (current) use of immunosuppressive biologic; Z79.899 Other long term (current) drug therapy | CPT/HCPCS: 96127 ==

== ENCOUNTER 2025-03-08 11:28 | Outpatient (AMB) | payer BC, SELFPAY ==
--- NOTE | 2025-03-08 11:33 | MHC.OFFVIS ---
Vital Signs 03/08/25 11:37 Height 5 ft 1 in Weight 154 lb 12.232 oz BMI 29.2 BP 102/70 Blood Pressure Location Lt brachial Position Sitting Pulse 73 Pulse Source Pulse Oximeter Pulse Oximetry (%) 98 Oxygen Delivery Method Room Air Intake Visit Reasons: RA Intake Note: Patient presents for RA follow up. Allergies cefaclor (From CECLOR) Allergy (Intermediate, Verified 03/08/25 11:37) RASH cefuroxime (From CEFTIN) Allergy (Intermediate, Verified 03/08/25 11:37) RASH cephalexin (From KEFLEX) Allergy (Intermediate, Verified 03/08/25 11:37) RASH Penicillins (PENICILLINS) Allergy (Intermediate, Verified 03/08/25 11:37) SHORTNESS OF BREATH sulfamethoxazole (From BACTRIM) Allergy (Intermediate, Verified 03/08/25 11:37) RASH hydroxychloroquine Allergy (Mild, Verified 03/08/25 11:37) Rash Sulfa (Sulfonamide Antibiotics) Allergy (Unknown, Verified 03/08/25 11:37) hives,heart racing hydrocodone (From Vicodin) Allergy (Verified 03/08/25 11:37) Stomach Upset Medication List - Last Reconciled 03/08/25 by Sherrie Mancuso MD albuterol sulfate 90 mcg/actuation 2 puffs inhalation Q6H PRN 30 days NS allopurinol 100 mg PO DAILY calcium carbonate-vitamin D3 600 mg-12.5 mcg (500 unit) (Calcium with Vit D3) 1 cap PO DAILY clotrimazole 1% (Lotrimin AF (clotrimazole)) 1 appl topical BID estradiol 1 mg PO DAILY 90 days Humira(CF) Pen (adalimumab) 40 mg (0.4 mL) subcut Q2W NS hydrocortisone 2.5% (Anusol-HC) 1 appl PA BID-QID PRN 14 days lisinopril 5 mg PO DAILY 90 days lorazepam 1 mg PO BID PRN 30 days naproxen 500 mg (2 x 250 mg) PO BID PRN nifedipine 10 mg PO BID omeprazole 20 mg PO DAILY 90 days progesterone micronized 200 mg PO BEDTIME tramadol 50 mg PO TID PRN 30 days HPI Comments Details: Patient is a 64-year-old female current everyday smoker with hypertension, Raynaud's, polyarticular osteoarthritis and seropositive rheumatoid arthritis here today for follow up Interval History: Patient last seen 11/09/2024 with me. At that time she was doing well with no new complaints. Today, Overall rheumatoid arthritis symptoms stable no flare-ups since the last visit Nodule on right upper arm Rheumatologic History: Seropositive rheumatoid arthritis borderline pos RF, then negative; some OA in the hands as well onset synovitis 2020; Rash with hydroxychloroquine so it was only used 07/12/ - 09/11. History of sulfa allergy. Methotrexate not used due to baseline LFT elevations. Humira approved 08/2022 effective Scl 70 positive without evidence of scleroderma. ?overlap Current Rheumatology Medication(s): Humira 40 mg subcu every other week Nifedipine 10 mg b.i.d. [facility] Medical History Encounter for monitoring of adalimumab therapy Benign essential hypertension Contracture of toe of right foot Ganglion cyst of right foot Primary osteoarthritis of hands, bilateral Overweight (BMI 25.0-29.9) Anxiety Insomnia Rheumatoid factor positive Vitamin D deficiency Migraine Menopausal symptoms Gout Raynaud's disease Osteoarthritis of knees, bilateral GERD (gastroesophageal reflux disease) Hypertension Surgical History S/P foot surgery, right S/P bunionectomy (~02/18/19) S/P bunionectomy (~12/25/16) History of bunionectomy of right great toe S/P foot surgery, left (~06/2016) Normal colonoscopy (~03/01/14) deliv NOS-unsp History of appendectomy Family History Father Diabetes Myocardial infarct Hx of CABG Mother No problems noted. 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 [employer] Cognitive needs: No Hearing needs: No Vision needs: Yes Review of Systems Const Details: Review of Systems Constitutional: Denies fever, chills, weight loss ENT: Denies vision changes, eye pain or eye redness, dental caries, dry mouth GI: Denies nausea, vomiting, diarrhea, abdominal pain, change in BM Pulm: Denies SOB, MONTEZ, hemoptysis, wheezing Cards: Denies chest pain, palpitations Skin: Denies rash, nail changes, photosensitivity, [employer]: Denies headaches, weakness, paresthesias, recurrent falls MSK: as per HPI All other systems reviewed and are unremarkable except noted above Physical Exam Vital Signs: Last Vital Signs Pulse 73 03/08/25 11:37 BP 102/70 03/08/25 11:37 Pulse Ox 98 03/08/25 11:37 Oxygen Delivery Method Room Air 03/08/25 11:37 BMI result Body Mass Index 29.2 Vital signs reviewed Physical Examination CONSTITUITIONAL Patient alert and cooperative. Well appearing and in no apparent painful distress HEENT Conjunctiva and sclera clear. No lymphadenopathy. ? CHEST/RESPIRATORY SYSTEM Normal respiratory effort and able to speak in complete sentences. ?Clear to auscultation bilaterally. ?No crackles, rales, rhonchi, wheezes heard. CARDIAC SYSTEM Regular rate and rhythm. ?S1 and S2 heard no murmurs. ?Radial pulses intact bilaterally MSK Hands: ?Able to make a fist. Bilateral ulnar deviations - reducible. Synovial hypertrophy noted to the MCPs 2-5 bilaterally. No synovitis on exam. Hands are cold and purple. Normal nailfold capillaries Wrists: ?Full range of motion at the wrists without pain. ?No tenderness to palpation or synovitis noted to the wrists. Elbows: Full range of motion without pain. No tenderness, weakness, swelling, increased warmth or erythema. Shoulders: Full range of motion without pain. No tenderness, weakness, swelling, increased warmth or erythema. Knees: ?Full range of motion. ?No tenderness, swelling, increased warmth or erythema.? Bilateral crepitations noted Ankles: Full range of motion. ?No tenderness, swelling, increased warmth or erythema.? Feet: ?Negative squeeze test. ?No tenderness to palpation or swelling of the MTPs. Tender points:?No tenderness to palpation of the bilateral trapezius, supraspinatus, greater trochanters, anterior costochondral junctions, bilateral gluteal areas, bilateral suboccipital muscle insertions SKIN Skin intact without rashes. Pearly nodule on right upper arm Modified Rodnan skin score 0 Results Reviewed Results Reviewed: Laboratory Tests 09/05/24 01/09/25 09:20 08:41 WBC 7.5 RBC 4.54 Hgb 15.3 Hct 44.8 Plt Count 253 ESR 9 Sodium 140 Potassium 4.5 Chloride 106 Carbon Dioxide 28 BUN 10 Creatinine 0.75 AST 31 ALT 39 H Alkaline Phosphatase 76 C-Reactive Protein 0.39 0.65 H 25-OH Vitamin D Total 38.5 Laboratory Tests 09/05/24 01/09/25 09:20 08:41 Hepatitis A IgM Ab Nonreactive Hep Bs Antigen Negative Hep Bs Antibody NONREACTIVE Hep B Core Total Ab Nonreactive Hepatitis C Ab (EIA) Nonreactive TB Test (T-Spot) Com Negative Assessment & Plan Assessment & Plan (1) Seronegative rheumatoid arthritis: Comment: borderline pos RF, then negative; some OA in the hands as well onset synovitis 2020; Rash with hydroxychloroquine so it was only used 07/12/ - 09/11. History of sulfa allergy. Methotrexate not used due to baseline LFT elevations. Humira approved 08/2022 effective Code(s): M06.00 - Rheumatoid arthritis without rheumatoid factor, unspecified site Category: Medical Plan: #Seronegative RA Patient is a 64-year-old female with seronegative rheumatoid arthritis. Patient with ulnar deviation of bilateral hands. No evidence of active synovitis today on examination but there is synovial hypertrophy and RA deformities noted. Continue Humira. Plan - Humira 40mg SC every 2 weeks - RTC 4 months - Labs: CBC, CMP, ESR, CRP (2) Raynaud's disease: Comment: Positive SCL 70 Normal nailfold capillaries (checked 10/2024) Code(s): I73.00 - Raynaud's syndrome without gangrene Category: Medical Qualifiers: Raynaud?s-associated gangrene presence: without gangrene Qualified Code(s): I73.00 - Raynaud's syndrome without gangrene Plan: #Raynaud's disease with positive SCL 70 Patient with Raynaud's disease and a positive Scl 70 based on the most recent blood work. Nail fold capillaries normal today. Given her positive Scl 70 my concern is that there might be underlying scleroderma or overlap disease. Modified Rodnan skin score today is normal. CT chest normal. No concerning symptoms we will monitor with CT scan every 2-3 years Plan - Nifedipine 10mg bid (3) Nodule of skin of right upper extremity: Code(s): R22.31 - Localized swelling, mass and lump, right upper limb Plan: #Nodule of the right upper extremity Patient with pearly nodule noted on the right upper extremity. We will send to Dermatology to ensure it is not something sinister in the setting of Humira use (4) Encounter for monitoring of adalimumab therapy: Code(s): Z51.81 - Encounter for therapeutic drug level monitoring; Z79.620 - [facility] (current) use of immunosuppressive biologic Category: Medical Plan: #Long-term Use of TNF Inhibitors: Humira Discussed with the patient the benefits and risks of TNF inhibitors for the management of the rheumatic condition Benefits include reduce pain, maintenance of remission and reduction of flares as well as ?progression of the disease Risks include injection sites/infusion reactions, serious infections (such as bacterial infections, opportunistic infections), malignancy, delaminating syndromes, autoimmune phenomena, CHF exacerbations, palmar plantar psoriasis and cytopenias Recommended rotating injection sites, and holding medication during and for up to 1 week after resolution of a febrile illness or open skin wound Plan I spent 30 minutes reviewing the record and labs, taking a history, examining the patient, discussing the treatment plan and documenting in the medical record Orders: Orders Complete Blood Count Auto Diff 6 Months M06.00 - Rheumatoid arthritis without rheumatoid factor, unspecified site Erythrocyte Sedimentation Rate 6 Months M06.00 - Rheumatoid arthritis without rheumatoid factor, unspecified site Comprehensive Met. Panel 6 Months M06.00 - Rheumatoid arthritis without rheumatoid factor, unspecified site C Reactive Protein 6 Months M06.00 - Rheumatoid arthritis without rheumatoid factor, unspecified site Referrals Dermatology Referral R22.9 - Localized swelling, mass and lump, unspecified Medications: Refilled Humira(CF) Pen (adalimumab) 40 mg (0.4 mL) subcut Q2W 2 ea 5RF NS M06.00 - Rheumatoid arthritis without rheumatoid factor, unspecified site nifedipine 10 mg PO BID 180 caps 1RF I73.00 - Raynaud's syndrome without gangrene Coding Level of Care Code Est Pt Level 4 (39312) Complex EM visit Add On G2211 Diagnoses Seronegative rheumatoid arthritis M06.00 Raynaud's disease without gangrene I73.00 Raynaud?s-associated gangrene presence: without gangrene Nodule of skin of right upper extremity R22.31 Encounter for monitoring of adalimumab therapy Z51.81; Z79.620
[2025-03-08 11:37] VITALS: BP 102/70; PULSE 73; O2SAT 98; BMI 29.2
--- OUTSIDE RECORDS SUMMARY | 2025-03-08 13:24 | XMS_ITS | Data Portability ---
Author Organization [place] - [facility],, MISA FUNK MD Address [address] [address] Care Team Providers Care Interactive Graphic Designer Name Role Phone ANDREY CLARK OTHER Assessment [...] Go To The Location Of Their Choice, [id number] 08/09/2024 18:06:03 hemoglob in, gastroin testinal , stool 2023 024 [email or web address] 1 In-Office Order, Internal Use Only DO Not Attach Compendium DO Not Attach Compendium, Do Not Delete/merge, [id number] 08/03/2024 11:19:36 pap test, thinprep , cervical 2022 023 [facility] (Centralized Electronic Ordering - All Locations), Patient Can Go To The Location Of Their Choice, [id number] 08/03/2023 07:26:04 fecal occult blood, stool 2022 023 [email or web address] 1 In-Office Order, Internal Use Only DO Not Attach Compendium DO Not Attach Compendium, Do Not Delete/merge, [id number] 07/24/2023 09:26:50 pap test, thinprep , cervical 2021 022 [facility] (Centralized Electronic Ordering - All Locations), Patient Can Go To The Location Of Their Choice, [id number] 08/06/2022 07:34:27 fecal occult blood, stool 2021 022 [email or web address] 1 In-Office Order, Internal Use Only DO Not Attach Compendium DO Not Attach Compendium, Do Not Delete/merge, [id number] 07/23/2022 11:36:46 pap test, thinprep , cervical 2020 021 [facility], Cytopathology Service, [address] [place] [address], [address], 03/27/2021 07:27:54 fecal occult blood, stool 2020 021 [email or web address] In-Office Order, Internal Use Only DO Not Attach Compendium DO Not Attach Compendium, Do Not Delete/merge, [id number] 03/20/2021 10:56:46 pap test, thinprep , cervical 2018 019 [facility], Cytopathology Service, [address] [place] [address], [address], 04/13/2019 07:20:18 fecal occult blood, stool 2018 019 [facility] In-Office Order, Internal Use Only DO Not Attach Compendium DO Not Attach Compendium, Do Not Delete/merge, [id number] 04/13/2019 07:20:18 Referral None recorded . Procedures None recorded . Surgeries None recorded . Imaging MAMMO, screenin g, digital, bilatera l - Breast Aspirati on and/or Biopsy if needed 2023 024 tiffanie [facility] (Mammo), [address] [facility] [place], [address], 08/03/2024 11:39:20 MAMMO, screenin g, digital, bilatera l - Breast Aspirati on and/or Biopsy if needed 2022 023 [facility] [address] [place] [address] [place], [address], 07/18/2024 07:30:31 MAMMO, screenin g, digital, bilatera l 2021 022 [facility] (Mammography), [address] [place] [address], [address], 07/20/2023 07:36:55 MAMMO, screenin g, digital, bilatera l 2020 021 [facility] (Mammo), [address] [place], [address], 05/16/2021 08:41:23 MAMMO, screenin g, digital, bilatera l 2018 019 [facility] (Mammo), [address] [facility] [place], [address], 05/11/2019 11:14:50 Medication Orders estradio l 1 mg tablet 2023 024 [facility], [address] [place] [address], [address], 08/03/2024 11:19:40 progeste jadon microniz ed 200 mg capsule 2023 024 [facility], [address] [place] [address], [address], 08/03/2024 11:19:40 estradio l 1 mg tablet 2022 023 [facility], [address] [place], [address], 07/24/2023 09:26:54 progeste jadon microniz ed 200 mg capsule 2022 023 [facility], [address] [place], [address], 07/24/2023 09:26:54 estradio l 1 mg tablet 2021 022 [facility], [address] [place] [address], [address], 07/23/2022 11:36:50 progeste jadon microniz ed 200 mg capsule 2021 022 [facility], [address] [place] [address], [address], 07/23/2022 11:36:50 progeste jadon microniz ed 200 mg capsule 2020 021 [facility], [address] [place] [address], [address], 03/20/2021 10:25:05 estradio l 1 mg tablet 2020 021 [facility], [address] [place] [address], [address], 03/20/2021 10:25:06 estradio l 1 mg tablet 2018 019 INTERFACE [facility], [address] [place] [address], [id number], 04/06/2019 11:25:29 progeste jadon microniz ed 200 mg capsule 2018 019 INTERFACE [facility], [address] [place] [address], [id number], 04/06/2019 11:25:27 Patient TargetsNo targets recorded. Patient Instructions Encounter Date Encounter Id Patient Instructions Last Modified By Organization Details Last Modified Time 04/06/2019 [id number] She is here for annual exam, is [...] standardized exercise regimen, such as that at [employer], and she is given literature for this. We discussed a referral to a load out person and/or weight manager case management. All questions were answered. She [...] time postmenopausally. Not available 04/06/2019 11:41:44 03/20/2021 [id number] learning about healthy weight Not available 03/20/2021 [...] time postmenopausally. Not available 03/20/2021 10:25:43 07/23/2022 [id number] learning about healthy weight Not available 07/23/2022 [...] time postmenopausally. Not available 07/23/2022 11:37:06 07/24/2023 [id number] learning about healthy weight Not available 07/24/2023 [...] time postmenopausally. Not available 07/24/2023 09:27:22 08/03/2024 [id number] Flucelvax Quadrivalent Influenza Vaccine Prefilled Syringe 0.5 [...] DO Not Attach Compendium, Do Not Delete/merge, [id number] 04/06/2019 11:14:45 04/06/20 19 04/06/2019 pap, LB [id number] ThinP rep Pap, Image d: NEGAT AWAIS [...] NEG [Z12. 4, Z01.4 19] Not Available [facility], Cytopathology Service [address] [place], [address], 04/08/2019 18:04:59 03/20/20 21 03/20/2021 PAP1C ASE [id number] ThinP rep Pap, Image d: NEGAT AWAIS [...] neg, z12.4 , z01.4 19 Not Available [facility], Cytopathology Service [address] [place], [address], 03/22/2021 08:02:14 03/20/20 21 03/20/2021 fecal occul t blood , stool Occult Blood negati ve Not Available In-Office Order Internal Use Only DO Not Attach Compendium DO Not Attach Compendium, Do Not Delete/merge, [id number] 03/20/2021 09:42:27 07/23/20 22 07/23/2022 [facility] CYTOL OGY results Mattie nt Name: MOOK COLEMAN nt : 1959 (Age: 62) Lab Acces francesco #: [id number] Colle ction Date: 2021 Acces francesco Date: 2021 Sign Out Date: 08/01 Tissu e Sourc e: 1: THINP REP ELECTRICAL EQUIPMENT ASSEMBLER PAP TEST, CERVI JACKIE: Final Diagn osis: [...] fatima or lisa gallagher. Perfo rmed at [facility] ate Refer ence Labor atory depar tment of Cytol ogy, [address] [place] Clini jackie Histo ry (othe r): Z01.4 19, LPS 03/20 negat awais, routi ne scree n Phone #: [phone], On-Ca ll Patho logis t: [id number] Not Available [facility] (Centralized Electronic Ordering - All Locations) Patient Can Go To The Location Of Their Choice, [id number] 08/01/2022 08:34:40 07/23/20 22 07/23/2022 fecal occul t blood , stool Occult Blood negati ve Not Available In-Office Order Internal Use Only DO Not Attach Compendium DO Not Attach Compendium, Do Not Delete/merge, [id number] 07/23/2022 10:27:46 07/24/20 23 07/24/2023 [facility] CYTOL OGY results Mattie nt Name: MOOK COLEMAN nt : 1959 (Age: 63) Lab Acces francesco #: [id number] Colle ction Date: 2022 Acces francesco Date: 2022 Sign Out Date: 07/31 Tissu e Sourc e: 1: THINP REP ELECTRICAL EQUIPMENT ASSEMBLER PAP TEST, CERVI JACKIE: Final Diagn osis: [...] fatima or lisa w. Perfo rmed at [facility] ate Refer ence Labor atory depar tment of Cytol ogy, [address] [place] Clini jackie Histo ry (othe r): Z01.4 19, ROUTI NE SCREE N, LPS 07/23 NEG Phone #: [phone], On-Ca ll Patho logis t: [id number] Not Available [facility] (Centralized Electronic Ordering - All Locations) Patient Can Go To The Location Of Their Choice, [id number] 07/31/2023 16:48:50 07/24/20 23 07/24/2023 fecal occul t blood , stool Occult Blood negati ve Not Available In-Office Order Internal Use Only DO Not Attach Compendium DO Not Attach Compendium, Do Not Delete/merge, [id number] 07/24/2023 09:08:53 08/03/20 24 08/09/2024 IGP, RFX APTIM A HPV ASCU diagnosis: Commen t NEGAT AWAIS FOR INTRA EPITH ELIAL LESIO N OR MALIG VIVI . Not Available [facility] ([facility]) [address] [facility], [place], [address], 08/09/2024 18:06:03 08/03/20 24 08/09/2024 IGP, RFX APTIM A HPV ASCU specimen adequacy: Bryan watson Satis facto ry for evalu ation . Not Available [facility] ([facility]) [address] [place], [address], 08/09/2024 18:06:03 08/03/20 24 08/09/2024 IGP, RFX APTIM A HPV ASCU clinician provided ICD10: Bryan watson Z01.4 19 Not Available [facility] ([facility]) [address] [place], [address], 08/09/2024 18:06:03 08/03/20 24 08/09/2024 IGP, RFX APTIM A HPV ASCU performed by: Soo Quintana (ASCP ) Not Available [facility] ([facility]) [address] [place], [address], 08/09/2024 18:06:03 08/03/20 24 08/09/2024 IGP, RFX APTIM A HPV ASCU . . Not Available [facility] ([facility]) [address] [place], [address], 08/09/2024 18:06:03 08/03/20 24 08/09/2024 IGP, RFX [...] ts do occur . Not Available [facility] ([facility]) [address] [place], [address], 08/09/2024 18:06:03 08/03/20 24 08/09/2024 IGP, RFX APTIM A HPV ASCU test methodology: Commen t This liqui d based ThinP rep(R ) pap test was tonie joel with the use of an image guide oneal mayorga Not Available [facility] ([facility]) [address] [facility], [place], [address], 08/09/2024 18:06:03 08/03/20 24 08/09/2024 IGP, RFX APTIM A HPV ASCU . Commen t The HPV DNA refle x crite jodi were not met with this speci men resul t there fore, no HPV testi ng was perfo rmed. Not Available [facility] ([facility]) [address] [facility], [place], [address], 08/09/2024 18:06:03 08/03/20 24 08/03/2024 hemog lobin , gastr ointe gio l, stool Occult Blood negati ve Not Available In-Office Order Internal Use Only DO Not Attach Compendium DO Not Attach Compendium, Do Not Delete/merge, [id number] 08/03/2024 10:46:21 05/11/20 19 05/06/2019 MAMMO tonie vázquez, digit al, bilat eral No observ ation record ed. BARCODE [facility] ([facility]) [address] [place] [address] [place], [address], 05/11/2019 11:14:50 05/18/20 20 05/09/2020 MAMMO tonie, digit al, bilat eral No observ ation record ed. BARCODE Not Available 2019 08:31:17 05/16/20 21 05/15/2021 MAMMO tonie, digit al, bilat eral No observ ation record ed. [facility] (Mammo) [address] [place] [address] [place], [address], 05/16/2021 08:43:29 Result Notes None recorded. Problems Name Problem SNOMED Code Status Onset Date Resolution Date Notes Provider Name and Address Organization Details Recorded Time Premature menopause 437568867 Active age 42 Misa Fnuk MD [address] [facility] [address], [place], [address] , [place] - [facility], 5 10:18:40 Raynaud's disease 174821185 Active Not Available [facility] 3 03:01:05 Tobacco dependence syndrome 53981991 Active Not Available [facility] 3 03:01:05 Gout 33081402 Active 2016 Linwilfrid manjarrez [place] - [facility], 7 10:32:56 Rheumatoid arthritis 38888410 Active 2021 Lin manjarrez [place] - [facility], 2 10:31:17 Problem Notes None recorded. Procedures Surgical History Date Name Laterality Status Provider Name and Address Organization Details Recorded Time 05/15/20 24 Most Recent Mammogram completed Lin De La Torre [place] - [facility], 08/03/2024 09:57:51 03/27/20 21 procedure on foot completed Lin Dillonwchevy [place] - [facility], 07/23/2022 10:33:58 12/26/19 17 Other completed Lin Dillonwor [place] - [facility], 04/06/2019 11:13:59 09/21/18 83 Caesarean Section completed Lin De La Torre [place] - [facility], 10/13/2012 10:48:33 09/21/18 74 Appendectomy completed Lin Dillonwchevy [place] - [facility], 10/13/2012 10:48:33 Imaging Results None recorded. Procedure Notes None recorded. Medical Equipment None Reported. Allergies Allergen ID Allergen Name Allergen Category Reaction Reaction Severity Criticality Documentation Date Start Date Code Code System Note Provider Name and Address Organization Details Recorded Time 29379 hydroxych loroquine medicatio n hives Not available Not available 07/24/2023 5521 RxNorm Lin Dillonwchevy manjarrez [place] - [facility], 3 09:14:17 6281 Bactrim medicatio n rash Not available Not available 10/13/2012 22953 9 RxNorm Lin GriseldataraANA M valenzuela in [facility], 3 10:48:33 6282 Ceclor medicatio n rash Not available Not available 10/13/2012 35479 5 RxNorm Lin ANA M Dennis in [facility], 3 10:48:33 6283 Substance with sulfonami de structure and antibacte rial mechanism of action (substanc e) medicatio n rash Not available Not available 10/13/2012 88976 8003 SNOMED LinANA M Ayala in [facility], 3 10:48:33 6284 Product containin g penicilli n (product) medicatio n chest pain Not available Not available 10/13/2012 01038 8001 SNOMED Linwilfrid DillonANA M valenzuela in [facility], 3 10:48:33 Medications Name Sig Start [...] Not Available Not Available Not Available Fluvirin 6997-9031 45 mcg (15 mcg x 3)/0.5 mL [...] Updated DateTime 1 153.67 cm 27.3 kg/m2 72869.1 2 g 73 /min 138 mm[Hg] 89 mm[Hg] Monika Maldonado [place] - [facility], 1 09:45:42 Date Recorded Body weight Body mass index (BMI) Body height Heart rate Systolic blood pressure Diastolic blood pressure Provider Name and Address Organization Details Last Updated DateTime 9 11766.8 4 g 27.3 kg/m2 153.67 cm 82 /min 139 mm[Hg] 84 mm[Hg] Lin Hayden in [facility], 9 11:09:33 Date Recorded Body weight Body mass index (BMI) Body height Body temperature Heart rate Systolic blood pressure Diastolic blood pressure Provider Name and Address Organization Details Last Updated DateTime 2 43296.3 8 g 30.2 kg/m2 152.4 cm 98.1 [degF] 76 /min 111 mm[Hg] 72 mm[Hg] Lin Hayden in [facility], 2 10:29:40 Date Recorded Body weight Body mass index (BMI) Body height Body temperature Heart rate Systolic blood pressure Diastolic blood pressure Provider Name and Address Organization Details Last Updated DateTime 3 01279.1 7 g 28.1 kg/m2 156.21 cm 97.1 [degF] 77 /min 126 mm[Hg] 75 mm[Hg] Lin Hayden in [facility], 3 09:12:23 Date Recorded Body height Body mass index (BMI) Body weight Heart rate Body temperature Systolic blood pressure Diastolic blood pressure Provider Name and Address Organization Details Last Updated DateTime 4 152.4 cm 29.3 kg/m2 41997.5 7 g 78 /min 97.2 [degF] 132 mm[Hg] 80 mm[Hg] Lin Hayden in [facility], 4 09:53:51 Social History Question Answer Notes LastModified by Organizat ion Details LastModified Time Tobacco Smoking Status Former Smoker quit over 2 yrs ago Not Available [employer] 07/24/2020 03:19:37 How Many Years Have You Consumed Alcohol? 40 Information not available 07/23/2022 What Is Your Level Of Caffeine Consumption? Occasional [id number] Information not available 07/24/2020 In The 14 [...] For COVID-19? No Information not available 07/23/2022 What Type Of Diet Are You Following? REGULAR [id number] Information not available 07/24/2020 Which Illicit Or Recreational Drugs Have You Used? No [id number] Information not available 07/24/2020 Do You Reside In Or Have You Traveled To An Area Where Ebola Virus Transmission Is Active? No [id number] Information not available 07/24/2020 Education 10 Information no t available 10/13/2012 What Is The Highest Grade Or Level Of School You Have Completed Or The Highest Degree You Have Received? [id number] Information not available 07/23/2022 How Many Days [...] available 03/20/2021 Are You Sexually Active? Yes [id number] Information not available 07/24/2020 At What Age Did You Start Smoking Tobacco? 15 Information not available 07/23/2022 How Much Tobacco Do You Smoke? No [id number] Information not available 07/24/2020 General Stress Level Low Information not available 03/12/2016 How Many Years Have You Smoked Tobacco? 30 Information not available 07/23/2022 Have You Recently (within The Last 12 Weeks, Or During A Current ) Traveled To Or Lived In A Zika-affected Area? No Information not available 03/12/2016 How Many Days In The Past Year Have You Consumed 4 Or More Drinks? 1 Information no t available 07/23/2022 Sex: Female Functional Status Question Answer Note LastModified by Organizat ion Details LastModified Time Do you use any illicit or recreational drugs? No Information not available 07/23/2022 Do you or have you ever used any other forms of tobacco or nicotine? No Information not available 07/23/2022 What is your level of alcohol consumption? Occasional Information not available 07/23/2022 Do you or have you ever used smokeless tobacco? Never used smokeless tobacco Information not available 03/20/2021 Are you currently employed? 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 Never used electronic cigarettes Information not available 03/20/2021 What is your exercise level? Moderate [id number] Information not available 07/24/2020 Mental Status Question Answer Note LastModified by Organization D etails LastModified Time Do you feel stressed (tense, restless, nervous, or anxious, or unable to sleep at night)? [id number] Information not available 07/23/2022 Family History Relationship Description Onset Age of [...] Influenza, MDCK, trivalent, PF 4 completed Lin Meczywor null, [place] - [facility], 08/04/2024 07:45:25 COVID-19, mRNA, LNP-S, PF, 100 mcg/0.5mL dose or 50 mcg/0.25mL dose 1 completed Lin Meczywor null, [place] - [facility], 07/24/2023 09:11:02 COVID-19, mRNA, LNP-S, PF, 100 mcg/0.5mL dose or 50 mcg/0.25mL dose 1 completed Lin Meczywor null, [place] - [facility], 07/24/2023 09:11:02 Influenza, split virus, quadrivalent, preservative 9 completed Lin Meczywor null, [place] - [facility], 07/24/2023 09:11:02 Influenza, split virus, quadrivalent, preservative 6 completed Lin Meczywor null, [place] - [facility], 07/24/2023 09:11:02 COVID-19, mRNA, LNP-S, PF, 100 mcg/0.5mL dose or 50 mcg/0.25mL dose 1 completed Lin Meczywor null, [place] - [facility], 07/24/2023 09:11:02 influenza, unspecified formulation 3 completed Lin Meczywor null, [place] - [facility], 07/24/2023 09:11:02 Tdap 6 completed Lin Meczywor null, [place] - [facility], 07/24/2023 09:11:02 Influenza, split virus, trivalent, preservative 3 completed Lin Meczywor null, [place] - [facility], 07/24/2023 09:11:02 Influenza, split virus, quadrivalent, PF 1 completed Lin Meczywor null, [place] - [facility], 07/24/2023 09:11:02 Influenza, split virus, quadrivalent, PF 2 completed Lin Meczywor null, [place] - [facility], 07/24/2023 09:11:02 zoster recombinant 3 completed Iln Meczywor null, [place] - [facility], 08/03/2024 09:54:25 Influenza, split virus, quadrivalent, PF 3 completed Lin Meczywor null, [place] - [facility], 08/03/2024 09:54:25 Past Encounters Encounter ID Performer Location Encounter Start Date Encounter Closed Date Diagnosis/Indication Diagnosis SNOMED-CT Code Diagnosis ICD10 Code Diagnosis Note [id number] MD MISA Moeller MD [address] [place] [address],[address] [place] [address] 10/13/2012 10:26:40 10/14/2012 08:47:29 [id number] MD MISA Moeller MD [address] [place] [address],[address] [place] [address] 10/19/2013 10:01:08 10/19/2013 12:32:51 Specialized medical examination 30389726 Screening for malignant neoplasm of rectum 074616698 Screening mammography 59700635 [id number] MD MISA Moeller MD [address] [place] [address], [address] [place] [address] 03/07/2015 09:50:50 03/07/2015 11:16:06 Specialized medical examination 62323376 Screening for malignant neoplasm of rectum 552230968 Screening mammography 29406216 Premature menopause 389468115 [id number] MD MISA Moeller MD [address] [place] [address],[address] [place] [address] 03/12/2016 09:50:27 03/12/2016 11:26:00 Specialized medical examination 71170215 Z01.419 Screening for malignant neoplasm of rectum 734276937 Z12.12 Screening mammography 24 405726 Z12.31 Menopausal syndrome 1237 05524 N95.9 [id number] MD MISA Moeller MD [address] [place] [address],[place] [address] 03/18/2017 10:22:10 03/18/2017 11:59:19 Specialized medical examination 40292424 Z01.419 Screening for malignant neoplasm of rectum 280655983 Z12.12 Screening mammography 24 734331 Z12.31 Premature menopause 3737 38699 E28.319 [id number] MD MISA Moeller MD [address] [place] [address],[place] [address] 03/31/2018 10:53:30 03/31/2018 11:37:14 Specialized medical examination 06982349 Z01.419 Screening for malignant neoplasm of rectum 661269835 Z12.12 Screening mammography 24 896362 Z12.31 Premature menopause 3737 43159 E28.310 [id number] MD MISA Moeller MD [address] [place] [address],[address] [place] [address] 04/06/2019 10:44:21 04/06/2019 11:56:33 Premature menopause 552274477 E28.310 Specialize d medical examination 94596682 Z01.419 Screening for malignant neoplasm of rectum 464210934 Z12.12 Screening mammography 24 938217 Z12.31 [id number] MD MISA Moeller MD [address] [place] [address],[place] [address] 03/20/2021 09:39:06 03/20/2021 10:56:30 Specialized medical examination 98058791 Z01.419 Screening for malignant neoplasm of rectum 843061915 Z12.12 Screening mammography 24 338673 Z12.31 Premature menopause 3737 42173 E28.310 [id number] MD MISA Moeller MD [address] [place] [address], [address] [place] [address] 07/23/2022 10:25:16 07/23/2022 11:40:26 Specialized medical examination 61722900 Z01.419 Screening for malignant neoplasm of rectum 672000457 Z12.12 Screening mammography 24 376202 Z12.31 Premature menopause 3737 20568 E28.310 [id number] MD MISA Moeller MD [address] [place] [address], [address] [place] [address] 07/24/2023 09:05:23 07/24/2023 09:33:48 Specialized medical examination 64179895 Z01.419 Screening for malignant neoplasm of rectum 618983039 Z12.12 Screening mammography 24 523187 Z12.31 Premature menopause 3737 16842 E28.310 [id number] MD MISA Moeller MD [address] [place] [address], [address] [place] [address] 08/03/2024 09:49:22 08/03/2024 11:39:20 Premature menopause 897757356 E28.310 Influenza vaccine needed 3164939803 106 Z23 Specialize d medical examination 14100182 Z01.419 Screening for malignant neoplasm of rectum 080903222 Z12.12 Screening mammography 24 708455 Z12.31 Health Concerns Section Related Observation LastModified by Organization Detai ls LastModified Time None Recorded Concern Status LastModified by Organization Details LastModified Time None Recorded Advance Directives Directive None Recorded Payers Insurance Date Sequence Insurance Name Policy Number Policy Hoffmann Covered Member ID Hoffmann Member ID Guarantor Name 07/24/2023 2 KEN [id number] Julio César Coleman [id number] 8 Laz Coleman 08/03/2024 1 [facility] - LOCAL 371 (PPO) Laz Coleman [id number] Laz Coleman 08/03/2024 1 [place] [id number] 5 Laz Coleman [id number] Laz Coleman 08/03/2024 1 [place] [id number] 5 Laz Coleman [id number] Laz Coleman Notes Date Note Type [...] a few years ago. Misa Funk MD [address] [facility],[address], [place], [address], [place] - [facility], 04/06/2019 11:42:02 03/20/2021 text/html She is here for annual exam, doing well on HRT, now has three grandchildren! note from 2019: She is here for annual exam, is doing well on the HRT and elects to continue. She is going to become a grandmother in April! Misa Funk MD [address] [facility],[address], [place], [address], [place] - [facility], 03/20/2021 10:26:02 07/23/2022 text/html She is here for annual exam, doing well on HRT, now has three grandchildren!She had premature ovarian failure age 42. Misa Funk MD [address] [facility],[address], [place], [address], [place] - [facility], 07/23/2022 11:37:27 07/24/2023 text/html She is here for annual exam, doing well on HRT, now has three grandchildren!She had premature ovarian failure age 42. Misa Funk MD [address] [facility],[address], [place], [address], [place] - [facility] in [facility], 07/24/2023 09:27:56 08/03/2024 text/html She is here [...] how to do that. Misa Funk MD [address] [place] [address],[address], [place], [address], [place] - [facility] in [facility], 08/03/2024 11:20:55 OBGyn Episode No OBEpisode recorded.
== END 2025-03-08 12:36 | disposition home or self-care (01) ==
LOC: HO.RHE 11:28
PROVIDERS: PCP Internal Medicine; Visit Provider Student in an Organized Health Care Education/Training Program
DX: M06.00 Rheumatoid arthritis without rheumatoid factor, unspecified site (principal); I73.00 Raynaud's syndrome without gangrene; R22.31 Localized swelling, mass and lump, right upper limb; Z51.81 Encounter for therapeutic drug level monitoring; Z79.620 Long term (current) use of immunosuppressive biologic
CPT/HCPCS: 99214

== ENCOUNTER → 2025-03-08 11:28 | Outpatient (BNVA) | payer BC, SELFPAY | PROVIDERS: PCP Internal Medicine; Visit Provider Student in an Organized Health Care Education/Training Program ==

== ENCOUNTER 2025-05-31 09:34 | Outpatient (AMB) | payer BC, SELFPAY ==
[2025-05-31 09:51] VITALS: BP 118/82; PULSE 80; O2SAT 98; BMI 29.4
--- NOTE | 2025-05-31 09:51 | A.OFFPC_ITS ---
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 Required: No Accompanied by: Self / Same As Patient Allergies cefaclor (From CECLOR) Allergy (Intermediate, Verified 05/31/25 10:14) RASH cefuroxime (From CEFTIN) Allergy (Intermediate, Verified 05/31/25 10:14) RASH cephalexin (From KEFLEX) Allergy (Intermediate, Verified 05/31/25 10:14) RASH Penicillins (PENICILLINS) Allergy (Intermediate, Verified 05/31/25 10:14) SHORTNESS OF BREATH sulfamethoxazole (From BACTRIM) Allergy (Intermediate, Verified 05/31/25 10:14) RASH hydroxychloroquine Allergy (Mild, Verified 05/31/25 10:14) Rash Sulfa (Sulfonamide Antibiotics) Allergy (Unknown, Verified 05/31/25 10:14) hives,heart racing hydrocodone (From Vicodin) Allergy (Verified 05/31/25 10:14) Stomach Upset Medication List - Last Reconciled 05/31/25 by Wang Urbina MD adalimumab-atto (Amjevita(CF) Autoinjector) 40 mg (0.4 mL) subcut Q2W albuterol sulfate 90 mcg/actuation 2 puffs inhalation Q6H PRN 30 days NS allopurinol 100 mg PO DAILY calcium carbonate-vitamin D3 600 mg-12.5 mcg (500 unit) (Calcium with Vit D3) 1 cap PO DAILY clotrimazole 1% (Lotrimin AF (clotrimazole)) 1 appl topical BID estradiol 1 mg PO DAILY 90 days hydrocortisone 2.5% (Anusol-HC) 1 appl [place] BID-QID PRN 14 days lisinopril 5 mg PO DAILY 90 days lorazepam 1 mg PO BID PRN 30 days naproxen 500 mg (2 x 250 mg) PO BID PRN nifedipine 10 mg PO BID omeprazole 20 mg PO DAILY 90 days progesterone micronized 200 mg PO BEDTIME tramadol 50 mg PO TID PRN 30 days Tobacco use date assessed: 05/31/25 Fall risk assessment: No Falls in past year Last assessed Fall Risk: 05/31/25 Dental Screening Dental Screen Date: 05/31/25 Did you have a dental visit in the last 12 months?: Yes Did you have a dental problem in the last 6 months where you did not have access to dental care?: No Was dental information given to patient?: Patient has dentist HPI Raynaud's HPI Details Patient comes in today for her follow-up visit States that she feels okay She denies any headaches or dizziness Denies any chest pains, no increased shortness of breath No nausea/vomiting, no abdominal pain No change in bowel habits noted She has no follow-up labs done recently [facility] Medical History Encounter for monitoring of adalimumab therapy Benign essential hypertension Contracture of toe of right foot Ganglion cyst of right foot Primary osteoarthritis of hands, bilateral Overweight (BMI 25.0-29.9) Anxiety Insomnia Rheumatoid factor positive Vitamin D deficiency Migraine Menopausal symptoms Gout Raynaud's disease Osteoarthritis of knees, bilateral GERD (gastroesophageal reflux disease) Hypertension Surgical History S/P foot surgery, right S/P bunionectomy (~02/18/19) S/P bunionectomy (~12/25/16) History of bunionectomy of right great toe S/P foot surgery, left (~06/2016) Normal colonoscopy (~03/01/14) deliv NOS-unsp History of appendectomy Family History Father Diabetes Myocardial infarct Hx of CABG Mother No problems noted. 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 1. Little interest or pleasure in doing things: not at all 2. Feeling down, depressed, or hopeless: not at all 3. Trouble falling or staying asleep, or sleeping too much: not at all 4. Feeling tired or having little energy: not at all 5. Poor appetite or overeating: not at all 6. Feeling bad about yourself - or that you are a failure or have let yourself or your family down: not at all 7. Trouble concentrating on things, such as reading the newspaper or watching television: not at all 8. Moving or speaking so slowly that other people could have noticed. Or the opposite - being so fidgety or restless that you have been moving around a lot more than usual: not at all 9. Thoughts that you would be better off or of hurting yourself in some way: not at all Total score: 0 Depression Screening Interpretation: Negative Depression Screening Done: Yes 35614 - PHQ-9 Billing: Yes Source: Developed by Drs. Milad Yin, Kate Iyer, Aubrey Dempsey and colleagues, with an educational hernandez from [employer]. Thrive Questionnaire Date Thrive assessed: 05/31/25 I am a: Patient What is your living situation today?: I have a steady place to live Within the past 12 months, did the food you bought not last and you didn't have the money to get more?: Often true Within the past 12 months, did you worry whether your food would run out before you got money to buy more?: Never true Do you have trouble paying for medicines?: No Do you have trouble getting transportation to medical appointments?: No Do you have trouble paying your heating and electricity bill?: No Do you have trouble taking care of your child, family member or friend?: No Do you have trouble with day-to-day activities such as bathing, preparing meals, shopping, managing finances, etc.?: No Are you currently unemployed and looking for a job?: No Are you interested in more education?: No Please select the resources that you would like help with: None Currently or been in a relationship where the following occur: No concerns reported THRIVE Score: 1 AUDIT C Alcohol Use Questionnaire (AUDIT-C) 1. How often do you have a drink containing alcohol?: 2-3 times a week 2. How many drinks containing alcohol do you have on a typical day when you are drinking?: 1 or 2 3. How often do you have six or more drinks on one occasion?: Never Total Score: 3 Score Reviewed/Action Taken: Yes BRANDIE-7 AMB Questionnaire BRANDIE-7 Date BRANDIE - 7 assessed: 05/31/25 Feeling nervous, anxious, or on edge: 0 = Not at all Not being able to stop or control worryin = Not at all Worrying too much about different things: 0 = Not at all Trouble relaxin = Not at all Being so restless that it is hard to sit still: 0 = Not at all Becoming easily annoyed or irritable: 0 = Not at all Feeling afraid as if something awful might happen: 0 = Not at all Total BRANDIE-7 score (0-4 normal; 5-9 mild; 10-14 moderate; 15-21 severe): 0 Source: Developed by Drs. Milad Yin, Kate Iyer, Aubrey Dempsey and colleagues, with an educational hernandez from [employer]. Review of Systems Const Denies chills, Denies fatigue, Denies fever(s) and Denies headache(s) ENT Denies dysphagia, Denies dizziness, Denies otalgia, Denies headache(s), Denies neck pain, Denies odynophagia and Denies sore throat Card Denies chest pain, Denies palpitations and Reports dyspnea on exertion (mild, at times) Resp Denies chest congestion, Denies cough, Reports dyspnea on exertion (mild, at times) and Denies wheezing GI Denies abdominal pain, Denies constipation, Denies dysphagia, Denies heartburn, Denies diarrhea, Denies nausea, Denies odynophagia and Denies vomiting Denies difficulty voiding, Denies nocturia, Denies dysuria and Denies urinary urgency Musc Reports back pain (over the lower back), Reports arthralgias (but hand and knee pains have improved significantly with Rx), Denies neck pain, Reports numbness (in both hands at times) and Reports stiffness Skin/Breast Denies rash Neuro Denies dizziness, Denies headache(s) and Reports numbness (in both hands at times) Psych Denies anxiety Endo Denies fatigue and Denies palpitations Aller/Immun Denies wheezing Physical exam (Primary Care) Vital Signs: Last Vital Signs Pulse 80 05/31/25 09:51 BP 118/82 05/31/25 09:51 Pulse Ox 98 05/31/25 09:51 Oxygen Delivery Method Room Air 05/31/25 09:51 BMI result Body Mass Index 29.4 Tobacco/Smoking Status: Tobacco use Status Tobacco use date assessed 05/31/25 05/31/25 09:52 Patient Tobacco Use Status Former Tobacco user 05/31/25 09:52 Tobacco use type Cigarette 05/31/25 09:52 e-Cigarette/Vaping Use Never Used 05/31/25 09:52 PHQ-9: PHQ-9 Score PHQ-9: Total score 0 05/31/25 10:24 Depression Screening Interpretation: Negative Thrive Assessment: Date of Thrive Assessment Date Thrive assessed 05/31/25 05/31/25 09:52 Currently or been in a relationship where the following occur: No concerns reported Const General: no acute distress and alert HENMT Ears: TM's normal bilaterally and EAC's normal Throat: Yes posterior oropharynx normal and Yes tonsils normal (no TP congestion noted) Neck Neck: Yes supple and No lymphadenopathy Thyroid: Thyroid normal Resp Auscultation: clear to auscultation bilaterally, no rales and no wheezes Cardio Rate: regular rate Rhythm: regular rhythm Heart sounds: no murmurs GI Palpation (GI): Soft to palpation and nontender Auscultation: normal bowel sounds General: Yes no CVA tenderness Back/Spine/Pelvis Back: no CVA tenderness Thoracic/Lumbar Spine: paraspinal muscle tenderness on the right in the mid lumbar and in the lower lumbar and lumbar spinal tenderness Skin Rashes: no rashes Extrem General: Yes no clubbing, cyanosis or edema Right upper extremity: Extremity exam: right hand Details: tenderness (mild); no swelling Left upper extremity: hand Details: tenderness (mild) and swelling (mild) Location: of the dorsal hand Coding Level of Care Code Est Pt Level 4 (07129) Diagnoses Benign essential hypertension I10 Raynaud's disease without gangrene I73.00 Raynaud?s-associated gangrene presence: without gangrene Seronegative rheumatoid arthritis M06.00 Primary osteoarthritis of hands, bilateral M19.041; M19.042 Primary osteoarthritis of both knees M17.0 Osteoarthritis type: primary Elevated LFTs R79.89 Dupuytren's contracture of right hand M72.0 Migraine without status migrainosus, not intractable, unspecified migraine type G43.909 Intractability: not intractable Migraine type: unspecified Status migrainosus presence: without status migrainosus Gastroesophageal reflux disease without esophagitis K21.9 Esophagitis presence: without esophagitis Idiopathic gout, unspecified chronicity, unspecified site M10.00 Chronicity: unspecified Gout etiology: idiopathic Gout site: unspecified site Vitamin D deficiency E55.9 Acute right-sided low back pain without sciatica M54.50 Chronicity: acute Sciatica presence: without sciatica Primary insomnia F51.01 Insomnia type: primary Anxiety F41.9 Overweight (BMI 25.0-29.9) E66.3 Additional Codes PHQ-9 - 47327 - PHQ-9 Billing: Yes ([id number]) Assessment & Plan Assessment & Plan (1) Benign essential hypertension: Code(s): I10 - Essential (primary) hypertension Category: Medical Plan: Reinforced low sodium diet - goal is systolic BP of at least 120 to 130 mm or less Continue Lisinopril 5 mg QD She is also on Nifedipine (10 mg BID) for her Raynaud's symptoms but this helps with her BP as well (2) Raynaud's disease: Comment: Positive SCL 70 Normal nailfold capillaries (checked 10/2024) Code(s): I73.00 - Raynaud's syndrome without gangrene Category: Medical Qualifiers: Raynaud?s-associated gangrene presence: without gangrene Qualified Code(s): I73.00 - Raynaud's syndrome without gangrene Plan: Patient's Raynaud's symptoms remain stable/controlled on CCB - Nifedipine 10 mg BID She was experiencing frequent pain in both hands, mostly due to her OA,?but her symptoms have improved since she was started on Humira by rheumatology (3) Seronegative rheumatoid arthritis: Comment: borderline pos RF, then negative; some OA in the hands as well onset synovitis 2020; Rash with hydroxychloroquine so it was only used 07/12/ - 09/11. History of sulfa allergy. Methotrexate not used due to baseline LFT elevations. Humira approved 08/2022 effective Code(s): M06.00 - Rheumatoid arthritis without rheumatoid factor, unspecified site Category: Medical Plan: Continue Humira 40 mg SQ every 2 weeks Follow up with [facility] Rhe[facility] as scheduled (4) Primary osteoarthritis of hands, bilateral: Code(s): M19.041 - Primary osteoarthritis, right hand; M19.042 - Primary osteoarthritis, left hand Category: Medical Plan: Continue Naproxen 250 mg 1 to 2 tablets BID PRN with food (5) Osteoarthritis of knees, bilateral: Code(s): M17.0 - Bilateral primary osteoarthritis of knee Category: Medical Qualifiers: Osteoarthritis type: primary Qualified Code(s): M17.0 - Bilateral primary osteoarthritis of knee Plan: Continue Naproxen or Tramadol PRN May need to consider referral to orthopedics if her knee pains progress (6) Elevated LFTs: Code(s): R79.89 - Other specified abnormal findings of blood chemistry Category: Medical Plan: Patient's serum ALT is still slightly elevated on her most recent labs but her serum AST was normal Hepatitis profile was negative when checked a couple of years ago Abdominal US done in 2022 revealed only (+) hepatosteatosis with no other abnormalities noted Patient is again cautioned to avoid taking any Tylenol-containing Rx (states that she does not); reinforced also abstinence from alcohol (states that she does drink every now and then ) Will continue monitoring her LFTs regularly and recheck her labs in 4 months for follow up (7) Dupuytren's contracture of right hand: Code(s): M72.0 - Palmar fascial fibromatosis [Dupuytren] Category: Medical Plan: She has been advised that she will likely require surgical correction (fasciectomy) at some point to correct her hand contracture Patient feels that she is still doing okay for now and will call for orthopedics referral if she feels her hand symptoms are getting worse (8) Migraine: Code(s): G43.909 - Migraine, unspecified, not intractable, without status migrainosus Category: Medical Qualifiers: Intractability: not intractable Migraine type: unspecified Status migrainosus presence: without status migrainosus Qualified Code(s): G43.909 - Migraine, unspecified, not intractable, without status migrainosus Plan: Controlled - Nifedipine appears to be helping with her headaches as well (9) GERD (gastroesophageal reflux disease): Code(s): K21.9 - Gastro-esophageal reflux disease without esophagitis Category: Medical Qualifiers: Esophagitis presence: without esophagitis Qualified Code(s): K21.9 - Gastro-esophageal reflux disease without esophagitis Plan: Dietary restrictions reinforced Continue Omeprazole 20 mg QD PRN (10) Gout: Code(s): M10.9 - Gout, unspecified Category: Medical Qualifiers: Chronicity: unspecified Gout etiology: idiopathic Gout site: unspecified site Qualified Code(s): M10.00 - Idiopathic gout, unspecified site Plan: Controlled with no acute gout flare ups lately Reinforced low purine diet Her serum uric acid level was normal on her recent labs (11) Vitamin D deficiency: Code(s): E55.9 - Vitamin D deficiency, unspecified Category: Medical Plan: Continue OTC Vitamin D and Calcium supplements daily (12) Right low back pain: Code(s): M54.50 - Low back pain, unspecified Category: Medical Qualifiers: Chronicity: acute Sciatica presence: without sciatica Qualified Code(s): M54.50 - Low back pain, unspecified Plan: X-rays of the lumbar spine and right hip done a few months ago revealed (+) rotatory dextroconvex scoliosis with moderate multilevel degenerative disc disease and slight L5-S1 anterolisthesis with prominent facet arthropathy There is (+) mild osteoarthritis noted in the right hip Reinforced activity and weight-lifting restrictions to minimize aggravating her low back pain and right hip pain (13) Insomnia: Code(s): G47.00 - Insomnia, unspecified Category: Medical Qualifiers: Insomnia type: primary Qualified Code(s): F51.01 - Primary insomnia Plan: Sleep hygiene reinforced Patient states that taking Lorazepam at bedtime helps when needed (14) Anxiety: Code(s): F41.9 - Anxiety disorder, unspecified Category: Medical Plan: Continue Lorazepam 1 mg BID PRN (15) Overweight (BMI 25.0-29.9): Code(s): E66.3 - Overweight Category: Medical Plan: Reinforced diet/exercise as tolerated/lose weight Plan Follow-up in 4 months Orders: Orders Complete Blood Count Auto Diff 4 Months D64.9 - Anemia, unspecified TSH reflex Free T4 4 Months E78.00 - Pure hypercholesterolemia, unspecified UA CC w/rflx Micro + Cult 4 Months R30.0 - Dysuria Vitamin D 25-OH Total 4 Months E55.9 - Vitamin D deficiency, unspecified Comprehensive Brethren. Panel Fast 4 Months E78.00 - Pure hypercholesterolemia, unspecified Lipid Panel 4 Months E78.00 - Pure hypercholesterolemia, unspecified
--- OUTSIDE RECORDS SUMMARY | 2025-05-31 11:28 | XMS_ITS | Encounter Summary ---
Author Organization [facility] Address [address] [place] [phone] Phone Care Team Providers Care Transportation Assistant Name Role Phone Wang Urbina MD Primary Care Provider [phone] Reason for Referral * Physical Therapy (Routine) - Closed Specialty Diagnoses / Procedures Referred By Contac t Referred To Contact Physical Therapy Diagnoses Encounter for rehabilitation System, Provider Not In, PhD [address] [address] Phone: tel: Referral ID Status Reason Start Date Expiration Date Visits Re quested Visits Authorized [id number] Closed 05/02/2019 07/01/2019 16 16 Encounter Details Date Type Department Care Team (Latest Contact Info) Description 04/14/2019 Transcribe Orders [facility] [address] [place] [id number] Wang Urbina MD [address] [place] [address] [place] [id number] Encounter for rehabilitation (Primary Dx) Social History Tobacco Use Types Packs/Day Years Used Date Smoking Tobacco: Never Assessed Comments Unknown Sex and Gender Information Value Date Recorded Sex Assigned at Not on file Legal Sex Female 9:47 PM EDT Gender Identity Not on file Sexual Orientation Not on file documented as of this encounter Plan of Treatment Scheduled Referrals Name Type Priority Associated Diagnoses Orde r Schedule Ambulatory referral to [facility] Physical Therapy Outpatient Referral Routine Encounter for rehabilitation Ordered: 04/14/2019 documented as of this encounter Visit Diagnoses Diagnosis Encounter for rehabilitation- Primary documented in this encounter Care Teams Transportation Assistant Relationship Specialty Start Date End Date Wang Urbina MD [address] [place] [address] Dr [place] [address] [place] [address], [place] [address] PCP - General Internal Medicine 04/14/19 documented as of this encounter Additional Source Comments The information contained in this document represents components of the legal health record. It is not the complete legal health record.[facility]
--- OUTSIDE RECORDS SUMMARY | 2025-05-31 11:29 | XMS_ITS | Patient Health Record ---
Author Organization [facility] [place] Address [address] [place] [address] Care Team Providers Care Highway Landscape Architect Name Role Phone Carlitos TARIQ [place] Primary Care Provider Allison Dos Santos Unavailable [phone] Allergies Allergen (clinical drug ingredient) Drug/Non Drug Allergy documented on EMR Reaction Allergy Type Onset Date Status amoxicillin Amoxicillin rash Drug Allergy Act britt sulfamethoxazole / trimethoprim Bactrim rash Drug Allergy Active cefaclor Cefaclor rash Drug Allergy Active Ceftin rash Drug Allergy Active Keflex rash Drug Allergy Active Vicodin severe Diahrrea Drug Allergy Active Penicillin rash Drug Allergy 03/16/2019 Activ e Reason For Referral No Information Medications Medication SIG (Take, Route, Frequency, Duration) Notes Start Date End Date Status Shoes . . . Medically necessary to wear comfortable shoes at work-unable to wear non slip shoes or overshoes due to previous foot surgery; Duration: as needed 06/02/2018 Not-Taking Custom Orthotics as directed 06/30/2018 Not-Taking Work Note . . . Patient having surgery March 21 and will be out of work for 4 weeks 03/15/2021 Active Doxycycline Hyclate 100 MG 1 capsule Ora lly Twice a day; Duration: 5 days 03/16/2019 Not-Taking Feldene 20 MG 1 capsule with food Orally Once a day; Duration: 30 day(s) 05/21/2021 Active Work Note . . . Patient off of work until May 28 2021 while recovering from foot surgery right Active Percocet 5-325 MG 1 tablet as needed Orally every 4-6 hrs; Duration: as needed 01/26/2019 Not-Taking Ibuprofen 800 MG 1 tablet Orally Thre e times a day; Duration: 30 day(s) 03/08/2021 Not-Taking Physical Therapy . . . 2-3x/week; Duration: 3-4 weeks 03/03/2017 Not-Taking Work Note . . [...] 1 tablet Orally Thre e times a day; Duration: 30 day(s) 12/03/2016 Not-Taking Ibuprofen 800 MG 1 tablet with food o r milk as needed Orally Three times a day; Duration: 7 days 11/14/2020 Not-Taking Work Note . . . Scheduled for surgery on 12/25/16 with anticipated recover about 10 weeks 12/03/2016 Not-Taking oxyCODONE HCl 5 MG 1 tablet as needed Orally every 4-6 hrs; Duration: 2 days 11/14/2020 Not-Taking Vitamin D Not-Taking Colchicine 0.6 MG as directed Orally; Duration: as needed 07/26/2015 Not-Taking Vicodin 5-300 MG 1 tablet as needed Orally every 6 hrs; Duration: as needed 07/26/2015 Not-Taking Walking Boot/Pneumatic As directed Wear Daily; Duration: Until further notice 03/09/2019 Not-Taking Percocet 5-325 MG 1-2 tablet as needed Orally every 4-6 hrs 06/19/2015 Not-Taking Ibuprofen 800 MG 1 tablet Orally Thre e times a day; Duration: 30 days 01/26/2019 Not-Taking Vicodin 5-300 MG 1-2 tablets as neede d Orally every 4-6 hrs; Duration: as needed 07/11/2015 Not-Taking Physical Therapy . . . 2-3x/week; Duration: 3-4 weeks 04/13/2019 Not-Taking Doxycycline Hyclate 100 MG 1 capsule Ora lly Twice a day; Duration: 5 days 01/07/2017 Not-Taking Bone Stimulator as [...] . 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 Not-Taking LORazepam 1 MG Orally Activ e Neurontin 300 MG 1 capsule Orally Onc e a day at night; Duration: 30 day(s) 01/26/2019 Not-Taking Lisinopril 5 MG [...] Status W/U Status Risk Notes Problem Gout (49534874) Gout, unspecified (M10.9) Active confirmed Problem Acquired hallux valgus (12284204) Hallux valgus (acquired), right foot (M20.11) Active confirmed Problem Contracture of joint of right foot (disorder) (960661104736664 ) Contracture, right foot (M24.574) Active confirmed Problem Acquired hammer toe of right foot (994985509173812 5) Hammer toe of right foot (M20.41) Active confirmed Problem Vitamin D deficiency (63303042) Vitamin D deficiency (E55.9) Active confirmed Plan Of Treatment Pending Test Test Name Order Date Ultrasound : Extremity Ultrasound Non-Va al 10/03/2020 X ray : Foot, left 3V [...] 10/05/2019 X ray : Foot, right 3V 02/03/2020, J0702- INJECT or DRAIN, JOINT/BUR SA 07/27/2019, [id number]/INJECT, JOINT/BURSA 0 05/09/2015, [id number]/INJECT, JOINT/BURSA 1 10/26/2017, W0406-BQMGB/INJECT, JOINT/BURSA 0 06/02/2018, [id number]/INJECT, JOINT/BURSA 0 11/19/2016 32069- Unna Boot 03/09/2019 PARATHYROID HORMONE INTACT (PTHI) 2018 VITAMIN D 25-OH (D2 D3) 06/28/2019 CT FOOT RT W&WO CONTRAST 06/28/2019 Insurance Providers Payer Name Payer Address Payer Phone Subscriber Number Group Number Insured Name Patient Relationship to Insured Coverage Start Date Coverage End Date Jordan [facility] [address] [place] [address] [phone] [id number] Laz Coleman Self - patient is the insured Medical [...]
--- OUTSIDE RECORDS SUMMARY | 2025-05-31 11:29 | XMS_ITS | Clinical Summary ---
Author Organization [facility] Address [address] [place] [address] Phone Care Team Providers Care Tank Tester Name Role Phone Wang Urbina MD Primary Care Provider [phone] Social History Tobacco Use Types Packs/Day Years Used Date Smoking Tobacco: Never Assessed Education Answer Date Recorded Are you interested in more education? Not on gabriella e 01/16/2023 Are you concerned about learning? Not on file 01/16/2023 No 01/16/2023 No 01/16/2023 Digital Access Answer Date Recorded No 02/14/2023 No 02/14/2023 No 02/14/2023 Reliable internet access at home? Not on file 02/14/2023 Device with a working camera? Not on file Comments Unknown Sex and Gender Information Value Date Recorded Sex Assigned at Not on file Legal Sex Female 9:47 PM EDT Gender Identity Not on file Sexual Orientation Not on file Plan of Treatment Health Maintenance Due Date Last Done Comments LIPID PANEL 1961 DEPRESSION SCREENING 1973 SMOKING Hx and SMOKELESS TOBACCO SCREENING 1974 HEPATITIS C SCREENING 1979 HIV ONE-TIME SCREENING (18-6 5 YEARS) 1979 PAP SMEAR 1982 MAMMOGRAM 2001 COLOGUARD 2006 COLONOSCOPY 2006 COLORECTAL CANCER SCREENING 2006 FIT TEST 2006 FOBT 2006 SIGMOIDOSCOPY 2006 VIRTUAL COLONOSCOPY 2006 PNEUMOCOCCAL VACCINES (50+ years) (1 of 1 - PCV) 2011 ZOSTER VACCINES (1 of 2) 2011 INFLUENZA VACCINE (#1) 2025 9, 06/18/2016 COVID-19 VACCINE (3 - 2024-2 6 season) 2025 12/14/2020, 11/16/2020 Adult Td,Tdap Booster 06/18/2026 06/18/2016 RSV VACCINE (1 - 1-dose 75+ series) 2036 HEPATITIS A VACCINES Aged Out No long er eligible based on patient's age to complete this topic HIB VACCINES Aged Out No longer eligi ble based on patient's age to complete this topic MENINGOCOCCAL VACCINES (ACWY) Aged Out No longer eligible based on patient's age to complete this topic MENINGOCOCCAL VACCINES (B) Aged Out N o longer eligible based on patient's age to complete this topic Medical Devices Not on file [place] [address] [place] [address] PPO BLUE CROSS OUT OF STATE PPO BLUE CROSS OUT OF STATE PPO BLUE CROSS OUT OF STATE PPO BLUE CROSS OUT OF STATE PPO BLUE CROSS OUT OF [place] [address] [place] [address] CROSS OUT OF STATE PPO [facility] PPO Care Teams Tank Tester Relationship Specialty Start Date End Date Wang Urbina MD [address] [place] [address] PCP - General Internal Medicine 04/14/19 Additional Source Comments The information contained in this document represents components of the legal health record. It is not the complete legal health record.[facility]
== END 2025-05-31 10:31 | disposition home or self-care (01) ==
LOC: HO.HMCH 09:38
PROVIDERS: PCP Internal Medicine; Visit Provider Internal Medicine
DX: I10 Essential (primary) hypertension (principal); I73.00 Raynaud's syndrome without gangrene; M06.00 Rheumatoid arthritis without rheumatoid factor, unspecified site; M19.041 Primary osteoarthritis, right hand; M19.042 Primary osteoarthritis, left hand; M17.0 Bilateral primary osteoarthritis of knee; R79.89 Other specified abnormal findings of blood chemistry; M72.0 Palmar fascial fibromatosis [Dupuytren]; G43.909 Migraine, unspecified, not intractable, without status migrainosus; K21.9 Gastro-esophageal reflux disease without esophagitis; M10.00 Idiopathic gout, unspecified site; E55.9 Vitamin D deficiency, unspecified; M54.50 Low back pain, unspecified; F51.01 Primary insomnia; F41.9 Anxiety disorder, unspecified; E66.3 Overweight

== ENCOUNTER → 2025-05-31 09:34 | Outpatient (BNVA) | payer BC, SELFPAY | PROVIDERS: PCP Internal Medicine; Visit Provider Internal Medicine | DX: I10 Essential (primary) hypertension (principal); I73.00 Raynaud's syndrome without gangrene; M06.00 Rheumatoid arthritis without rheumatoid factor, unspecified site; M19.041 Primary osteoarthritis, right hand; M19.042 Primary osteoarthritis, left hand; M17.0 Bilateral primary osteoarthritis of knee; R79.89 Other specified abnormal findings of blood chemistry; M72.0 Palmar fascial fibromatosis [Dupuytren]; G43.909 Migraine, unspecified, not intractable, without status migrainosus; K21.9 Gastro-esophageal reflux disease without esophagitis; M10.00 Idiopathic gout, unspecified site; E55.9 Vitamin D deficiency, unspecified; M54.50 Low back pain, unspecified; F51.01 Primary insomnia; F41.9 Anxiety disorder, unspecified; E66.3 Overweight; Z68.29 Body mass index [BMI] 29.0-29.9, adult; Z79.620 Long term (current) use of immunosuppressive biologic; Z79.899 Other long term (current) drug therapy; Z13.31 Encounter for screening for depression; Z13.39 Encounter for screening examination for other mental health and behavioral disorders | CPT/HCPCS: 96127 ==

== ENCOUNTER 2025-06-28 08:59 | Outpatient (REF) | payer BC, SELFPAY | END 2025-06-28 09:00 | disposition home or self-care (01) | LOC: HO.MAMMO 08:59 | PROVIDERS: PCP Internal Medicine; Visit Provider Internal Medicine | DX: Z12.31 Encounter for screening mammogram for malignant neoplasm of breast (principal) | CPT/HCPCS: 77063; 77067 ==

== ENCOUNTER → 2025-06-28 09:15 | Outpatient (BNV) | payer BC, SELFPAY | PROVIDERS: PCP Internal Medicine; Visit Provider Internal Medicine | DX: Z12.31 Encounter for screening mammogram for malignant neoplasm of breast (principal) | CPT/HCPCS: 77063; 77067 ==

== ENCOUNTER 2025-06-29 08:53 | Outpatient (REF) | payer BC, SELFPAY ==
[2025-06-29 09:05] LABS: MANUAL DIFF FLAG NO
[2025-06-29 09:41] LABS: Hematocrit 43.0 % (37.0-47.0); Hemoglobin 15.0 g/dl (12.0-16.0); Imm Gran Abs Auto 0.02 X10*3/uL (0.00-0.03); Imm Gran Pct Auto 0.3 % (0.0-0.4); Lymphocytes Absolute Auto 2.0 X10*3/uL (1.2-4.9); Mean Corpuscular HGB Conc 34.9 g/dl (31.0-35.0); Mean Corpuscular Hemoglobin 33.8 pg (27.0-33.0); Mean Corpuscular Volume 96.8 fL (80.0-98.0); NRBC Abs Auto 0.000 X10*3/uL (0.0-0.012); NRBC Pct Auto 0.0 /100WBC (0.0-0.2); Platelet Count 273 X10*3/uL (160-400); Red Blood Count 4.44 X10*6/uL (4.20-5.50); White Blood Count 6.8 X10*3/uL (4.8-10.8)
[2025-06-29 10:10] LABS: Uric Acid 6.2 mg/dL (2.4-5.7)
[2025-06-29 10:11] LABS: Alanine Aminotransferase 51 U/L (0-31); Albumin Level 4.3 g/dL (3.5-5.0); Alkaline Phosphatase 77 U/L (39-117); Anion Gap 9 (12-20); Aspartate Amino Transferase 48 U/L (5-31); Blood Urea Nitrogen 9 mg/dL (9-16); Calcium 9.4 mg/dL (8.4-10.2); Carbon Dioxide 30 mmol/L (22-29); Chloride 106 mmol/L (96-108); Cholesterol 124 mg/dL (<200); Estimated Glomerular Filt Rate > 60; HDL Cholesterol 34 mg/dL (>40); Potassium 4.8 mmol/L (3.3-5.1); Sodium 140 mmol/L (135-145); Total Protein 7.9 g/dL (6.5-8.0); Triglycerides 94 mg/dL (<150)
== END 2025-06-29 08:54 | disposition home or self-care (01) ==
LOC: HO.LAB 08:53
PROVIDERS: Absent Provider Student in an Organized Health Care Education/Training Program; PCP Internal Medicine; Visit Provider Internal Medicine
DX: M06.00 Rheumatoid arthritis without rheumatoid factor, unspecified site (principal); E78.00 Pure hypercholesterolemia, unspecified; M10.9 Gout, unspecified; D64.9 Anemia, unspecified
CPT/HCPCS: 36415; 80053; 80061; 84550; 85025; 85652; 86140

== ENCOUNTER 2025-08-08 13:09 | Outpatient (AMB) | payer BC, SELFPAY ==
--- NOTE | 2025-08-08 13:23 | A.OFFVIS_ITS ---
Vital Signs 3 08/08/25 13:31 Height 5 ft 1 in Weight 154 lb 12.232 oz BMI 29.2 BP 122/74 Blood Pressure Location Lt brachial Position Sitting Pulse 78 Pulse Source Pulse Oximeter Pulse Oximetry (%) 98 Oxygen Delivery Method Room Air Intake Visit Reasons: blisters on bilateral hands/ MD urgent req Intake Note: Patient presents for blisters on bilateral hands follow up. Allergies cefaclor (From CECLOR) Allergy (Intermediate, Verified 08/08/25 13:29) RASH cefuroxime (From CEFTIN) Allergy (Intermediate, Verified 08/08/25 13:29) RASH cephalexin (From KEFLEX) Allergy (Intermediate, Verified 08/08/25 13:29) RASH Penicillins (PENICILLINS) Allergy (Intermediate, Verified 08/08/25 13:29) SHORTNESS OF BREATH sulfamethoxazole (From BACTRIM) Allergy (Intermediate, Verified 08/08/25 13:29) RASH hydroxychloroquine Allergy (Mild, Verified 08/08/25 13:29) Rash Sulfa (Sulfonamide Antibiotics) Allergy (Unknown, Verified 08/08/25 13:29) hives,heart racing hydrocodone (From Vicodin) Allergy (Verified 08/08/25 13:29) Stomach Upset HPI Comments Details: Patient is a 65-year-old female current everyday smoker with hypertension, Raynaud's, polyarticular osteoarthritis and seropositive rheumatoid arthritis here today for follow up Interval History: Patient last seen 03/08/2025 with me. - Humira 40mg SC every 2 weeks and nifedipine 10mg bid - Stable no flare-ups since the last visit - Nodule on right upper arm, referred to nodule Today, - Humira 40mg SC every 2 weeks and nifedipine 10mg bid - Urgent visit for worsening blisters on her hands - Fluid filled blisters that rupture and become sores - Going on for 6 months - year, but noticing larger bullae 5 days ago. Did not mention them previously because she thought the sores were due to thin skin and excoriations - Associated with pruritus - No worsening joint sx Rheumatologic History: Seropositive rheumatoid arthritis borderline pos RF, then negative; some OA in the hands as well onset synovitis 2020; Rash with hydroxychloroquine so it was only used 07/12/ - 09/11. History of sulfa allergy. Methotrexate not used due to baseline LFT elevations. Humira approved 08/2022 effective Scl 70 positive without evidence of scleroderma. ?overlap Current Rheumatology Medication(s): Humira 40 mg subcu every other week Nifedipine 10 mg b.i.d. [facility] Medical History Encounter for monitoring of adalimumab therapy Benign essential hypertension Contracture of toe of right foot Ganglion cyst of right foot Primary osteoarthritis of hands, bilateral Overweight (BMI 25.0-29.9) Anxiety Insomnia Rheumatoid factor positive Vitamin D deficiency Migraine Menopausal symptoms Gout Raynaud's disease Osteoarthritis of knees, bilateral GERD (gastroesophageal reflux disease) Hypertension Surgical History S/P foot surgery, right S/P bunionectomy (~02/18/19) S/P bunionectomy (~12/25/16) History of bunionectomy of right great toe S/P foot surgery, left (~06/2016) Normal colonoscopy (~03/01/14) deliv NOS-unsp History of appendectomy Family History Father Diabetes Myocardial infarct Hx of CABG Mother No problems noted. 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 [email or web address] Cognitive needs: No Hearing needs: No Vision needs: Yes Review of Systems Narrative Review of Systems Constitutional: Denies fever, chills, weight loss ENT: Denies vision changes, eye pain or eye redness, dental caries, dry mouth GI: Denies nausea, vomiting, diarrhea, abdominal pain, change in BM Pulm: Denies SOB, MONTEZ, hemoptysis, wheezing Cards: Denies chest pain, palpitations Skin: Denies Raynaud's, rash, nail changes, photosensitivity, AUTOMATIC ENGRAVER: Denies headaches, weakness, paresthesias, recurrent falls MSK: as per HPI All other systems reviewed and are unremarkable except noted above Physical Exam Exam Exam: Vital signs reviewed Physical Examination CONSTITUITIONAL Patient alert and cooperative. Well appearing and in no apparent painful distress MSK Hands * Right Hand: Able to make a fist. No swelling or tenderness to palpation of the MCPs, PIPs or DIPs. * Left Hand: Able to make a fist. No swelling or tenderness to palpation of the MCPs, PIPs or DIPs. * Bilateral reducible ulnar deviations * Synovial hypertrophy to 2nd - 5th MCPs bilaterally * Hands are cold and purple Wrists * Right Wrist: Full ROM to flexion and extension. No swelling or TTP * Left Wrist: Full ROM to flexion and extension. No swelling or TTP Elbows * Right Elbow: Full ROM. No swelling or TTP. No TTP of the medial epicondyle. No TTP of the lateral epicondyle * Left Elbow: Full ROM. No swelling or TTP. No TTP of the medial epicondyle. No TTP of the lateral epicondyle Shoulders * Right shoulder: Full ROM. No swelling noted. No TTP of the AC joint. No TTP of the subacromial bursa. No TTP of the posterior shoulder * Left shoulder: Full ROM. No swelling noted. No TTP of the AC joint. No TTP of the subacromial bursa. No TTP of the posterior shoulder Knees * Right knee: Full ROM. No swelling noted. No TTP of the knee joint line. No TTP of pes anserine bursa * Left knee: Full ROM. No swelling noted. No TTP of the knee joint line. No TTP of pes anserine bursa. * Crepitations felt bilaterally Ankles * Right ankle: Good ankle dorsiflexion and plantar flexion. No swelling. No TTP of the ankle joint * Left ankle: Good ankle dorsiflexion and plantar flexion. No swelling. No TTP of the ankle joint Feet * Right foot: Negative squeeze test * Left foot: Negative squeeze test Tender points? * No tenderness to palpation of the bilateral trapezius, supraspinatus, anterior costochondral junctions, bilateral suboccipital muscle insertions SKIN No bullae seen but ruptured bullae noted on dorsum of the left hand Results Reviewed Results Reviewed: Laboratory Tests 01/09/25 06/29/25 08:41 09:03 WBC 6.8 RBC 4.44 Hgb 15.0 Hct 43.0 Plt Count 273 ESR 9 Sodium 140 Potassium 4.8 Chloride 106 Carbon Dioxide 30 H BUN 9 Creatinine 0.73 Uric Acid 5.6 6.2 H AST 31 48 H ALT 39 H 51 H C-Reactive Protein 0.65 H 0.37 Laboratory Tests 10/29/21 03/10/22 07/14/23 10:22 15:14 09:25 Rheumatoid Factor 16.6 H < 13.0 Cycl Citrul Peptide IgG <16 PHILL Screen PHILL Titer U1 snRNA A Antibody U1 snRNA C Antibody U1 snRNA 70kD Antibody Scl-70 Scleroderma Ab A-PM Scleroderma 75 Ab A-PM Scleroderma 100 Ab Th/To HEALTH AND SAFETY REPRESENTATIVE Ab U3-HEALTH AND SAFETY REPRESENTATIVE (Fibrillarin) Ab RNA Polymerase III RP11 Ab RNA Polymerase III RP155 Ab Centromere B Antibody Centromere Protein A Ab 09/05/24 01/09/25 09:20 08:41 Rheumatoid Factor Cycl Citrul Peptide IgG PHILL Screen POSITIVE A PHILL Titer 1:80 H U1 snRNA A Antibody <11 U1 snRNA C Antibody <11 U1 snRNA 70kD Antibody <11 Scl-70 Scleroderma Ab 35 H A-PM Scleroderma 75 Ab <11 A-PM Scleroderma 100 Ab <11 Th/To HEALTH AND SAFETY REPRESENTATIVE Ab <11 U3-HEALTH AND SAFETY REPRESENTATIVE (Fibrillarin) Ab <11 RNA Polymerase III RP11 Ab <11 RNA Polymerase III RP155 Ab <11 Centromere B Antibody <11 Centromere Protein A Ab <11 Assessment & Plan Assessment & Plan (1) Bullae: Code(s): R23.8 - Other skin changes Plan: #Bullae Patient is a 65-year-old female with seropositive erosive rheumatoid arthritis on Humira here today for urgent visit for bullae that are rupturing and revealing a shallow ulcer base. This is concerning for a very rare side effect of Humira which can cause a bullous pemphigoid like rash. We will need to send to Dermatology urgent for a biopsy Plan - Dermatology referral, needs a biopsy Plan I spent 30 minutes reviewing the record and labs, taking a history, examining the patient, discussing the treatment plan,and documenting in the medical record Coding Level of Care Code Est Pt Level 3 (65039) Complex EM visit Add On G2211 Diagnoses Bullae R23.8
[2025-08-08 13:31] VITALS: BP 122/74; PULSE 78; O2SAT 98; BMI 29.2
--- OUTSIDE RECORDS SUMMARY | 2025-08-09 05:17 | XMS_ITS | Encounter Summary ---
Author Organization [facility] Address [address] [place] [id number] Phone Care Team Providers Care Rn First Assist Name Role Phone Wang Urbina MD Primary Care Provider [phone] Reason for Referral * Physical Therapy (Routine) - Closed Specialty Diagnoses / Procedures Referred By Contac t Referred To Contact Physical Therapy Diagnoses Encounter for rehabilitation System, Provider Not In, PhD [address] [address] Phone: tel: Referral ID Status Reason Start Date Expiration Date Visits Re quested Visits Authorized [id number] Closed 05/02/2019 07/01/2019 16 16 Encounter Details Date Type Department Care Team (Latest Contact Info) Description 04/14/2019 Transcribe Orders [facility] [address] [place] [id number] Wang Urbina MD [address] [place] [address] [place] [address] Encounter for rehabilitation (Primary Dx) Social History [...] Diagnoses Orde r Schedule Ambulatory referral to [facility] Physical Therapy Outpatient Referral Routine Encounter for rehabilitation Ordered: 04/14/2019 documented as of this encounter Visit Diagnoses Diagnosis Encounter for rehabilitation- Primary documented in this encounter Care Teams Rn First Assist Relationship Specialty Start Date End Date Wang Urbina MD [address] [place] [address] Dr [place] [address] [place] [address], [place] [address] PCP - General Internal Medicine 04/14/19 documented as of this encounter Additional Source Comments The information contained in this document represents components of the legal health record. It is not the complete legal health record.[facility]
--- OUTSIDE RECORDS SUMMARY | 2025-08-09 05:17 | XMS_ITS | Patient Health Record ---
Author Organization [facility] danielle [place] Address [address] [place] [address] Care Team Providers Care Sugar Laboratory Assistant Name Role Phone Carlitso TARIQ [place] Primary Care Provider Allison Dos Santos Unavailable [phone] Allergies Allergen (clinical drug ingredient) Drug/Non Drug [...] . 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 Not-Taking LORazepam 1 MG Orally [...] Status W/U Status Risk Notes Problem Gout (57172966) Gout, unspecified (M10.9) Active confirmed Problem Acquired hallux valgus (22837115) Hallux valgus (acquired), right foot (M20.11) Active confirmed Problem Contracture of joint of right foot (disorder) (621829299508770 ) Contracture, right foot (M24.574) Active confirmed Problem Acquired hammer toe of right foot (391910894197665 5) Hammer toe of right foot (M20.41) Active confirmed Problem Vitamin D deficiency (09318918) Vitamin D deficiency (E55.9) Active confirmed Plan Of Treatment Pending Test Test Name Order Date Ultrasound : Extremity Ultrasound Non-Va mn 10/03/2020 X ray : Foot, left 3V [...] J0702- INJECT or DRAIN, JOINT/BUR SA 07/27/2019, N2652-ZEZKT/INJECT, JOINT/BURSA 0 05/09/2015, W2052-ASVDR/INJECT, JOINT/BURSA 1 10/26/2017, G0046-QBOHV/INJECT, JOINT/BURSA 0 06/02/2018, X5256-AWYWW/INJECT, JOINT/BURSA 0 11/19/2016 07654- Unna Boot 03/09/2019 PARATHYROID HORMONE INTACT (PTHI) 2018 VITAMIN D 25-OH (D2 D3) 06/28/2019 CT FOOT RT W&WO CONTRAST 06/28/2019 Insurance Providers Payer Name Payer Address Payer Phone Subscriber Number Group Number Insured Name Patient Relationship to Insured Coverage Start Date Coverage End Date Jordan [facility] [address] [place] [address] [phone] [id number] Laz Coleman Self - patient is [...]
--- OUTSIDE RECORDS SUMMARY | 2025-08-09 05:17 | XMS_ITS | Data Portability ---
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 Plan of Treatment Reminders Order Date Submit Date Provider Last Modified By Organization Details Last Modified Time Details Appointments ANNUAL EXAM 2024 09:20A M Misa Funk MD Not available Not available Not available Lab cytology report, thin prep, smear or scraping , cervical or vaginal 2023 024 SAPNA [facility] (Centralized Electronic Ordering - All Locations), Patient Can Go To The Location Of Their Choice, [id number] 08/09/2024 18:06:03 hemoglob in, gastroin testinal , stool 2023 024 [email or web address] 1 In-Office Order, Internal Use Only DO Not Attach Compendium DO Not Attach Compendium, Do Not Delete/merge, [id number] 08/03/2024 11:19:36 pap test, thinprep , cervical 2022 023 [facility] (Centralized Electronic Ordering - All Locations), Patient Can Go To The Location Of Their Choice, [id number] 08/03/2023 07:26:04 fecal occult blood, stool 2022 023 [email or web address] 1 In-Office Order, Internal Use Only DO Not Attach Compendium DO Not Attach Compendium, Do Not Delete/merge, [id number] 07/24/2023 09:26:50 pap test, thinprep , cervical 2021 022 [facility] (Centralized Electronic Ordering - All Locations), Patient Can Go To The Location Of Their Choice, [id number] 08/06/2022 07:34:27 fecal occult blood, stool 2021 022 [email or web address] 1 In-Office Order, Internal Use Only DO Not Attach Compendium DO Not Attach Compendium, Do Not Delete/merge, [id number] 07/23/2022 11:36:46 pap test, thinprep , cervical 2020 021 [facility], Cytopathology Service, [address] [place] [address], [address], 03/27/2021 07:27:54 fecal occult blood, stool 2020 021 [email or web address] In-Office Order, Internal Use Only DO Not Attach Compendium DO Not Attach Compendium, Do Not Delete/merge, [id number] 03/20/2021 10:56:46 pap test, thinprep , cervical 2018 019 [facility], Cytopathology Service, [address] [place] [address], [address], 04/13/2019 07:20:18 fecal occult blood, stool 2018 019 [facility] In-Office Order, Internal Use Only DO Not Attach Compendium DO Not Attach Compendium, Do Not Delete/merge, [id number] 04/13/2019 07:20:18 Referral None recorded . Procedures None recorded . Surgeries None recorded . Imaging MAMMO, screenin g, digital, bilatera l - Breast Aspirati on and/or Biopsy if needed 2023 024 [facility] (Mammo), [address] [facility] [place], [address], 07/31/2025 07:18:39 MAMMO, screenin g, digital, bilatera l - Breast Aspirati on and/or Biopsy if needed 2022 023 [facility] (Mammo), [address] [place] [address] [place], [address], 07/18/2024 07:30:31 MAMMO, screenin g, digital, bilatera l 2021 022 [facility] (Mammography), [address] [place] [address], [address], 07/20/2023 07:36:55 MAMMO, screenin g, digital, bilatera l 2020 021 [facility] (Mammo), [address] [facility] [place], [address], 05/16/2021 08:41:23 MAMMO, screenin g, digital, bilatera l 2018 019 [facility] (Mammo), 2 [facility] [place], [address], 05/11/2019 11:14:50 Medication Orders estradio l 1 mg tablet 2023 024 [facility], [address] [place] [address], [address], 08/03/2024 11:19:40 progeste jadon microniz ed 200 mg capsule 2023 024 [facility], [address] [place] [address], [address], 08/03/2024 11:19:40 estradio l 1 mg tablet 2022 023 [facility], [address] [place], [address], 07/24/2023 09:26:54 progeste jadon microniz ed 200 mg capsule 2022 023 [facility], [address] [place] [address], [address], 07/24/2023 09:26:54 estradio l 1 mg tablet 2021 022 [facility], [address] [place] [address], [address], 07/23/2022 11:36:50 progeste jadon microniz ed 200 mg capsule 2021 022 [facility], [address] [place] [address], [address], 07/23/2022 11:36:50 progeste jadon microniz ed 200 mg capsule 2020 021 [facility], [address] [place] [address], [address], 03/20/2021 10:25:05 estradio l 1 mg tablet 2020 021 [facility], [address] [place] [address], [address], 03/20/2021 10:25:06 estradio l 1 mg tablet 2018 019 [email or web address], [address] [place] [address], [id number], 04/06/2019 11:25:29 progeste jadon microniz ed 200 mg capsule 2018 019 [email or web address], [address] [place] [address], [id number], 04/06/2019 11:25:27 Patient TargetsNo targets recorded. Patient Instructions Encounter Date Encounter Id Patient Instructions Last Modified By Organization Details Last Modified Time 04/06/2019 [id number] She is here for annual exam, is [...] standardized exercise regimen, such as that at [employer] and she is given literature for this. We discussed a referral to a data capture clerk and/or weight family resource management specialist. All questions were answered. She deanna think [...] time postmenopausally. Not available 04/06/2019 11:41:44 03/20/2021 [id number] learning about healthy weight Not available 03/20/2021 [...] time postmenopausally. Not available 03/20/2021 10:25:43 07/23/2022 [id number] learning about healthy weight Not available 07/23/2022 [...] time postmenopausally. Not available 07/23/2022 11:37:06 07/24/2023 [id number] learning about healthy weight Not available 07/24/2023 [...] time postmenopausally. Not available 07/24/2023 09:27:22 08/03/2024 [id number] Flucelvax Quadrivalent 3611-0384 Influenza Vaccine Prefilled Syringe 0.5 mL (INFLUENZA [...] DO Not Attach Compendium, Do Not Delete/merge, [id number] 04/06/2019 11:14:45 04/06/2004/06/2019 pap, LB [id number] ThinP rep Pap, Image d: NEGAT AWAIS [...] NEG [Z12. 4, Z01.4 19] Not Available [facility], Cytopathology Service [address] [place], [address], 04/08/2019 18:04:59 03/20/20 21 03/20/2021 PAP1C ASE [id number] ThinP rep Pap, Image d: NEGAT AWAIS [...] neg, z12.4 , z01.4 19 Not Available [facility], Cytopathology Service [address] [place], [address], 03/22/2021 08:02:14 03/20/20 21 03/20/2021 fecal occul t blood , stool Occult Blood negati ve Not Available In-Office Order Internal Use Only DO Not Attach Compendium DO Not Attach Compendium, Do Not Delete/merge, [id number] 03/20/2021 09:42:27 07/23/20 22 07/23/2022 [facility] CYTOL OGY results Mattie nt Name: MOOK COLEMAN nt : 1959 (Age: 62) Lab Acces francesco #: [id number] Colle ction Date: 2021 Acces francesco Date: 2021 Sign Out Date: 08/01 Tissu e Sourc e: 1: THINP 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 Perfo rmed at [facility] ate Refer ence Labor atory depar tment of Cytol ogy, [address] [place] Clini jackie Histo ry (othe r): Z01.4 19, LPS 03/20 negat awais, routi ne scree n Phone #: [phone], On-Ca ll Patho logis t: [id number] Not Available [facility] (Centralized Electronic Ordering - All Locations) Patient Can Go To The Location Of Their Choice, [address] 08/01/2022 08:34:40 07/23/20 22 07/23/2022 fecal occul t blood , stool Occult Blood negati ve Not Available In-Office Order Internal Use Only DO Not Attach Compendium DO Not Attach Compendium, Do Not Delete/merge, [id number] 07/23/2022 10:27:46 07/24/20 23 07/24/2023 [facility] Mattie nt Name: MOOK COLEMAN nt : 1959 (Age: 63) Lab Acces francesco #: [id number] Colle ction Date: 2022 Acces francesco Date: 2022 Sign Out Date: 07/31 Tissu e Sourc e: 1: 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 Perfo rmed at [facility] ate Refer ence Labor atory depar tment of Cytol ogy, [address] [place] Clini jackie Histo ry (othe r): Z01.4 19, ROUTI NE SCREE N, LPS 07/23 NEG Phone #: [phone], On-Ca ll Patho logis t: [id number] Not Available [facility] (Centralized Electronic Ordering - All Locations) Patient Can Go To The Location Of Their Choice, [address] 07/31/2023 16:48:50 07/24/20 23 07/24/2023 fecal occul t blood , stool Occult Blood negati ve Not Available In-Office Order Internal Use Only DO Not Attach Compendium DO Not Attach Compendium, Do Not Delete/merge, [id number] 07/24/2023 09:08:53 08/03/20 24 08/09/2024 IGP, RFX APTIM A HPV ASCU diagnosis: Commen t NEGAT AWAIS FOR INTRA EPITH ELIAL LESIO N OR MALIG VIVI . Not Available [facility] ([facility]) [address], [place], [address], 08/09/2024 18:06:03 08/03/20 24 08/09/2024 IGP, RFX APTIM A HPV ASCU specimen adequacy: Bryan watson Satis facto ry for evalu ation . Not Available [facility] ([facility]) [address] [place], [address], 08/09/2024 18:06:03 08/03/20 24 08/09/2024 IGP, RFX APTIM A HPV ASCU clinician provided ICD10: Bryan watson Z01.4 19 Not Available [facility] ([facility]) [address] [place], [address], 08/09/2024 18:06:03 08/03/2008/09/2024 IGP, RFX APTIM A HPV ASCU performed by: Soo Quintana (ASCP ) Not Available [facility] ([facility]) [address] [place], [address], 08/09/2024 18:06:03 08/03/20 24 08/09/2024 IGP, RFX APTIM A HPV ASCU . . Not Available [facility] ([facility]) [address] [place], [address], 08/09/2024 18:06:03 08/03/2008/09/2024 IGP, RFX APTIM A HPV ASCU note: [...] ts do occur . Not Available [facility] ([facility]) [address] [place], [address], 08/09/2024 18:06:03 08/03/20 24 08/09/2024 IGP, RFX APTIM A HPV ASCU test methodology: Commen t This liqui d based ThinP rep(R ) pap test was tonei joel with the use of an image guide oneal mayorga Not Available [facility] ([facility]) [address] [facility], [place], [address], 08/09/2024 18:06:03 08/03/20 24 08/09/2024 IGP, RFX APTIM A HPV ASCU . Commen t The HPV DNA refle x crite jodi were not met with this speci men resul t there fore, no HPV testi ng was perfo rmed. Not Available [facility] ([facility]) [address] [facility], [place], [address], 08/09/2024 18:06:03 08/03/20 24 08/03/2024 hemog lobin , gastr ointe gio l, stool Occult Blood negati ve Not Available In-Office Order Internal Use Only DO Not Attach Compendium DO Not Attach Compendium, Do Not Delete/merge, [id number] 08/03/2024 10:46:21 05/11/20 19 05/06/2019 MAMMO tonie gurpreet, digit al, bilat eral No observ ation record ed. BARCODE [facility] ([facility]) [address] [place] [address] [place], [address], 05/11/2019 11:14:50 05/18/20 20 05/09/2020 MAMMO nikianmol vázquez, digit al, bilat eral No observ ation record ed. BARCODE Not Available 2019 08:31:17 05/16/2005/15/2021 MAMMO nikianmol vázquez, digit al, bilat eral No observ ation record ed. [facility] (Mammo) [address] [place] [address] [place], [address], 05/16/2021 08:43:29 Result Notes None recorded. Problems Name Problem SNOMED Code Status Onset Date Resolution Date Notes Provider Name and Address Organization Details Recorded Time Premature menopause 535611051 Active age 42 Misa Funk MD [address] [facility] [address], [place], [address] , [place] - [facility], 5 10:18:40 Raynaud's disease 057091690 Active Not Available [facility] 3 03:01:05 Tobacco dependence syndrome 48387344 Active Not Available [facility] 3 03:01:05 Gout 44009908 Active 2016 Lin manjarrez [place] - [facility], 7 10:32:56 Rheumatoid arthritis 57714859 Active 2021 Lin manjarrez [place] - [facility] [...] 10:33:58 12/26/19 17 Other completed Lin Meclexiywor [place] - [facility], 04/06/2019 11:13:59 09/21/18 83 Caesarean Section completed Lin De La Torre [place] - [facility], 10/13/2012 10:48:33 09/21/18 74 Appendectomy completed Lin Wilmawchevy [place] - [facility], 10/13/2012 10:48:33 Imaging Results None recorded. Procedure Notes None recorded. Medical Equipment None Reported. Allergies Allergen ID Allergen Name Allergen Category Reaction Reaction Severity Criticality Documentation Date Start Date Code Code System Note Provider Name and Address Organization Details Recorded Time 75516 hydroxych loroquine medicatio n hives Not available Not available 07/24/2023 5521 RxNorm Lin Wilmawor null, [place] - [facility], 3 09:14:17 6281 Bactrim medicatio n rash Not available Not available 10/13/2012 43773 9 RxNorm Linwilfrid De La Torre ANA M manjarrez [facility], 3 10:48:33 6282 Ceclor medicatio n rash Not available Not available 10/13/2012 59230 5 RxNorm Linwilfrid De La Torre ANA M [facility], 3 10:48:33 6283 Substance with sulfonami de structure and antibacte rial mechanism of action (substanc e) medicatio n rash Not available Not available 10/13/2012 76251 8003 SNOMED Lin De La Torre ANA M [facility], 3 10:48:33 6284 Product containin g penicilli n (product) medicatio n chest pain Not available Not available 10/13/2012 78010 8001 SNOMED Linwilfrid De La Torre ANA M [facility], 3 [...] THEN 1 TABLET DAILY FOR 4 DAYS 08/01 completed Not Available Not Available Not Available [...] Not Available naproxen 250 mg tablet TAKE TWO TABLETS BY MOUTH TWICE A DAY NEEDED FOR PAIN active Not Available Not Available No t Available allopurinol 100 mg tablet TAKE ONE TABLET BY MOUTH EVERY DAY active Not Available Not Available No t Available tramadol 50 mg tablet TAKE ONE TABLET BY MOUTH THREE TIMES A DAY NEEDED FOR PAIN active Not Available Not Available No t Available oxycodone-a cetaminophe n 5 mg-325 mg tablet 04/06 completed Not Available Not Available Not Available estradiol 1 mg tablet TAKE 1 TABLET BY MOUTH ONCE DAILY. active Not Available Not Available No t Available nifedipine 10 mg capsule TAKE ONE CAPSULE BY MOUTH TWICE A DAY active Not Available Not Available No t Available oseltamivir 75 mg capsule 03/31 completed Not Available Not Available Not Available metronidazo le 0.75 % topical cream 03/12 completed Not Available Not Available Not Available indomethaci n 25 mg capsule TAKE ONE CAPSULE(S ) THREE T IMES A DAY NEEDED W ITH FOOD BY MOUTH 04/06 completed Not Available Not Available Not Available progesteron e micronized 200 mg capsule TAKE 1 CAPSULE BY MOUTH AT BEDTIME. active Not Available Not Available No t Available gabapentin 300 mg capsule 04/06 completed Not [...] Not Available Not Available Not Available Fluvirin 7593-6404 45 mcg (15 mcg x 3)/0.5 mL [...] index (BMI) Body weight Heart rate Systolic And Diastolic Provider Name and Address Organization Details Last Updated DateTime 03/20/2021 153.67 cm 27.3 kg/m2 99622.12 g 73 /min 138/89 mm[Hg] Monika Maldonado [place] [facility], 03/20/2021 09:45:42 Date Recorded Body weight Body mass index (BMI) Body height Heart rate Systolic And Diastolic Provider Name and Address Organization Details Last Updated DateTime 04/06/2019 63169.84 g 27.3 kg/m2 153.67 cm 82 /min 139/84 mm[Hg] Lin [facility], 04/06/2019 11:09:33 Date Recorded Body weight Body mass index (BMI) Body height Body temperature Heart rate Systolic And Diastolic Provider Name and Address Organization Details Last Updated DateTime 2 59694.3 8 g 30.2 kg/m2 152.4 cm 98.1 [degF] 76 /min 111/72 mm[Hg] Lin [facility], 2 10:29:40 Date Recorded Body weight Body mass index (BMI) Body height Body temperature Heart rate Systolic And Diastolic Provider Name and Address Organization Details Last Updated DateTime 3 46018.1 7 g 28.1 kg/m2 156.21 cm 97.1 [degF] 77 /min 126/75 mm[Hg] Lin [facility], 3 09:12:23 Date Recorded Body height Body mass index (BMI) Body weight Heart rate Body temperature Systolic And Diastolic Provider Name and Address Organization Details Last Updated DateTime 4 152.4 cm 29.3 kg/m2 82408.5 7 g 78 /min 97.2 [degF] 132/80 mm[Hg] Lin [facility], 4 09:53:51 Social History Question Answer Notes LastModified by Organizat ion Details LastModified Time Tobacco Smoking Status Former Smoker quit over 2 yrs ago Not Available [facility] 07/24/2020 03:19:37 How Many Years Have You Consumed Alcohol? 40 Information not available 07/23/2022 What Is Your Level Of Caffeine Consumption? Occasional [id number] Information not available 07/24/2020 In The 14 [...] Type Of Diet Are You Following? REGULAR [id number] Information not available 07/24/2020 Which Illicit Or Recreational Drugs Have You Used? No [id number] Information not available 07/24/2020 Do You Reside In Or Have You Traveled To An Area Where Ebola Virus Transmission Is Active? No [id number] Information not available 07/24/2020 Education 10 Information no t available 10/13/2012 What Is The Highest Grade Or Level Of School You Have Completed Or The Highest Degree You Have Received? [id number] Information not available 07/23/2022 How Many Days [...] available 03/20/2021 Are You Sexually Active? Yes [id number] Information not available 07/24/2020 At What Age Did You Start Smoking Tobacco? 15 Information not available 07/23/2022 How Much Tobacco Do You Smoke? No [id number] Information not available 07/24/2020 General Stress Level [...] 03/20/2021 What is your exercise level? Moderate [id number] Information not available 07/24/2020 Mental Status Question Answer Note LastModified by Organization D etails LastModified Time Do you feel stressed (tense, restless, nervous, or anxious, or unable to sleep at night)? [id number] Information not available 07/23/2022 Family History Relationship [...] null, [place] - [facility], 08/04/2024 07:45:25 COVID-19, mRNA, LNP-S, PF, 100 mcg/0.5mL dose or 50 mcg/0.25mL dose 1 completed Lin Meczywor null, [place] - [facility], 07/24/2023 09:11:02 COVID-19, mRNA, LNP-S, PF, 100 mcg/0.5mL dose or 50 mcg/0.25mL dose 1 completed Lin Meczywor null, [place] - [facility], 07/24/2023 09:11:02 Influenza, split virus, quadrivalent, preservative 9 completed Lin Meczywor null, [place] - [facility], 07/24/2023 09:11:02 Influenza, split virus, quadrivalent, preservative 6 completed Lin Meczywor null, [place] - [facility], 07/24/2023 09:11:02 COVID-19, mRNA, LNP-S, PF, 100 mcg/0.5mL dose or 50 mcg/0.25mL dose 1 completed Lin Meczywor null, [place] - [facility], 07/24/2023 09:11:02 influenza, unspecified formulation 3 completed Lin Meczywor null, [place] - [facility], 07/24/2023 09:11:02 Tdap 6 completed Lin Meczywor null, [place] - [facility], 07/24/2023 09:11:02 Influenza, split virus, trivalent, preservative 3 completed Lin Meczywor null, [place] [facility], 07/24/2023 09:11:02 Influenza, split virus, quadrivalent, PF 1 completed Lin Meczywor null, [place] [facility], 07/24/2023 09:11:02 Influenza, split virus, quadrivalent, PF 2 completed Lin Meczywor null, [place] - [facility], 07/24/2023 09:11:02 zoster recombinant 3 completed Lin Meczywor null, [place] - [facility], 08/03/2024 09:54:25 Influenza, split virus, quadrivalent, PF 3 completed Lin Meczywor null, [place] - [facility], 08/03/2024 09:54:25 Past Encounters Encounter ID Performer Location Encounter Start Date Encounter Closed Date Diagnosis/Indication Diagnosis SNOMED-CT Code Diagnosis ICD10 Code Diagnosis IMO Codes Diagnosis Note [id number] MD MISA Moeller MD [address] [place] [address], [address] [address] 10/13/2012 10:26:40 10/14/2012 08:47:29 [id number] MD MISA Moeller MD [address] [place] [address] [address] [place] [address] 10/19/2013 10:01:08 10/19/2013 12:32:51 Specialized medical examination 25496667 Screening for malignant neoplasm of rectum 982693818 Screening mammography 89710243 [id number] MD MISA Moeller MD [address] [place] [address], [address] [place] [address] 03/07/2015 09:50:50 03/07/2015 11:16:06 Specialized medical examination 40950514 Screening for malignant neoplasm of rectum 675197565 Screening mammography 79276281 Premature menopause 770736478 [id number] MD MISA Moeller MD [address] [place] [address],[facility] [place] [address] 03/12/2016 09:50:27 03/12/2016 11:26:00 Specialized medical examination 64739209 Z01.419 Screening for malignant neoplasm of rectum 025858094 Z12.12 Screening mammography 24 605358 Z12.31 Menopausal syndrome 1237 97207 N95.9 [id number] MD MISA Moeller MD [address] [place] [address],[facility] [place] [address] 03/18/2017 10:22:10 03/18/2017 11:59:19 Specialized medical examination 45194347 Z01.419 Screening for malignant neoplasm of rectum 166545210 Z12.12 Screening mammography 24 451562 Z12.31 Premature menopause 3737 76797 E28.319 [id number] MD MISA Moeller MD [address] [place] [address],[address] [address] 03/31/2018 10:53:30 03/31/2018 11:37:14 Specialized medical examination 94758912 Z01.419 Screening for malignant neoplasm of rectum 428521319 Z12.12 Screening mammography 24 853147 Z12.31 Premature menopause 3737 06309 E28.310 [id number] MD MISA Moeller MD [address] [place] [address],[facility] [place] [address] 04/06/2019 10:44:21 04/06/2019 11:56:33 Premature menopause 754263588 E28.310 Specialize d medical examination 08714587 Z01.419 Screening for malignant neoplasm of rectum 071436886 Z12.12 Screening mammography 24 028427 Z12.31 [id number] MD MISA Moeller MD [address] [place] [address],[facility] [place] [address] 03/20/2021 09:39:06 03/20/2021 10:56:30 Specialized medical examination 31213822 Z01.419 Screening for malignant neoplasm of rectum 557443204 Z12.12 Screening mammography 24 126429 Z12.31 Premature menopause 3737 50528 E28.310 [id number] MD MISA Moeller MD [address] [facility] [address] [place] [address] 07/23/2022 10:25:16 07/23/2022 11:40:26 Specialized medical examination 33141259 Z01.419 Screening for malignant neoplasm of rectum 267676984 Z12.12 Screening mammography 24 094009 Z12.31 Premature menopause 3737 70063 E28.310 [id number] MD MISA Moeller MD [address] [facility], [address] [place] [address] 07/24/2023 09:05:23 07/24/2023 09:33:48 Specialized medical examination 10792253 Z01.419 Screening for malignant neoplasm of rectum 637222210 Z12.12 Screening mammography 24 614967 Z12.31 Premature menopause 3737 84874 E28.310 [id number] MD MISA Moeller MD [address] [facility], [address] [place] [address] 08/03/2024 09:49:22 08/03/2024 11:39:20 Premature menopause 888717813 E28.310 Influenza vaccine needed 2020100205 106 Z23 Specialize d medical examination 47241892 Z01.419 Screening for malignant neoplasm of rectum 955404729 Z12.12 Screening mammography 24 562318 Z12.31 Health Concerns Section Related Observation LastModified by Organization Detai ls LastModified Time None Recorded Concern Status LastModified by Organization Details LastModified Time None Recorded Advance Directives Directive None Recorded Payers Insurance Date Sequence Insurance Name Policy Number Policy Hoffmann Covered Member ID Hoffmann Member ID Guarantor Name 07/24/2023 2 [id number] Julio César Coleman [id number] Laz Coleman 08/03/2024 1 [facility] FUND - LOCAL 371 (PPO) Laz Coleman [id number] Laz Coleman 08/03/2024 1 [employer] [id number] 5 Laz Coleman [id number] Laz Coleman 08/01/2025 1 [place] [id number] 5 Laz Coleman [id number] Laz Coleman Notes Date Note Type [...] few years ago. Misa Funk MD [address], [place], [id number], [facility], 04/06/2019 11:42:02 03/20/2021 text/html She is here for annual exam, doing well on HRT, now has three grandchildren! note from 2019: She is here for annual exam, is doing well on the HRT and elects to continue. She is going to become a grandmother in April! Misa Funk MD [address] [facility],[address], [place], [phone], [facility], 03/20/2021 10:26:02 07/23/2022 text/html She is here for annual exam, doing well on HRT, now has three grandchildren!She had premature ovarian failure age 42. Misa Funk MD [address] [facility],[address], [place], [phone], [place] [facility], 07/23/2022 11:37:27 07/24/2023 text/html She is here for annual exam, doing well on HRT, now has three grandchildren!She had premature ovarian failure age 42. Misa Funk MD [address], [place], [phone], [place] [facility], 07/24/2023 09:27:56 08/03/2024 text/html [...] how to do that. Misa Funk MD [address] [place] [address],[address], [place], [phone], [place] [facility], 08/03/2024 11:20:55 OBGyn Episode No OBEpisode recorded.
== END 2025-08-08 14:00 | disposition home or self-care (01) ==
LOC: HO.RHES 13:10
PROVIDERS: PCP Internal Medicine; Visit Provider Student in an Organized Health Care Education/Training Program
DX: R23.8 Other skin changes (principal)
CPT/HCPCS: 99213